=== PATIENT | female | born 1945 | race Caucasian/White ===

== ENCOUNTER 2024-01-01 08:19 | Outpatient (CLI) | payer MEDICARE, BC, SELFPAY | END 2024-01-01 08:20 | disposition home or self-care (01) | LOC: AMB 01-04 14:16 | PROVIDERS: Visit Provider Family Medicine | DX: R06.09 Other forms of dyspnea (principal) | CPT/HCPCS: A0425; A0427 ==

== ENCOUNTER 2024-01-01 09:01 | Inpatient (IN) | payer MEDICARE, BC, SELFPAY ==
[2024-01-01] VITALS (17 sets, daily range): BP systolic 128–156; BP diastolic 65–98; PULSE 53–85; RESP 18–22; TEMP 36.3–36.8; O2SAT 90–95; BMI 27.5; BMI 25.6
--- NOTE | 2024-01-01 09:34 | ED_ITS ---
HPI - SOB/Dyspnea General Time Seen by Provider: 09:34 Date Seen: 01/01/24 Chief Complaint: Shortness of Breath/Dyspnea Stated Complaint: shortness of breath Time Seen by Provider: 01/01/24 09:33 Source: patient, EMS and RN notes reviewed Mode of arrival: EMS Limitations: no limitations History of Present Illness HPI Narrative: This 78-year-old female is brought in from home by ambulance for shortness of breath. She called the ambulance because she was feeling short of breath. She is a long-term smoker, has not seen a doctor for over 10 years. She is having no chest pain. Has had a productive cough that is getting increasingly worse. No fevers or chills. She states her legs of always been thick when questioned about edema. She states her appetite is okay, has been eating and drinking fine. She is not taking any medicines. No chest pain. MD elicited complaint: shortness of breath and cough Related Data Home oxygen amount: none Home Medications Medication Instructions Recorded Confirmed doxylamine succinate 25 mg tablet 25 mg PO QHS 01/01/24 01/01/24 (Unisom (doxylamine)) naproxen sodium 220 mg capsule 220 mg PO HS 01/01/24 01/01/24 (Aleve) Allergies Allergy/AdvReac Type Severity Reaction Status Date / Time No Known Drug Allergies Allergy Verified 01/01/24 11:50 Review of Systems Status of ROS: Reports: 6 or more systems reviewed and unremarkable except as noted in History and below [facility] Medical History (Updated 01/01/24 @ 15:09 by Bubba Ernst MD) Peripheral vascular disease ?I73.9 - Peripheral vascular disease, unspecified (ICD-10) Elbow fracture, left ?S42.402A - Unspecified fracture of lower end of left humerus, initial encounter for closed fracture (ICD-10) Fracture of left tibia and fibula ?S82.202A - Unspecified fracture of shaft of left tibia, initial encounter for closed fracture (ICD-10) ?S82.402A - Unspecified fracture of shaft of left fibula, initial encounter for closed fracture (ICD-10) Left wrist fracture ?S62.102A - Fracture of unspecified carpal bone, left wrist, initial encounter for closed fracture (ICD-10) Coronary artery disease ?I25.10 - Atherosclerotic heart disease of [place] coronary artery without angina pectoris (ICD-10) Iron deficiency anemia ?D50.9 - Iron deficiency anemia, unspecified (ICD-10) Tobacco abuse disorder ?Z72.0 - Tobacco use (ICD-10) Chronic toe ulcer ?L97.509 - Non-pressure chronic ulcer of other part of unspecified foot with unspecified severity (ICD-10) Afib ?I48.91 - Unspecified atrial fibrillation (ICD-10) CHF (congestive heart failure) ?I50.9 - Heart failure, unspecified (ICD-10) COPD (chronic obstructive pulmonary disease) ?J44.9 - Chronic obstructive pulmonary disease, unspecified (ICD-10) Family History (Updated 01/01/24 @ 14:55 by Bubba Ernst MD) Mother Leukemia Sister Alzheimers disease Social History (Updated 01/01/24 @ 14:57 by Bubba Ernst MD) Narrative: 78-year-old female living independently in [facility]. No current primary care provider. Present in the hospital today with her daughter Muriel who lives in [place]. Also has a son Dakota who lives in [place]. Smoked for many years, quit 10 years ago and started smoking again 3 months ago. He drinks 2 beers per day. Reports no withdrawal symptoms if she does not drink for a day. Daughter and son are healthcare power of district attorney. Code status is DNR DNI What is your current living situation?: I presently have a place to live Problems where you live: no known problems Problems where you live details: N/A In the past 12 months, utilities in danger of being shut off: no In past 12 months, lack of transportation kept you from medical appts, meetings, work, or getting things needed for daily living: no In the past 12 mos, have been you worried that your food would run out before you had money to buy more?: never true In the past 12 mos, the food you bought just didn't last and you didn't have money to buy more?: never true Highest level of school completed/degree received: some college, no degree Smoking Status: Current every day smoker What tobacco products do you use: cigarettes How often do you have a drink containing alcohol: 4 or more times a week Alcohol type: beer How many standard drinks containing alcohol do you have on a typical day: 1 or 2 How often do you have six or more drinks on one occasion: Weekly AUDIT-C Alcohol total score: 7 Non-prescribed substance use: denies use Caffeine: Yes How often does anyone, including family, friends and others, physically hurt you : never How often does anyone, including family, friends and others, insult or talk down to you: never How often does anyone, including family, friends and others, threaten you with harm: never How often does anyone, including family, friends and others, scream or curse at you: never service: No Exam Const: Vital Signs, click to edit/add: Vital Signs - 24 hr 01/01/24 09:15 01/01/24 09:45 01/01/24 12:25 Temperature 97.4 F L Pulse Rate 53 L Pulse Rate [Right Pulse Oximeter] 85 Respiratory Rate 20 Blood Pressure Blood Pressure [Le ft Arm] Blood Pressure [Ri ght Upper Arm] 148/65 H Pulse Oximetry 94 94 95 Oxygen Delivery Me thod Room Air 01/01/24 12:30 01/01/24 12:31 01/01/24 13:22 Temperature 98 F Pulse Rate 61 68 Pulse Rate [Right Pulse Oximeter] 76 Respiratory Rate 22 Blood Pressure 135/68 Blood Pressure [Le ft Arm] 156/65 H Blood Pressure [Ri ght Upper Arm] Pulse Oximetry 93 92 90 Oxygen Delivery Me thod Room Air 01/01/24 13:31 Temperature Pulse Rate Pulse Rate [Right Pulse Oximeter] Respiratory Rate 22 Blood Pressure Blood Pressure [Le ft Arm] Blood Pressure [Ri ght Upper Arm] Pulse Oximetry 90 Oxygen Delivery Me thod Room Air This 78-year-old female is alert, interactive, no apparent distress. Doing some pursed lip breathing but she has no blueness or discoloration of the lips. Pupils are equal round, conjugate gaze sclera clear. Symmetrical facial function. Able to speak in complete sentences. Her pulse oximetry is not picking up a good waveform, fingers are a bit cool but not cyanotic. She has diminished breath sounds more so on the right base, maybe a few crackles there. Otherwise more just distant breath sounds elsewhere, no wheezing noted. CV is irregular, do not hear any significant murmur, normal S1-S2. Abdomen is soft, no rebound or guarding, no organomegaly. Her lower extremities have thickening of the skin, some bronzing color and pitting edema. She no pain in her lower extremities. She is moving all of her extremities equally. She has no focal neurologic change on gross examination. Note no tremor. While I was in with the patient she did go down into the 40s on the case monitor with atrial fibrillation. Shortly after I was in with the patient nursing staff noted that she had a drop into the 30s and 40s after being in the 80s on arrival. There is no change in her status clinically however. Documenting provider has reviewed patient's vital signs: yes Course Course ED Course: Have reviewed with this patient and on 2 female relatives with her that she has atrial fibrillation. We did review the significance of this as being a stroke issue long-term. We need to do more workup on this patient. We need to consider emphysema or COPD given her long-term smoking history, possible infectious or even underlying cancerous process in this right lung. Will start with a portable chest x-ray. Will get triple swab. She will be on cardiac monitoring and pulse oximetry. Will get a full complement of labs including cardiac as well as thyroid given that this patient has had no evaluation for over 10 years per Reevaluation(s) Time of Reevaluation #1: 11:11 Reevaluation #1: Reviewed my preliminary findings on her portable chest x-ray, do see a pleural effusion on the right, the could be a possible infiltrate at the base. With her coughing, respiratory symptoms as well as an elevated D-dimer which we did review, will proceed with chest CT PE protocol. Her heart rate is currently in the 60s, she is coughing some but not hypoxic. Will continue in our workup. Time of Reevaluation #2: 12:28 Consultations Consultation #1: Reviewed with hospitalist Brynn Keller, she accepts patient, will be giving 40mg IV Lasix. Time: 12:25 Vital Signs Vital signs: Initial Vital Signs Temperature 97.4 F L 01/01/24 09:15 Temperature Source Temporal Artery Scan 01/01/24 09:15 Pulse Rate 85 01/01/24 09:15 Respiratory Rate 20 01/01/24 09:15 Blood Pressure 148/65 H 01/01/24 09:15 Blood Pressure Mean 92 01/01/24 09:15 Blood Pressure Position Sitting 01/01/24 09:15 Pulse Oximetry 94 01/01/24 09:15 Oxygen Delivery Method Room Air 01/01/24 09:15 Vital Signs Temperature 97.4 F L 01/01/24 09:15 Pulse Rate 85 01/01/24 09:15 Respiratory Rate 20 01/01/24 09:15 Blood Pressure 148/65 H 01/01/24 09:15 Pulse Oximetry 94 01/01/24 09:15 Oxygen Delivery Method Room Air 01/01/24 09:15 Temperature 98 F 01/01/24 14:39 Pulse Rate 70 01/01/24 16:07 Respiratory Rate 22 01/01/24 15:00 Blood Pressure 156/65 H 01/01/24 14:39 Pulse Oximetry 91 01/01/24 15:00 Oxygen Delivery Method Room Air 01/01/24 15:00 Medications Administered Medications: Generic Name Dose Route Start Last Admin Trade Name Freq PRN Reason Stop Dose Admin Albuterol/Ipratropium 1 neb 01/01/24 17:00 01/01/24 16:36 Iprat-Albut 0.5-2.5 Mg/3 Ml Neb IH 1 neb QID CHARITO Administration Discontinued Medications Generic Name Dose Route Start Last Admin Trade Name Freq PRN Reason Stop Dose Admin Furosemide 40 mg 01/01/24 12:28 01/01/24 12:55 Furosemide 10 Mg/Ml Inj IVP 01/01/24 12:29 40 mg ONCE ONE Administration Potassium Bicarbonate 50 meq 01/01/24 14:34 01/01/24 15:19 Potassium Bicarb 25 Meq Effervescent Tab PO 01/01/24 14:35 50 meq ONCE ONE Administration MDM - SOB/Dyspnea Lab Data Attestation: I reviewed the patient's lab results. Labs: Lab Results 01/01/24 01/01/24 01/01/24 Range/Units 09:55 09:55 09:55 WBC 10.71 (4.50-11.00) K/uL RBC 4.01 (4.00-5.20) m/uL Hgb 10.8 L (12.0-16.0) gm/dL Hct 33.6 (33.0-51.0) % MCV 84 (80-100) fL MCH 27 (26-34) pg MCHC 32 (32-36) gm/dL RDW Coeff of Jaimie 14.9 (11.5-15.5) % Plt Count 293 (140-440) K/uL Neut % (Auto) 54.0 (42.0-72.0) % Lymph % (Auto) 13.9 L (20-44) % [facility] % (Auto) 27.5 H (0.0-11.0) % Eos % (Auto) 0.0 (0.0-7.0) % Baso % (Auto) 0.6 (0.0-3.0) % Neut # (Auto) 5.78 (1.7-7.0) K/uL Lymph # (Auto) 1.50 (0.90-2.90) K/uL [facility] # (Auto) 2.90 H (0.00-0.90) K/UL Eos # (Auto) 0.00 (0.00-0.50) K/uL Baso # (Auto) 0.06 (0.00-0.30) K/uL Abs Immat Gran (auto) 0.43 H (0.00-0.30) K/uL Imm/Tot Granulo (auto) 4.0 % Diff Slide Review Acceptable Review (Acceptable) Absolute Retic 0.08 (0.03-0.08) # Percent Retic 2.0 (0.5-2.0) % Immature Retic Fraction 13.3 (3.0-15.9) % Retic Hgb Equivalent 21.2 L (29.0-35.0) pg INR 1.17 H (0.91-1.10) APTT 37 H Cancelled (23-33) Seconds D-Dimer Quant (PE/DVT) 1.53 H (0.00-0.50) ug/ml VBG pH 7.387 (7.32-7.43) VBG pCO2 41 (40-50) mmHG VBG pO2 < 30.1 (25-47) mmHG VBG HCO3 25 (21-28) mmol/L Sodium 139 (135-149) mmol/L Potassium 4.0 (3.6-5.1) mmol/L Chloride 113 (96-114) mmol/L Carbon Dioxide 22 (20-32) mmol/L Anion Gap 4 L (7-15) mEq/L BUN 11 (7-30) mg/dL Creatinine 0.8 (0.5-1.5) mg/dL Estimated Creat Clear 38.35 Estimated GFR 75 ml/min Glucose 91 (60-115) mg/dL Lactate 1.3 (0.5-1.9) mmol/L Calcium 8.3 L (8.4-10.6) mg/dL Magnesium 1.9 (1.5-2.6) mg/dL Iron Cancelled TIBC Cancelled % Saturation Cancelled Ferritin Cancelled Total Bilirubin 0.7 (0.1-1.5) mg/dL AST 17 (12-35) U/L ALT 19 (4-35) U/L Alkaline Phosphatase 85 (40-150) U/L Troponin I < 0.01 L Cancelled (0.01-0.04) ng/mL C-Reactive Protein 2.8 H (0.5-1.0) mg/dL NT-Pro-B Natriuret Pep 5860 pg/mL Total Protein 6.9 (6.0-8.3) g/dL Albumin 3.1 L (3.3-5.0) g/dL Procalcitonin 0.09 (<0.50) ng/mL TSH 4.600 H (0.270-4.200) uIU/mL Free T4 1.34 (0.70-1.85) ng/dL SARS-CoV-2 (PCR) Negative SARS-CoV-2 (Negative) Influenza Type A (PCR) Negative PCR FLU A (Negative) Influenza Type B (PCR) Negative PCR FLU B (Negative) RSV (PCR) Negative PCR RSV (Negative) Lab Acknowledgement 01/01/24 01/01/24 Range/Units 11:15 12:51 WBC (4.50-11.00) K/uL RBC (4.00-5.20) m/uL Hgb (12.0-16.0) gm/dL Hct (33.0-51.0) % MCV (80-100) fL MCH (26-34) pg MCHC (32-36) gm/dL RDW Coeff of Jaimie (11.5-15.5) % Plt Count (140-440) K/uL Neut % (Auto) (42.0-72.0) % Lymph % (Auto) (20-44) % [facility] % (Auto) (0.0-11.0) % Eos % (Auto) (0.0-7.0) % Baso % (Auto) (0.0-3.0) % Neut # (Auto) (1.7-7.0) K/uL Lymph # (Auto) (0.90-2.90) K/uL [facility] # (Auto) (0.00-0.90) K/UL Eos # (Auto) (0.00-0.50) K/uL Baso # (Auto) (0.00-0.30) K/uL Abs Immat Gran (auto) (0.00-0.30) K/uL Imm/Tot Granulo (auto) % Diff Slide Review (Acceptable) Absolute Retic (0.03-0.08) # Percent Retic (0.5-2.0) % Immature Retic Fraction (3.0-15.9) % Retic Hgb Equivalent (29.0-35.0) pg INR (0.91-1.10) APTT (23-33) Seconds D-Dimer Quant (PE/DVT) (0.00-0.50) ug/ml VBG pH (7.32-7.43) VBG pCO2 (40-50) mmHG VBG pO2 (25-47) mmHG VBG HCO3 (21-28) mmol/L Sodium (135-149) mmol/L Potassium (3.6-5.1) mmol/L Chloride (96-114) mmol/L Carbon Dioxide (20-32) mmol/L Anion Gap (7-15) mEq/L BUN (7-30) mg/dL Creatinine (0.5-1.5) mg/dL Estimated Creat Clear Estimated GFR ml/min Glucose (60-115) mg/dL Lactate (0.5-1.9) mmol/L Calcium (8.4-10.6) mg/dL Magnesium (1.5-2.6) mg/dL Iron 35 L TIBC 387 % Saturation 9 L Ferritin 21.5 Total Bilirubin (0.1-1.5) mg/dL AST (12-35) U/L ALT (4-35) U/L Alkaline Phosphatase (40-150) U/L Troponin I (0.01-0.04) ng/mL C-Reactive Protein (0.5-1.0) mg/dL NT-Pro-B Natriuret Pep pg/mL Total Protein (6.0-8.3) g/dL Albumin (3.3-5.0) g/dL Procalcitonin (<0.50) ng/mL TSH (0.270-4.200) uIU/mL Free T4 (0.70-1.85) ng/dL SARS-CoV-2 (PCR) (Negative) Influenza Type A (PCR) (Negative) Influenza Type B (PCR) (Negative) RSV (PCR) (Negative) Lab Acknowledgement Test Added Imaging Data Chest x-ray: Attestation: I have reviewed the pertinent imaging results. My impression: Certainly see pleural effusion on right side. Await Radiology over-read peer Radiologist's impression: Patient: PEG LOVING Facility:?[facility] Patient ID:?[id number] Site Patient ID:?[id number]. Site :?1945 Study:?XRay Chest PCXR-01/01/2024 11:07:19 AM Ordering Physician:THERESA Final Report: Indication: Cough and shortness of breath Comparison: None available. Technique: Single AP view chest Findings: There is hyperinflation and chronic interstitial change. Bjbfr-pxgtzxo-touw-left basilar pleural effusions with adjacent compressive atelectasis versus infiltrates. There is no pneumothorax. The cardiac silhouette is enlarged. The bony thorax is grossly intact. Impression: Umhhy-cfomnql-fppv-left basilar pleural effusions with adjacent compressive atelectasis versus infiltrates. Mildly increased interstitial markings likely representing minimal pulmonary edema. Dictated by Wyatt Rocha MD @ 01/01/2024 11:32:35 AM (Electronic Signature) CT scan - chest: Attestation: I have reviewed the pertinent imaging results. My impression: Did visualize her chest CT, do see bilateral pleural effusions, right greater than left. Await Radiology over-read for full formal report. Radiologist's impression: Patient: PEG RAMON Facility:?[facility] Patient ID:?[id number] Site Patient ID:?[id number]. Site :?1945 Study:?CT Chest PE 95CC ISOVUE 370-01/01/2024 11:50:34 AM Ordering Physician:?DR. YOO Final Report: INDICATION: Cough, smoker, elevated D-dimer. TECHNIQUE: CT chest PE was acquired with 95 cc Isovue 370 IV contrast. COMPARISON: Chest x-ray, January 01, 2024. FINDINGS: Heart and vasculature: Contrast opacification of the pulmonary arterial tree is adequate. No sign of pulmonary embolism. Cardiomegaly with coronary artery calcifications. Thoracic aorta and pulmonary artery are normal in caliber. Lungs and pleura: Pulmonary emphysema. Pulmonary edema. Small to moderate bilateral pleural effusions greater on the right side with compressive atelectasis. No pneumothorax. Lymph nodes/mediastinum: No mediastinal, hilar, or axillary adenopathy. Chest wall: No masses. Upper abdomen: No acute or significant findings. Bones: Age indeterminate mild T6 superior endplate compression deformity. Recommend correlation with point tenderness. IMPRESSION: No pulmonary embolism Sequela of CHF, including mild pulmonary edema and small to moderate bilateral pleural effusions. Pulmonary emphysema. Cardiomegaly with coronary artery calcifications. Please note that all CT scans at this facility use dose modulation, iterative reconstruction, and/or weight-based dosing when appropriate to reduce radiation dose to as low as reasonably achievable. Dictated by Robin Joiner MD @ 01/01/2024 12:17:17 PM (Electronic Signature) ECG Data Attestation: I personally reviewed and interpreted this ECG as follows: ( atrial fibrillation, inferolateral as well as possible anterior flipped T-waves without definite ST segment changes. QT corrected 548 milliseconds.) ECG interpretation date: 01/01/24 ECG interpretation time: 09:52 Prior ECG tracings: not available for review Discharge Plan Discharge Patient Disposition: Admitted As Observation
--- NOTE | 2024-01-01 09:45 | XR_ITS ---
Patient: PEG RAMON Facility:?[facility] Patient ID:?[id number] Site Patient ID:?[id number]. Site :?1945 Study:?XRay-Chest PCXR-01/01/2024 11:07:19 AM Ordering Physician:THERESA Final Report: Indication: Cough and shortness of breath Comparison: None available. Technique: Single AP view chest Findings: There is hyperinflation and chronic interstitial change. Iytto-uojbrle-ejut-left basilar pleural effusions with adjacent compressive atelectasis versus infiltrates. There is no pneumothorax. The cardiac silhouette is enlarged. The bony thorax is grossly intact. Impression: Pzfvz-hrujejo-gwcq-left basilar pleural effusions with adjacent compressive atelectasis versus infiltrates. Mildly increased interstitial markings likely representing minimal pulmonary edema. Dictated by Wyatt Rocha MD @ 01/01/2024 11:32:35 AM Signed by:?Wyatt Rocha MD @01/01/2024 11:32:35 AM (Electronic Signature)
[2024-01-01 10:08] LABS: HCO3 VBG 25 mmol/L (21-28); PCO2 VBG 41 mmHG (40-50); PO2 VBG < 30.1 mmHG (25-47); pH VBG 7.387 (7.32-7.43)
[2024-01-01 10:10] LABS: Lactate* 1.3 mmol/L (0.5-1.9)
[2024-01-01 10:13] LABS: Basophils Absolute Auto 0.06 K/uL (0.00-0.30); Basophils Percent Auto 0.6 % (0.0-3.0); Hematocrit 33.6 % (33.0-51.0); Hemoglobin* 10.8 gm/dL (12.0-16.0); Immature Granulocytes Abs Auto 0.43 K/uL (0.00-0.30); Lymphocytes Percent Auto 13.9 % (20-44); Mean Corpuscular HGB Conc 32 gm/dL (32-36); Mean Corpuscular Hemoglobin 27 pg (26-34); Mean Corpuscular Volume 84 fL (80-100); Monocytes Percent Auto 27.5 % (0.0-11.0); Neutrophils Absolute Auto 5.78 K/uL (1.7-7.0); Platelet Count* 293 K/uL (140-440); RDW Coefficient of Variation % 14.9 % (11.5-15.5); Red Blood Count 4.01 m/uL (4.00-5.20); White Blood Count* 10.71 K/uL (4.50-11.00)
[2024-01-01 10:28] LABS: Slide Review Reflex Yes
[2024-01-01 10:29] LABS: Albumin* 3.1 g/dL (3.3-5.0); Chloride* 113 mmol/L (96-114); Sodium* 139 mmol/L (135-149)
[2024-01-01 10:31] LABS: Creatinine* 0.8 mg/dL (0.5-1.5); Est. Creatinine Clearance* 38.35; Estimated Glomerular Filt Rate 75 ml/min
[2024-01-01 10:32] LABS: Alanine Aminotransferase* 19 U/L (4-35); Alkaline Phosphatase* 85 U/L (40-150); Anion Gap 4 mEq/L (7-15); Aspartate Amino Transferase* 17 U/L (12-35); Bilirubin Total* 0.7 mg/dL (0.1-1.5); Blood Urea Nitrogen* 11 mg/dL (7-30); Carbon Dioxide* 22 mmol/L (20-32); Glucose* 91 mg/dL (60-115); Total Protein* 6.9 g/dL (6.0-8.3)
[2024-01-01 10:33] LABS: Calcium* 8.3 mg/dL (8.4-10.6); INR 1.17 (0.91-1.10); Magnesium* 1.9 mg/dL (1.5-2.6); Partial Thromboplastin Time* 37 Seconds (23-33); Prothrombin Time 15.7 Seconds
[2024-01-01 10:35] LABS: C Reactive Protein* 2.8 mg/dL (0.5-1.0)
[2024-01-01 10:36] LABS: D Dimer Quantitative* 1.53 ug/ml (0.00-0.50)
[2024-01-01 10:45] LABS: NT Pro B Type NatriureticPept* 5860 pg/mL
[2024-01-01 10:47] LABS: PCR FLU A Negative PCR FLU A (Negative); PCR FLU B Negative PCR FLU B (Negative); PCR RSV Negative PCR RSV (Negative); SARS PCR* Negative SARS-CoV-2 (Negative); Troponin I* < 0.01 ng/mL (0.01-0.04)
[2024-01-01 10:49] LABS: Procalcitonin* 0.09 ng/mL (<0.50)
--- NOTE | 2024-01-01 11:12 | CT_ITS ---
Patient: PEG RAMON Facility:?[facility] Patient ID:?[id number] Site Patient ID:?[id number]. Site :?1945 Study:?CT-Chest PE 95CC ISOVUE 370-01/01/2024 11:50:34 AM Ordering Physician:?DR. YOO Final Report: INDICATION: Cough, smoker, elevated D-dimer. TECHNIQUE: CT chest PE was acquired with 95 cc Isovue 370 IV contrast. COMPARISON: Chest x-ray, January 01, 2024. FINDINGS: Heart and vasculature: Contrast opacification of the pulmonary arterial tree is adequate. No sign of pulmonary embolism. Cardiomegaly with coronary artery calcifications. Thoracic aorta and pulmonary artery are normal in caliber. Lungs and pleura: Pulmonary emphysema. Pulmonary edema. Small to moderate bilateral pleural effusions greater on the right side with compressive atelectasis. No pneumothorax. Lymph nodes/mediastinum: No mediastinal, hilar, or axillary adenopathy. Chest wall: No masses. Upper abdomen: No acute or significant findings. Bones: Age indeterminate mild T6 superior endplate compression deformity. Recommend correlation with point tenderness. IMPRESSION: No pulmonary embolism Sequela of CHF, including mild pulmonary edema and small to moderate bilateral pleural effusions. Pulmonary emphysema. Cardiomegaly with coronary artery calcifications. Please note that all CT scans at this facility use dose modulation, iterative reconstruction, and/or weight-based dosing when appropriate to reduce radiation dose to as low as reasonably achievable. Dictated by Robin Joiner MD @ 01/01/2024 12:17:17 PM Signed by:?Robin Joiner MD @01/01/2024 12:17:17 PM (Electronic Signature)
[2024-01-01 11:28] LABS: Immature Reticulocyte Fraction 13.3 % (3.0-15.9); Reticulocyte Hemoglobin Equivi 21.2 pg (29.0-35.0); Reticulocytes Absolute 0.08 # (0.03-0.08)
[2024-01-01 11:42] LABS: Free T4 Free Thyroxine* 1.34 ng/dL (0.70-1.85)
[2024-01-01] MEDS: FUROSEMIDE 10 MG/ML inj 40 MG IVP (12:55)
[2024-01-01 13:30] LABS: Iron* 35 ug/dL (37-170)
[2024-01-01 13:39] LABS: Percent Iron Saturation 9 % (20-50); Total Iron Binding Capacity 387 ug/dL (265-497)
[2024-01-01 14:07] LABS: Ferritin* 21.5 ng/mL (11.1-264.0)
--- NOTE | 2024-01-01 14:23 | XR_ITS ---
Patient: PEG RAMON Facility:?[facility] Patient ID:?[id number] Site Patient ID:?[id number]. Site :?1945 Study:?XRay-Extremity Left GREAT TOE 3 VIEWS-01/01/2024 3:54:23 PM Ordering Physician:JOHN Final Report: Indication: Ulceration Comparison: None available. Technique: AP, lateral, and oblique views left 1st digit were obtained. Findings: There is demonstration of osteolysis of the distal 1st digit commensurate with developing osteomyelitis changes. There is an age-indeterminate fracture of the distal 5th metatarsal. Hammertoe changes of the 4th and 5th digits are appreciated. Marked soft tissue swelling and subcutaneous emphysema of the distal 1st digit. Impression: Soft tissue swelling and subcutaneous emphysema of the distal 1st digit with osteolysis of the distal 1st digit consistent with osteomyelitis changes. Age-indeterminate fracture of the distal 5th metatarsal. Dictated by Wyatt Rocha MD @ 01/01/2024 4:13:45 PM Signed by:?Wyatt Rocha MD @01/01/2024 4:13:45 PM (Electronic Signature)
[2024-01-01 14:31] LABS: Slide Review Acceptable Review (Acceptable)
--- NOTE | 2024-01-01 14:43 | P.IMHP_ITS ---
Hospitalist- H&P: HPI History of Present Illness Date Seen: 01/01/24 Chief complaint: Possible heart attack Narrative: Yazmin Ramon is a 78 year old female with limited past medical history presents emergency room with weeks to months of progressive dyspnea. Patient reports starting few months ago she began to note dyspnea with exertion. It has got gradually worse. Along with this he has developed a cough that is getting worse as well. She has not had a fever. She does not have chest pain. She denies orthopnea or nocturnal dyspnea. She reports that she walks up a flight of stairs and she has to stop once or twice to catch her breath. She has not had any other respiratory illness symptoms. She reports no past history of heart or lung disease. She acknowledges smoking cigarettes. She has a long-term smoker who was able to abstain from cigarettes for about 10 years until the beginning of this year when she started smoking again, about 3 months ago. She is noted to be in atrial fibrillation. She is aware of palpitations with exertion but no tachy palpitations otherwise. No syncope. She does have chronic lower extremity edema. She is unsure if that has changed recently. She has an ulcer on her left great toe that had been present for about a year. She dropped something on her toe about a year ago. It turned black and blue in the nail fell off but the toe never healed. There has been a open ulcer there sense. She was found to have iron deficiency anemia with a hemoglobin of 10.8. No history of bleeding. No melena or hematochezia. No history of anemia. Review of Systems Narrative: Patient does not have routine medical care. Her last visit to a healthcare provider was 09/13/2011 when she had a preop evaluation for ORIF of a left elbow fracture. [facility] Medical History (Updated 01/01/24 @ 15:09 by Bubba Ernst MD) Peripheral vascular disease ?I73.9 - Peripheral vascular disease, unspecified (ICD-10) Elbow fracture, left ?S42.402A - Unspecified fracture of lower end of left humerus, initial encounter for closed fracture (ICD-10) Fracture of left tibia and fibula ?S82.202A - Unspecified fracture of shaft of left tibia, initial encounter for closed fracture (ICD-10) ?S82.402A - Unspecified fracture of shaft of left fibula, initial encounter for closed fracture (ICD-10) Left wrist fracture ?S62.102A - Fracture of unspecified carpal bone, left wrist, initial encounter for closed fracture (ICD-10) Coronary artery disease ?I25.10 - Atherosclerotic heart disease of [place] coronary artery without angina pectoris (ICD-10) Iron deficiency anemia ?D50.9 - Iron deficiency anemia, unspecified (ICD-10) Tobacco abuse disorder ?Z72.0 - Tobacco use (ICD-10) Chronic toe ulcer ?L97.509 - Non-pressure chronic ulcer of other part of unspecified foot with unspecified severity (ICD-10) Afib ?I48.91 - Unspecified atrial fibrillation (ICD-10) CHF (congestive heart failure) ?I50.9 - Heart failure, unspecified (ICD-10) COPD (chronic obstructive pulmonary disease) ?J44.9 - Chronic obstructive pulmonary disease, unspecified (ICD-10) Family History (Updated 01/01/24 @ 14:55 by Bubba Ernst MD) Mother Leukemia Sister Alzheimers disease Social History (Updated 01/01/24 @ 14:57 by Bubba Ernst MD) Narrative: 78-year-old female living independently in [facility]. No current primary care provider. Present in the hospital today with her daughter Muriel who lives in [place]. Also has a son Dakota who lives in [place]. Smoked for many years, quit 10 years ago and started smoking again 3 months ago. He drinks 2 beers per day. Reports no withdrawal symptoms if she does not drink for a day. Daughter and son are healthcare power of consumer attorney. Code status is DNR DNI What is your current living situation?: I presently have a place to live Problems where you live: no known problems Problems where you live details: N/A In the past 12 months, utilities in danger of being shut off: no In past 12 months, lack of transportation kept you from medical appts, meetings, work, or getting things needed for daily living: no In the past 12 mos, have been you worried that your food would run out before you had money to buy more?: never true In the past 12 mos, the food you bought just didn't last and you didn't have money to buy more?: never true Highest level of school completed/degree received: some college, no degree Smoking Status: Current every day smoker What tobacco products do you use: cigarettes How often do you have a drink containing alcohol: 4 or more times a week Alcohol type: beer How many standard drinks containing alcohol do you have on a typical day: 1 or 2 How often do you have six or more drinks on one occasion: Weekly AUDIT-C Alcohol total score: 7 Non-prescribed substance use: denies use Caffeine: Yes How often does anyone, including family, friends and others, physically hurt you : never How often does anyone, including family, friends and others, insult or talk down to you: never How often does anyone, including family, friends and others, threaten you with harm: never How often does anyone, including family, friends and others, scream or curse at you: never service: No Meds Home Medications and Allergies Home Medications Medication Instructions Recorded Confirmed Type doxylamine succinate 25 mg tablet 25 mg PO QHS 01/01/24 01/01/24 History (Unisom (doxylamine)) naproxen sodium 220 mg capsule 220 mg PO HS 01/01/24 01/01/24 History (Aleve) Allergies Allergy/AdvReac Type Severity Reaction Status Date / Time No Known Drug Allergies Allergy Verified 01/01/24 11:50 Exam Narrative: Exam Narrative: She is alert and gives her own history. She appears mildly dyspneic at rest with tachypnea. Eyes are normal. Sclerae nonicteric. Extraocular movements are full. Visual kemp are intact. Pupils are equal round reactive to light. There is no facial asymmetry. Oropharynx with midline tongue. Dental restorations noted. No mucosal abnormalities. Neck is supple without mass or adenopathy or tenderness. Respirations with diminished breath sounds throughout all lung kemp. She has mildly prolonged expiratory phase. Decreased breath sounds at the bases right greater than left. Few crackles at the bases right greater than left. Cardiovascular: S1, S2, irregularly irregular. Distant heart sounds. Abdomen: Bowel sounds active. Abdomen is soft without tenderness or mass. Extremities with 2+ edema in the right leg and 1+ edema in the left leg. Marked diminished pulses in both feet. Feet are mildly cool to touch with sluggish capillary refill bilaterally. Toenails in need of trimming. Left great toe with absent toenail and large ulcer over the dorsum of the distal phalanx which is foul smelling. Mild surrounding erythema. She has intact opumzy-lshk-yxagla and heel-quick testing bilaterally. Strength testing in upper and lower extremities is 5/5 in shoulder flexion and extension, elbow flexion and extension, wrist flexion extension and finger extension bilaterally. Strength testing in the lower extremity shows hip flexion is mildly weak bilaterally at 5- over 5. Knee flexion and extension and ankle dorsiflexion and plantar flexion is 5/5 bilaterally. Const: Vital Signs, click to edit/add: Vital Signs - 24 hr 01/01/24 09:15 01/01/24 09:45 01/01/24 12:25 Temperature 97.4 F L Pulse Rate 53 L Pulse Rate [Right Pulse Oximeter] 85 Respiratory Rate 20 Blood Pressure Blood Pressure [Le ft Arm] Blood Pressure [Ri ght Upper Arm] 148/65 H Pulse Oximetry 94 94 95 Oxygen Delivery Me thod Room Air 01/01/24 12:30 01/01/24 12:31 01/01/24 13:22 Temperature 98 F Pulse Rate 61 68 Pulse Rate [Right Pulse Oximeter] 76 Respiratory Rate 22 Blood Pressure 135/68 Blood Pressure [Le ft Arm] 156/65 H Blood Pressure [Ri ght Upper Arm] Pulse Oximetry 93 92 90 Oxygen Delivery Me thod Room Air 01/01/24 13:31 01/01/24 14:39 Temperature 98 F Pulse Rate Pulse Rate [Right Pulse Oximeter] 76 Respiratory Rate 22 22 Blood Pressure Blood Pressure [Le ft Arm] 156/65 H Blood Pressure [Ri ght Upper Arm] Pulse Oximetry 90 90 Oxygen Delivery Me thod Room Air Room Air Documenting provider has reviewed patient's vital signs: yes Hospitalist - H&P: Result Labs Labs: Short CBC 01/01/24 Range/Units 09:55 WBC 10.71 (4.50-11.00) K/uL Hgb 10.8 L (12.0-16.0) gm/dL Hct 33.6 (33.0-51.0) % Plt Count 293 (140-440) K/uL BMP 01/01/24 09:55 Sodium 139 Potassium 4.0 Chloride 113 Carbon Dioxide 22 BUN 11 Creatinine 0.8 Glucose 91 Calcium 8.3 L Cardiac Enzymes 01/01/24 01/01/24 Range/Units 09:55 09:55 Troponin I < 0.01 L Cancelled (0.01-0.04) ng/mL Liver Function 01/01/24 Range/Units 09:55 Total Bilirubin 0.7 (0.1-1.5) mg/dL AST 17 (12-35) U/L ALT 19 (4-35) U/L Alkaline Phosphatase 85 (40-150) U/L Albumin 3.1 L (3.3-5.0) g/dL ECG Attestation: I personally reviewed and interpreted this ECG as follows: (Atrial fibrillation with a rate of 73. She has marked ST inversions in 1 to aVL AVF and V2 to V6. QTc is 548 milliseconds) [address] scan - chest: Radiologist's impression: Patient: YAZMIN RAMON Facility:?[facility] Patient ID:?[id number] Site Patient ID:?[id number]. Site :?[id number] Study:?CT-Chest PE 95CC ISOVUE 370-01/01/2024 11:50:34 AM Ordering Physician:?DR. YOO Final Report: INDICATION: Cough, smoker, elevated D-dimer. TECHNIQUE: CT chest PE was acquired with 95 cc Isovue 370 IV contrast. COMPARISON: Chest x-ray, January 01, 2024. FINDINGS: Heart and vasculature: Contrast opacification of the pulmonary arterial tree is adequate. No sign of pulmonary embolism. Cardiomegaly with coronary artery calcifications. Thoracic aorta and pulmonary artery are normal in caliber. Lungs and pleura: Pulmonary emphysema. Pulmonary edema. Small to moderate bilateral pleural effusions greater on the right side with compressive atelectasis. No pneumothorax. Lymph nodes/mediastinum: No mediastinal, hilar, or axillary adenopathy. Chest wall: No masses. Upper abdomen: No acute or significant findings. Bones: Age indeterminate mild T6 superior endplate compression deformity. Recommend correlation with point tenderness. IMPRESSION: No pulmonary embolism Sequela of CHF, including mild pulmonary edema and small to moderate bilateral pleural effusions. Pulmonary emphysema. Cardiomegaly with coronary artery calcifications. Assessment and Plan Assessment and plan (1) CHF (congestive heart failure): Problem comment: Primary cause of hypoxic respiratory failure. Diurese, obtain echo, guideline directed therapy. Status: Acute (2) Afib: Problem comment: Rate controlled. Continue to monitor. Anticoagulate cautiously - with iron deficiency anemia monitor for GI bleeding. Status: Acute (3) COPD (chronic obstructive pulmonary disease): Problem comment: Likely contributing to hypoxia and dyspnea as well. Initiate nebulizers. Will hold on systemic steroids for now. Guideline directed therapy on discharge Status: Acute (4) Chronic toe ulcer: Problem comment: Obtain x-ray and wound consult. Status: Acute (5) Iron deficiency anemia: Problem comment: Obtain peripheral smear. Check stool for blood. Outpatient endoscopy to further evaluate if stable Status: Acute (6) Hypoxic respiratory failure: Problem comment: Treat CHF and COPD and monitor Status: Acute (7) Coronary artery disease: Problem comment: Statin, monitor, Status: Acute (8) Peripheral vascular disease: Problem comment: Diminished pedal pulses bilaterally. May impact wound healing of the left great toe Status: Acute (9) Tobacco abuse disorder: Problem comment: Recommend cessation Status: Acute Plan Patient is admitted to the hospital for evaluation treatment of hypoxic respiratory failure due to heart failure. Evaluate and treat heart failure, COPD, toe ulcer, iron deficiency anemia. Anticipate minimum 2 nights in the hospital for evaluation treatment. Total Time Spent Total Time Spent: Total time spent is 80 minutes, 50 minutes in coordination care discussing with patient and daughter and other providers ongoing evaluation management of heart failure and COPD toe ulcer and anemia
[2024-01-01] MEDS: POTASSIUM BICARB 25 MEQ EFFERVESCENT TAB 50 MEQ PO (15:19)
--- NOTE | 2024-01-01 16:24 | RESP.RT ---
Pt seen. Sitting up in Bed, on RA, SPO2 89% BBS decreased in all areas. She is comfortable, speaking in full sentences, RR 16. Pt has never had any work up for COPD, or using any meds. PT with harsh congested cough. Started on aerobika, she works really well with it. Done for 5 minutes. VBG is satisfactory. Would not give pt greater than 2L oxygen if needed without checking another VBG. Would start on duonebs Q4 and see how she does, if there is any improvement in Lung aeration. She will not strong follow up with education, smoking cessation, and PFTs.
[2024-01-01] MEDS: IPRAT-ALBUT 0.5-2.5 MG/3 ML NEB 1 NEB IH ×2 (16:36→20:11)
--- NOTE | 2024-01-01 17:26 | PC.NURSE ---
Addendum entered by Patricia Marquez RN 01/01/24 18:35: Patient removed urine hat from toilet, given education on importance of measuring urine while on lasix, hat replated. Original Note: End of Shift: Patient pleasant and cooperative, A&O. VSS, SpO2 maintained above 90% on RA, shes has SOB, recovers quickly after ambulation. Tele shows A-fib, rate controlled. +2 pidding edema, damaso socks applied. During assessment, ulcer on left great toe noted, MD notified, X-ray ordered, patient denies pain. Tolerates regular diet, denies nausea. Ambulates independently. Recieved lasix in the ED, has been voiding large amounts.
[2024-01-01] MEDS: ACETAMINOPHEN 325 MG TABLET 650 MG PO (20:12)
[2024-01-01] MEDS: MELATONIN 3 MG TABLET PO (20:13)
[2024-01-01] MEDS: SENNOSIDES 1 TAB TABLET PO (20:14)
[2024-01-01] MEDS: SODIUM CHLORIDE 0.9 % (FLUSH) 10 ML SYRINGE 5 ML IVF (20:14)
[2024-01-01] MEDS: APIXABAN 5 MG TABLET PO (20:14)
[2024-01-02] VITALS (15 sets, daily range): BP systolic 102–160; BP diastolic 61–98; PULSE 43–85; RESP 18–20; TEMP 36.4–36.9; O2SAT 90–94
--- NOTE | 2024-01-02 01:24 | PC.NURSE ---
@ 0100 pt Sats dipped to mid 80s, 2L NC was placed and Pt recovered to lower 90s quickly.
[2024-01-02 01:38] LABS: Fecal Occult Blood* Positive (Negative)
--- NOTE | 2024-01-02 04:53 | PC.NURSE ---
Pt up IND in room. Becomes SOB with ambulating. Had to be placed on 2L NC overnight. Pt states she feels much better with O2 on. Pt states zero pain. Afebrile. Tele showing Afib.
[2024-01-02 06:25] LABS: HCO3 VBG 26 mmol/L (21-28); PCO2 VBG 45 mmHG (40-50); PO2 VBG < 30.1 mmHG (25-47); pH VBG 7.367 (7.32-7.43)
[2024-01-02 06:37] LABS: Basophils Percent Auto 0.3 % (0.0-3.0); Hematocrit 33.2 % (33.0-51.0); Hemoglobin* 10.6 gm/dL (12.0-16.0); Immature Granulocytes Pct Auto 2.1 %; Lymphocytes Percent Auto 14.3 % (20-44); Mean Corpuscular HGB Conc 32 gm/dL (32-36); Mean Corpuscular Hemoglobin 27 pg (26-34); Mean Corpuscular Volume 84 fL (80-100); Monocytes Percent Auto 21.3 % (0.0-11.0); Platelet Count* 307 K/uL (140-440); RDW Coefficient of Variation % 15.4 % (11.5-15.5); Red Blood Count 3.95 m/uL (4.00-5.20); White Blood Count* 14.99 K/uL (4.50-11.00)
[2024-01-02 06:46] LABS: Chloride* 112 mmol/L (96-114)
[2024-01-02 06:47] LABS: Potassium* 4.7 mmol/L (3.6-5.1); Sodium* 139 mmol/L (135-149)
[2024-01-02 06:49] LABS: Estimated Glomerular Filt Rate 58 ml/min
[2024-01-02 06:50] LABS: Anion Gap 1 mEq/L (7-15); Blood Urea Nitrogen* 14 mg/dL (7-30); Calcium* 8.4 mg/dL (8.4-10.6); Carbon Dioxide* 26 mmol/L (20-32); Glucose* 115 mg/dL (60-115)
[2024-01-02 06:53] LABS: C Reactive Protein* 2.8 mg/dL (0.5-1.0)
--- NOTE | 2024-01-02 06:54 | P.PODCN_ITS ---
[facility] - Podiatry Data of Consult Time Seen by Provider: 06:35 Date Seen: 01/02/24 Patient: Other Consult date: 01/02/24 Requesting physician: Bubba Ernst MD Primary care provider: Not a Local Provider Consult Narrative Reason for consult: Nonhealing wound left great toe with underlying osteomyelitis Narrative: Yazmin Gutierrez is a 78 year old female seen bedside this a.m. for left great toe wound with underlying osteomyelitis. She states she dropped something on the toe and that she pulled the nail off herself. She relates to me that this was 3-4 months ago. She states it does not drain. She denies any significant pain. She has not been using any sort of dressing on the toe. From H&P: This 78-year-old female is brought in from home by ambulance for shortness of breath. She called the ambulance because she was feeling short of breath. She is a long-term smoker, has not seen a doctor for over 10 years. She is having no chest pain. Has had a productive cough that is getting increasingly worse. No fevers or chills. She states her legs of always been thick when questioned about edema. She states her appetite is okay, has been eating and drinking fine. She is not taking any medicines. No chest pain. MD elicited complaint: shortness of breath and cough. cc:: CC: Bubba Ernst MD Review of Systems Status of ROS: Reports: 10 or more systems reviewed and unremarkable except as noted in History and below [facility] Medical History (Updated 01/01/24 @ 15:09 by Bubba Ernst MD) Peripheral vascular disease ?I73.9 - Peripheral vascular disease, unspecified (ICD-10) Elbow fracture, left ?S42.402A - Unspecified fracture of lower end of left humerus, initial encounter for closed fracture (ICD-10) Fracture of left tibia and fibula ?S82.202A - Unspecified fracture of shaft of left tibia, initial encounter for closed fracture (ICD-10) ?S82.402A - Unspecified fracture of shaft of left fibula, initial encounter for closed fracture (ICD-10) Left wrist fracture ?S62.102A - Fracture of unspecified carpal bone, left wrist, initial encounter for closed fracture (ICD-10) Coronary artery disease ?I25.10 - Atherosclerotic heart disease of [place] coronary artery without angina pectoris (ICD-10) Iron deficiency anemia ?D50.9 - Iron deficiency anemia, unspecified (ICD-10) Tobacco abuse disorder ?Z72.0 - Tobacco use (ICD-10) Chronic toe ulcer ?L97.509 - Non-pressure chronic ulcer of other part of unspecified foot with unspecified severity (ICD-10) Afib ?I48.91 - Unspecified atrial fibrillation (ICD-10) CHF (congestive heart failure) ?I50.9 - Heart failure, unspecified (ICD-10) COPD (chronic obstructive pulmonary disease) ?J44.9 - Chronic obstructive pulmonary disease, unspecified (ICD-10) Family History (Updated 01/01/24 @ 14:55 by Bubba Ernst MD) Mother Leukemia Sister Alzheimers disease Social History (Updated 01/01/24 @ 14:57 by Bubba Ernst MD) Narrative: 78-year-old female living independently in [facility]. No current primary care provider. Present in the hospital today with her daughter Muriel who lives in [place]. Also has a son Dakota who lives in [place]. Smoked for many years, quit 10 years ago and started smoking again 3 months ago. He drinks 2 beers per day. Reports no withdrawal symptoms if she does not drink for a day. Daughter and son are healthcare power of air brush artist. Code status is DNR DNI What is your current living situation?: I presently have a place to live Problems where you live: no known problems Problems where you live details: N/A In the past 12 months, utilities in danger of being shut off: no In past 12 months, lack of transportation kept you from medical appts, meetings, work, or getting things needed for daily living: no In the past 12 mos, have been you worried that your food would run out before you had money to buy more?: never true In the past 12 mos, the food you bought just didn't last and you didn't have money to buy more?: never true Highest level of school completed/degree received: some college, no degree Smoking Status: Current every day smoker What tobacco products do you use: cigarettes How often do you have a drink containing alcohol: 4 or more times a week Alcohol type: beer How many standard drinks containing alcohol do you have on a typical day: 1 or 2 How often do you have six or more drinks on one occasion: Weekly AUDIT-C Alcohol total score: 7 Non-prescribed substance use: denies use Caffeine: Yes How often does anyone, including family, friends and others, physically hurt you : never How often does anyone, including family, friends and others, insult or talk down to you: never How often does anyone, including family, friends and others, threaten you with harm: never How often does anyone, including family, friends and others, scream or curse at you: never service: No Exam Narrative: Exam Narrative: General: No distress. Has cough but able to speak with me easily. Vascular: Nonpalpable pedal pulses. Capillary fill time 4 seconds all digits. Neuro: Diminished but present sensation to light touch. Musculoskeletal: No gross deformities. Muscle strength 5/5 all quadrants. Derm: No erythema or edema. There is a nonhealing open wound of the nail bed. There is dried necrotic tissue overlying the nail bed. Dorsal plantar pressure causes some slight ooze of drainage. X-ray: Apparent erosion of the distal phalanx consistent with osteomyelitis left great toe. Labs: WBC 10.7, CRP pending Assessment: Nonhealing wound left great toe with underlying osteomyelitis, peripheral vascular disease Plan: I discussed with Alice that there is infection within the bone which in most cases necessitates surgical intervention. I discussed the probable need for amputation of the distal phalanx. She has healthy-appearing plantar skin which is encouraging for healing. However she needs a vascular workup prior to surgical intervention to make sure she has appropriate vascularization for healing. She ideally have arterial ultrasound with SHANNAN/segmental pressures that included toe pressure and/or CT angiogram to determine appropriate flow into the toe. She may need revascularization prior to any surgical intervention. I would suppress the underlying infection with oral antibiotics until surgery can be performed. The other option is she may be a candidate for hyperbaric oxygen treatment with the wound care center to treat the underlying osteomyelitis. Const: Vital Signs, click to edit/add: Vital Signs - 24 hr 01/01/24 09:15 01/01/24 09:45 01/01/24 12:25 Temperature 97.4 F L Pulse Rate 53 L Pulse Rate [Right Pulse Oximeter] 85 Respiratory Rate 20 Blood Pressure Blood Pressure [Le ft Arm] Blood Pressure [Ri ght Upper Arm] 148/65 H Pulse Oximetry 94 94 95 Oxygen Delivery Me thod Room Air Oxygen Flow Rate 01/01/24 12:30 01/01/24 12:31 01/01/24 13:22 Temperature 98 F Pulse Rate 61 68 Pulse Rate [Right Pulse Oximeter] 76 Respiratory Rate 22 Blood Pressure 135/68 Blood Pressure [Le ft Arm] 156/65 H Blood Pressure [Ri ght Upper Arm] Pulse Oximetry 93 92 90 Oxygen Delivery Me thod Room Air Oxygen Flow Rate 01/01/24 13:31 01/01/24 14:39 01/01/24 15:00 Temperature 98 F Pulse Rate Pulse Rate [Right Pulse Oximeter] 76 Respiratory Rate 22 22 22 Blood Pressure Blood Pressure [Le ft Arm] 156/65 H Blood Pressure [Ri ght Upper Arm] Pulse Oximetry 90 90 Oxygen Delivery Me thod Room Air Room Air Oxygen Flow Rate 01/01/24 15:00 01/01/24 16:07 01/01/24 19:32 Temperature 98.2 F Pulse Rate 70 Pulse Rate [Right Pulse Oximeter] 79 Respiratory Rate 22 18 Blood Pressure Blood Pressure [Le ft Arm] 128/68 Blood Pressure [Ri ght Upper Arm] Pulse Oximetry 91 90 Oxygen Delivery Me thod Room Air Room Air Oxygen Flow Rate 01/01/24 19:49 01/01/24 19:54 01/01/24 20:12 Temperature 98.2 F 98.2 F Pulse Rate 75 Pulse Rate [Right Pulse Oximeter] 79 Respiratory Rate 18 Blood Pressure Blood Pressure [Le ft Arm] 128/68 Blood Pressure [Ri ght Upper Arm] Pulse Oximetry 90 Oxygen Delivery Me thod Room Air Oxygen Flow Rate 01/01/24 22:10 01/01/24 22:52 01/01/24 22:54 Temperature 98.2 F Pulse Rate Pulse Rate [Right Pulse Oximeter] 77 77 Respiratory Rate 18 18 18 Blood Pressure Blood Pressure [Le ft Arm] 128/98 H Blood Pressure [Ri ght Upper Arm] Pulse Oximetry 91 91 Oxygen Delivery Me thod Room Air Room Air Oxygen Flow Rate 01/02/24 00:01 01/02/24 02:28 01/02/24 03:00 Temperature 98.2 F 98.4 F 98.4 F Pulse Rate Pulse Rate [Right Pulse Oximeter] 77 66 66 Respiratory Rate 18 18 18 Blood Pressure Blood Pressure [Le ft Arm] 128/98 H 102/61 102/61 Blood Pressure [Ri ght Upper Arm] Pulse Oximetry 91 92 92 Oxygen Delivery Me thod Room Air Nasal Cannula Nasal Cannula Oxygen Flow Rate 2 2 Nail Debridement Qualifies If: Qualifiers If:: A patient qualifies for nail debridement if they have: 1 class A finding (Q7) 2 class B findings (Q8) OR 1 class B & 2 class C findings in addition to a primary condition (Q9)
[2024-01-02 07:03] LABS: Slide Review Reflex No
[2024-01-02 07:15] LABS: Troponin I* 0.09 ng/mL (0.01-0.04)
[2024-01-02 07:25] LABS: Cholesterol* 117 mg/dL (90-199); HDL Cholesterol* 27 mg/dL (>=50); LDL Cholesterol Calculated 71 mg/dL (<100); Triglycerides* 95 mg/dL (40-149)
[2024-01-02] MEDS: CEFAZOLIN 2 GM INJ IVP (07:54)
[2024-01-02] MEDS: APIXABAN 5 MG TABLET PO ×2 (08:30→20:59)
[2024-01-02] MEDS: IPRAT-ALBUT 0.5-2.5 MG/3 ML NEB 1 NEB IH ×4 (08:30→20:59)
[2024-01-02] MEDS: MULTIVITAMIN/MINERALS 1 TABLET 1 TAB PO (08:30)
[2024-01-02] MEDS: THIAMINE 100 MG TABLET PO (08:30)
[2024-01-02] MEDS: ROSUVASTATIN CALCIUM 10 MG TABLET PO (08:30)
[2024-01-02] MEDS: FERROUS SULFATE 325 MG TABLET PO (08:30)
[2024-01-02] MEDS: FOLIC ACID 1 MG TABLET PO (08:30)
[2024-01-02] MEDS: SODIUM CHLORIDE 0.9 % (FLUSH) 10 ML SYRINGE 5 ML IVF ×3 (09:00→23:23)
[2024-01-02 09:58] LABS: Troponin I* 0.08 ng/mL (0.01-0.04)
--- NOTE | 2024-01-02 12:55 | PM.IMPN1 ---
Progress Note: A&P Assessment and plan (1) CHF (congestive heart failure): Problem details: Primary cause of hypoxic respiratory failure BNP 5860, CT shows sequela of CHF, including mild pulmonary edema and small to moderate bilateral pleural effusions Continue diuresis with IV lasix 40mg bid, stricts I&Os, daily weights Oxygen supplementation to maintain saturations 88-92%, weaning as able, currently 1L ECHO ordered Status: Acute (2) COPD (chronic obstructive pulmonary disease): Problem details: Likely contributing to hypoxia and dyspnea as well. Active smoker CT shows pulmonary emphysema Start oral prednisone, continue nebs RT for pulmonary support Status: Acute (3) Hypoxic respiratory failure: Problem details: Treat CHF and COPD as above and monitor Status: Acute (4) Afib: Problem details: Rate controlled, even episodically bradycardic. Continue to monitor, telemetry Restart anticoagulation with Apixiban. Anticoagulate cautiously - with iron deficiency anemia monitor for GI bleeding. Reports h/o bleed several years ago after taking incorrect dose Warfarin Status: Acute (5) Chronic toe ulcer: Problem details: Xray shows soft tissue swelling and subcutaneous emphysema of the distal 1st digit with osteolysis of the distal 1st digit consistent with osteomyelitis change Consulted Dr. Farooq. Discussed. Recommends arterial US with toe pressures (<0.4 would need angio) or CTA given concern for poor vascularization. As these studies are unavailable at this facility, Dr. Farooq recommends to continue antibiotic (IV while in hospital, transitioning to oral on d/c) and wound cares with iodine and keeping it dry, with outpatient follow up in his clinic for imaging and plan for amputation (patient tells me she is not interested despite risks) Wound culture pending Arrange for outpatient follow up Status: Acute (6) Iron deficiency anemia: Problem details: Stool occult +. Fe 35, TIBC 387, % sat 9, ferritin 21.5 Continue iron supplement Outpatient endoscopy to further evaluate Status: Acute (7) Coronary artery disease: Problem details: Statin, monitor Status: Acute (8) Peripheral vascular disease: Problem details: Diminished pedal pulses bilaterally. May impact wound healing of the left great toe Will need outpatient studies with podiatry prior to amputation Status: Acute (9) Tobacco abuse disorder: Problem details: Recommend cessation Status: Acute (10) Elevated troponin: Problem details: 0.09-0.08, unchanged. EKG with ischemic changes. Asymptomatic Status: Acute Time Spent With Patient Total time spent: Total time spent caring for the patient today was 60 minutes. This includes time spent for the visit reviewing the chart, time spent during the visit, time spent after the visit and documentation and planning in coordination of care. Subjective Date Seen: 01/02/24 Interval history: Patients reports feeling better this morning. She does make it known that she is not interested in all the extra fuss. Declines therapies consults. Is not interested in a toe amputation as recommended by Dr. Farooq. She otherwise is breathing better. Oxygenation improving. Has remained afebrile. Denies headache. Has occasional dizziness. Denies chest pain or tightness. Tolerating orals without nausea or vomiting. Exam Narrative: Exam Narrative: PHYSICAL EXAM General: Pleasant, conversant, NAD HEENT: Normocephalic, atraumatic, sclera white, EOMI Cardiovascular: RRR, S1S2. +1 pitting edema Pulmonary: Diminished breath sounds with few expiratory wheezes. No dyspnea on 1L Abdominal: Soft, nondistended, NTTP Neurological: Alert, answering questions appropriately, cranial nerves intact, no focal findings Extremities: Left 1st toe necrotic nailbed. All nails overgrown, thickened. Skin: Warm, dry. Const: Vital Signs, click to edit/add: Vital Signs - 24 hr 01/01/24 13:22 01/01/24 13:31 01/01/24 14:39 Temperature 98 F 98 F Pulse Rate Pulse Rate [Right Pulse Oximeter] 76 76 Respiratory Rate 22 22 22 Blood Pressure [Le ft Arm] 156/65 H 156/65 H Pulse Oximetry 90 90 90 Oxygen Delivery Me thod Room Air Room Air Room Air Oxygen Flow Rate 01/01/24 15:00 01/01/24 15:00 01/01/24 16:07 Temperature Pulse Rate 70 Pulse Rate [Right Pulse Oximeter] Respiratory Rate 22 22 Blood Pressure [Le ft Arm] Pulse Oximetry 91 Oxygen Delivery Me thod Room Air Oxygen Flow Rate 01/01/24 19:32 01/01/24 19:49 01/01/24 19:54 Temperature 98.2 F 98.2 F Pulse Rate 75 Pulse Rate [Right Pulse Oximeter] 79 79 Respiratory Rate 18 18 Blood Pressure [Le ft Arm] 128/68 128/68 Pulse Oximetry 90 90 Oxygen Delivery Me thod Room Air Room Air Oxygen Flow Rate 01/01/24 20:12 01/01/24 22:10 01/01/24 22:52 Temperature 98.2 F 98.2 F Pulse Rate Pulse Rate [Right Pulse Oximeter] 77 77 Respiratory Rate 18 18 Blood Pressure [Le ft Arm] 128/98 H Pulse Oximetry 91 Oxygen Delivery Me thod Room Air Oxygen Flow Rate 01/01/24 22:54 01/02/24 00:01 01/02/24 02:28 Temperature 98.2 F 98.4 F Pulse Rate Pulse Rate [Right Pulse Oximeter] 77 66 Respiratory Rate 18 18 18 Blood Pressure [Le ft Arm] 128/98 H 102/61 Pulse Oximetry 91 91 92 Oxygen Delivery Me thod Room Air Room Air Nasal Cannula Oxygen Flow Rate 2 01/02/24 03:00 01/02/24 08:04 01/02/24 08:05 Temperature 98.4 F Pulse Rate 43 L Pulse Rate [Right Pulse Oximeter] 66 Respiratory Rate 18 18 Blood Pressure [Le ft Arm] 102/61 Pulse Oximetry 92 94 Oxygen Delivery Me thod Nasal Cannula Nasal Cannula Oxygen Flow Rate 2 1 01/02/24 08:05 Temperature 97.5 F L Pulse Rate Pulse Rate [Right Pulse Oximeter] 46 L Respiratory Rate 18 Blood Pressure [Le ft Arm] 129/70 Pulse Oximetry 94 Oxygen Delivery Me thod Nasal Cannula Oxygen Flow Rate 1 Labs Labs: Laboratory Results - last 24 hr 01/01/24 01/01/24 01/02/24 09:55 12:51 01:12 WBC RBC Hgb Hct MCV MCH MCHC RDW Coeff of Jaimie Plt Count Neut % (Auto) Lymph % (Auto) [place] % (Auto) Eos % (Auto) Baso % (Auto) Neut # (Auto) Lymph # (Auto) [place] # (Auto) Eos # (Auto) Baso # (Auto) Abs Immat Gran (auto) Imm/Tot Granulo (auto) Diff Slide Review Acceptable Review VBG pH VBG pCO2 VBG pO2 VBG HCO3 Sodium Potassium Chloride Carbon Dioxide Anion Gap BUN Creatinine Estimated Creat Clear Estimated GFR Glucose Calcium Iron 35 L TIBC 387 % Saturation 9 L Ferritin 21.5 Troponin I C-Reactive Protein Triglycerides Cholesterol LDL Cholesterol, Calc HDL Cholesterol Stool Occult Blood Positive A 01/02/24 01/02/24 05:47 09:15 WBC 14.99 H RBC 3.95 L Hgb 10.6 L Hct 33.2 MCV 84 MCH 27 MCHC 32 RDW Coeff of Jaimie 15.4 Plt Count 307 Neut % (Auto) 62.0 Lymph % (Auto) 14.3 L [place] % (Auto) 21.3 H Eos % (Auto) 0.0 Baso % (Auto) 0.3 Neut # (Auto) 9.30 H Lymph # (Auto) 2.10 [place] # (Auto) 3.20 H Eos # (Auto) 0.00 Baso # (Auto) 0.00 Abs Immat Gran (auto) 0.30 Imm/Tot Granulo (auto) 2.1 Diff Slide Review VBG pH 7.367 VBG pCO2 45 VBG pO2 < 30.1 VBG HCO3 26 Sodium 139 Potassium 4.7 Chloride 112 Carbon Dioxide 26 Anion Gap 1 L BUN 14 Creatinine 1.0 Estimated Creat Clear 43.40 Estimated GFR 58 Glucose 115 Calcium 8.4 Iron TIBC % Saturation Ferritin Troponin I 0.09 H* 0.08 H* C-Reactive Protein 2.8 H Triglycerides 95 Cholesterol 117 LDL Cholesterol, Calc 71 HDL Cholesterol 27 L Stool Occult Blood
[2024-01-02] MEDS: FUROSEMIDE 10 MG/ML inj 40 MG IVP ×2 (13:48→20:59)
[2024-01-02] MEDS: predniSONE 20 MG TABLET 40 MG PO (13:49)
[2024-01-02] MEDS: CEFAZOLIN 2 GM in 0.9 % SODIUM CHLORIDE Mini-bag 100 ML IVPB ×2 (16:27→23:23)
--- NOTE | 2024-01-02 20:06 | PC.NURSE ---
End of shift [id number] - Pt alert, oriented, cooperative. Pt denies pain, observed to experience SOB with exertion. Continent of bowel and bladder. Tolerating oxygen via nasal cannula at 1L, regular diet, fluids. Independent in room. Wound on great L toe open to air. Pt uses Aerobika independently and appears to be resting comfortably at end of shift.
[2024-01-03] VITALS (11 sets, daily range): BP systolic 138–159; BP diastolic 73–138; PULSE 55–110; RESP 18–20; TEMP 36.4–36.6; O2SAT 85–95
[2024-01-03 06:32] LABS: Basophils Absolute Auto 0.05 K/uL (0.00-0.30); Basophils Percent Auto 0.5 % (0.0-3.0); Hematocrit 32.7 % (33.0-51.0); Hemoglobin* 10.7 gm/dL (12.0-16.0); Immature Granulocytes Abs Auto 0.52 K/uL (0.00-0.30); Immature Granulocytes Pct Auto 5.3 %; Lymphocytes Percent Auto 15.3 % (20-44); Mean Corpuscular HGB Conc 33 gm/dL (32-36); Mean Corpuscular Hemoglobin 27 pg (26-34); Mean Corpuscular Volume 82 fL (80-100); Monocytes Percent Auto 16.9 % (0.0-11.0); Neutrophils Absolute Auto 6.03 K/uL (1.7-7.0); Platelet Count* 312 K/uL (140-440); RDW Coefficient of Variation % 14.9 % (11.5-15.5); White Blood Count* 9.73 K/uL (4.50-11.00)
[2024-01-03 06:35] LABS: Slide Review Reflex No
[2024-01-03 06:45] LABS: Chloride* 110 mmol/L (96-114); Sodium* 139 mmol/L (135-149)
[2024-01-03 06:46] LABS: Potassium* 4.4 mmol/L (3.6-5.1)
[2024-01-03 06:48] LABS: Creatinine* 1.1 mg/dL (0.5-1.5); Est. Creatinine Clearance* 39.46; Estimated Glomerular Filt Rate 51 ml/min
--- NOTE | 2024-01-03 06:48 | PC.NURSE ---
End of shift note [id number]: Pt transfers/ambulates independently in room. Pt remains on telemetry with A fib with NVR noted. Pt continent of bladder. Oxygen worn at 1 LPM with O2 sat of 92% noted. VSS. IV to L AC patent and SL after receiving scheduled IV antibiotic. Pt refused CINTIA stockings despite education provided. CIWA score of 0. Small amount of dried blood noted to gown. Pt stated this was from IV previously bleeding and refused to have gown changed when addressed. ?
[2024-01-03 06:49] LABS: Anion Gap 4 mEq/L (7-15); Blood Urea Nitrogen* 16 mg/dL (7-30); Calcium* 8.8 mg/dL (8.4-10.6); Carbon Dioxide* 25 mmol/L (20-32); Glucose* 121 mg/dL (60-115)
[2024-01-03 06:52] LABS: C Reactive Protein* 1.9 mg/dL (0.5-1.0)
[2024-01-03] MEDS: predniSONE 20 MG TABLET 40 MG PO (08:03)
[2024-01-03] MEDS: MULTIVITAMIN/MINERALS 1 TABLET 1 TAB PO (08:03)
[2024-01-03] MEDS: THIAMINE 100 MG TABLET PO (08:03)
[2024-01-03] MEDS: FERROUS SULFATE 325 MG TABLET PO (08:03)
[2024-01-03] MEDS: CEFAZOLIN 2 GM in 0.9 % SODIUM CHLORIDE Mini-bag 100 ML IVPB ×3 (08:04→23:17)
[2024-01-03] MEDS: FOLIC ACID 1 MG TABLET PO (08:04)
[2024-01-03] MEDS: APIXABAN 5 MG TABLET PO (08:04)
[2024-01-03] MEDS: SODIUM CHLORIDE 0.9 % (FLUSH) 10 ML SYRINGE 5 ML IVF ×3 (08:08→23:23)
[2024-01-03 10:06] LABS: Fecal Occult Blood* Positive (Negative)
[2024-01-03] MEDS: FUROSEMIDE 10 MG/ML inj 40 MG IVP ×2 (10:25→20:49)
[2024-01-03] MEDS: IPRAT-ALBUT 0.5-2.5 MG/3 ML NEB 1 NEB IH ×3 (10:25→20:49)
--- NOTE | 2024-01-03 10:32 | NUTR.NU ---
RDN with nutrition education related to congestive heart failure (CHF). Patient admitted for CHF, COPD, and respiratory failure. Current diet 2 gm sodium. Meal intakes have been variable. Current height 5ft 6in; weight 156 lb 8oz. BMI 25.3 kg/m2 Weights have been stable recently per weight history. RDN visited with patient and daughter. RDN offered Heart Healthy diet education to patient related to CHF, however patient declined. Daughter asked for educational materials to review at home. RDN provided these. RDN's contact information was provided and patient was encouraged to call with questions. Will continue to monitor and follow-up prn.
--- NOTE | 2024-01-03 15:42 | P.IMPN_ITS ---
Progress Note: A&P Assessment and plan (1) CHF (congestive heart failure): Problem details: Primary cause of hypoxic respiratory failure BNP 5860, CT shows sequela of CHF, including mild pulmonary edema and small to moderate bilateral pleural effusions Continue diuresis with IV lasix 40mg bid, stricts I&Os, daily weights Oxygen supplementation to maintain saturations 88-92%, weaning as able, currently 1L ECHO shows normal LV size, EF 55-60%, normal global systolic RV function, inferior wall and posterior wall are abnormal, moderately enlarged left atrium, mitral valve is sclerotic, moderate to severe mitral regurgitation, mechanism appears tethering of the posterior leaflet from the inferolateral WM a. Moderately increased estimated pulmonary pressure 39 mm Hg. Inferior vena cava is consistent with elevated right arterial pressure Recommend outpatient Cardiology follow up but patient tells me she likely won't follow through Status: Acute (2) COPD (chronic obstructive pulmonary disease): Problem details: Likely contributing to hypoxia and dyspnea as well. Active smoker, at least 1PPD per daughter CT shows pulmonary emphysema Start oral prednisone, continue nebs (patient refusing per nursing) RT for pulmonary support Status: Acute (3) Hypoxic respiratory failure: Problem details: Treat CHF and COPD as above and monitor Status: Acute (4) Afib: Problem details: Rate controlled, even episodically bradycardic. Continue to monitor, telemetry Restart anticoagulation with Apixiban. Anticoagulate cautiously - with iron deficiency anemia monitor for GI bleeding. Reports h/o bleed several years ago after taking incorrect dose Warfarin 01/02: Dark stool, positive occult blood, hemoglobin stable. Discussed with Dr. [place]. Will hold apixaban, monitor hemoglobin, consider scope if necessary. VTE PPX: SCDs (per nursing, patient refusing) patient aware of risks. Status: Acute (5) Chronic toe ulcer: Problem details: Xray shows soft tissue swelling and subcutaneous emphysema of the distal 1st digit with osteolysis of the distal 1st digit consistent with osteomyelitis change Consulted Dr. Farooq. Discussed. Recommends arterial US with toe pressures (<0.4 would need angio) or CTA given concern for poor vascularization. As these studies are unavailable at this facility, Dr. Farooq recommends to continue antibiotic (IV while in hospital, transitioning to oral on d/c) and wound cares with iodine and keeping it dry, with outpatient follow up in his clinic for imaging and plan for amputation (patient tells me she is not interested despite risks) Wound culture pending Arrange for outpatient follow up 01/02: Dr. Farooq met with patient again today, reports she has no interest in surgical intervention despite potential risks Status: Acute (6) Iron deficiency anemia: Problem details: Stool occult +. Fe 35, TIBC 387, % sat 9, ferritin 21.5 Continue iron supplement Outpatient endoscopy to further evaluate - as above, consider inpatient scope if hemoglobin continues to drop or become symptomatic Status: Acute (7) Coronary artery disease: Problem details: Statin, monitor Status: Acute (8) Peripheral vascular disease: Problem details: Diminished pedal pulses bilaterally. May impact wound healing of the left great toe Will need outpatient studies with podiatry prior to amputation Status: Acute (9) Tobacco abuse disorder: Problem details: Recommend cessation Status: Acute (10) Elevated troponin: Problem details: 0.09-0.08, unchanged. EKG with ischemic changes. Asymptomatic Status: Acute Plan VTE prophylaxis: Hold apixaban. SCDs (nursing staff reports she is refusing these). Aware of risks Subjective Date Seen: 01/03/24 Interval history: Patient is sitting up on edge of bed this morning. Admits feeling better. Denies headache. Mild occasional dizziness remains. Feels quite weak and tired yet. Denies chest pain or shortness of breath. Tolerating orals without nausea vomiting. Admits appetite is improving. Had a dark stool this morning which tested positive occult test. Exam Narrative: Exam Narrative: PHYSICAL EXAM General: Pleasant, conversant, NAD HEENT: Normocephalic, atraumatic, sclera white, EOMI Cardiovascular: RRR, S1S2. +1 pitting edema Pulmonary: Diminished breath sounds with few expiratory wheezes. No dyspnea on 1L Abdominal: Soft, nondistended, NTTP Neurological: Alert, answering questions appropriately, cranial nerves intact, no focal findings Extremities: Left 1st toe necrotic nailbed. No surrounding erythema. All nails overgrown, thickened. Skin: Warm, dry. Const: Vital Signs, click to edit/add: Vital Signs - 24 hr 01/02/24 16:46 01/02/24 16:47 01/02/24 16:56 Temperature Pulse Rate 62 Pulse Rate [Right Pulse Oximeter] 78 Respiratory Rate 20 20 Blood Pressure [Le ft Arm] 160/75 H Blood Pressure [Ri ght Arm] Pulse Oximetry 94 94 Oxygen Delivery Me thod Nasal Cannula Nasal Cannula Oxygen Flow Rate 1 1 01/02/24 19:00 01/02/24 23:00 01/02/24 23:04 Temperature 97.6 F Pulse Rate 72 Pulse Rate [Right Pulse Oximeter] 85 78 Respiratory Rate 20 18 Blood Pressure [Le ft Arm] 159/82 H Blood Pressure [Ri ght Arm] Pulse Oximetry 91 Oxygen Delivery Me thod Nasal Cannula Oxygen Flow Rate 1 01/02/24 23:27 01/02/24 23:28 01/03/24 03:12 Temperature 97.8 F 97.5 F L Pulse Rate Pulse Rate [Right Pulse Oximeter] 78 60 Respiratory Rate 18 18 18 Blood Pressure [Le ft Arm] 142/73 H Blood Pressure [Ri ght Arm] 136/70 Pulse Oximetry 92 92 94 Oxygen Delivery Me thod Nasal Cannula Nasal Cannula Nasal Cannula Oxygen Flow Rate 1 1 1 01/03/24 03:13 01/03/24 07:00 01/03/24 07:00 Temperature 97.5 F L 97.7 F Pulse Rate Pulse Rate [Right Pulse Oximeter] 60 100 Respiratory Rate 18 18 18 Blood Pressure [Le ft Arm] 142/73 H Blood Pressure [Ri ght Arm] 138/82 Pulse Oximetry 94 95 95 Oxygen Delivery Me thod Nasal Cannula Room Air Room Air Oxygen Flow Rate 1 01/03/24 11:00 01/03/24 12:14 01/03/24 13:33 Temperature 97.6 F Pulse Rate Pulse Rate [Right Pulse Oximeter] 110 H 55 L Respiratory Rate 20 20 Blood Pressure [Le ft Arm] Blood Pressure [Ri ght Arm] 159/77 H Pulse Oximetry 85 L 90 Oxygen Delivery Me thod Room Air Nasal Cannula Oxygen Flow Rate 1 Labs Labs: Laboratory Results - last 24 hr 01/03/24 01/03/24 06:13 09:40 WBC 9.73 RBC 4.00 Hgb 10.7 L Hct 32.7 L MCV 82 MCH 27 MCHC 33 RDW Coeff of Jaimie 14.9 Plt Count 312 Neut % (Auto) 62.0 Lymph % (Auto) 15.3 L [place] % (Auto) 16.9 H Eos % (Auto) 0.0 Baso % (Auto) 0.5 Neut # (Auto) 6.03 Lymph # (Auto) 1.50 [place] # (Auto) 1.60 H Eos # (Auto) 0.00 Baso # (Auto) 0.05 Abs Immat Gran (auto) 0.52 H Imm/Tot Granulo (auto) 5.3 Sodium 139 Potassium 4.4 Chloride 110 Carbon Dioxide 25 Anion Gap 4 L BUN 16 Creatinine 1.1 Estimated Creat Clear 39.46 Estimated GFR 51 Glucose 121 H Calcium 8.8 C-Reactive Protein 1.9 H Stool Occult Blood Positive A
--- NOTE | 2024-01-03 19:32 | PC.NURSE ---
End of Shift: Alert and orientated... HTN this afternoon. No reports of pain. L toe is open to air. Reports a better appetite today. NC @ 1L to keep greater than >88%. Call light within reach, up ad yamile as tolerated with O2 on. The patient is using the Aerobika independently. Educated the patient on IV abx and nebulizer use. SCDs on, but the patient is still refusing CINTIA stocking placement. The patient's daughter was given an update this afternoon. Bilateral ankle 2+ edema noted. Refuses to wear yellow stockings as well. LIZZETTE SANCHEZ BSN
[2024-01-03] MEDS: MELATONIN 3 MG TABLET PO (20:48)
[2024-01-03] MEDS: ROSUVASTATIN CALCIUM 10 MG TABLET PO (20:49)
[2024-01-03] MEDS: guaiFENesin 100 MG/ML CUP PO (23:16)
[2024-01-04] VITALS (7 sets, daily range): BP systolic 116–174; BP diastolic 61–96; PULSE 53–90; RESP 18–20; TEMP 36.2–36.6; O2SAT 88–93
[2024-01-04] MEDS: guaiFENesin 100 MG/ML CUP PO (03:15)
[2024-01-04 06:17] LABS: Basophils Percent Auto 0.2 % (0.0-3.0); Eosinophils Percent Auto 0.1 % (0.0-7.0); Hematocrit 32.9 % (33.0-51.0); Hemoglobin* 10.8 gm/dL (12.0-16.0); Immature Granulocytes Pct Auto 3.8 %; Mean Corpuscular HGB Conc 33 gm/dL (32-36); Mean Corpuscular Hemoglobin 27 pg (26-34); Mean Corpuscular Volume 83 fL (80-100); Monocytes Percent Auto 20.5 % (0.0-11.0); Neutrophils Percent Auto 61.4 % (42.0-72.0); Platelet Count* 316 K/uL (140-440); RDW Coefficient of Variation % 14.7 % (11.5-15.5); Red Blood Count 3.99 m/uL (4.00-5.20); White Blood Count* 16.51 K/uL (4.50-11.00)
--- NOTE | 2024-01-04 06:40 | PC.NURSE ---
Pt alert and oriented x3. Afebrile. Pt continues to have a moist intermittent cough, prn guaifenesin given with some relief. Pt on 1 L O2 to maintain stats of 90%. Pt denies pain, chest pain, and N/V. Pt is up ad yamile in room. SOB is noted with exertion. Pt slept intermittently throughout night, PRN melatonin given with little relief. ?
[2024-01-04 06:42] LABS: Chloride* 107 mmol/L (96-114); Potassium* 3.9 mmol/L (3.6-5.1); Slide Review Reflex Yes; Sodium* 136 mmol/L (135-149)
[2024-01-04 06:45] LABS: Creatinine* 1.1 mg/dL (0.5-1.5); Est. Creatinine Clearance* 39.46; Estimated Glomerular Filt Rate 51 ml/min
[2024-01-04 06:46] LABS: Anion Gap 6 mEq/L (7-15); Blood Urea Nitrogen* 26 mg/dL (7-30); Calcium* 8.7 mg/dL (8.4-10.6); Carbon Dioxide* 23 mmol/L (20-32); Glucose* 100 mg/dL (60-115)
[2024-01-04 06:49] LABS: C Reactive Protein* 1.3 mg/dL (0.5-1.0)
[2024-01-04 07:16] LABS: Slide Review Acceptable Review (Acceptable)
[2024-01-04] MEDS: CEFAZOLIN 2 GM in 0.9 % SODIUM CHLORIDE Mini-bag 100 ML IVPB ×3 (07:21→23:16)
[2024-01-04] MEDS: BENZONATATE 100 MG CAPSULE PO (08:11)
[2024-01-04] MEDS: guaiFENesin 600 MG TAB.ER.12H PO ×2 (08:11→20:45)
[2024-01-04] MEDS: IPRAT-ALBUT 0.5-2.5 MG/3 ML NEB 1 NEB IH ×4 (08:11→20:45)
[2024-01-04] MEDS: FUROSEMIDE 10 MG/ML inj 40 MG IVP ×2 (09:14→16:57)
[2024-01-04] MEDS: FOLIC ACID 1 MG TABLET PO (09:14)
[2024-01-04] MEDS: MULTIVITAMIN/MINERALS 1 TABLET 1 TAB PO (09:14)
[2024-01-04] MEDS: predniSONE 20 MG TABLET 40 MG PO (09:14)
[2024-01-04] MEDS: FERROUS SULFATE 325 MG TABLET PO (09:14)
[2024-01-04] MEDS: THIAMINE 100 MG TABLET PO (09:15)
--- NOTE | 2024-01-04 11:01 | P.IMPN_ITS ---
Progress Note: A&P Assessment and plan (1) CHF (congestive heart failure): Problem details: Primary cause of hypoxic respiratory failure BNP 5860, CT shows sequela of CHF, including mild pulmonary edema and small to moderate bilateral pleural effusions Continue diuresis with IV lasix 40mg bid, stricts I&Os, daily weights without significant change Oxygen supplementation to maintain saturations 88-92%, weaning as able, currently 1L (tolerating room air at rest) ECHO shows normal LV size, EF 55-60%, normal global systolic RV function, inferior wall and posterior wall are abnormal, moderately enlarged left atrium, mitral valve is sclerotic, moderate to severe mitral regurgitation, mechanism appears tethering of the posterior leaflet from the inferolateral WMA. Moderately increased estimated pulmonary pressure 39 mm Hg. Inferior vena cava is consistent with elevated right arterial pressure Recommend outpatient Cardiology follow up but patient tells me she likely won't follow through Status: Acute (2) COPD (chronic obstructive pulmonary disease): Problem details: Likely contributing to hypoxia and dyspnea as well. Active smoker, at least 1PPD per daughter CT shows pulmonary emphysema Oral prednisone x 5 days, continue nebs (patient refusing per nursing) RT for pulmonary support Will assess for home oxygen needs prior to discharge 01/03: Leukocytosis, likely steroid related, but will continue to monitor Status: Acute (3) Hypoxic respiratory failure: Problem details: Treat CHF and COPD as above and monitor Status: Acute (4) Afib: Problem details: Rate controlled, even episodically bradycardic. Continue to monitor, telemetry Restart anticoagulation with Apixiban. Anticoagulate cautiously - with iron deficiency anemia monitor for GI bleeding. Reports h/o bleed several years ago after taking incorrect dose Warfarin 01/02: Dark stool, positive occult blood, hemoglobin stable. Discussed with Dr. Boston. Will hold apixaban, monitor hemoglobin, consider scope if necessary. VTE PPX: SCDs (per nursing, patient refusing) patient aware of risks. Status: Acute (5) Chronic toe ulcer: Problem details: Xray shows soft tissue swelling and subcutaneous emphysema of the distal 1st digit with osteolysis of the distal 1st digit consistent with osteomyelitis change Consulted Dr. Farooq. Discussed. Recommends arterial US with toe pressures (<0.4 would need angio) or CTA given concern for poor vascularization. As these studies are unavailable at this facility, Dr. Farooq recommends to continue antibiotic (IV while in hospital, transitioning to oral on d/c) and wound cares with iodine and keeping it dry, with outpatient follow up in his clinic for imaging and plan for amputation (patient tells me she is not interested despite risks) Wound culture - remains pending 01/03 Arrange for outpatient follow up 01/02: Dr. Farooq met with patient again today, reports she has no interest in surgical intervention despite potential risks Status: Acute (6) Iron deficiency anemia: Problem details: Stool occult +. Fe 35, TIBC 387, % sat 9, ferritin 21.5 Continue iron supplement Outpatient endoscopy to further evaluate - as above, consider inpatient scope if hemoglobin continues to drop or become symptomatic Monitoring hgb - remains stable Status: Acute (7) Coronary artery disease: Problem details: Statin, monitor Status: Acute (8) Peripheral vascular disease: Problem details: Diminished pedal pulses bilaterally. May impact wound healing of the left great toe Will need outpatient studies with podiatry prior to amputation Status: Acute (9) Tobacco abuse disorder: Problem details: Recommend cessation Status: Acute (10) Elevated troponin: Problem details: 0.09-0.08, unchanged. EKG with ischemic changes. Asymptomatic Status: Acute Plan VTE prophylaxis: Hold apixaban. SCDs (nursing staff reports she is refusing these). Aware of risks Time Spent With Patient Total time spent: Total time spent caring for the patient today was 45 minutes. This includes time spent for the visit reviewing the chart, time spent during the visit, time spent after the visit and documentation and planning in coordination of care. Subjective Date Seen: 01/04/24 Interval history: Patient reports not sleeping well last night however otherwise feeling the same. Tired this morning. Has remained afebrile. Dark stool this morning. No new concerns or complaints. Met with Dr. Farooq again yesterday and is not interested in an amputation. Has not been overly motivated to work on strengthening. Understand she will need to be able to move about independently and complete ADLs in order to return home which is motivating for her. Exam Narrative: Exam Narrative: PHYSICAL EXAM General: Pleasant, conversant, NAD HEENT: Normocephalic, atraumatic, sclera white, EOMI Cardiovascular: RRR, S1S2. +1 pitting edema without significant change Pulmonary: Diminished breath sounds with few expiratory wheezes. No dyspnea on 1L Abdominal: Soft, nondistended, NTTP Neurological: Alert, answering questions appropriately, cranial nerves intact, no focal findings Extremities: Left 1st toe necrotic nailbed. No surrounding erythema. All nails overgrown, thickened. Skin: Warm, dry. Const: Vital Signs, click to edit/add: Vital Signs - 24 hr 01/03/24 12:14 01/03/24 13:33 01/03/24 15:00 Temperature Pulse Rate 67 Pulse Rate [Right Pulse Oximeter] 55 L Respiratory Rate 20 Blood Pressure [Le ft Arm] Blood Pressure [Ri ght Arm] Pulse Oximetry 90 Oxygen Delivery Me thod Nasal Cannula Oxygen Flow Rate 1 01/03/24 15:00 01/03/24 15:00 01/03/24 19:46 Temperature 97.9 F 97.6 F Pulse Rate Pulse Rate [Right Pulse Oximeter] 80 73 Respiratory Rate 20 20 18 Blood Pressure [Le ft Arm] 151/80 H Blood Pressure [Ri ght Arm] 152/138 H Pulse Oximetry 90 90 93 Oxygen Delivery Me thod Nasal Cannula Nasal Cannula Nasal Cannula Oxygen Flow Rate 1 1 1 01/03/24 20:03 01/03/24 22:39 01/03/24 23:14 Temperature 97.7 F Pulse Rate 62 Pulse Rate [Right Pulse Oximeter] 73 93 Respiratory Rate 18 20 Blood Pressure [Le ft Arm] Blood Pressure [Ri ght Arm] 158/80 H Pulse Oximetry 91 Oxygen Delivery Me thod Nasal Cannula Oxygen Flow Rate 1 01/03/24 23:14 01/04/24 03:08 01/04/24 07:33 Temperature 97.8 F Pulse Rate 53 L Pulse Rate [Right Pulse Oximeter] 73 Respiratory Rate 20 18 Blood Pressure [Le ft Arm] 133/65 Blood Pressure [Ri ght Arm] Pulse Oximetry 91 91 Oxygen Delivery Me thod Nasal Cannula Nasal Cannula Oxygen Flow Rate 1 1 01/04/24 07:45 01/04/24 07:45 01/04/24 07:45 Temperature 97.4 F L Pulse Rate Pulse Rate [Right Pulse Oximeter] 53 L 63 Respiratory Rate 18 18 18 Blood Pressure [Le ft Arm] 151/96 H Blood Pressure [Ri ght Arm] Pulse Oximetry 93 93 Oxygen Delivery Me thod Nasal Cannula Nasal Cannula Oxygen Flow Rate 0.5 0.5 Labs Labs: Laboratory Results - last 24 hr 01/02/24 01/04/24 04:00 05:47 WBC 16.51 H RBC 3.99 L Hgb 10.8 L Hct 32.9 L MCV 83 MCH 27 MCHC 33 RDW Coeff of Jaimie 14.7 Plt Count 316 Neut % (Auto) 61.4 Lymph % (Auto) 14.0 L [place] % (Auto) 20.5 H Eos % (Auto) 0.1 Baso % (Auto) 0.2 Neut # (Auto) 10.10 H Lymph # (Auto) 2.30 [place] # (Auto) 3.40 H Eos # (Auto) 0.00 Baso # (Auto) 0.00 Abs Immat Gran (auto) 0.60 H Imm/Tot Granulo (auto) 3.8 Diff Slide Review Acceptable Review Peripher Smr Path Cons See Scanned Report Sodium 136 Potassium 3.9 Chloride 107 Carbon Dioxide 23 Anion Gap 6 L BUN 26 Creatinine 1.1 Estimated Creat Clear 39.46 Estimated GFR 51 Glucose 100 Calcium 8.7 C-Reactive Protein 1.3 H
--- NOTE | 2024-01-04 11:10 | PM.IMPN1 ---
Progress Note: A&P Assessment and plan (1) CHF (congestive heart failure): Problem details: Primary cause of hypoxic respiratory failure BNP 5860, CT shows sequela of CHF, including mild pulmonary edema and small to moderate bilateral pleural effusions Continue diuresis with IV lasix 40mg bid, stricts I&Os, daily weights without significant change Oxygen supplementation to maintain saturations 88-92%, weaning as able, currently 1L (tolerating room air at rest) ECHO shows normal LV size, EF 55-60%, normal global systolic RV function, inferior wall and posterior wall are abnormal, moderately enlarged left atrium, mitral valve is sclerotic, moderate to severe mitral regurgitation, mechanism appears tethering of the posterior leaflet from the inferolateral WMA. Moderately increased estimated pulmonary pressure 39 mm Hg. Inferior vena cava is consistent with elevated right arterial pressure Recommend outpatient Cardiology follow up but patient tells me she likely won't follow through Status: Acute (2) COPD (chronic obstructive pulmonary disease): Problem details: Likely contributing to hypoxia and dyspnea as well. Active smoker, at least 1PPD per daughter CT shows pulmonary emphysema Oral prednisone x 5 days, continue nebs (patient refusing per nursing) RT for pulmonary support Will assess for home oxygen needs prior to discharge 01/03: Leukocytosis, likely steroid related, but will continue to monitor Status: Acute (3) Hypoxic respiratory failure: Problem details: Treat CHF and COPD as above and monitor Status: Acute (4) Afib: Problem details: Rate controlled, even episodically bradycardic. Continue to monitor, telemetry Restart anticoagulation with Apixiban. Anticoagulate cautiously - with iron deficiency anemia monitor for GI bleeding. Reports h/o bleed several years ago after taking incorrect dose Warfarin 01/02: Dark stool, positive occult blood, hemoglobin stable. Discussed with Dr. Boston. Will hold apixaban, monitor hemoglobin, consider scope if necessary. VTE PPX: SCDs (per nursing, patient refusing) patient aware of risks. Status: Acute (5) Chronic toe ulcer: Problem details: Xray shows soft tissue swelling and subcutaneous emphysema of the distal 1st digit with osteolysis of the distal 1st digit consistent with osteomyelitis change Consulted Dr. Farooq. Discussed. Recommends arterial US with toe pressures (<0.4 would need angio) or CTA given concern for poor vascularization. As these studies are unavailable at this facility, Dr. Farooq recommends to continue antibiotic (IV while in hospital, transitioning to oral on d/c) and wound cares with iodine and keeping it dry, with outpatient follow up in his clinic for imaging and plan for amputation (patient tells me she is not interested despite risks) Wound culture - remains pending 01/03 Arrange for outpatient follow up 01/02: Dr. Farooq met with patient again today, reports she has no interest in surgical intervention despite potential risks Status: Acute (6) Iron deficiency anemia: Problem details: Stool occult +. Fe 35, TIBC 387, % sat 9, ferritin 21.5 Continue iron supplement Outpatient endoscopy to further evaluate - as above, consider inpatient scope if hemoglobin continues to drop or become symptomatic Monitoring hgb - remains stable Status: Acute (7) Coronary artery disease: Problem details: Statin, monitor Status: Acute (8) Peripheral vascular disease: Problem details: Diminished pedal pulses bilaterally. May impact wound healing of the left great toe Will need outpatient studies with podiatry prior to amputation Status: Acute (9) Tobacco abuse disorder: Problem details: Recommend cessation Status: Acute (10) Elevated troponin: Problem details: 0.09-0.08, unchanged. EKG with ischemic changes. Asymptomatic Status: Acute Plan VTE prophylaxis: Hold apixaban. SCDs (nursing staff reports she is refusing these). Aware of risks Patient would like to discharge back to home, independently, aware she needs to work on strength and mobility in order to do this and not go to a SNF Time Spent With Patient Total time spent: Total time spent caring for the patient today was 45 minutes. This includes time spent for the visit reviewing the chart, time spent during the visit, time spent after the visit and documentation and planning in coordination of care. Subjective Date Seen: 01/05/24 Exam Narrative: Exam Narrative: PHYSICAL EXAM General: Pleasant, conversant, NAD HEENT: Normocephalic, atraumatic, sclera white, EOMI Cardiovascular: RRR, S1S2. +1 pitting edema without significant change Pulmonary: Diminished breath sounds with few expiratory wheezes. No dyspnea on 1L Abdominal: Soft, nondistended, NTTP Neurological: Alert, answering questions appropriately, cranial nerves intact, no focal findings Extremities: Left 1st toe necrotic nailbed. No surrounding erythema. All nails overgrown, thickened. Skin: Warm, dry. Const: Vital Signs, click to edit/add: Vital Signs - 24 hr 01/03/24 12:14 01/03/24 13:33 01/03/24 15:00 Temperature Pulse Rate 67 Pulse Rate [Right Pulse Oximeter] 55 L Respiratory Rate 20 Blood Pressure [Le ft Arm] Blood Pressure [Ri ght Arm] Pulse Oximetry 90 Oxygen Delivery Me thod Nasal Cannula Oxygen Flow Rate 1 01/03/24 15:00 01/03/24 15:00 01/03/24 19:46 Temperature 97.9 F 97.6 F Pulse Rate Pulse Rate [Right Pulse Oximeter] 80 73 Respiratory Rate 20 20 18 Blood Pressure [Le ft Arm] 151/80 H Blood Pressure [Ri ght Arm] 152/138 H Pulse Oximetry 90 90 93 Oxygen Delivery Me thod Nasal Cannula Nasal Cannula Nasal Cannula Oxygen Flow Rate 1 1 1 01/03/24 20:03 01/03/24 22:39 01/03/24 23:14 Temperature 97.7 F Pulse Rate 62 Pulse Rate [Right Pulse Oximeter] 73 93 Respiratory Rate 18 20 Blood Pressure [Le ft Arm] Blood Pressure [Ri ght Arm] 158/80 H Pulse Oximetry 91 Oxygen Delivery Me thod Nasal Cannula Oxygen Flow Rate 1 01/03/24 23:14 01/04/24 03:08 01/04/24 07:33 Temperature 97.8 F Pulse Rate 53 L Pulse Rate [Right Pulse Oximeter] 73 Respiratory Rate 20 18 Blood Pressure [Le ft Arm] 133/65 Blood Pressure [Ri ght Arm] Pulse Oximetry 91 91 Oxygen Delivery Me thod Nasal Cannula Nasal Cannula Oxygen Flow Rate 1 1 01/04/24 07:45 01/04/24 07:45 01/04/24 07:45 Temperature 97.4 F L Pulse Rate Pulse Rate [Right Pulse Oximeter] 53 L 63 Respiratory Rate 18 18 18 Blood Pressure [Le ft Arm] 151/96 H Blood Pressure [Ri ght Arm] Pulse Oximetry 93 93 Oxygen Delivery Me thod Nasal Cannula Nasal Cannula Oxygen Flow Rate 0.5 0.5 Labs Labs: Laboratory Results - last 24 hr 01/02/24 01/04/24 04:00 05:47 WBC 16.51 H RBC 3.99 L Hgb 10.8 L Hct 32.9 L MCV 83 MCH 27 MCHC 33 RDW Coeff of Jaimie 14.7 Plt Count 316 Neut % (Auto) 61.4 Lymph % (Auto) 14.0 L [place] % (Auto) 20.5 H Eos % (Auto) 0.1 Baso % (Auto) 0.2 Neut # (Auto) 10.10 H Lymph # (Auto) 2.30 [place] # (Auto) 3.40 H Eos # (Auto) 0.00 Baso # (Auto) 0.00 Abs Immat Gran (auto) 0.60 H Imm/Tot Granulo (auto) 3.8 Diff Slide Review Acceptable Review Peripher Smr Path Cons See Scanned Report Sodium 136 Potassium 3.9 Chloride 107 Carbon Dioxide 23 Anion Gap 6 L BUN 26 Creatinine 1.1 Estimated Creat Clear 39.46 Estimated GFR 51 Glucose 100 Calcium 8.7 C-Reactive Protein 1.3 H
--- NOTE | 2024-01-04 14:30 | PC.NURSE ---
Nursing Care Hours: [id number] Pt this shift alert and oriented, calm and cooperative. VSS. Titrate supplemental O2 from 1L to RA, sats remain above 90%. No labored breathing. Adventitious lung sounds throughout. Pt received scheduled duonebs and guaifenesin and PRN Tessalon pearls. Pt states cough productive with clear thick mucus. Ambulating independently in room. Voiding frequently with Lasix therapy. Tolerating diet. Tele showed Sinus Michael with inverted t waves and prolong QTc, hospitalist made aware and MAR reviewed by pharmacist for any drugs that can contribute to long QT. IV saline locked and patent with some manipulation, asymptomatic. Boarder of wound bed on toe light red, center dark and crusted. Washed with Vashe and iodine applied per order, left open to air. Intermittent use of SCD.
--- NOTE | 2024-01-04 18:17 | PC.NURSE ---
[id number]: The patient is pleasant and cooperative throughout the shift. Reports no pain. Still quite SOB on exertion and is noted to become tachycardic with any activity. Although her lung sounds sound less congested today. Productive intermittent cough remains. Up ad yamile as tolerated. Tolerating RA >88%. PRN O2 if needed. Call light within reach. Laverne SANCHEZ BSN
[2024-01-04] MEDS: ACETAMINOPHEN 325 MG TABLET 650 MG PO (20:44)
[2024-01-04] MEDS: ROSUVASTATIN CALCIUM 10 MG TABLET PO (20:45)
[2024-01-04] MEDS: MELATONIN 3 MG TABLET PO (20:45)
[2024-01-04] MEDS: SODIUM CHLORIDE 0.9 % (FLUSH) 10 ML SYRINGE 5 ML IVF (20:45)
--- NOTE | 2024-01-04 23:07 | PC.NURSE ---
Shift note: Pt has been in bed through the shift. Alert and oriented. Pt is independent in room. Tele is A.fib. No SOB and chest pain recorded.
[2024-01-04] MEDS: MELATONIN 3 MG TABLET 6 MG PO (23:15)
[2024-01-05 04:23] VITALS: BP 166/89; PULSE 67; RESP 18; TEMP 36.4; O2SAT 91
--- NOTE | 2024-01-05 06:32 | PC.NURSE ---
Pt alert and oriented x3. Afebrile. On room air.?Pt continues to have intermittent cough. Pt denies pain, chest pain, and N/V. Pt on tele, showing a-fib with normal ventricular rate with inverted t waves, Abisai aware.?Pt is up ad yamile in room. Pt slept intermittently throughout night, PRN melatonin at HS with by previous RN, with little relief. updated, orders given 6 mg of melatonin with little relief.
[2024-01-05 06:41] LABS: Basophils Percent Auto 0.4 % (0.0-3.0); Eosinophils Percent Auto 0.1 % (0.0-7.0); Hematocrit 35.1 % (33.0-51.0); Hemoglobin* 11.5 gm/dL (12.0-16.0); Immature Granulocytes Pct Auto 5.4 %; Lymphocytes Percent Auto 14.6 % (20-44); Mean Corpuscular HGB Conc 33 gm/dL (32-36); Mean Corpuscular Hemoglobin 27 pg (26-34); Mean Corpuscular Volume 81 fL (80-100); Monocytes Percent Auto 20.8 % (0.0-11.0); Neutrophils Percent Auto 58.7 % (42.0-72.0); Platelet Count* 281 K/uL (140-440); RDW Coefficient of Variation % 14.8 % (11.5-15.5); Red Blood Count 4.34 m/uL (4.00-5.20)
[2024-01-05 06:51] LABS: Chloride* 107 mmol/L (96-114); Potassium* 3.9 mmol/L (3.6-5.1); Sodium* 137 mmol/L (135-149)
[2024-01-05 06:54] LABS: Anion Gap 6 mEq/L (7-15); Blood Urea Nitrogen* 28 mg/dL (7-30); Carbon Dioxide* 24 mmol/L (20-32); Creatinine* 1.1 mg/dL (0.5-1.5); Est. Creatinine Clearance* 39.46; Estimated Glomerular Filt Rate 51 ml/min; Glucose* 92 mg/dL (60-115)
[2024-01-05 06:55] LABS: Calcium* 9.2 mg/dL (8.4-10.6)
[2024-01-05 06:58] LABS: Slide Review Reflex Yes
[2024-01-05 07:00] VITALS: BP 146/76; PULSE 65; RESP 18; TEMP 36.6; O2SAT 93
[2024-01-05 07:12] LABS: Slide Review Acceptable Review (Acceptable)
[2024-01-05] MEDS: CEFAZOLIN 2 GM in 0.9 % SODIUM CHLORIDE Mini-bag 100 ML IVPB (07:31)
[2024-01-05] MEDS: SODIUM CHLORIDE 0.9 % (FLUSH) 10 ML SYRINGE 5 ML IVF (07:32)
[2024-01-05 08:00] VITALS: RESP 18; O2SAT 93
[2024-01-05] MEDS: FOLIC ACID 1 MG TABLET PO (08:38)
[2024-01-05] MEDS: guaiFENesin 600 MG TAB.ER.12H PO (08:38)
[2024-01-05] MEDS: DOXYCYCLINE HYCLATE 100 MG PO (08:38)
[2024-01-05] MEDS: FUROSEMIDE 40 MG TABLET PO (08:38)
[2024-01-05] MEDS: predniSONE 20 MG TABLET 40 MG PO (08:38)
[2024-01-05] MEDS: IPRAT-ALBUT 0.5-2.5 MG/3 ML NEB 1 NEB IH (08:39)
[2024-01-05 09:26] VITALS: O2SAT 85; O2SAT 90; O2SAT 92
--- NOTE | 2024-01-05 10:42 | P.PODPN_ITS ---
Podiatry-PN: Subj Subjective Time Seen by Provider: 11:30 Date Seen: 01/03/24 Interval history: Patient seen bedside today. she has no complaints. Agrees to let me evaluate the toe again. Exam Narrative: Exam Narrative: General: No distress. Has cough but able to speak with me easily. Vascular: Nonpalpable pedal pulses. Capillary fill time 4 seconds all digits. Neuro: Diminished but present sensation to light touch. Musculoskeletal: No gross deformities. Muscle strength 5/5 all quadrants. Derm: No erythema or edema. There is a nonhealing open wound of the nail bed. There is dried necrotic tissue overlying the nail bed. Dorsal plantar pressure again causes some slight ooze of drainage. very minimal. X-ray: Apparent erosion of the distal phalanx consistent with osteomyelitis left great toe. Assessment: Nonhealing wound left great toe with underlying osteomyelitis, peripheral vascular disease Plan: I again discussed with Alice that there is infection within the bone which in most cases necessitates surgical intervention. I discussed the probable need for amputation of the distal phalanx. She has healthy-appearing plantar skin which is encouraging for healing. However she needs a vascular workup prior to surgical intervention to make sure she has appropriate vascularization for healing. We discussed that I don't want to make the situation worse if blood supply into the to is not sufficient to heal. She is agreeable to doing an immediate amputation and getting it over with but not to the vascular testing. Currently I am not willing to take that risk. If the infection became worse we would be forced to do surgery. She wishes to leave the toe as is and feels it is stable and therefore does not need any further care. We are unable to do any meaningful vascular testing here and this needs to be done outpatient. The other option is she may be a candidate for hyperbaric oxygen treatment with the wound care center to treat the underlying osteomyelitis and the nonhealing wound. I would paint the wound with betadine daily. Prolonged oral antibiotics at discharge may be beneficial. She can follow up with me or the wound care center upon discharge. Const: Vital Signs, click to edit/add: Vital Signs - 24 hr 01/04/24 11:00 01/04/24 15:00 01/04/24 15:00 Temperature 97.4 F L 97.7 F Pulse Rate [Right Pulse Oximeter] 57 L 90 Respiratory Rate 18 20 20 Blood Pressure [Le ft Arm] 116/61 Blood Pressure [Ri ght Arm] 174/90 H Pulse Oximetry 92 88 88 Oxygen Delivery Me thod Room Air Room Air Room Air Oxygen Flow Rate 01/04/24 19:00 01/04/24 23:22 01/04/24 23:22 Temperature 97.2 F L 97.8 F Pulse Rate [Right Pulse Oximeter] 60 60 Respiratory Rate 20 18 18 Blood Pressure [Le ft Arm] 145/74 H 131/65 Blood Pressure [Ri ght Arm] Pulse Oximetry 90 89 Oxygen Delivery Me thod Room Air Room Air Oxygen Flow Rate 01/04/24 23:22 01/05/24 04:23 01/05/24 07:00 Temperature 97.6 F 97.9 F Pulse Rate [Right Pulse Oximeter] 67 65 Respiratory Rate 18 18 18 Blood Pressure [Le ft Arm] 166/89 H 146/76 H Blood Pressure [Ri ght Arm] Pulse Oximetry 89 91 93 Oxygen Delivery Me thod Room Air Room Air Room Air Oxygen Flow Rate 0.5 01/05/24 08:00 Temperature Pulse Rate [Right Pulse Oximeter] Respiratory Rate 18 Blood Pressure [Le ft Arm] Blood Pressure [Ri ght Arm] Pulse Oximetry 93 Oxygen Delivery Me thod Room Air Oxygen Flow Rate Podiatry-PN: Obj Labs Labs: Laboratory Results - last 24 hr 01/05/24 05:45 WBC 15.40 H RBC 4.34 Hgb 11.5 L Hct 35.1 MCV 81 MCH 27 MCHC 33 RDW Coeff of Jaimie 14.8 Plt Count 281 Neut % (Auto) 58.7 Lymph % (Auto) 14.6 L [place] % (Auto) 20.8 H Eos % (Auto) 0.1 Baso % (Auto) 0.4 Neut # (Auto) 9.00 H Lymph # (Auto) 2.20 [place] # (Auto) 3.20 H Eos # (Auto) 0.00 Baso # (Auto) 0.10 Abs Immat Gran (auto) 0.80 H Imm/Tot Granulo (auto) 5.4 Diff Slide Review Acceptable Review Sodium 137 Potassium 3.9 Chloride 107 Carbon Dioxide 24 Anion Gap 6 L BUN 28 Creatinine 1.1 Estimated Creat Clear 39.46 Estimated GFR 51 Glucose 92 Calcium 9.2
--- NOTE | 2024-01-05 11:19 | PM.DS1 ---
DS: Providers Provider Date Seen: 01/05/24 Date of admission: 01/01/24 14:24 Primary care physician: Not a Local Provider Admitting Clinician: Bubba Ernst MD Consults: 01/01/24 14:27 Consult to Respiratory Therapy [CONS] Routine Comment: Reason(s) for RT Consult:: Consult 01/01/24 17:45 Consult to Physician [CONS] Routine Comment: Consulting Provider: Francois Farooq Has provider been notified: Yes 01/03/24 10:18 Consult to Physical Therapy [CONS] Routine Comment: Reason(s) for PT Consult:: Evaluate and Treat Any Restrictions?:: No Restrictions Attending Physician on discharge: PARUL Burgos, [facility] Date of Discharge: 01/05/24 DS: Diagnosis Discharge Diagnosis (1) CHF (congestive heart failure): Status: Acute Problem details: Primary cause of hypoxic respiratory failure On admission, BNP 5860, CT shows sequela of CHF, including mild pulmonary edema and small to moderate bilateral pleural effusions Patient was initiated on diuresis with IV Lasix, transitioned to oral Lasix upon discharge. ECHO shows normal LV size, EF 55-60%, normal global systolic RV function, inferior wall and posterior wall are abnormal, moderately enlarged left atrium, mitral valve is sclerotic, moderate to severe mitral regurgitation, mechanism appears tethering of the posterior leaflet from the inferolateral WMA. Moderately increased estimated pulmonary pressure 39 mm Hg. Inferior vena cava is consistent with elevated right arterial pressure Discharged with b.i.d. dosing Lasix, close outpatient follow-up with PCP, lab monitoring. Recommend outpatient Cardiology follow up but patient tells me she likely won't follow through. (2) COPD (chronic obstructive pulmonary disease): Status: Acute Problem details: Likely contributing to hypoxia and dyspnea as well. Active smoker, at least 1PPD per daughter CT shows pulmonary emphysema Patient initiated on oral prednisone to complete 5 day course on discharge. Utilized DuoNebs and albuterol nebs during hospitalization. Was not interested in continuing nebulizers at time of discharge. RT followed for pulmonary support during hospital course. Home oxygen assessment completed, requiring supplemental oxygen on discharge, to be followed by PCP. Patient is discharged with Breo Ellipta and an albuterol inhaler with a spacer. Outpatient follow-up with PCP for further COPD evaluation and medication management options. Would benefit from a nebulizer but was not interested at time of discharge. (3) Hypoxic respiratory failure: Status: Acute Problem details: Treated for CHF and COPD. Home oxygen assessment completed prior to discharge, O2 saturations 85% with activity, 92% with rest. Discharged with home oxygen. Further management with PCP. (4) Afib: Status: Acute Problem details: Rate controlled, even episodically bradycardic. Continue to monitor, telemetry. Prolonged QTC noted. Initiated on anticoagulation with Apixiban. Monitored closely given history of iron deficiency anemia and h/o bleed several years ago after taking incorrect dose Warfarin. During hospital course, dark stools were noted, positive occult blood, mild decrease in hemoglobin. Discussed with Dr. Boston, general surgery. Held apixaban, monitored hemoglobin, considering scope if necessary (hemoglobin stabilized, rebounded). SCDs were recommended for VTE PPX however the patient declined understanding risks. Upon discharge, Apixaban has been held. Discussed risks and benefits of anticoagulation in setting of atrial fibrillation with history of GI bleed, dark stools and decreasing hemoglobin while in the hospital. Outpatient follow-up with PCP for further options. May need outpatient scope. (5) Chronic toe ulcer: Status: Acute Problem details: Xray shows soft tissue swelling and subcutaneous emphysema of the distal 1st digit with osteolysis of the distal 1st digit consistent with osteomyelitis change Consulted Dr. Farooq. Discussed. Recommends arterial US with toe pressures (<0.4 would need angio) or CTA given concern for poor vascularization. As these studies are unavailable at this facility, Dr. Farooq recommends to continue antibiotic (IV while in hospital, transitioning to oral on d/c) and wound cares with iodine and keeping it dry, with outpatient follow up in his clinic for imaging and plan for amputation (patient tells me she is not interested despite risks) Prior to discharge, Wound culture grew out staph pseudintermedius, lundberg sensitivities reviewed. Discharged with oral doxycycline x 10 day course. She will need outpatient SHANNAN US with toe pressures and follow-up in the podiatry clinic. (6) Iron deficiency anemia: Status: Acute Problem details: Stool occult +. Fe 35, TIBC 387, % sat 9, ferritin 21.5 Continued on iron supplement Consider outpatient endoscopy to further evaluate Apixaban has been held. Patient has been advised to stop taking naproxen or other NSAIDs until re-evaluated by PCP. Discharged with oral iron supplement. (7) Coronary artery disease: Status: Acute Problem details: Started on statin. Outpatient Cardiology follow-up. (8) Peripheral vascular disease: Status: Acute Problem details: Diminished pedal pulses bilaterally. May impact wound healing of the left great toe Will need outpatient studies with podiatry prior to amputation as detailed above. (9) Tobacco abuse disorder: Status: Acute Problem details: Recommend cessation (10) Elevated troponin: Status: Acute Problem details: 0.09-0.08, unchanged. EKG with ischemic changes. Asymptomatic DS: Summary Hospital Course Hospital Course: [age] year old female past medical history significant for several chronic medical issues which have been unattended for the past 10 years including atrial fibrillation previously on anticoagulation a with history of GI bleed, COPD, tobacco dependence, suspected heart failure, anemia, chronic toe wound not previously evaluated was admitted to the medical floor for further management acute hypoxic respiratory failure in setting of poorly managed CHF and COPD. Course of care and details as noted above. Specific details as noted above. Will need outpatient follow-up, establishing care with PCP for ongoing chronic medical and medication management, cardiology consult, Podiatry. Remainder of chronic medical comorbidities were monitored and managed with home medications. Status at Discharge Overall status at discharge: patient is progressing back to baseline Time Spent with Patient Time attestation: Total time spent providing and/or coordinating discharge services: Time spent: Greater than 30 minutes Exam Narrative: Exam Narrative: PHYSICAL EXAM General: Pleasant, conversant, NAD Cardiovascular: RRR Pulmonary: Mild dyspnea on room air, conversing Neurological: Alert, answering questions appropriately Skin: Warm, dry. Const: Vital Signs, click to edit/add: Vital Signs - 24 hr 01/04/24 15:00 01/04/24 15:00 01/04/24 19:00 Temperature 97.7 F 97.2 F L Pulse Rate [Right Pulse Oximeter] 90 60 Respiratory Rate 20 20 20 Blood Pressure [Le ft Arm] 145/74 H Blood Pressure [Ri ght Arm] 174/90 H Pulse Oximetry 88 88 90 Oxygen Delivery Me thod Room Air Room Air Room Air Oxygen Flow Rate 01/04/24 23:22 01/04/24 23:22 01/04/24 23:22 Temperature 97.8 F Pulse Rate [Right Pulse Oximeter] 60 Respiratory Rate 18 18 18 Blood Pressure [Le ft Arm] 131/65 Blood Pressure [Ri ght Arm] Pulse Oximetry 89 89 Oxygen Delivery Me thod Room Air Room Air Oxygen Flow Rate 0.5 01/05/24 04:23 01/05/24 07:00 01/05/24 08:00 Temperature 97.6 F 97.9 F Pulse Rate [Right Pulse Oximeter] 67 65 Respiratory Rate 18 18 18 Blood Pressure [Le ft Arm] 166/89 H 146/76 H Blood Pressure [Ri ght Arm] Pulse Oximetry 91 93 93 Oxygen Delivery Me thod Room Air Room Air Room Air Oxygen Flow Rate DS: Data Data Completed and Pending Labs on day of discharge: Labs from last 24 hours 01/05/24 05:45 WBC 15.40 H RBC 4.34 Hgb 11.5 L Hct 35.1 MCV 81 MCH 27 MCHC 33 RDW Coeff of Jaimie 14.8 Plt Count 281 Neut % (Auto) 58.7 Lymph % (Auto) 14.6 L [place] % (Auto) 20.8 H Eos % (Auto) 0.1 Baso % (Auto) 0.4 Neut # (Auto) 9.00 H Lymph # (Auto) 2.20 [place] # (Auto) 3.20 H Eos # (Auto) 0.00 Baso # (Auto) 0.10 Abs Immat Gran (auto) 0.80 H Imm/Tot Granulo (auto) 5.4 Diff Slide Review Acceptable Review Sodium 137 Potassium 3.9 Chloride 107 Carbon Dioxide 24 Anion Gap 6 L BUN 28 Creatinine 1.1 Estimated Creat Clear 39.46 Estimated GFR 51 Glucose [address] scan - chest: Attestation: I have reviewed the pertinent imaging results. Radiologist's impression: CT chest PE was acquired with 95 cc Isovue 370 IV contrast. COMPARISON: Chest x-ray, January 01, 2024. FINDINGS: Heart and vasculature: Contrast opacification of the pulmonary arterial tree is adequate. No sign of pulmonary embolism. Cardiomegaly with coronary artery calcifications. Thoracic aorta and pulmonary artery are normal in caliber. Lungs and pleura: Pulmonary emphysema. Pulmonary edema. Small to moderate bilateral pleural effusions greater on the right side with compressive atelectasis. No pneumothorax. Lymph nodes/mediastinum: No mediastinal, hilar, or axillary adenopathy. Chest wall: No masses. Upper abdomen: No acute or significant findings. Bones: Age indeterminate mild T6 superior endplate compression deformity. Recommend correlation with point tenderness. IMPRESSION: No pulmonary embolism Sequela of CHF, including mild pulmonary edema and small to moderate bilateral pleural effusions. Pulmonary emphysema. Cardiomegaly with coronary artery calcifications. Toe plain film: Attestation: I have reviewed the pertinent imaging results. Radiologist's impression: AP, lateral, and oblique views left 1st digit were obtained. Findings: There is demonstration of osteolysis of the distal 1st digit commensurate with developing osteomyelitis changes. There is an age-indeterminate fracture of the distal 5th metatarsal. Hammertoe changes of the 4th and 5th digits are appreciated. Marked soft tissue swelling and subcutaneous emphysema of the distal 1st digit. Impression: Soft tissue swelling and subcutaneous emphysema of the distal 1st digit with osteolysis of the distal 1st digit consistent with osteomyelitis changes. Chest x-ray: Attestation: I have reviewed the pertinent imaging results. Radiologist's impression: Single AP view chest Findings: There is hyperinflation and chronic interstitial change. Ogsgs-cvyhane-idtz-left basilar pleural effusions with adjacent compressive atelectasis versus infiltrates. There is no pneumothorax. The cardiac silhouette is enlarged. The bony thorax is grossly intact. Impression: Dhnmo-xeksyrx-djgp-left basilar pleural effusions with adjacent compressive atelectasis versus infiltrates. Mildly increased interstitial markings likely representing minimal pulmonary edema. Discharge Plan Discharge Disposition: Home, Self-Care Date of Admission: 01/01/24 14:24 Attending Provider on Discharge: Brynn Currie Consulting Providers: Francois Farooq Primary Care Provider: Provider,Not a Local Condition: Improved Anticipated Discharge Date/Time: 01/05/24 10:56 Discharge Medications: New ferrous sulfate 325 mg (65 mg iron) Tablet 325 mg PO DAILY@1200 Qty: 30 0RF doxycycline hyclate 100 mg Tablet 100 mg PO BID Qty: 20 0RF furosemide 20 mg tablet 20 mg PO BID@0800,1400 Qty: 60 0RF prednisone 20 mg Tablet 40 mg PO DAILYWM Qty: 2 0RF rosuvastatin 10 mg Tablet 10 mg PO HS Qty: 30 0RF albuterol sulfate [Proventil HFA] 90 mcg/actuation HFA aerosol inhaler 2 puff inhalation Q6H PRN (Reason: shortness of breath or wheezing) Qty: 8.5 0RF Breo Ellipta 50-25 mcg/dose blister with device 1 inh inhalation DAILY Qty: 60 0RF Continued Unisom (doxylamine) 25 mg tablet 25 mg PO QHS Discontinued naproxen sodium [Aleve] 220 mg capsule 220 mg PO HS Discharge Orders: Discharge Order (Routine); Ordered 01/05/24 Ordered By: Brynn Currie Patient Education: Heart Failure (GEN), COPD (Chronic Obstructive Pulmonary Disease) (GEN), Coronary Artery Disease in Women (GEN), Chronic Wounds (GEN) Additional Instructions: Continue to take the antibiotic for your toe ulcer. Follow-up with Podiatry, Dr. Farooq, for re-evaluation and pre-surgical planning. You will need SHANNAN Ultrasound with toe pressures. Recommend outpatient Cardiology consult Follow-up in the [facility] clinic to establish care and for ongoing medication management. You are going home with oxygen. You will need outpatient follow-up for further COPD evaluation and medication management. Your anticoagulant has been held. You will need to discuss reinitiation with risks and benefits with your PCP. Activity Level: No Restrictions Discharge Diet: Heart Healthy (2 gm sodium, low fat) Follow Up Appointments: Provider,Not a Local [Primary Care Provider] - None () Nancy Rainey MD [Staff Physician] - 01/08/24 10:40 am (Please bring insurance card to follow up appointment) Francois Farooq DPM [Staff Physician] - 01/10/24 (Outpatient follow-up toe ulcer, pre-surgical evaluation. Patient will have to call and get the next available appointment.) Forms: [employer] Info Instructions
--- NOTE | 2024-01-05 14:49 | PC.NURSE ---
Discharge: The patient discharged home with her daughter this afternoon. Education was provided regarding CHF diagnosis, DASH diet, weighing herself daily. I also educated her on the use of a spacer for her inhaler, and short vs long acting inhaler use. We also discussed her plan to follow up with podiatry regarding her L foot greater toe.. was cleaned prior to discharge... serous puss was noted. The patient has a follow up scheduled with primary care for next week as well. All discharge paper work and education regarding her new diagnosis's were sent home with the patient. Laverne SANCHEZ BSN
== END 2024-01-05 12:47 | disposition home or self-care (01) | DRG 291 ==
LOC: ED 13:04 → MEDSURG 13:11
PROVIDERS: Physician Assistant; Admitting Provider Family Medicine; Emergency Provider Family Medicine; Visit Provider Family Medicine
DX: I50.33 Acute on chronic diastolic (congestive) heart failure (principal); J96.01 Acute respiratory failure with hypoxia; M86.672 Other chronic osteomyelitis, left ankle and foot; K92.2 Gastrointestinal hemorrhage, unspecified; L97.524 Non-pressure chronic ulcer of other part of left foot with necrosis of bone; I73.9 Peripheral vascular disease, unspecified; I48.91 Unspecified atrial fibrillation; J43.9 Emphysema, unspecified; J44.9 Chronic obstructive pulmonary disease, unspecified; R79.89 Other specified abnormal findings of blood chemistry; D50.0 Iron deficiency anemia secondary to blood loss (chronic); F17.210 Nicotine dependence, cigarettes, uncomplicated; I25.10 Atherosclerotic heart disease of native coronary artery without angina pectoris
CPT/HCPCS: 36415; 71045; 71275; 73660; 80048; 80053; 80061; 82270; 82728; 82803; 83540; 83550; 83605; 83735; 83880; 84145; 84439; 84443; 84484; 85025; 85045; 85379; 85610; 85730; 86140; 87070; 87186; 87205; 87631; 93005; 93306; 94640; 94664; 94761; 97116; 97161; 99284; 99285; A9153; A9270; J0690; J1940; J7512; Q9967

== ENCOUNTER 2024-04-01 11:52 | Outpatient (CLI) | payer MEDICARE, BC, SELFPAY | END 2024-04-01 11:53 | disposition home or self-care (01) | LOC: AMB 04-04 02:46 | PROVIDERS: Visit Provider Family Medicine | DX: R55 Syncope and collapse (principal); R11.10 Vomiting, unspecified | CPT/HCPCS: A0425; A0427 ==

== ENCOUNTER 2025-03-03 09:17 | Observation (INO) | payer MEDICARE, BC, SELFPAY ==
[2025-03-03] VITALS (14 sets, daily range): BP systolic 121–192; BP diastolic 57–84; PULSE 61–107; RESP 16–22; TEMP 36.1–36.7; O2SAT 85–97; BMI 21.3
--- OUTSIDE RECORDS SUMMARY | 2025-03-03 09:19 | XMS_ITS | Clinical Summary ---
Author Organization [facility] Address [address] [place] [id number] Care Team Providers Care Machinery Repair Maintenance Supervisor Name Role Phone Abigail Rivero MD Unavailable [phone] Jake Ornelas MD Unavailable [phone] Nancy Rainey MD Primary Care Prov ider Allergies No known active allergies Medications FeroSuL 325 mg (65 mg iron) tablet Take 325 mg by mouth once daily with a meal. 01/05/20 24 Active doxylamine (Unisom, doxylamine,) 25 mg tablet Take 25 mg by mouth at bedtime if needed for Sleep. Active acetaminophen (TYLENOL) 325 mg tabletIndication s:Pseudoaneurysm following procedure Take 2 Tablets (650 mg) by mouth every 4 hours if needed for Pain (For mild pain.). Max acetaminophen dose: 4000mg in 24 hrs. 30 Tablet 04/11/2024 12:35 PM CDT 04/11/20 24 Active polyethylene glycoL (MIRALAX) 17 gram/scoop powder Mix 1 scoop (17 g) in liquid then take by mouth. 04/13/20 24 Active geriatric multivitamin-iro n-minerals (GERITOL; CENTRUM SILVER) tablet Take 1 Tablet by mouth once daily. 04/13/20 24 Active levalbuterol (XOPENEX HFA) 45 mcg/actuation inhalerIndicatio ns:Chronic obstructive pulmonary disease, unspecified COPD type (HC) INHALE 1 TO 2 PUFFS BY MOUTH EVERY 4 HOURS NEEDED FOR SHORTNESS OF BREATH OR WHEEZING 15 g 05/01/20 24 Active spironolactone (ALDACTONE) 25 mg tabletIndication s:Chronic heart failure with preserved ejection fraction (HC) Take 1 Tablet (25 mg) by mouth once daily in the morning. 90 Tablet 3 09/25/19 25 Active rivaroxaban (Xarelto) 20 mg tabletIndication s:Atrial fibrillation, unspecified type (HC) Take 1 Tablet (20 mg) by mouth once daily with evening meal. 90 Tablet 3 09/25/19 25 Active furosemide (LASIX) 20 mg tabletIndication s:Chronic heart failure with preserved ejection fraction (HC) Take 1 Tablet (20 mg) by mouth once daily. 90 Tablet 3 09/25/19 25 Active amLODIPine (NORVASC) 5 mg tabletIndication s:HTN (hypertension) Take 1 Tablet (5 mg) by mouth once daily. 90 Tablet 3 09/25/19 25 Active rosuvastatin (CRESTOR) 20 mg tabletIndication s:Coronary artery disease, unspecified vessel or lesion type, unspecified whether angina present, unspecified whether [place] or transplanted heart Take 1 Tablet (20 mg) by mouth at bedtime. 90 Tablet 3 09/25/19 25 Active Breo Ellipta 50-25 mcg/dose inhalation powderIndication s:Pulmonary emphysema, unspecified emphysema type (HC) Inhale 1 Puff by mouth once daily. 60 Each 11 09/25/19 25 Active Active Problems Problem Noted Date Diagnosed Date Symptomatic bradycardia s/p pacemaker 09/25/2024 Atherosclerosis of [place] ar teries of extremities with rest pain, left leg 09/25/2024 Pacemaker 04/16/2024 Overview (04/16/2024): -- For symptomatic bradycardia 03/2024 -- S/P permanent pacemaker A lead(RA septum), V Lead(Left Bundle) 03/21/2024 Chronic heart failure with preserved ejection fr action 04/16/2024 PAF (paroxysmal atrial fibrillation) 04/16/2024 Overview (04/16/2024): -- Tachy-mercedes led to pacer 03/2024 -- No AAD's. Asymptomatic. Rate control. PVD (peripheral vascular disease) 04/16/2024 Overview (04/21/2024): - Percutaneous revasc of L leg 03/2024, complicated by pseudoaneurysm, large hematoma, severe blood loss anemia Pseudoaneurysm of right femoral artery Pseudoaneurysm of superifica l femoral artery with associated extravasation and hematoma. 04/01/2024 Afib 01/08/2024 Overview (01/08/2024): Rate controlled, even episodically bradycardic. Prolonged QTC noted. Initiated on anticoagulation with Apixiban. Monitored closely given history of iron deficiency anemia and h/o bleed several years ago after taking incorrect dose Warfarin. During hospital course, dark stools were noted, positive occult blood, mild decrease in hemoglobin. Discussed with Dr. Boston, general surgery. Held apixaban, monitored hemoglobin, considering scope if necessary (hemoglobin stabilized, rebounded). SCDs were recommended for VTE PPX however the patient declined understanding risks. CHF (congestive heart failure) 01/08/2024 COPD (chronic obstructive pulmonary disease) Coronary artery disease 01/08/2024 Iron deficiency anemia 01/08/2024 Peripheral vascular disease 01/08/2024 Tobacco abuse disorder 01/08/2024 Fecal occult blood test positive 01/08/2024 Resolved Problems Problem Noted Date Diagnosed Date Resolved Date Small bowel obstruction 04/05/202404/16 Acute kidney injury 04/01/2024 05/01/20 Acute blood loss anemia 04/01/2024 0802/2024 Septic shock 04/01/2024 05/01/2024 Hemorrhagic shock 04/01/2024 05/01/2024 Gangrene of foot 03/25/2024 05/01/2024 Symptomatic bradycardia 03/20/2024 08/09/2023 DNR (do not resuscitate) 03/20/2024 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 01/08/2024 09/25/2024 Hypoxic respiratory failure 01/08/2024 05/01/2024 Encounters Date Type Department Care Team Description 01/04/2025 Telephone [facility] [address] [place] [address] Nancy Rainey MD [facility] 12/04/2024 2:45 PM CDT Office Visit [facility] [address] [place] [phone] Michelle Breen MBBS Follow Up (Peripheral vascular disease) 12/04/2024 12:19 PM CDT - 12/04/2024 11:59 PM CDT Hospital Encounter [facility] [address] [place] [address] Michelle Breen MBBS Peripheral vascular disease 12/04/2024 Travel from Last 3 Months Family History Medical History Relation Name Comments Cancer Mother leukemia Relation Name Status Comments Mother Social History Tobacco Use Types Packs/Day Years Used Date Smoking Tobacco: Every Day Cigarettes Tobacco Cessation:Ready to Q uit: Not Asked; Counseling Given: Not Answered Comments:Quit 4 years ago Alcohol Use Standard Drinks/Week Comments Yes 0 (1 standard drink = 0.6 oz pur e alcohol) rarely PHQ-2 Answer Date Recorded PHQ-2 TOTAL SCORE 2 09/25/2024 Social Connections Answer Date Recorded Do you often feel lonely or isolated from those around you? 4 04/01/2024 Financial Resource Strain Answer Date R ecorded Difficulty of Paying Living Expenses 3 01/08/2024 Difficulty of Paying Living Expenses Not on file 01/08/2024 Food Insecurity Answer Date Recorded Do you worry your food will run out before you are able to buy more? 1 04/01/2024 Transportation Needs Answer Date Record ed Does lack of transportation keep you from medica l appointments? 1 04/01/2024 Does lack of transportation keep you from work, meetings or getting things that you need? 1 04/01/2024 Housing Stability Answer Date Recorded What is your housing situation today? 1 04/01/2024 Interpersonal Safety Answer Date Record ed Are you being hit, kicked, p ushed or yelled at (see row info)? Unable to assess, family/SO in room. 05/02/2024 Interpersonal Safety Abuse 12 - 18 Not on file 05/02/2024 Interpersonal Safety Ambulat ory Vulnerability Not on file 05/02/2024 Utilities Answer Date Recorded Do you have trouble paying f or utilities (for example, heat, electricity, water, phone)? 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 Gender Identity Not on file Sexual Orientation Not on file Obstetrics History Last Filed Vital Signs Vital Sign Reading Time Taken Comments Blood Pressure 148/66 12/04/2024 1:38 PM CDT Pulse 86 12/04/2024 1:38 PM CDT Temperature 36 C (96.8 F) 05/02/2024 5:47 PM CDT Respiratory Rate 16 05/02/2024 5:47 PM CDT Oxygen Saturation 95% 12/04/2024 1:38 PM CDT Inhaled Oxygen Concentration - - Weight 58.6 kg (129 lb 3 oz) 12/04/2024 1:38 PM CDT Height 164 cm (5' 4.57) 12/04/2024 1:38 PM CDT Body Mass Index 21.79 12/04/2024 1:38 PM CDT Plan of Treatment Upcoming Encounters Date Type Department Care Team (Late st Contact Info) Description 03/11/2025 Procedure Only [facility] [address] [phone] Health Maintenance Due Date Last Done Comments Tdap 1956 Hepatitis C screening for ag e 18-79 1963 Pneumococcal series for age 50+ (1 of 2 - PCV) 1964 Tetanus booster 1965 Zoster (shingles) series for age 50+ (1 of 2) 1995 DEXA/DXA scan for age 65+ 2010 RSV vaccine for adults or (1 - 1-dose 75+ series) 2020 COVID-19 vaccine series ( - season) 2024 10/26/2021, 12/06/2020, 11/15/2020 Influenza Vaccine (Season Ended) 2025 Depression screening for age 12+ 09/25/2025 09/25/2024 Medicare Wellness for age 65+ 09/26/2025 09/25/2024 BMI (ht and wt on same day) for age 18+ 12/04/2025 12/04/2024, 09/25/2024, 04/21/2024 Hepatitis B series for 19+ Aged Out N o longer eligible based on patient's age to complete this topic Medical Devices Implanted Type Area Stitcher Feeder Device Identifier Shelf Expiration Date Model / Serial / Lot Plate Distal Lt Volar Short - [id number] Implanted:Qty: 1 on 03/12/2007 at [facility] Right: Wrist [employer] [id number]# / / Peg 2.0mm Smooth [id number] - [id number] Implanted:Qty: 2 on 03/12/2007 at [facility] Right: Wrist [employer] [id number]# / / Peg 2.0mm Smooth [id number] - [id number] Implanted:Qty: 1 on 03/12/2007 at [facility] Right: Wrist [employer] [id number]# / / Peg 2.0mm Smooth [id number] - [id number] Implanted:Qty: 2 on 03/12/2007 at [facility] Right: Wrist [employer] [id number]# / / Implant On The Fly - [id number] Implanted:Qty: 2 on 03/12/2007 at [facility] Right: Wrist [id number] / / Description:cortical screws hand innov system [id number] 3.5x14mm x2 Implant On [employer] Fly - [id number] Implanted:Qty: 1 on 03/12/2007 at [facility] Right: Wrist [id number] / / Description:cortical screws [id number] 3.5x16mm [id number] - [id number] Implanted:Qty: 2 on 09/14/2011 at [facility] Left: Elbow [id number] / / Description:70.0mm Tension B and Pin / [employer] Procedures Procedure Name Priority Date/Time Associated Diagnosis Comments US ANKLE BRACHIAL INDEX BILATERAL Routine 12/04/2024 1:53 PM CDT Peripheral vascular disease US ARTERIAL LOWER EXTREMITY BILATERAL Routine 12/04/2024 1:53 PM CDT Peripheral vascular disease from Last 3 Months Results * US ANKLE BRACHIAL INDEX BILATERAL (12/04/2024 1:53 PM CDT) Anatomical Region Laterality Modality ANKLES, ANKLE L, ANKLE R Ultraso und 12/04/2024 12:1 3 PM CDT Narrative 12/04/2024 3:22 PM CDT VASCULAR ULTRASOUND REPORT BERTHA RAMON : 1945 Study Date: 12/04/2024 12:13:00 PM Age: 79 years Tech: AMS Gender: F Referring MD: MICHELLE BREEN Site: [facility] Study performed: Lower extremity resting SHANNAN, TBI, (bilateral). Indication for study: PVD Study Quality: Good TECHNIQUE: Lower/upper extremity arteries were examined per exam protocol by duplex ultrasound, color-flow and spectral Doppler. Peak systolic velocities (PSV), Doppler waveform quality, velocity ratios and vessel size in cm, were documented at protocol specific sites. Physiologic data including segmental pressures, ankle/brachial index (SHANNAN), digit PPG recordings, laser Doppler flowmetry, transcutaneous oximetry, and digit temperatures were documented at sites per exam protocol and test requirements. IMPRESSION: 1. Resting ankle-brachial index is moderately reduced on the right at 0.69 and is moderately reduced on the left at 0.57. 2. Toe-brachial index is abnormal on the left at 0.22. 3. Toe pressures were not able to be obtained at the right first digit. 4. Left first digit toe pressures are above healing threshold. 5. Significantly/severely dampened right transmetatarsal pulse volume recording. Moderately dampened left transmetatarsal pulse volume recording. COMPARISON: Compared to prior study 05/20/2024, Decreased ABIs. FINDINGS: Unable to obtain RT TBI due to dampened waveform. LT TBI obtained at second digit due to history of great toe amputation. Abnormal toe brachial index on the left. Pressures +-----+ +--------+ +-----+ RIGHT (mmHg) LEFT (mmHg) +-----+ +--------+ +-----+ Index 194 Brachial 180 Index +-----+ +--------+ +-----+ 0.69 133 DIRECTOR 111 0.57 +-----+ +--------+ +-----+ 0.59 114 DPA 80 0.41 +-----+ +--------+ +-----+ Digit 1 43 0.22 +-----+ +--------+ +-----+ Franklin Calixto MD. Electronically signed on 12/04/2024 3:22:16 PM This study was performed and interpreted by a service accredited by the Intersocietal Accreditation Commission (IAC/Vascular), [email or web address] Report generated by [employer]. Final Procedure Note Franklin Calixto MD - 12/04/2024 VASCULAR ULTRASOUND REPORT BERTHA RAMON : 1945 Study Date: 12/04/2024 12:13:00 PM Age: 79 years Tech: AMS Gender: F Referring MD: MICHELLE BREEN Site: [facility] Study performed: Lower extremity resting SHANNAN, TBI, (bilateral). Indication for study: PVD Study Quality: Good TECHNIQUE: Lower/upper extremity arteries were examined per exam protocol by duplexultrasound, color-flow and spectral Doppler. Peak systolic velocities(PSV), Doppler waveform quality, velocity ratios and vessel size in cm,were documented at protocol specific sites. Physiologic data includingsegmental pressures, ankle/brachial index (SHANNAN), digit PPG recordings,laser Doppler flowmetry, transcutaneous oximetry, and digit temperatureswere documented at sites per exam protocol and test requirements. IMPRESSION: 1. Resting ankle-brachial index is moderately reduced on the right at0.69 and is moderately reduced on the left at 0.57. 2. Toe-brachial index is abnormal on the left at 0.22. 3. Toe pressures were not able to be obtained at the right first digit. 4. Left first digit toe pressures are above healing threshold. 5. Significantly/severely dampened right transmetatarsal pulse volumerecording. Moderately dampened left transmetatarsal pulse volumerecording. COMPARISON: Compared to prior study 05/20/2024, Decreased ABIs. FINDINGS: Unable to obtain RT TBI due to dampened waveform. LT TBI obtained at second digit due to history of great toe amputation. Abnormal toe brachial index on the left. Pressures +-----+ +--------+ +-----+ RIGHT (mmHg) LEFT (mmHg) +-----+ +--------+ +-----+ Index 194 Brachial 180 Index +-----+ +--------+ +-----+ 0.69 133 DIRECTOR 111 0.57 +-----+ +--------+ +-----+ 0.59 114 DPA 80 0.41 +-----+ +--------+ +-----+ Digit 1 43 0.22 +-----+ +--------+ +-----+ Franklin Calixto MD. Electronically signed on 12/04/2024 3:22:16 PM This study was performed and interpreted by a service accredited by theIntersocietal Accreditation Commission (IAC/Vascular),[email or web address] Report generated by [employer]. Final us Michelle CENTENO US Fi nal Result * US ARTERIAL LOWER EXTREMITY BILATERAL (12/04/2024 1:53 PM CDT) Anatomical Region Laterality Modality LEGS, LEG L, LEG R Ultrasound 12/04/2024 12:2 2 PM CDT Narrative 12/07/2024 8:20 PM CDT VASCULAR ULTRASOUND REPORT BERTHA RAMON : 1945 Study Date: 12/04/2024 12:22:22 PM Age: 79 years Tech: AMS Gender: F Referring MD: MICHELLE BREEN Site: [facility] Study performed: Lower extremity duplex US, (bilateral). Indication for study: PVD Study Quality: Good TECHNIQUE: Lower/upper extremity arteries were examined per exam protocol by duplex ultrasound, color-flow and spectral Doppler. Peak systolic velocities (PSV), Doppler waveform quality, velocity ratios and vessel size in cm, were documented at protocol specific sites. Physiologic data including segmental pressures, ankle/brachial index (SHANNAN), digit PPG recordings, laser Doppler flowmetry, transcutaneous oximetry, and digit temperatures were documented at sites per exam protocol and test requirements. IMPRESSION: 1. Evaluation of the lower left extremity shows 50-74% stenosis in the mid superficial femoral artery. 2. No evidence of arterial inflow disease right lower extremity. 3. Left superficial femoral artery is occluded proximally with reconstitution in the proximal to mid segment. Waveforms distal to this occlusion are monophasic. There is a elevated velocity in the distal superficial femoral artery relative to the mid SFA with a ratio greater than 4.0. The popliteal tibioperoneal trunk posterior tibial, peroneal, anterior tibial, and dorsalis pedis arteries are patent with monophasic waveforms. 4. The left external iliac artery is patent with probable moderate stenosis with an elevated velocity in broadened waveform. The left common femoral artery waveform is also broadening consistent with mild to moderate inflow disease. 5. There is a 50 to 74% stenosis in the left mid superficial femoral artery. The popliteal, tibial peroneal trunk peroneal anterior tibial and dorsalis pedis arteries are patent. The posterior tibial artery on the left as a dampened monophasic waveform. The waveforms from the popliteal artery through the dorsalis pedis posterior tibial artery are dampened throughout. 6. Known hematoma at the RT groin measures 2.4 x 1.7 cm. COMPARISON: Compared to prior study ., disease progression of RLE (01/27/2024);no significant change of LLE (05/20/2024). FINDINGS: Known hematoma at the RT groin measures 2.4 x 1.7 cm. The RT SFA is occluded at the proximal level and reconstitutes at the prox/mid level. Significantly dampened waveforms noted at the LT proximal popliteal artery. There is 50-74% stenosis in the left mid superficial femoral artery. + + + RIGHT Velocity cm/s + + + EIA DST 111 + + + SOILED LINEN DISTRIBUTOR DST 147 + + + PFA 150 + + + SFA PRX 0 + + + SFA PRX MID 18 + + + SFA MID 21 + + + SFA DST 116 + + + MANAN PRX 34 + + + MANAN DST 56 + + + TPT 79 + + + DIRECTOR DST 27 + + + SHASHANK DST 28 + + + JAVED PRX 33 + + + JAVED DST 21 + + + DPA 21 + + + +--------+ + + +--------+ LEFT Velocity cm/s PRE POST Stenosis Velocity cm/s Velocity cm/s Phasicity Phasicity +--------+ + + +--------+ EIA DST 212 +--------+ + + +--------+ SOILED LINEN DISTRIBUTOR DST 285 +--------+ + + +--------+ PFA 107 +--------+ + + +--------+ SFA PRX 276 +--------+ + + +--------+ SFA MID 170 83 75 50-74% +--------+ + + +--------+ SFA DST 83 +--------+ + + +--------+ MANAN PRX 78 +--------+ + + +--------+ MANAN DST 79 +--------+ + + +--------+ TPT 70 +--------+ + + +--------+ DIRECTOR DST 7 +--------+ + + +--------+ SHASHANK DST 43 +--------+ + + +--------+ JAVED PRX 42 +--------+ + + +--------+ JAVED DST 44 +--------+ + + +--------+ DPA 34 +--------+ + + +--------+ Criteria: Stenosis V. Ratio Mild <50% <2.0 Moderate 50-74% > or = 2.0 Severe 75-99% > or = 4.0 Occluded 100% no detectable flow Franklin Calixto MD. Electronically signed on 12/07/2024 8:20:35 PM This study was performed and interpreted by a service accredited by the Intersocietal Accreditation Commission (IAC/Vascular), [email or web address] Report generated by [employer]. Final Procedure Note Franklin Calixto MD - 12/07/2024 VASCULAR ULTRASOUND REPORT BERTHA RAMON : 1945 Study Date: 12/04/2024 12:22:22 PM Age: 79 years Tech: GILBERTO Gender: F Referring MD: MICHELLE BREEN Site: [facility] Study performed: Lower extremity duplex US, (bilateral). Indication for study: PVD Study Quality: Good TECHNIQUE: Lower/upper extremity arteries were examined per exam protocol by duplexultrasound, color-flow and spectral Doppler. Peak systolic velocities(PSV), Doppler waveform quality, velocity ratios and vessel size in cm,were documented at protocol specific sites. Physiologic data includingsegmental pressures, ankle/brachial index (SHANNAN), digit PPG recordings,laser Doppler flowmetry, transcutaneous oximetry, and digit temperatureswere documented at sites per exam protocol and test requirements. IMPRESSION: 1. Evaluation of the lower left extremity shows 50-74% stenosis in themid superficial femoral artery. 2. No evidence of arterial inflow disease right lower extremity. 3. Left superficial femoral artery is occluded proximally withreconstitution in the proximal to mid segment. Waveforms distal to thisocclusion are monophasic. There is a elevated velocity in the distalsuperficial femoral artery relative to the mid SFA with a ratio greaterthan 4.0. The popliteal tibioperoneal trunk posterior tibial, peroneal, anteriortibial, and dorsalis pedis arteries are patent with monophasicwaveforms. 4. The left external iliac artery is patent with probable moderatestenosis with an elevated velocity in broadened waveform. The left commonfemoral artery waveform is also broadening consistent with mild tomoderate inflow disease. 5. There is a 50 to 74% stenosis in the left mid superficial femoralartery. The popliteal, tibial peroneal trunk peroneal anterior tibial anddorsalis pedis arteries are patent. The posterior tibial artery on theleft as a dampened monophasic waveform. The waveforms from the poplitealartery through the dorsalis pedis posterior tibial artery are dampenedthroughout. 6. Known hematoma at the RT groin measures 2.4 x 1.7 cm. COMPARISON: Compared to prior study ., disease progression of RLE (01/27/2024);nosignificant change of LLE (05/20/2024). FINDINGS: Known hematoma at the RT groin measures 2.4 x 1.7 cm. The RT SFA is occluded at the proximal level and reconstitutes at theprox/mid level. Significantly dampened waveforms noted at the LT proximal poplitealartery. There is 50-74% stenosis in the left mid superficial femoral artery. + + + RIGHT Velocity cm/s + + + EIA DST 111 + + + SOILED LINEN DISTRIBUTOR DST 147 + + + PFA 150 + + + SFA PRX 0 + + + SFA PRX MID 18 + + + SFA MID 21 + + + SFA DST 116 + + + MANAN PRX 34 + + + MANAN DST 56 + + + TPT 79 + + + DIRECTOR DST 27 + + + SHASHANK DST 28 + + + JAVED PRX 33 + + + JAVED DST 21 + + + DPA 21 + + + +--------+ + + +--------+ LEFT Velocity cm/s PRE POST Stenosis Velocity cm/s Velocity cm/s Phasicity Phasicity +--------+ + + +--------+ EIA DST 212 +--------+ + + +--------+ SOILED LINEN DISTRIBUTOR DST 285 +--------+ + + +--------+ PFA 107 +--------+ + + +--------+ SFA PRX 276 +--------+ + + +--------+ SFA MID 170 83 75 50-74% +--------+ + + +--------+ SFA DST 83 +--------+ + + +--------+ MANAN PRX 78 +--------+ + + +--------+ MANAN DST 79 +--------+ + + +--------+ TPT 70 +--------+ + + +--------+ DIRECTOR DST 7 +--------+ + + +--------+ SHASHANK DST 43 +--------+ + + +--------+ JAVED PRX 42 +--------+ + + +--------+ JAVED DST 44 +--------+ + + +--------+ DPA 34 +--------+ + + +--------+ Criteria: Stenosis V. Ratio Mild <50% <2.0 Moderate 50-74% > or = 2.0 Severe 75-99% > or = 4.0 Occluded 100% no detectable flow Franklin Calixto MD. Electronically signed on 12/07/2024 8:20:35 PM This study was performed and interpreted by a service accredited by theIntersocietal Accreditation Commission (IAC/Vascular),[email or web address]/vascular Report generated by [employer]. Final [facility] Fi nal Result from Last 3 Months Insurance [place] BL[place] PB ONLY [place] BL[place] HB ONLY MEDICARE PART B HB ONLY MEDICARE PART A HB ONLY [place] BL[place] HB ONLY MEDICARE PPS WORKERS COMP ACCIDENT FUND Advance Directives Documents on File Type Date Recorded Patient Customer Support Specialist Expl anation Healthcare Directive 01/04/2025 2:31 PM 20 25 Healthcare Directive 01/06/2024 024 * Full Code (Latest Code Status on File) Date Activated Date Inactivated Comments 04/01/2024 5:52 PM 04/11/2024 5:40 PM Question Answer Comments Code Status Discussion: Reviewed Preferences * Full Code Date Activated Date Inactivated Comments 03/23/2024 4:33 PM 03/27/2024 4:56 PM Question Answer Comments Code Status Discussion: Reviewed Preferences * Full Code Date Activated Date Inactivated Comments 03/20/2024 5:03 PM 03/23/2024 4:33 PM Question Answer Comments Code Status Discussion: Unable to Assess Preferences, Provider to review later * Full Code Date Activated Date Inactivated Comments 03/20/2024 5:03 PM 03/20/2024 5:03 PM Question Answer Comments Code Status Discussion: Reviewed Preferences * Full Code Date Activated Date Inactivated Comments 09/14/2011 10:01 AM 09/14/2011 5:15 PM Care Teams Machinery Repair Maintenance Supervisor Relationship Specialty Start Date End Date Nancy Rainey MD [address] [place] [address] PCP - General Family Practice 04/13/24 Abigail Rivero MD [address] [place] [address] Consulting Physician Surgery - Vascular 03/22/24 Jake Ornelas MD [address] [place] [address] Cardiovascular Disease 04/06/24
--- NOTE | 2025-03-03 09:53 | CRLHL7_ITS ---
For Patients: As a result of the Century Cures Act, medical imaging exams and procedure reports are released immediately into your electronic medical record. You may view this report before your referring provider. If you have questions, please contact your health care provider. INDICATION: 79-year-old female with fall 2 days ago. Persistent left posterior rib pain. Shortness of breath. TECHNIQUE: CT chest was acquired without contrast. COMPARISON: None available. FINDINGS: Lungs: [id number] bilateral emphysematous changes. 7 millimeter calcified granuloma left base with mild adjacent linear stranding. No suspicious nodules, infiltrates or mass lesions. Pleura: No effusions or pneumothorax. Heart: Heart size is normal. No pericardial effusion. Dual lead left precordial pacemaker with leads in good position. Aorta and Pulmonary Arteries: Dilation. Candi and Mediastinum : Left hilar calcified granulomas. No lymphadenopathy or mass lesions. Chest wall: No masses. Bones: Compression fractures T6, T11 and T12 of indeterminate age. Resultant moderate central stenosis T12. No discrete fracture lines soft tissue swelling to suggest these are acute. No rib fractures or deformities. Upper abdomen: Small dependent gallstones. No biliary dilation. 2 centimeter right renal cyst. IMPRESSION: 1. No rib fractures or acute intrathoracic abnormalities. 2. Compression vertebral body fractures T6, T11 and T12 of indeterminate age. Resultant moderate central stenosis T12. No discrete fracture lines or soft tissue swelling to indicate these are acute. Clinical correlation is necessary. MRI may be helpful to assess acuity, if clinically indicated. Please note that all CT scans at this facility use dose modulation, iterative reconstruction, and/or weight-based dosing when appropriate to reduce radiation dose to as low as reasonably achievable. Dictated by Domingo Fernandez MD @ 03/03/2025 11:02:25 AM (Electronically Signed)
[2025-03-03] MEDS: fentaNYL 100 MCG/2 ML inj 25 MCG IM (10:08)
--- NOTE | 2025-03-03 10:14 | ED_ITS ---
HPI - General Adult General Chief complaint: Fall/Minor Trauma Stated complaint: fall and has pain on left side rib cage Time Seen by Provider: 03/03/25 09:49 Source: patient Mode of arrival: ambulatory Limitations: no limitations History of Present Illness HPI narrative: 79-year-old female coming in today complaining of left-sided back pain. Patient states that 2 days ago she after she tripped over her cat. She states that since then she has had worsening left-sided mid back pain, increasing shortness of breath. She denies fevers or chills. She denies new cough or changes in her chronic cough. Patient is a tobacco user. She denies hitting her head or losing consciousness. She denies neck pain. She denies abdominal pain, no difficulty walking. Denies being on a blood thinner. However looked at her med list and it does look like she is on Xarelto. When asked again she states that she is indeed on a blood thinner. Related Data Home Medications ?Medication ?Instructions ?Recorded ?Confirmed amlodipine 5 mg tablet 5 mg PO DAILY 03/03/2503/03 rivaroxaban 20 mg tablet (Xarelto) 20 mg PO DAILY 02/1403/03/25 spironolactone 25 mg tablet 25 mg PO DAILY 03/03/25 Previous Rx's ?Medication ?Instructions ?Recorded albuterol sulfate 90 mcg/actuation 2 puff inhalation Q 6H PRN 01/05/24 aerosol inhaler (Proventil HFA) shortness of breath or wheezing #8.5 grams fluticasone furoate 50 1 inh inhalation DAILY #60 e a 01/05/24 mcg-vilanterol 25 mcg/dose inhalation powder (Breo Ellipta) furosemide 20 mg tablet 20 mg PO BID@0800,1400 #60 t abs 01/05/24 rosuvastatin 10 mg tablet 10 mg PO HS #30 tabs 4 Allergies Allergy/AdvReac Type Severity Reaction Status Date / Time No Known Drug Allergies Allergy Verified 01/01/24 11:50 Review of Systems Status of ROS: Reports: 6 or more systems reviewed and unremarkable except as noted in History and below [facility] Medical History Elevated troponin ?R79.89 - Other specified abnormal findings of blood chemistry (ICD-10) Peripheral vascular disease ?I73.9 - Peripheral vascular disease, unspecified (ICD-10) Elbow fracture, left ?S42.402A - Unspecified fracture of lower end of left humerus, initial encounter for closed fracture (ICD-10) Fracture of left tibia and fibula ?S82.202A - Unspecified fracture of shaft of left tibia, initial encounter for closed fracture (ICD-10) ?S82.402A - Unspecified fracture of shaft of left fibula, initial encounter for closed fracture (ICD-10) Left wrist fracture ?S62.102A - Fracture of unspecified carpal bone, left wrist, initial encounter for closed fracture (ICD-10) Coronary artery disease ?I25.10 - Atherosclerotic heart disease of [place] coronary artery without angina pectoris (ICD-10) Iron deficiency anemia ?D50.9 - Iron deficiency anemia, unspecified (ICD-10) Tobacco abuse disorder ?Z72.0 - Tobacco use (ICD-10) Chronic toe ulcer ?L97.509 - Non-pressure chronic ulcer of other part of unspecified foot with unspecified severity (ICD-10) Afib ?I48.91 - Unspecified atrial fibrillation (ICD-10) CHF (congestive heart failure) ?I50.9 - Heart failure, unspecified (ICD-10) COPD (chronic obstructive pulmonary disease) ?J44.9 - Chronic obstructive pulmonary disease, unspecified (ICD-10) Family History Mother Leukemia Sister Alzheimers disease Social History Narrative: 78-year-old female living independently in [facility]. No current primary care provider. Present in the hospital today with her daughter Muriel who lives in [place]. Also has a son Dakota who lives in [place]. Smoked for many years, quit 10 years ago and started smoking again 3 months ago. He drinks 2 beers per day. Reports no withdrawal symptoms if she does not drink for a day. Daughter and son are healthcare power of civil litigation attorney. Code status is DNR DNI What is your current living situation?: I presently have a place to live Problems where you live: no known problems Problems where you live details: N/A In the past 12 months, utilities in danger of being shut off: no In past 12 months, lack of transportation kept you from medical appts, meetings, work, or getting things needed for daily living: no In the past 12 mos, have been you worried that your food would run out before you had money to buy more?: never true In the past 12 mos, the food you bought just didn't last and you didn't have money to buy more?: never true Highest level of school completed/degree received: some college, no degree Smoking Status: Current every day smoker What tobacco products do you use: cigarettes How often do you have a drink containing alcohol: 4 or more times a week Alcohol type: beer How many standard drinks containing alcohol do you have on a typical day: 1 or 2 How often do you have six or more drinks on one occasion: Weekly AUDIT-C Alcohol total score: 7 Non-prescribed substance use: denies use Caffeine: Yes How often does anyone, including family, friends and others, physically hurt you : never How often does anyone, including family, friends and others, insult or talk down to you: never How often does anyone, including family, friends and others, threaten you with harm: never How often does anyone, including family, friends and others, scream or curse at you: never service: No Exam Narrative: Exam Narrative: Well-nourished well-developed patient, clearly in pain. Alert and oriented x3. Answers questions appropriately. Mood and affect are appropriate. Thoughts are goal oriented and rational. No tangential or magical thinking noted. GCS is 15. Patient is speaking and breathing without difficulty. There is no bleeding noted. HEENT: Normocephalic atraumatic. Pupils are constricted. Extraocular muscles are intact. Conjunctivae are moist without any icterus noted. Moist mucous me mbranes. Posterior pharynx is normal. No trauma noted to the inside of the mouth. Neck is soft without tenderness. Cardiovascular: Heart is regular rate and rhythm S1 and S2 are present without any murmurs. Lungs: Clear to auscultation bilaterally no wheezes rhonchi or rales are appreciated. Deep breathing causes a lot of discomfort. Abdomen: Soft and nontender nondistended with normal bowel sounds. Extremities: Bilateral lower extremities are without edema. Skin: Well perfused . Back: Patient has obvious and significant swelling of the posterior left mid back that extends into the left flank. The entire area is exquisitely tender, no bruising noted. No broken skin. Patient has no tenderness to palpation at the cervical, thoracic or lumbar spine. Patient has full range of motion at the neck with flexion, extension, side way bending and rotation without pain. Const: Vital Signs, click to edit/add: Vital Signs - 24 hr 03/03/25 09:33 03/03/25 10:22 03/03/25 10:51 Temperature 97.4 F L Pulse Rate [Pulse Oximeter] 80 Respiratory Rate 22 18 20 Blood Pressure [Ri t Upper Arm] 144/59 H Pulse Oximetry 90 94 92 Oxygen Delivery Me thod Room Air Nasal Cannula Room Air Oxygen Flow Rate 2 Course Course ED Course: Given the amount of swelling present, concern for hematoma exists, difficult to assess for shortness of breath as patient is a heavy tobacco user with a history of COPD so we did go ahead and proceed with a CT scan of the chest and ribs. 25 mcg fentanyl IM provided. Initial read of the CT scan stated that it was normal. I did call the radiologist back as I did see at least 2 rib fractures and hematoma. CT scan was re-read showing 3 rib fractures. Discussed with Dr. Boston and with Brynn Keller - patient be admitted for observation at this time given the amount of pain that she is in. When labs back at this time her chemistries which are unremarkable. Vital Signs Vital signs: Initial Vital Signs Temperature 97.4 F L 03/03/25 09:33 Temperature Source Temporal Artery Scan 03/03/25 09:33 Pulse Rate 80 03/03/25 09:33 Respiratory Rate 22 03/03/25 09:33 Blood Pressure 144/59 H 03/03/25 09:33 Blood Pressure Mean 87 03/03/25 09:33 Blood Pressure Position Sitting 03/03/25 09:33 Pulse Oximetry 90 03/03/25 09:33 Oxygen Delivery Method Room Air 03/03/25 09:33 Vital Signs Temperature 97.4 F L 03/03/25 09:33 Pulse Rate 80 03/03/25 09:33 Respiratory Rate 22 03/03/25 09:33 Blood Pressure 144/59 H 03/03/25 09:33 Pulse Oximetry 90 03/03/25 09:33 Oxygen Delivery Method Room Air 03/03/25 09:33 Temperature 97.4 F L 03/03/25 09:33 Pulse Rate 80 03/03/25 09:33 Respiratory Rate 20 03/03/25 10:51 Blood Pressure 144/59 H 03/03/25 09:33 Pulse Oximetry 92 03/03/25 10:51 Oxygen Delivery Method Room Air 03/03/25 10:51 Oxygen Flow Rate 2 03/03/25 10:22 Medications Administered Medications: Discontinued Medications Generic Name Dose Route Start Last Admin Trade Name Ike PRN Reason Stop Dose Admin Fentanyl 25 mcg 03/03/25 09:55 03/03/25 10:08 Fentanyl 100 Mcg/2 Ml Inj IM 03/03/25 09:56 25 mcg ONCE ONE Administration Medical Decision Making MDM Narrative Medical decision making narrative: 79-year-old female status post fall. Patient states that she did not hit her head or lose consciousness. She is on a blood thinner. Presenting with 3 rib fractures and a posterior chest wall hematoma, significant pain. Patient will be admitted for observation. Lab Data Lab results reviewed: Yes I reviewed the patient's lab results Labs: Lab Results 03/03/25 Range/Units 10:51 Sodium 137 (135-149) mmol/L Potassium 4.7 (3.6-5.1) mmol/L Chloride 104 (96-114) mmol/L Carbon Dioxide 23 (20-32) mmol/L Anion Gap 10 (7-15) mEq/L BUN 13 (7-30) mg/dL Creatinine 1.0 (0.5-1.5) mg/dL Estimated Creat Clear 45.73 Estimated GFR 57 ml/min Glucose 127 H (60-115) mg/dL Calcium 9.7 (8.4-10.6) mg/dL Imaging Data CT scan - chest: Attestation: I have reviewed the pertinent imaging results. Radiologist's impression: TECHNIQUE: CT chest was acquired without contrast. COMPARISON: None available. FINDINGS: Lungs: [id number] bilateral emphysematous changes. 7 millimeter calcified granuloma left base with mild adjacent linear stranding. No suspicious nodules, infiltrates or mass lesions. Pleura: No effusions or pneumothorax. Heart: Heart size is normal. No pericardial effusion. Dual lead left precordial pacemaker with leads in good position. Aorta and Pulmonary Arteries: Dilation. Candi and Mediastinum : Left hilar calcified granulomas. No lymphadenopathy or mass lesions. Chest wall: No masses. Bones: Compression fractures T6, T11 and T12 of indeterminate age. Resultant moderate central stenosis T12. No discrete fracture lines soft tissue swelling to suggest these are acute. No rib fractures or deformities. Upper abdomen: Small dependent gallstones. No biliary dilation. 2 centimeter right renal cyst. IMPRESSION: 1. No rib fractures or acute intrathoracic abnormalities. 2. Compression vertebral body fractures T6, T11 and T12 of indeterminate age. Resultant moderate central stenosis T12. No discrete fracture lines or soft tissue swelling to indicate these are acute. Clinical correlation is necessary. MRI may be helpful to assess acuity, if clinically indicated. Please note that all CT scans at this facility use dose modulation, iterative reconstruction, and/or weight-based dosing when appropriate to reduce radiation dose to as low as reasonably achievable. Dictated by Domingo Fernandez MD @ 03/03/2025 11:02:25 AM ----- ADDENDUM ----- Additional acute mildly displaced left posterior 9th 10th and 11th rib fractures with overlying 2.7 cm hematoma in the paraspinal musculature. No overlying pleural effusion or pneumothorax. Discharge Plan Discharge Clinical Impression: Multiple fractures of ribs, Chest wall hematoma Patient Disposition: Admitted As Observation Condition: Stable
[2025-03-03 10:57] LABS: Basophils Percent Auto 0.7 % (0.0-3.0); Eosinophils Percent Auto 0.3 % (0.0-7.0); Hematocrit 40.7 % (33.0-51.0); Hemoglobin* 12.8 gm/dL (12.0-16.0); Lymphocytes Percent Auto 3.1 % (20-44); Mean Corpuscular HGB Conc 31 gm/dL (32-36); Mean Corpuscular Hemoglobin 23 pg (26-34); Mean Corpuscular Volume 73 fL (80-100); Monocytes Percent Auto 21.5 % (0.0-11.0); Neutrophils Percent Auto 71.4 % (42.0-72.0); Platelet Count* 371 K/uL (140-440); RDW Coefficient of Variation % 20.5 % (11.5-15.5); Red Blood Count 5.57 m/uL (4.00-5.20); White Blood Count* 22.09 K/uL (4.50-11.00)
[2025-03-03 11:09] LABS: Chloride* 104 mmol/L (96-114)
[2025-03-03 11:10] LABS: Potassium* 4.7 mmol/L (3.6-5.1); Sodium* 137 mmol/L (135-149)
[2025-03-03 11:13] LABS: Anion Gap 10 mEq/L (7-15); Blood Urea Nitrogen* 13 mg/dL (7-30); Calcium* 9.7 mg/dL (8.4-10.6); Carbon Dioxide* 23 mmol/L (20-32); Est. Creatinine Clearance* 45.73; Estimated Glomerular Filt Rate 57 ml/min; Glucose* 127 mg/dL (60-115)
[2025-03-03 12:00] LABS: Slide Review Reflex Yes
[2025-03-03 12:56] LABS: Slide Review Acceptable Review (Acceptable)
[2025-03-03] MEDS: MORPHINE 2 MG/ML inj IVP (13:51)
[2025-03-03] MEDS: LIDOCAINE 5% PATCH 1 PATCH TRANSDERMA (14:03)
[2025-03-03] MEDS: ACETAMINOPHEN 325 MG TABLET 1000 MG PO ×2 (14:04→20:26)
[2025-03-03] MEDS: IPRAT-ALBUT 0.5-2.5 MG/3 ML NEB 1 NEB IH ×2 (14:04→20:26)
--- NOTE | 2025-03-03 14:08 | PM.IMHP1 ---
Assessment and Plan Assessment and plan (1) Chest wall hematoma: Problem comment: S/p fall on 03/01/25, tripped over her cat CT shows 2.7 cm hematoma in the paraspinal musculature (left posterior chest wall) Pain management Status: Acute (2) Multiple fractures of ribs: Problem comment: CT chest shows acute mildly displaced left posterior 9th 10th and 11th rib fractures (see addendum report) Pain management to include lidocaine patch, scheduled Tylenol, p.r.n. Oxycodone and morphine, ice/heat PT consult Status: Acute (3) COPD (chronic obstructive pulmonary disease): Problem comment: Without acute exacerbation, no hypoxia Continues to smoke 1 ppd Schedule DuoNebs, albuterol nebs p.r.n., continue home inhalers, incentive spirometry in setting of acute rib fractures/chest wall hematoma Status: Acute (4) Tobacco abuse disorder: Problem comment: Recommend cessation Status: Acute (5) Afib: Problem comment: Pacemaker for tachybradycardia syndrome implanted in March 2024 Has declined Watchman Continue rivaroxaban Monitor hemoglobin Status: Acute (6) CHF (congestive heart failure): Problem comment: Diastolic congestive heart failure Continue Lasix and spironolactone Status: Acute (7) Alcohol use disorder: Problem comment: Two whiskey drinks daily. Denies history of withdrawals or seizures Monitor Status: Acute (8) Leukocytosis: Problem comment: WBC 22.09, no left shift. History of same in past Procalcitonin and CRP ordered Status: Acute (9) Advance healthcare directive requested: Problem comment: Patient's friend will reach out to daughter to provide copy Status: Acute Plan Possible discharge to home tomorrow with pain management plan Total Time Spent Total Time Spent: Today I spent 75 minutes seeing the patient, reviewing Expanse and EPIC notes/diagnostics, discussing the care plan with our care time that includes social work, PT/OT, pharmacy, RT, [facility] and documenting my impressions and plan in the medical record. Hospitalist- H&P: HPI History of Present Illness Date Seen: 03/03/25 Chief complaint: fall and has pain on left side rib cage Narrative: Yazmin Gutierrez is a 79 year old female past medical history significant for atrial fibrillation on chronic anticoagulation, status post pacemaker 2023, CAD, iron deficiency anemia, COPD, diastolic congestive heart failure, chronic toe ulcer, tobacco abuse disorder, alcohol use disorder, PVD admitted to the medical floor from the ED for pain management 3 left rib fractures following a fall. Patient is seen with her friend and neighbor at bedside. Reports being over her cat in the dark Saturday night, 03/01/2025. Falling onto her left side. Denies hitting her head or loss of consciousness. Was able to crawl to a chair to get herself up. Pain has persisted. Shortness of breath is chronic. Has not been hypoxic. Denies headache or dizziness. Denies neck pain. Denies spinal pain. Does have a history of previous compression fractures. In general chest wall is painful, worse on the left side. Worse with deep breathing or coughing. No recent fevers. Did vomit after taking an oxycodone on an empty stomach today. No change in her bowels. No change in urination. Denies any other pain or injuries related to fall on Saturday. Lives alone. Smokes 1 ppd. drinks 2 whiskey drinks daily. Denies history of withdrawals or seizures. PCP is Dr. Rainey. Wishes to be DNR DNI. Review of Systems Narrative: REVIEW OF SYSTEMS: Complete review of systems performed and negative unless otherwise stated in HPI or below. Medical Decision Making Medical Decision Making Code Status: DNR/DNI Has patient completed a Health Care Directive: Yes During This Stay, Who Would You Like To Make Decisions For You In The Event You Are Unable To Make Them For Yourself?: daughter (mariam), Son (adrian), neighbor Pedro Ball (karthikeyan MCLEAN). [facility] Medical History Compression fracture Alcohol use disorder ?F10.90 - Alcohol use, unspecified, uncomplicated (ICD-10) Elevated troponin ?R79.89 - Other specified abnormal findings of blood chemistry (ICD-10) Peripheral vascular disease ?I73.9 - Peripheral vascular disease, unspecified (ICD-10) Elbow fracture, left ?S42.402A - Unspecified fracture of lower end of left humerus, initial encounter for closed fracture (ICD-10) Fracture of left tibia and fibula ?S82.202A - Unspecified fracture of shaft of left tibia, initial encounter for closed fracture (ICD-10) ?S82.402A - Unspecified fracture of shaft of left fibula, initial encounter for closed fracture (ICD-10) Left wrist fracture ?S62.102A - Fracture of unspecified carpal bone, left wrist, initial encounter for closed fracture (ICD-10) Coronary artery disease ?I25.10 - Atherosclerotic heart disease of [place] coronary artery without angina pectoris (ICD-10) Iron deficiency anemia ?D50.9 - Iron deficiency anemia, unspecified (ICD-10) Tobacco abuse disorder ?Z72.0 - Tobacco use (ICD-10) Chronic toe ulcer ?L97.509 - Non-pressure chronic ulcer of other part of unspecified foot with unspecified severity (ICD-10) Afib ?I48.91 - Unspecified atrial fibrillation (ICD-10) CHF (congestive heart failure) ?I50.9 - Heart failure, unspecified (ICD-10) COPD (chronic obstructive pulmonary disease) ?J44.9 - Chronic obstructive pulmonary disease, unspecified (ICD-10) Family History Mother Leukemia Sister Alzheimers disease Social History Narrative: 78-year-old female living independently in [facility]. No current primary care provider. Present in the hospital today with her daughter Muriel who lives in [place]. Also has a son Adrian who lives in [place]. Smoked for many years, quit 10 years ago and started smoking again 3 months ago. He drinks 2 beers per day. Reports no withdrawal symptoms if she does not drink for a day. Daughter and son are healthcare power of defense attorney. Code status is DNR DNI What is your current living situation?: I presently have a place to live Problems where you live: no known problems Problems where you live details: none In the past 12 months, utilities in danger of being shut off: no In past 12 months, lack of transportation kept you from medical appts, meetings, work, or getting things needed for daily living: no In the past 12 mos, have been you worried that your food would run out before you had money to buy more?: never true In the past 12 mos, the food you bought just didn't last and you didn't have money to buy more?: never true Highest level of school completed/degree received: some college, no degree Smoking Status: Current every day smoker What tobacco products do you use: cigarettes Smoking packs per day: 1 Smoking cigarettes per day: 20.0 Years smoked: 35 Smoking pack-years: 35.00 Do you use any of these nicotine containing products: None How often do you have a drink containing alcohol: 2-4 times a month Alcohol type: beer How many standard drinks containing alcohol do you have on a typical day: 3 or 4 How often do you have six or more drinks on one occasion: Never AUDIT-C Alcohol total score: 3 Non-prescribed substance use: denies use Caffeine: Yes How often does anyone, including family, friends and others, physically hurt you: never How often does anyone, including family, friends and others, insult or talk down to you: never How often does anyone, including family, friends and others, threaten you with harm: never How often does anyone, including family, friends and others, scream or curse at you: never service: No Meds Home Medications and Allergies Home Medications ?Medication ?Instructions ?Recorded ?Confirmed ?Type fluticasone furoate 50 1 inh inhalation DAILY #60 ea 01/05/24 03/03/25 Rx mcg-vilanterol 25 mcg/dose inhalation powder (Breo Ellipta) acetaminophen 325 mg tablet 650 mg PO Q4H PRN 03/03/25 03/03/25 History amlodipine 5 mg tablet 5 mg PO DAILY 03/03/25 03/03/25 History doxylamine succinate 25 mg tablet 25 mg PO HS PRN 03/03/25 03/03/25 History (Nighttime Sleep-Aid (doxylamine)) ferrous sulfate 325 mg (65 mg 325 mg PO DAILY 03/03/25 03/03/25 History iron) tablet (FeroSul) furosemide 20 mg tablet 20 mg PO DAILY 03/03/25 03/03/25 History levalbuterol tartrate 45 1 - 2 inh inhalation Q4H PRN 03/03/25 03/03/25 History mcg/actuation aerosol inhaler (Xopenex HFA) bovnnvqa-bos-zrbka acid 0.4 1 tab PO DAILY 03/03/25 03/03/25 History mg-lycopene 300 mcg-lutein 250 mcg tablet (Centrum Silver) polyethylene glycol 3350 17 17 g PO DAILY 03/03/25 03/03/25 History gram/dose oral powder (ClearLax) rivaroxaban 20 mg tablet (Xarelto) 20 mg PO QPM 03/03/25 03/03/25 History rosuvastatin 20 mg tablet 20 mg PO HS 03/03/25 03/03/25 History spironolactone 25 mg tablet 25 mg PO DAILY 03/03/25 03/03/25 History Allergies Allergy/AdvReac Type Severity Reaction Status Date / Time No Known Drug Allergies Allergy Verified 01/01/24 11:50 Exam Narrative: Exam Narrative: PHYSICAL EXAM General: Pleasant, conversant, in good humor, NAD HEENT: Normocephalic, atraumatic, sclera white, EOMI, oral mucosa moist. No cervical or spinal tenderness/step-off Cardiovascular: RRR, S1S2. No pitting edema Pulmonary: CTA with mild coarse breath sounds, no expiratory wheezes. No dyspnea on room air Chest wall: Hematoma without ecchymosis noted over left posterior chest wall, very tender on palpation Neurological: Alert, answering questions appropriately, cranial nerves intact, no focal findings Extremities: No gross joint deformity or swelling. AROMI. Neurovascularly intact Skin: Warm, dry. Const: Vital Signs, click to edit/add: Vital Signs - 24 hr 03/03/25 09:33 03/03/25 10:22 03/03/25 10:51 Temperature 97.4 F L Pulse Rate [Pulse Oximeter] 80 Respiratory Rate 22 18 20 Blood Pressure [Ri ght Arm] Blood Pressure [Ri ght Upper Arm] 144/59 H Pulse Oximetry 90 94 92 Oxygen Delivery Me thod Room Air Nasal Cannula Room Air Oxygen Flow Rate 2 03/03/25 13:05 03/03/25 13:39 Temperature 97.1 F L Pulse Rate [Pulse Oximeter] 73 Respiratory Rate 20 18 Blood Pressure [Ri ght Arm] 192/84 H Blood Pressure [Ri ght Upper Arm] Pulse Oximetry 92 91 Oxygen Delivery Me thod Room Air Room Air Oxygen Flow Rate Hospitalist - H&P: Result Labs Labs: Short CBC 03/03/25 Range/Units 10:51 WBC 22.09 H (4.50-11.00) K/uL Hgb 12.8 (12.0-16.0) gm/dL Hct 40.7 (33.0-51.0) % Plt Count 371 (140-440) K/uL [facility] 03/03/25 10:51 Sodium 137 Potassium 4.7 Chloride 104 Carbon Dioxide 23 BUN 13 Creatinine 1.0 Glucose 127 H Calcium 9.[address] chest: Attestation: I have reviewed the pertinent imaging results. Radiologist's impression: ADDENDUMINDICATION: 79-year-old female with fall 2 days ago. Persistent left posterior rib pain. Shortness of breath. TECHNIQUE: CT chest was acquired without contrast. COMPARISON: None available. FINDINGS: Lungs: Lkgl-[id number]-lgczmuga bilateral emphysematous changes. 7 millimeter calcified granuloma left base with mild adjacent linear stranding. No suspicious nodules, infiltrates or mass lesions. Pleura: No effusions or pneumothorax. Heart: Heart size is normal. No pericardial effusion. Dual lead left precordial pacemaker with leads in good position. Aorta and Pulmonary Arteries: Dilation. Candi and Mediastinum : Left hilar calcified granulomas. No lymphadenopathy or mass lesions. Chest wall: No masses. Bones: Compression fractures T6, T11 and T12 of indeterminate age. Resultant moderate central stenosis T12. No discrete fracture lines soft tissue swelling to suggest these are acute. No rib fractures or deformities. Upper abdomen: Small dependent gallstones. No biliary dilation. 2 centimeter right renal cyst. IMPRESSION: 1. No rib fractures or acute intrathoracic abnormalities. 2. Compression vertebral body fractures T6, T11 and T12 of indeterminate age. Resultant moderate central stenosis T12. No discrete fracture lines or soft tissue swelling to indicate these are acute. Clinical correlation is necessary. MRI may be helpful to assess acuity, if clinically indicated.
[2025-03-03] MEDS: SENNOSIDES/DOCUSATE TABLET 1 TAB PO ×2 (14:11)
--- NOTE | 2025-03-03 14:24 | PC.NURSE ---
BP continues to be high after pain medications administered. Notified hospitalist. Wants her daily BP meds given now as patient did not take them this morning.
[2025-03-03] MEDS: AMLODIPINE 5 MG TABLET PO (14:29)
[2025-03-03] MEDS: SPIRONOLACTONE 25 MG TABLET PO (14:29)
[2025-03-03] MEDS: FUROSEMIDE 20 MG TABLET PO (14:29)
[2025-03-03 14:40] LABS: C Reactive Protein* 3.4 mg/dL (0.5-1.0)
[2025-03-03 14:53] LABS: Procalcitonin* 0.11 ng/mL (<0.50)
--- NOTE | 2025-03-03 16:41 | PM.GSCN ---
History of Present Illness Consult details Date Seen: 03/03/25 Consult date: 03/03/25 Narrative: The patient is a 79-year-old female with past medical history significant for atrial fibrillation on anticoagulation and pacemaker, coronary artery disease, iron deficiency anemia, COPD and diastolic congestive heart failure, tobacco abuse and alcohol use who presented to the emergency department after tripping on her CT 2 days ago and sustaining rib fractures. She states that Saturday evening she tripped over her cat in the dark and fell on her left side. Denies loss of consciousness. Because of persistent pain she presented to the emergency department. She has chronic shortness of breath and states that she is at her baseline. Denies any headache, dizziness or neurologic symptoms. No spine or back pain. Her pain is primarily on her left chest wall and is worse with deep breathing. She tried taking oxycodone for the pain and developed nausea and did vomit. She does drink alcohol daily. Denies withdrawal. She smokes 1 pack of cigarettes per day. She states that she was told she has spine fractures but this is news to her. She denies any other falls in the past year. [facility] Medical History Compression fracture Alcohol use disorder ?F10.90 - Alcohol use, unspecified, uncomplicated (ICD-10) Elevated troponin ?R79.89 - Other specified abnormal findings of blood chemistry (ICD-10) Peripheral vascular disease ?I73.9 - Peripheral vascular disease, unspecified (ICD-10) Elbow fracture, left ?S42.402A - Unspecified fracture of lower end of left humerus, initial encounter for closed fracture (ICD-10) Fracture of left tibia and fibula ?S82.202A - Unspecified fracture of shaft of left tibia, initial encounter for closed fracture (ICD-10) ?S82.402A - Unspecified fracture of shaft of left fibula, initial encounter for closed fracture (ICD-10) Left wrist fracture ?S62.102A - Fracture of unspecified carpal bone, left wrist, initial encounter for closed fracture (ICD-10) Coronary artery disease ?I25.10 - Atherosclerotic heart disease of [place] coronary artery without angina pectoris (ICD-10) Iron deficiency anemia ?D50.9 - Iron deficiency anemia, unspecified (ICD-10) Tobacco abuse disorder ?Z72.0 - Tobacco use (ICD-10) Chronic toe ulcer ?L97.509 - Non-pressure chronic ulcer of other part of unspecified foot with unspecified severity (ICD-10) Afib ?I48.91 - Unspecified atrial fibrillation (ICD-10) CHF (congestive heart failure) ?I50.9 - Heart failure, unspecified (ICD-10) COPD (chronic obstructive pulmonary disease) ?J44.9 - Chronic obstructive pulmonary disease, unspecified (ICD-10) Family History Mother Leukemia Sister Alzheimers disease Social History Narrative: 78-year-old female living independently in [facility]. No current primary care provider. Present in the hospital today with her daughter Muriel who lives in [place]. Also has a son Dakota who lives in [place]. Smoked for many years, quit 10 years ago and started smoking again 3 months ago. He drinks 2 beers per day. Reports no withdrawal symptoms if she does not drink for a day. Daughter and son are healthcare power of divorce attorney. Code status is DNR DNI What is your current living situation?: I presently have a place to live Problems where you live: no known problems Problems where you live details: none In the past 12 months, utilities in danger of being shut off: no In past 12 months, lack of transportation kept you from medical appts, meetings, work, or getting things needed for daily living: no In the past 12 mos, have been you worried that your food would run out before you had money to buy more?: never true In the past 12 mos, the food you bought just didn't last and you didn't have money to buy more?: never true Highest level of school completed/degree received: some college, no degree Smoking Status: Current every day smoker What tobacco products do you use: cigarettes Smoking packs per day: 1 Smoking cigarettes per day: 20.0 Years smoked: 35 Smoking pack-years: 35.00 Do you use any of these nicotine containing products: None How often do you have a drink containing alcohol: 2-4 times a month Alcohol type: beer How many standard drinks containing alcohol do you have on a typical day: 3 or 4 How often do you have six or more drinks on one occasion: Never AUDIT-C Alcohol total score: 3 Non-prescribed substance use: denies use Caffeine: Yes How often does anyone, including family, friends and others, physically hurt you: never How often does anyone, including family, friends and others, insult or talk down to you: never How often does anyone, including family, friends and others, threaten you with harm: never How often does anyone, including family, friends and others, scream or curse at you: never service: No Meds Home Medications and Allergies Home Medications ?Medication ?Instructions ?Recorded ?Confirmed ?Type fluticasone furoate 50 1 inh inhalation DAILY #60 ea 01/05/24 03/03/25 Rx mcg-vilanterol 25 mcg/dose inhalation powder (Breo Ellipta) acetaminophen 325 mg tablet 650 mg PO Q4H PRN 03/03/25 03/03/25 History amlodipine 5 mg tablet 5 mg PO DAILY 03/03/25 03/03/25 History doxylamine succinate 25 mg tablet 25 mg PO HS PRN 03/03/25 03/03/25 History (Nighttime Sleep-Aid (doxylamine)) ferrous sulfate 325 mg (65 mg 325 mg PO DAILY 03/03/25 03/03/25 History iron) tablet (FeroSul) furosemide 20 mg tablet 20 mg PO DAILY 03/03/25 03/03/25 History levalbuterol tartrate 45 1 - 2 inh inhalation Q4H PRN 03/03/25 03/03/25 History mcg/actuation aerosol inhaler (Xopenex HFA) gfzdpxvn-urh-vtovi acid 0.4 1 tab PO DAILY 03/03/25 03/03/25 History mg-lycopene 300 mcg-lutein 250 mcg tablet (Centrum Silver) polyethylene glycol 3350 17 17 g PO DAILY 03/03/25 03/03/25 History gram/dose oral powder (ClearLax) rivaroxaban 20 mg tablet (Xarelto) 20 mg PO QPM 03/03/25 03/03/25 History rosuvastatin 20 mg tablet 20 mg PO HS 03/03/25 03/03/25 History spironolactone 25 mg tablet 25 mg PO DAILY 03/03/25 03/03/25 History Allergies Allergy/AdvReac Type Severity Reaction Status Date / Time No Known Drug Allergies Allergy Verified 01/01/24 11:50 Exam Narrative: Exam Narrative: General appearance: Alert, cooperative, and in no distress Eyes: PERRLA, eye lids clear, and sclera white C-spine: Normal range of motion. No midline cervical spine tenderness. HENT Head: Normocephalic Ears: External ears normal Pulmonary: Breathing is nonlabored. She is on nasal cannula. T and L Spine: No midline thoracic or lumbar spine tenderness. Chest wall: Patient has a hematoma on her left inferolateral chest wall. Ecchymosis not visible as this is under a lidocaine patch. Cardiovascular Heart: Regular, mild tachycardia. Gastrointestinal Abdominal: Soft, nontender, nondistended Musculoskeletal: Extremities: Upper: Both upper extremities have normal joint range of motion and intact strength. Lower: Both lower extremities have normal joint range of motion and intact strength. No ecchymosis noted on her joints. Skin: Normal skin color, texture, and turgor. Neurologic: No focal deficits Psychiatric: Alert, oriented, cooperative, normal affect. Const: Vital Signs, click to edit/add: Vital Signs - 24 hr 03/03/25 09:33 03/03/25 10:22 03/03/25 10:51 Temperature 97.4 F L Pulse Rate Pulse Rate [Pulse Oximeter] 80 Respiratory Rate 22 18 20 Blood Pressure [Ri ght Arm] Blood Pressure [Ri ght Upper Arm] 144/59 H Pulse Oximetry 90 94 92 Oxygen Delivery Me thod Room Air Nasal Cannula Room Air Oxygen Flow Rate 2 03/03/25 13:05 03/03/25 13:39 03/03/25 14:24 Temperature 97.1 F L Pulse Rate Pulse Rate [Pulse Oximeter] 73 Respiratory Rate 20 18 Blood Pressure [Ri ght Arm] 192/84 H 174/61 H Blood Pressure [Ri ght Upper Arm] Pulse Oximetry 92 91 Oxygen Delivery Me thod Room Air Room Air Oxygen Flow Rate 03/03/25 14:30 03/03/25 14:43 03/03/25 14:46 Temperature Pulse Rate 61 Pulse Rate [Pulse Oximeter] Respiratory Rate 18 16 Blood Pressure [Ri ght Arm] Blood Pressure [Ri ght Upper Arm] Pulse Oximetry 85 L 93 Oxygen Delivery Me thod Room Air Nasal Cannula Oxygen Flow Rate 2 Results Labs Labs: White blood cell count today is markedly elevated at 22. Hemoglobin is 12.8. In the past, her baseline has been closer to 11. CRP is elevated at 3.4. Electrolytes are within normal limits Imaging CT scan - chest: report reviewed and image reviewed Additional studies: CT scan of the chest: ----- ADDENDUM ----- Additional acute mildly displaced left posterior 9th 10th and 11th rib fractures with overlying 2.7 cm hematoma in the paraspinal musculature. No overlying pleural effusion or pneumothorax. Dictated by Domingo Fernandez MD @ Mar 03 2025 11:15AM (Electronically Signed) For Patients: As a result of the Cures Act, medical imaging exams and procedure reports are released immediately into your electronic medical record. You may view this report before your referring provider. If you have questions, please contact your health care provider. INDICATION: 79-year-old female with fall 2 days ago. Persistent left posterior rib pain. Shortness of breath. TECHNIQUE: CT chest was acquired without contrast. COMPARISON: None available. FINDINGS: Lungs: Jeth-rl-hltnlgkq bilateral emphysematous changes. 7 millimeter calcified granuloma left base with mild adjacent linear stranding. No suspicious nodules, infiltrates or mass lesions. Pleura: No effusions or pneumothorax. Heart: Heart size is normal. No pericardial effusion. Dual lead left precordial pacemaker with leads in good position. Aorta and Pulmonary Arteries: Dilation. Candi and Mediastinum : Left hilar calcified granulomas. No lymphadenopathy or mass lesions. Chest wall: No masses. Bones: Compression fractures T6, T11 and T12 of indeterminate age. Resultant moderate central stenosis T12. No discrete fracture lines soft tissue swelling to suggest these are acute. No rib fractures or deformities. Upper abdomen: Small dependent gallstones. No biliary dilation. 2 centimeter right renal cyst. IMPRESSION: 1. No rib fractures or acute intrathoracic abnormalities. 2. Compression vertebral body fractures T6, T11 and T12 of indeterminate age. Resultant moderate central stenosis T12. No discrete fracture lines or soft tissue swelling to indicate these are acute. Clinical correlation is necessary. MRI may be helpful to assess acuity, if clinically indicated. Dictated by Domingo Fernandez MD @ 03/03/2025 11:02:25 AM (Electronically Signed) Chest CTA 01/01/2024: TECHNIQUE: CT chest PE was acquired with 95 cc Isovue 370 IV contrast. COMPARISON: Chest x-ray, January 01, 2024. FINDINGS: Heart and vasculature: Contrast opacification of the pulmonary arterial tree is adequate. No sign of pulmonary embolism. Cardiomegaly with coronary artery calcifications. Thoracic aorta and pulmonary artery are normal in caliber. Lungs and pleura: Pulmonary emphysema. Pulmonary edema. Small to moderate bilateral pleural effusions greater on the right side with compressive atelectasis. No pneumothorax. Lymph nodes/mediastinum: No mediastinal, hilar, or axillary adenopathy. Chest wall: No masses. Upper abdomen: No acute or significant findings. Bones: Age indeterminate mild T6 superior endplate compression deformity. Recommend correlation with point tenderness. IMPRESSION: No pulmonary embolism Sequela of CHF, including mild pulmonary edema and small to moderate bilateral pleural effusions. Pulmonary emphysema. Cardiomegaly with coronary artery calcifications. Please note that all CT scans at this facility use dose modulation, iterative reconstruction, and/or weight-based dosing when appropriate to reduce radiation dose to as low as reasonably achievable. Progress Note:A&P Assessment and plan (1) Leukocytosis: Status: Acute (2) Compression fracture: Status: Chronic (3) Alcohol use disorder: Status: Acute (4) Chest wall hematoma: Status: Acute (5) Multiple fractures of ribs: Status: Acute (6) Peripheral vascular disease: Status: Acute (7) Coronary artery disease: Status: Acute (8) Tobacco abuse disorder: Status: Acute (9) Afib: Status: Acute (10) CHF (congestive heart failure): Status: Acute (11) COPD (chronic obstructive pulmonary disease): Status: Acute (12) Fall: Status: Acute Plan The patient is a 79-year-old female with multiple medical comorbidities who fell 2 days ago sustaining rib fractures any chest wall hematoma. She also has multiple thoracic spine fractures, acuity indeterminate, however 1 year ago she did have a T6 fracture. The T11 and 12 fractures however are new at least from last year. No midline spine tenderness so likely subacute. If she were to develop tenderness, consider MRI per radiology recommendations. -pulmonary toilet, pain control and incentive spirometry for rib fractures -I explained to the patient that there is no procedure to do for the chest wall hematoma as this should resolve over time. A seroma could develop which may need drainage in the future, however for now, recommend heating pad or ice, whichever feels most comfortable. Likely she is not continuing to bleed since the hematoma is now 2-day-old, however CT scan was done without contrast so active bleeding unable to be assessed. -I placed hold parameters on her Xarelto - recheck hemoglobin tomorrow. -PT/OT evaluation prior to d/c -monitor for signs of alcohol withdrawal.
[2025-03-03] MEDS: RIVAROXABAN 10 MG TABLET 20 MG PO (17:59)
[2025-03-03] MEDS: ROSUVASTATIN CALCIUM 10 MG TABLET 20 MG PO (20:26)
[2025-03-03] MEDS: SODIUM CHLORIDE 0.9 % (FLUSH) 10 ML SYRINGE 5 ML IVF (20:27)
--- NOTE | 2025-03-03 22:51 | PC.NURSE ---
Shift note: The pt has been alert and oriented x4; denied chest pain. The pt has been on 2L of oxygen via NC with Spo2 in the low 90s. The pt denied left ribs pain at rest- c/o mild to moderated pain with activity ; refused pain medication this shift stating i'm fine if i don't move The pt has been resting without any acute distress.
[2025-03-04 00:10] VITALS: PULSE 60
[2025-03-04] MEDS: ACETAMINOPHEN 500 MG TABLET 1000 MG PO ×3 (02:45→14:24)
[2025-03-04] MEDS: IPRAT-ALBUT 0.5-2.5 MG/3 ML NEB 1 NEB IH ×2 (02:46→08:53)
[2025-03-04 03:15] LABS: Appearance Urine Cloudy (Clear); Bilirubin Urine 1+ (Negative); Blood Urine Trace-lysed (Negative); Color Urine Yellow (Yellow); Glucose Urine Negative (Negative); Ketones Urine Negative (Negative); Leukocyte Esterase Urine Trace (Negative); Nitrite Urine Negative (Negative); Protein Urine 2+ (Negative); Specific Gravity Urine 1.025 (1.000-1.030); Urobilinogen Urine 0.2 (0.2-1.0); pH Urine 5.5 (5.0-8.5)
[2025-03-04 03:21] LABS: Bacteria Urine Moderate; Mucus Urine Moderate; RBC Urine 0-2 (0-2); Squamous Epithelial Cell Urine Moderate (None-Few)
[2025-03-04 06:40] LABS: Hematocrit 33.2 % (33.0-51.0); Hemoglobin* 10.5 gm/dL (12.0-16.0); Mean Corpuscular HGB Conc 32 gm/dL (32-36); Mean Corpuscular Hemoglobin 23 pg (26-34); Mean Corpuscular Volume 73 fL (80-100); Platelet Count* 294 K/uL (140-440); Red Blood Count 4.58 m/uL (4.00-5.20); White Blood Count* 17.64 K/uL (4.50-11.00)
[2025-03-04 06:41] LABS: Slide Review Reflex No
[2025-03-04 06:54] LABS: Chloride* 103 mmol/L (96-114); Sodium* 133 mmol/L (135-149)
[2025-03-04 06:55] LABS: Potassium* 3.7 mmol/L (3.6-5.1)
[2025-03-04 06:57] LABS: Anion Gap 6 mEq/L (7-15); Blood Urea Nitrogen* 14 mg/dL (7-30); Carbon Dioxide* 24 mmol/L (20-32); Est. Creatinine Clearance* 41.39; Estimated Glomerular Filt Rate 57 ml/min
[2025-03-04 06:58] LABS: Calcium* 9.1 mg/dL (8.4-10.6); Glucose* 94 mg/dL (60-115)
[2025-03-04 07:01] LABS: C Reactive Protein* 7.8 mg/dL (0.5-1.0)
[2025-03-04 08:30] VITALS: RESP 18
[2025-03-04 08:48] VITALS: BP 162/50; PULSE 81; RESP 18; TEMP 36.4; O2SAT 89
[2025-03-04] MEDS: SPIRONOLACTONE 25 MG TABLET PO (08:52)
[2025-03-04] MEDS: AMLODIPINE 5 MG TABLET PO (08:52)
[2025-03-04] MEDS: FUROSEMIDE 20 MG TABLET PO (08:52)
[2025-03-04] MEDS: OXYCODONE 5 MG TABLET 2.5 MG PO ×2 (08:52→14:24)
[2025-03-04] MEDS: SODIUM CHLORIDE 0.9 % (FLUSH) 10 ML SYRINGE 5 ML IVF (08:53)
[2025-03-04] MEDS: polyethylene glycoL 3350 17 GM PACK PO (08:53)
[2025-03-04] MEDS: BUDESONIDE 0.5 MG/2ML NEB NEB (08:53)
[2025-03-04 09:28] VITALS: PULSE 60
--- NOTE | 2025-03-04 11:49 | RESP.RT ---
Pt seen BBS with scattered Rhonchi, however good aeration. PT is able to IS to 2.0 L which is fantastic. Reinforced need to move, cough and take pain meds if she needs them. She did cough on command with splinting, and it was a good strong [employer] cough. Weaned oxygen on RA at this time, SPO2 88-90%
--- NOTE | 2025-03-04 12:09 | PC.SOCIAL ---
Discharge planning: parks worker met with the pt today in her room and she reported that she had a good session today with PT. Pt states that she feels good about returning home and that she has good support from her neighbors and her daughter is also very supportive and only lives [place] away. Social work to follow-up as needed.
[2025-03-04 13:06] VITALS: BMI 19.4
--- NOTE | 2025-03-04 13:51 | PM.DS1 ---
DS: Providers Provider Date Seen: 03/04/25 Date of admission: 03/03/25 12:40 Primary care physician: Nancy Rainey MD Admitting Clinician: Mabel Singleton MD Consults: 03/03/25 13:48 Consult to Physical Therapy [CONS] Routine Comment: Reason(s) for PT Consult:: Evaluate and Treat Any Restrictions?:: No Restrictions 03/03/25 14:38 Consult to Physician [CONS] Routine Comment: Consulting Provider: Amparo [place] Has provider been notified: Yes 03/03/25 14:50 Consult to Respiratory Therapy [CONS] Routine Comment: Reason(s) for RT Consult:: Consult Attending Physician on discharge: PARUL Burgos, MARIANAC [place] [facility] Date of Discharge: 03/04/25 DS: Diagnosis Discharge Diagnosis (1) Chest wall hematoma: Status: Acute Problem details: S/p fall on 03/01/25, tripped over her cat CT shows 2.7 cm hematoma in the paraspinal musculature (left posterior chest wall) Pain management Remains stable, hemoglobin 10.5 (baseline 10.6-12.8). Held 1 dose of rivaroxaban, should resume on discharge with repeat hemoglobin with PCP next week. (2) Multiple fractures of ribs: Status: Acute Problem details: CT chest shows acute mildly displaced left posterior 9th 10th and 11th rib fractures (see addendum report) Pain management to include lidocaine patch, scheduled Tylenol, p.r.n. Oxycodone and morphine, ice/heat PT consult Continue with pain management, scheduled Tylenol, lidocaine patch, oxycodone as needed. Advised not to combine narcotics and alcohol. Therapy consulted, will continue with therapy's recommendations at home. Encouraged to continue incentive spirometry, ambulation, use of home inhalers. Outpatient follow-up with PCP next week. (3) COPD (chronic obstructive pulmonary disease): Status: Acute Problem details: Without acute exacerbation, no hypoxia Continues to smoke 1 ppd Schedule DuoNebs, albuterol nebs p.r.n., continue home inhalers, incentive spirometry in setting of acute rib fractures/chest wall hematoma Smoking cessation encouraged. Continue home inhalers, incentive spirometry. 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 Held 1 dose of rivaroxaban, resume on discharge. Repeat hemoglobin with PCP next week. (6) CHF (congestive heart failure): Status: Acute Problem details: Diastolic congestive heart failure Continue Lasix and spironolactone (7) Alcohol use disorder: Status: Acute Problem details: Two whiskey drinks daily. Denies history of withdrawals or seizures Monitor Advised to avoid alcohol while on narcotics. (8) Leukocytosis: Status: Acute Problem details: WBC 22.09, no left shift. History of same in past Procalcitonin and CRP ordered Trending down prior to discharge. Procalcitonin negative. CRP mildly elevated. No evidence of infectious process. Likely reactionary. (9) Advance healthcare directive requested: Status: Acute Problem details: Patient's friend will reach out to daughter to provide copy DS: Summary Hospital Course Hospital Course: Course of care and details as noted above. Fall, tripping over cat, in setting of chronic alcohol use, resulting in 3 rib fractures left side. Initiated pain management, physical therapy consulted. Will continue with these at home. Close follow-up with PCP next week including recheck hemoglobin. Remainder of chronic medical comorbidities were monitored and managed with home medications. Status at Discharge Functional status at discharge: independent ambulation Overall status at discharge: patient is progressing back to baseline Time Spent with Patient Time attestation: Total time spent providing and/or coordinating discharge services: Time spent: Greater than 30 minutes Exam Narrative: Exam Narrative: PHYSICAL EXAM General: Pleasant, conversant, NAD Cardiovascular: RRR Pulmonary: No dyspnea Neurological: Alert, answering questions appropriately Skin: Warm, dry. Const: Vital Signs, click to edit/add: Vital Signs - 24 hr 03/03/25 14:24 03/03/25 14:30 03/03/25 14:43 Temperature Pulse Rate 61 Pulse Rate [Pulse Oximeter] Respiratory Rate 18 Blood Pressure [Ri ght Arm] 174/61 H Pulse Oximetry 85 L Oxygen Delivery Me thod Room Air Oxygen Flow Rate 03/03/25 14:46 03/03/25 16:00 03/03/25 16:20 Temperature 98.1 F Pulse Rate Pulse Rate [Pulse Oximeter] 73 107 H Respiratory Rate 16 16 16 Blood Pressure [Ri ght Arm] 121/78 Pulse Oximetry 93 96 Oxygen Delivery Me thod Nasal Cannula Nasal Cannula Oxygen Flow Rate 2 2 03/03/25 20:33 03/03/25 22:55 03/03/25 23:30 Temperature 97 F L Pulse Rate 81 Pulse Rate [Pulse Oximeter] 74 61 Respiratory Rate 16 Blood Pressure [Ri ght Arm] 160/57 H Pulse Oximetry 97 Oxygen Delivery Me thod Nasal Cannula Oxygen Flow Rate 2 03/04/25 00:10 03/04/25 08:30 03/04/25 08:48 Temperature 97.5 F L Pulse Rate 60 Pulse Rate [Pulse Oximeter] 81 Respiratory Rate 18 18 Blood Pressure [Ri ght Arm] 162/50 H Pulse Oximetry 89 Oxygen Delivery Me thod Nasal Cannula Oxygen Flow Rate 2.5 03/04/25 09:28 Temperature Pulse Rate 60 Pulse Rate [Pulse Oximeter] Respiratory Rate Blood Pressure [Ri ght Arm] Pulse Oximetry Oxygen Delivery Me thod Oxygen Flow Rate DS: Data Data Completed and Pending Completed studies during hospitalization: Procedures Introduction of Other Gas into Respiratory Tract, Via Natural or Artificial Opening (01/01/24) Labs on day of discharge: Labs from last 24 hours 03/04/25 03/04/25 03/03/25 06:19 03:00 13:48 WBC 17.64 H RBC 4.58 Hgb 10.5 L Hct 33.2 MCV 73 L MCH 23 L MCHC 32 Plt Count 294 Sodium 133 L Potassium 3.7 Chloride 103 Carbon Dioxide 24 Anion Gap 6 L BUN 14 Creatinine 1.0 Estimated Creat Clear 41.39 Estimated GFR 57 Glucose 94 Calcium 9.1 C-Reactive Protein 7.8 H Procalcitonin Urine Color Yellow Urine Appearance Cloudy A Urine pH 5.5 Ur Specific [place] 1.025 Urine Protein 2+ A Urine Glucose (UA) Negative Urine Ketones Negative Urine Blood Trace-lysed A Urine Nitrite Negative Urine Bilirubin 1+ A Urine Urobilinogen 0.2 Ur Leukocyte Esterase Trace A Urine RBC 0-2 Urine WBC 2-5 Ur Squamous Epith Cells Moderate A Urine Bacteria Moderate A Urine Mucus Moderate A Lab Acknowledgement Test Added 03/03/25 10:51 WBC RBC Hgb Hct MCV MCH MCHC Plt Count Sodium Potassium Chloride Carbon Dioxide Anion Gap BUN Creatinine Estimated Creat Clear Estimated GFR Glucose Calcium C-Reactive Protein 3.4 H Procalcitonin 0.11 Urine Color Urine Appearance Urine pH Ur Specific [place] Urine Protein Urine Glucose (UA) Urine Ketones Urine Blood Urine Nitrite Urine Bilirubin Urine Urobilinogen Ur Leukocyte Esterase Urine RBC Urine WBC Ur Squamous Epith Cells Urine Bacteria Urine Mucus Lab Acknowledgement Preliminary micro results at discharge 03/04/25 03:00 Urine Culture - Preliminary Urine,Clean Catch Culture in Progress Imaging CT chest: Attestation: I have reviewed the pertinent imaging results. Radiologist's impression: 79-year-old female with fall 2 days ago. Persistent left posterior rib pain. Shortness of breath. TECHNIQUE: CT chest was acquired without contrast. COMPARISON: None available. FINDINGS: Lungs: [id number] bilateral emphysematous changes. 7 millimeter calcified granuloma left base with mild adjacent linear stranding. No suspicious nodules, infiltrates or mass lesions. Pleura: No effusions or pneumothorax. Heart: Heart size is normal. No pericardial effusion. Dual lead left precordial pacemaker with leads in good position. Aorta and Pulmonary Arteries: Dilation. Candi and Mediastinum : Left hilar calcified granulomas. No lymphadenopathy or mass lesions. Chest wall: No masses. Bones: Compression fractures T6, T11 and T12 of indeterminate age. Resultant moderate central stenosis T12. No discrete fracture lines soft tissue swelling to suggest these are acute. No rib fractures or deformities. Upper abdomen: Small dependent gallstones. No biliary dilation. 2 centimeter right renal cyst. IMPRESSION: 1. No rib fractures or acute intrathoracic abnormalities. 2. Compression vertebral body fractures T6, T11 and T12 of indeterminate age. Resultant moderate central stenosis T12. No discrete fracture lines or soft tissue swelling to indicate these are acute. Clinical correlation is necessary. MRI may be helpful to assess acuity, if clinically indicated. Please note that all CT scans at this facility use dose modulation, iterative reconstruction, and/or weight-based dosing when appropriate to reduce radiation dose to as low as reasonably achievable. Dictated by Domingo Fernandez MD @ 03/03/2025 11:02:25 AM ----- ADDENDUM ----- Additional acute mildly displaced left posterior 9th 10th and 11th rib fractures with overlying 2.7 cm hematoma in the paraspinal musculature. No overlying pleural effusion or pneumothorax. Dictated by Domingo Fernandez MD @ Mar 03 2025 11:15AM Discharge Plan Discharge Disposition: Home, Self-Care Date of Admission: 03/03/25 12:40 Attending Provider on Discharge: Brynn Currie Consulting Providers: Amparo [place] Primary Care Provider: Nancy Rainey Condition: Stable Anticipated Discharge Date/Time: 03/04/25 13:44 Discharge Medications: New lidocaine 5 % Adhesive Patch,Medicated 1 patch transdermal Q24H Qty: 15 0RF oxycodone 5 mg Tablet 2.5 mg PO Q4H PRN (Reason: Pain) Qty: 15 0RF Continued Breo Ellipta 50-25 mcg/dose blister with device 1 inh inhalation DAILY Qty: 60 0RF amlodipine 5 mg tablet 5 mg PO DAILY spironolactone 25 mg tablet 25 mg PO DAILY Xarelto 20 mg tablet 20 mg PO QPM acetaminophen 325 mg tablet 650 mg PO Q4H PRN Nighttime Sleep-Aid (doxylamn) 25 mg tablet 25 mg PO HS PRN ferrous sulfate [FeroSul] 325 mg (65 mg iron) tablet 325 mg PO DAILY Centrum Silver 0.4 mg-300 mcg- 250 mcg tablet 1 tab PO DAILY levalbuterol tartrate [Xopenex HFA] 45 mcg/actuation HFA aerosol inhaler 1 - 2 inh inhalation Q4H PRN polyethylene glycol 3350 [ClearLax] 17 gram/dose powder 17 g PO DAILY rosuvastatin 20 mg tablet 20 mg PO HS furosemide 20 mg tablet 20 mg PO DAILY Discharge Orders: Discharge Order (Routine); Ordered 03/04/25 Ordered By: Brynn Currie Additional Instructions: Schedule your tylenol for 4 times daily. Use the lidocaine patch daily. Ice/cool compress to area frequently. Oxycodone as needed. Do not drink alcohol while taking narcotics. Use the incentive spirometer every hour. Use your inhalers as prescribed. Activity Level: Activity as Tolerated Discharge Diet: Regular Follow Up Appointments: Nancy Rainey MD [Primary Care Provider, Family Practice] Referral Note: FOLLOW UP NEXT WEEK WITH REPEAT HGB Forms: [facility] [place] Info Instructions
== END 2025-03-04 15:15 | disposition home or self-care (01) ==
LOC: ED 11:36 → MEDSURG 12:52
PROVIDERS: Physician Assistant; Admitting Provider Family Medicine; Emergency Provider Family Medicine; PCP Student in an Organized Health Care Education/Training Program; Visit Provider Family Medicine
DX: S22.42XA Multiple fractures of ribs, left side, initial encounter for closed fracture (principal); S20.212A Contusion of left front wall of thorax, initial encounter; W01.0XXA Fall on same level from slipping, tripping and stumbling without subsequent striking against object, initial encounter; Y92.009 Unspecified place in unspecified non-institutional (private) residence as the place of occurrence of the external cause; J44.9 Chronic obstructive pulmonary disease, unspecified; I48.91 Unspecified atrial fibrillation; S22.080D Wedge compression fracture of T11-T12 vertebra, subsequent encounter for fracture with routine healing; S22.050D Wedge compression fracture of T5-T6 vertebra, subsequent encounter for fracture with routine healing; D72.829 Elevated white blood cell count, unspecified; R82.90 Unspecified abnormal findings in urine; M54.89 Other dorsalgia; F10.90 Alcohol use, unspecified, uncomplicated; F17.210 Nicotine dependence, cigarettes, uncomplicated; I25.10 Atherosclerotic heart disease of native coronary artery without angina pectoris; I11.0 Hypertensive heart disease with heart failure; I50.32 Chronic diastolic (congestive) heart failure; Z95.0 Presence of cardiac pacemaker; I73.9 Peripheral vascular disease, unspecified
CPT/HCPCS: 36415; 71250; 80048; 81001; 84145; 85025; 85027; 86140; 87086; 94761; 96372; 96374; 97116; 97162; 97530; 99285; A9270; G0378; J2270; J3010; J7626

== ENCOUNTER 2025-04-18 19:06 | Outpatient (CLI) | payer MEDICARE, BC, SELFPAY | END 2025-04-18 19:07 | disposition home or self-care (01) | LOC: AMB 05-04 12:58 | PROVIDERS: PCP Student in an Organized Health Care Education/Training Program; Visit Provider Emergency Medicine | DX: S69.91XA Unspecified injury of right wrist, hand and finger(s), initial encounter (principal); R53.1 Weakness; W07.XXXA Fall from chair, initial encounter; Y92.008 Other place in unspecified non-institutional (private) residence as the place of occurrence of the external cause | CPT/HCPCS: A0425; A0429 ==

== ENCOUNTER 2025-04-18 19:52 | Emergency (ER) | payer MEDICARE, BC, SELFPAY ==
[2025-04-18 19:53] VITALS: BP 130/83; PULSE 65; RESP 18; TEMP 36.8; O2SAT 99; BMI 19.7
--- OUTSIDE RECORDS SUMMARY | 2025-04-18 19:54 | XMS_ITS | Clinical Summary ---
Author Organization [facility] Address [address] [place] [address] Care Team Providers Care Project Control Officer Name Role Phone Abigail Rivero MD Unavailable [phone] Jake Ornelas MD Unavailable [phone] Nancy Rainey MD Primary Care Prov [...] dose: 4000mg in 24 hrs. 30 Tablet 4 12:35 PM CDT 04/11/20 24 Active polyethylene [...] mg) by mouth once daily. 90 Tablet 09/25/19 25 Active amLODIPine (NORVASC) 5 mg tabletIndication s:HTN (hypertension) Take 1 Tablet (5 mg) by mouth once daily. 90 Tablet 3 09/25/19 25 Active rosuvastatin (CRESTOR) 20 mg tabletIndication s:Coronary artery disease, unspecified vessel or lesion type, unspecified whether angina present, unspecified whether [place] or transplanted heart Take 1 Tablet (20 mg) by mouth at bedtime. 90 Tablet 3 09/25/19 25 Active Breo Ellipta 50-25 mcg/dose inhalation powderIndication s:Pulmonary emphysema, unspecified emphysema type (HC) Inhale 1 Puff by mouth once daily. 60 Each 11 09/25/19 25 Active cefadroxil (DURICEF) 500 mg capsuleIndicatio ns:Cellulitis of left toe Take 1 Capsule (500 mg) by mouth two times daily for 5 days. 10 Capsule 03/29/20 25 025 Active Problems Problem Noted Date Diagnosed Date Alcohol use disorder 03/12/2025 Overview (03/12/2025): Two whiskey drinks daily. Denies history of withdrawals or seizures Monitor Advised to avoid alcohol while on narcotics. Chest wall hematoma 03/12/2025 Overview (03/12/2025): S/p fall on 03/01/25, tripped over her cat CT shows 2.7 cm hematoma in the paraspinal musculature (left posterior chest wall) Pain management Remains stable, hemoglobin 10.5 (baseline 10.6-12.8). Held 1 dose of rivaroxaban, should resume on discharge with repeat hemoglobin with PCP next week. 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 Discussed with Dr. Bosotn, general surgery. 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 01/08/2024 09/25/2024 Hypoxic respiratory failure 01/08/2024 05/01/2024 Encounters Date Type Department Care Team Description 04/15/2025 12:45 PM CDT Orders Only [place] [address] [place] [address] Lab, [place] Lab 04/15/2025 Travel 03/29/2025 1:30 PM CDT Ancillary Procedure [facility] [address] [place] [address] 03/29/2025 1:00 PM CDT Office Visit [facility] [address] [facility] [place] [address] Nancy Rainey MD Foot Problem (Left foot - 2nd and 3rd toe redness) 03/29/2025 Travel 03/24/2025 Telephone [facility] [address] [place] [address] Nancy Rainey MD Lab 03/22/2025 9:50 AM CDT [address] [address] Nancy Rainey MD Follow Up (Lab follow up ) 03/22/2025 Travel 03/15/2025 1:45 PM CDT Orders Only [facility] [address] [place] [address] Lab, [place] [facility] 03/15/2025 Travel 03/12/2025 10:40 AM CDT Office Visit [facility] [address] [place] [address] Nancy Rainey MD Hospital F/U (pain is improving ) 03/12/2025 Travel 03/11/2025 Procedure Only [facility] [address] [place] [address] Device Check (Remote Medtronic Pacemaker e... 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 Gender Identity Not on file Sexual Orientation Not on file Obstetrics History Last Filed Vital Signs Vital Sign Reading Time Taken Comments Blood Pressure 136/72 03/29/2025 1:26 PM CDT Pulse 94 03/29/2025 1:09 PM CDT Temperature 36 C (96.8 F) 05/02/2024 5:47 PM CDT Respiratory Rate 16 05/02/2024 5:47 PM CDT Oxygen Saturation 96% 03/29/2025 1:09 PM CDT Inhaled Oxygen Concentration - - Weight 56.4 kg (124 lb 6.4 oz) 03/29/2025 1:09 P M CDT Height 164 cm (5' 4.57) 12/04/2024 1:38 PM CDT Body Mass Index 20.98 12/04/2024 1:38 PM CDT Plan of Treatment Upcoming Encounters Date Type Department Care Team (Late st Contact Info) Description 06/23/2025 Procedure Only [facility] [address] [facility] [address] [place] [address] Health Maintenance Due Date Last Done Comments Tetanus booster 1956 Hepatitis C screening for ag e 18-79 1963 Pneumococcal series for age 50+ (1 of 2 - PCV) 1964 Zoster (shingles) series for age 50+ (1 of 2) 1964 DEXA/DXA scan for age 65+ 2010 RSV vaccine for adults or (1 - 1-dose 75+ series) 2020 COVID-19 vaccine series ( season) 2024 10/26/2021, 12/06/2020, 11/15/2020 Influenza Vaccine (#1) 2025 Depression screening for age 12+ 09/25/2025 09/25/2024 Medicare Wellness for age 65+ 09/26/2025 09/25/2024 BMI (ht and wt on same day) for age 18+ 12/04/2025 12/04/2024, 09/25/2024, 04/21/2024 Hepatitis B series for 19+ Aged Out N o longer eligible based on patient's age to complete this topic Medical Devices Implanted Type Area Food Service Attendant Device Identifier Shelf Expiration Date Model / Serial / Lot Plate Distal Lt Volar Short - [id number] Implanted:Qty: 1 on 03/12/[address] [facility] Right: Wrist [employer] [id number]# / / Peg 2.0mm Smooth [id number] - [id number] Implanted:Qty: 2 on 03/12/[address] [facility] Right: Wrist [employer] [id number]# / / Peg 2.0mm Smooth [id number] - [id number] Implanted:Qty: 1 on 03/12/[address] [facility] Right: Wrist [employer] [id number]# / / Peg 2.0mm Smooth [id number] - [id number] Implanted:Qty: 2 on 03/12/[address] [facility] Right: Wrist [employer] [id number]# / / Implant On The Fly - [id number] Implanted:Qty: 2 on 03/12/[address] [facility] Right: Wrist [id number] / / Description:cortical screws hand innov system [id number] 3.5x14mm x2 Implant On [employer] Fly - [id number] Implanted:Qty: 1 on 03/12/[address] [facility] Right: Wrist [id number] / / Description:cortical screws [id number] 3.5x16mm [id number] - [id number] Implanted:Qty: 2 on 09/14/[address] [facility] Left: Elbow / / Description:70.0mm Tension B and Pin / [employer] Procedures Procedure Name Priority Date/Time Associated Diagnosis Comments C-REACTIVE PROTEIN Routine 04/15/2025 12 :26 PM CDT Neutrophilia Monocytosis SEDIMENTATION RATE Routine 04/15/2025 12 :26 PM CDT Neutrophilia Monocytosis PERIPHERAL BLD MORPHOLOGY Routine 04/15/2025 12:25 PM CDT Neutrophilia Monocytosis CBC WITH AUTO DIFFERENTIAL STAT 04/15/2025 12:25 PM CDT Neutrophilia Monocytosis RETICULOCYTES STAT 04/15/2025 12:25 PM CDT Neutrophilia Monocytosis CBC WITH AUTO DIFFERENTIAL STAT 04/15/2025 12:25 PM CDT Neutrophilia Monocytosis XR FOOT 3 VIEWS LEFT Routine 03/29/2025 12:58 PM CDT Foot infection BASIC METABOLIC PANEL Routine 03/15/2025 1:43 PM CDT Closed fracture of multiple ribs of left side with routine healing, subsequent encounter Acute on chronic diastolic congestive heart failure (HC) Neutrophilia Monocytosis HEPATIC FUNCTION PANEL Routine 1:43 PM CDT Closed fracture of multiple ribs of left side with routine healing, subsequent encounter Acute on chronic diastolic congestive heart failure (HC) Neutrophilia Monocytosis SEDIMENTATION RATE Routine 03/15/2025 1: 43 PM CDT Closed fracture of multiple ribs of left side with routine healing, subsequent encounter Acute on chronic diastolic congestive heart failure (HC) Neutrophilia Monocytosis C-REACTIVE PROTEIN Routine 03/15/2025 1: 43 PM CDT Closed fracture of multiple ribs of left side with routine healing, subsequent encounter Acute on chronic diastolic congestive heart failure (HC) Neutrophilia Monocytosis D-DIMER,QUANTITATIVE Routine 03/15/2025 1:43 PM CDT Closed fracture of multiple ribs of left side with routine healing, subsequent encounter Acute on chronic diastolic congestive heart failure (HC) Neutrophilia Monocytosis PERIPHERAL BLD MORPHOLOGY Routine 03/15/2025 1:42 PM CDT Closed fracture of multiple ribs of left side with routine healing, subsequent encounter Acute on chronic diastolic congestive heart failure (HC) Neutrophilia Monocytosis RED CELL MORPHOLOGY STAT 03/15/2025 1 :42 PM CDT Closed fracture of multiple ribs of left side with routine healing, subsequent encounter Acute on chronic diastolic congestive heart failure (HC) Neutrophilia Monocytosis PLATELET ESTIMATE STAT 03/15/2025 1:4 2 PM CDT Closed fracture of multiple ribs of left side with routine healing, subsequent encounter Acute on chronic diastolic congestive heart failure (HC) Neutrophilia Monocytosis MANUAL DIFFERENTIAL STAT 03/15/2025 1 :42 PM CDT Closed fracture of multiple ribs of left side with routine healing, subsequent encounter Acute on chronic diastolic congestive heart failure (HC) Neutrophilia Monocytosis CBC WITH AUTO DIFFERENTIAL STAT 03/15/2025 1:42 PM CDT Closed fracture of multiple ribs of left side with routine healing, subsequent encounter Acute on chronic diastolic congestive heart failure (HC) Neutrophilia Monocytosis PROCALCITONIN STAT 03/15/2025 1:42 PM CDT Closed fracture of multiple ribs of left side with routine healing, subsequent encounter Acute on chronic diastolic congestive heart failure (HC) Neutrophilia Monocytosis RETICULOCYTES STAT 03/15/2025 1:42 PM CDT Closed fracture of multiple ribs of left side with routine healing, subsequent encounter Acute on chronic diastolic congestive heart failure (HC) Neutrophilia Monocytosis CBC WITH AUTO DIFFERENTIAL STAT 03/15/2025 1:42 PM CDT Closed fracture of multiple ribs of left side with routine healing, subsequent encounter Acute on chronic diastolic congestive heart failure (HC) Neutrophilia Monocytosis DIFFERENTIAL MANUAL ([facility] REFLEX ONLY) Routine 03/12/2025 11:19 AM CDT CBC WITH AUTO DIFFERENTIAL Routine 03/12/2025 11:19 AM CDT Iron deficiency anemia due to chronic blood loss SCAN-CT INTERPRETATION 12:00 AM CDT from Last 3 Months Results * SEDIMENTATION RATE (04/15/2025 12:26 PM CDT) Only the most recent of2 resultswithin the time period is included. SED RATE BY MODIFIED GRAYSONERGREN 29 < OR = 30 mm/h [facility] Blood BLOOD SPECIMEN / Unknown 04/15/2025 12:26 PM CDT 04/15/2025 12:27 PM CDT Nanyc Rainey MD HEMATOLOGY Fi nal Result Performing Organization Address City/[facility]/ZIP Co de Phone Number [employer] [address] [address], [place] [phone] [facility] [address] [place] [address] * (ABNORMAL) C-REACTIVE PROTEIN (04/15/2025 12:26 PM CDT) Only the most recent of2 resultswithin the time period is included. C-REACTIVE PROTEIN 18.3(H) <8.0 mg/L [facility] Blood BLOOD SPECIMEN / Unknown 04/15/2025 12:26 PM CDT 04/15/2025 12:27 PM CDT Nancy Rainey MD CHEMISTRY Fi nal Result [employer] [facility] [address] [place] [address], [place] [phone] [facility] [address] [place] [address] * (ABNORMAL) CBC WITH AUTO DIFFERENTIAL (04/15/2025 12:25 PM CDT) Only the most recent of2 resultswithin the time period is included. [facility] WHITE BLOOD COUNT 8.6 4.5 - 11.0 thou/cu mm 04/15/2025 11:06 PM [facility] RED BLOOD COUNT 6.11(H) 4.00 - 5.20 mil/cu mm 04/15/2025 11:06 PM [facility] HEMOGLOBIN 14.2 12.0 - 16.0 g/dL 04/15/2025 11:06 PM [facility] HEMATOCRIT 45.4 33.0 - 51.0 % 04/15/2025 11:06 PM [facility] MCV 74(L) 80 - 100 fL 04/15/2025 11:06 PM [facility] MCH 23.2(L) 26.0 - 34.0 pg 04/15/2025 11:06 PM [facility] MCHC 31.3(L) 32.0 - 36.0 g/dL 04/15/2025 11:06 PM [facility] RDW 21.4(H) 11.5 - 15.5 % 04/15/2025 11:06 PM [facility] PLATELET COUNT 325 140 - 440 thou/cu mm 04/15/2025 11:06 PM [facility] MPV 10.9 6.5 - 11.0 fL 04/15/2025 11:06 PM [facility] NRBC 0.0 % 04/15/2025 11:06 PM [facility] ABS NRBC 0.0 thou /cu mm 04/15/2025 11:06 PM [facility] % NEUT 57.1 % 04/15/2025 11:06 PM [facility] % LYMPH 12.6 % 04/15/2025 11:06 PM [facility] % MONO 26.8 % 04/15/2025 11:06 PM [facility] % EOS 0.8 % 04/15/2025 11:06 PM CDT [facility] % BASO 1.2 % 04/15/2025 11:06 PM CDT [facility] % IMMATURE GRAN (METAS,MYELOS,VT OS) 1.5 % 04/15/2025 11:06 PM CDT [facility] ABSOLUTE NEUTROPHILS 4.9 1.7 - 7.0 thou/cu mm 04/15/2025 11:06 PM CDT [facility] ABSOLUTE LYMPHOCYTES 1.1 0.9 - 2.9 thou/cu mm 04/15/2025 11:06 PM CDT [facility] ABSOLUTE MONOCYTES 2.3(H) <0.9 thou/cu mm 04/15/2025 11:06 PM CDT [facility] ABSOLUTE EOSINOPHILS 0.1 <0.5 thou/cu mm 04/15/2025 11:06 PM CDT [facility] ABSOLUTE BASOPHILS 0.1 <0.3 thou/cu mm 04/15/2025 11:06 PM CDT [facility] ABSOLUTE IMMATURE GRANULOCYTES(MET ,MYELOS,PROS) 0.1 <0.3 thou/cu mm 04/15/2025 11:06 PM CDT [facility] Blood BLOOD SPECIMEN / Unknown [facility] / Unknown 04/15/2025 12:25 PM CDT 04/15/2025 12:26 PM CDT us Nancy Rainey MD HEMATOLOGY Fi nal Result [facility] [address] [place] [address], * PERIPHERAL BLD MORPHOLOGY [97809.2] (04/15/2025 12:25 PM CDT) Only the most recent of2 resultswithin the time period is included. Case Report Special Hematology Report Case: [id number] Authorizing Provider: Nancy Rainey Collected: 04/15/2025 1225 MD Teresa Ordering Location: [facility] Received: 04/15/2025 1226 Clinic Pathologist: Servando Salinas MD Specimen: Blood 04/18/2025 1:16 PM CDT [facility] LAB[facility]AT[facility]-C ENTRAL LABORATORY Final Diagnosis PERIPHERAL BLOOD: Findings concerning for a possible myeloid neoplasm: 1. Normal hemoglobin with microcytic features 2. Monocytosis, persistent 3. Occasional large/giant platelets present 4. See comment 04/18/2025 1:16 PM CDT [facility]TRAL LABORATORY at 1316 CDT Comment The current peripheral blood demonstrates continued monocytosis with continued occasional large/giant platelets present. Given the persistence of these findings (also seen on prior peripheral blood morphology ([id number], 03/15/2025)), along with the history of monocytosis that appears to date back to 2023, the findings raise concern for a possible myeloid neoplasm such as chronic myelomonocytic leukemia (CMML), among other possibilities. Correlation with a bone marrow biopsy should be considered for further evaluation, as clinically indicated. 04/18/2025 1:16 PM CDT [facility] Clinical Information The patient is a 79-year-old female. Per EPIC: Additional history includes A-fib, CHF, CAD, PVD, chronic HFpEF, ABEBA, tobacco and alcohol abuse, and COPD. Her most recent peripheral blood morphology 03/15/2025 ([id number]) showed a microcytic, hypochromic anemia with target cells, leukocytosis secondary to left shifted neutrophilia and monocytosis, atypical large/giant platelets, and no evidence of circulating blasts. She has had a persistent monocytosis since April 2024. 04/18/2025 1:16 PM CDT [facility] LAB[facility] CBC and Differential HEMATOLOGY PARAMETERS [facility]ed at[facility] RESULTS EXPECTED VALUES WBC: 8.6 4.5-06u6100/cumm RBC: 6.11 4.00-5.20 mil/cumm ELEVATED HGB: 14.2 12-16 gm/dl HCT: 45.4 33-51% MCV: 74.0 80-100 fl MICROCYTIC MCH: 23.2 26-34 pg DECREASED MCHC: 31.3 32-36 gm/dl HYPOCHROMIC RDW: 21.4 11.5-15.5% ELEVATED PLT: 325 [id number]/uL MPV: 10.9 6.5-11 fl Retic: 1.2 0.5-1.5% Differential Absolute (%) Expected (%) (x10*9/L) (x10*9/L) Neutrophils: 4.9 (57) 1.7-7.0 (42-72%) Lymphocytes: 1.1 (12.8) 0.9-2.9 (20-44%) Monocytes: 2.3 (26.7) <0.9 (0-11%) ELEVATED Eosinophils: 0.1 (1.2) <0.5 (0-2%) Basophils: 0.1 (1.2) <0.3 (<3.0%) Imm Grans: 0.1 (1.2) <0.3 (0-3%) (Metas, Myelos,Pros) 04/18/2025 1:16 PM CDT [facility] Microscopic Description The final diagnosis is based on microscopic examination of an appropriately stained blood smear. 04/18/2025 1:16 PM CDT [facility] Additional Information Interpreted at [facility], Central Laboratory - [address] [place] [address] 04/18/2025 1:16 PM T [facility] Blood BLOOD SPECIMEN / Unknown [facility] / Unknown 04/15/2025 12:25 PM CDT 04/15/2025 12:26 PM CDT Comment:CURRENT MEDICATIONSC urrent Outpatient Medications: acetaminophen (TYLENOL) 325 mg tablet, Take 2 Tablets (650 mg) by mouth every 4 hours if needed for Pain (For mild pain.). Max acetaminophen dose: 4000mg in 24 hrs., Disp: 30 Tablet, Rfl: 0 amLODIPine (NORVASC) 5 mg tablet, Take 1 Tablet (5 mg) by mouth once daily., Disp: 90 Tablet, Rfl: 3 Breo Ellipta 50-25 mcg/dose inhalation powder, Inhale 1 Puff by mouth once daily., Disp: 60 Each, Rfl: 11 doxylamine (Unisom, doxylamine,) 25 mg tablet, Take 25 mg by mouth at bedtime if needed for Sleep., Disp: , Rfl: FeroSuL 325 mg (65 mg iron) tablet, Take 325 mg by mouth once daily with a meal., Disp: , Rfl: furosemide (LASIX) 20 mg tablet, Take 1 Tablet (20 mg) by mouth once daily., Disp: 90 Tablet, Rfl: 3 geriatric gismzqgetbpv-kdhp-deugzwks (GERITOL; CENTRUM SILVER) tablet, Take 1 Tablet by mouth once daily., Disp: , Rfl: levalbuterol (XOPENEX HFA) 45 mcg/actuation inhaler, INHALE 1 TO 2 PUFFS BY MOUTH EVERY 4 HOURS NEEDED FOR SHORTNESS OF BREATH OR WHEEZING, Disp: 15 g, Rfl: 0 polyethylene glycoL (MIRALAX) 17 gram/scoop powder, Mix 1 scoop (17 g) in liquid then take by mouth., Disp: , Rfl: rivaroxaban (Xarelto) 20 mg tablet, Take 1 Tablet (20 mg) by mouth once daily with evening meal., Disp: 90 Tablet, Rfl: 3 rosuvastatin (CRESTOR) 20 mg tablet, Take 1 Tablet (20 mg) by mouth at bedtime., Disp: 90 Tablet, Rfl: 3 spironolactone (ALDACTONE) 25 mg tablet, Take 1 Tablet (25 mg) by mouth once daily in the morning., Disp: 90 Tablet, Rfl: 3 Nancy Rainey MD HEMATOLOGY Fi nal Result [facility] [address] [place] [address], [place] * RETICULOCYTES [90081.0] (04/15/2025 12:25 PM CDT) Only the most recent of2 resultswithin the time period is included. RETIC% 1.2 0.5 - 1.5 % 04/15/2025 11:06 PM CDT [facility] RETIC (ABSOLUTE) 0.07 0.03 - 0.08 mil/cu mm 04/15/2025 11:06 PM CDT [facility] Blood BLOOD SPECIMEN / Unknown [facility] / Unknown 04/15/2025 12:25 PM CDT 04/15/2025 12:26 PM CDT us Nancy Rainey MD HEMATOLOGY Fi nal Result [facility] [address] [place] [address], [place] * XR FOOT 3 VIEWS LEFT (03/29/2025 12:58 PM CDT) Anatomical Region Laterality Modality FEET, FOOT L Computed Radiogr aphy 03/29/2025 2:42 PM CDT Narrative 03/29/2025 2:42 PM CDT For Patients: As a result of the Cures Act, medical imaging exams and procedure reports are released immediately into your electronic medical record. You may view this report before your referring provider. If you have questions, please contact your health care provider. Indication: Foot infection Technique: Left foot 3 views Comparison: 03/26/2024 Findings: Postop changes of great toe distal phalangeal resection. 2nd and 3rd toes intact without cortical destruction or periostitis. No fracture. No soft tissue gas. Impression: No evidence of osteomyelitis involving the 2nd and 3rd toes. Dictated by Ector Frankel MD @ 03/29/2025 2:42:07 PM (Electronically Signed) Procedure Note Ector Frankel MD - 03/29/2025 For Patients: As a result of the Cures Act, medical imagingexams and procedure reports are released immediately into your electronicmedical record. You may view this report before your referring provider.If you have questions, please contact your health care provider. Indication: Foot infection Technique: Left foot 3 views Comparison: 03/26/2024 Findings: Postop changes of great toe distal phalangeal resection. 2nd and 3rd toesintact without cortical destruction or periostitis. No fracture. No softtissue gas. Impression: No evidence of osteomyelitis involving the 2nd and 3rd toes. Dictated by Ector Frankel MD @ 03/29/2025 2:42:07 PM (Electronically Signed) Nancy Rainey MD GENERAL IMAGING nal Result * (ABNORMAL) D-DIMER,QUANTITATIVE (03/15/2025 1:43 PM CDT) D-DIMER, QUANTITATIVE 1.33(H) <0.50 mcg/mL FEU [facility] graciela Banks Comment: Elevated D-dimer levels are associated with DIC, malignancies, inflammation, sepsis, surgery, trauma, and . A D-dimer result less than 0.5 mcg/mL FEU, in conjunction with a non-high clinical pre-test probability assessment model, excludes deep vein thrombosis and pulmonary embolism. However, since D-dimer values increase with age, the [employer] recommends an age-adjusted cut-off value in patients older than 50. The calculation for an age adjusted cut-off value is age (years) x 0.01 mcg/mL FEU. For example, the cut-off for a 70-year-old patient would be 70 x 0.01 mcg/mL FEU. For additional information, please refer to http://education.[employer]/faq/HKT407 (This link is being provided for informational/educational purposes only.) Blood BLOOD SPECIMEN / Unknown 03/15/2025 1:43 PM CDT 03/15/2025 1:44 PM CDT Nancy Rainey MD HEMATOLOGY nal Result [employer] [facility] [address] [place] [address], [facility] [address] [place] [address] * (ABNORMAL) LIVER PANEL (HEPATIC FUNCTION PANEL) (03/15/2025 1:43 PM CDT) Pathologist [facility] PROTEIN, TOTAL 6.8 6.1 - 8.1 g/dL [facility] ALBUMIN 3.1(L) 3.6 - 5.1 g/dL [facility] GLOBULIN 3.7 1.9 - 3.7 g/dL (calc) [facility] ALBUMIN/GLOBULIN RATIO 0.8(L) 1.0 - 2.5 (calc) [facility] BILIRUBIN, TOTAL 0.5 0.2 - 1.2 mg/dL [facility] BILIRUBIN, DIRECT 0.2 < OR = 0.2 mg/dL [facility] BILIRUBIN, INDIRECT 0.3 0.2 - 1.2 mg/dL (calc) [facility] ALKALINE PHOSPHATASE 54 37 - 153 U/L [facility] AST 15 10 - 35 U/L [facility] ALT 9 6 - 29 U/L [facility] Blood BLOOD SPECIMEN / Unknown 03/15/2025 1:43 PM CDT 03/15/2025 1:44 PM CDT us Nancy Rainey MD CHEMISTRY Fi nal Result [employer] [facility] [address] [place] [address], [facility] [address] * (ABNORMAL) BASIC METABOLIC PANEL (03/15/2025 1:43 PM CDT) [facility] GLUCOSE 62(L) 65 - 99 mg/dL [facility] Comment: Fasting reference interval UREA NITROGEN (BUN) 10 7 - 25 mg/dL [facility] [facility] CREATININE 0.79 0.60 - 1.00 mg/dL [facility] EGFR 76 > OR = 60 mL/min/1. 73m2 [facility] BUN/CREATININE RATIO SEE NOTE: 6 - 22 (calc) [facility] Comment: Not Reported: BUN and Creatinine are within reference range. SODIUM 138 135 - 146 mmol/L [facility] POTASSIUM 4.1 3.5 - 5.3 mmol/L [facility] CHLORIDE 103 98 - 110 mmol/L [facility] CARBON DIOXIDE 27 20 - 32 mmol/L [facility] ELECTROLYTE BALANCE 8 7 - 17 mmol/L (calc) [facility] CALCIUM 8.3(L) 8.6 - 10.4 mg/dL [facility] Blood BLOOD SPECIMEN / Unknown 03/15/2025 1:43 PM CDT 03/15/2025 1:44 PM CDT us Nancy Rainey MD CHEMISTRY Fi nal Result Performing Organization Address City/[facility]/ZIP Co de Phone Number [employer] [facility] [address] [place] [address], [facility] [address] [place] [address] * (ABNORMAL) RED CELL MORPHOLOGY (03/15/2025 1:42 PM CDT) ELLIPTOCYTES Few 03/15/2025 11:59 PM CDT [facility] POLYCHROMASIA Slight 03/15/2025 11:59 PM CDT [facility] TARGET CELLS Few 03/15/2025 11:59 PM CDT [facility] RBC COMMENT Present(A) RBC morphology appears normal, RBC morphology within normal limits for newborns. 03/15/2025 11:59 PM CDT [facility] Blood BLOOD SPECIMEN / Unknown [facility] / Unknown 03/15/2025 1:42 PM CDT 03/15/2025 1:43 PM CDT us Nancy Rainey MD HEMATOLOGY Fi nal Result [facility] [address] [place] [address], [place] * PLATELET ESTIMATE (03/15/2025 1:42 PM CDT) PLATELET ESTIMATE Adequate Adequate, No estimate 03/15/2025 11:59 PM CDT [facility] Blood BLOOD SPECIMEN / Unknown [facility] / Unknown 03/15/2025 1:42 PM CDT 03/15/2025 1:43 PM CDT us Nancy Rainey MD HEMATOLOGY Fi nal Result [facility] [address] [place] [address], [place] * STAT Procalcitonin (03/15/2025 1:42 PM CDT) Pathologist [facility] PROCALCITONIN 0.10 ng/ml 03/15/2025 5:34 PM CDT [facility] Blood BLOOD SPECIMEN / Unknown [facility] / Unknown 03/15/2025 1:42 PM CDT 03/15/2025 1:43 PM CDT Narrative [facility] - 03/15/2025 5:34 PM CDT Procalcitonin for initial assessment of Lower Respiratory Tract Infection: Results Interpretation <0.10 ng/mL Antibiotic therapy strongly discoraged. Indicates absent of bacterial infection. * 0.10 - 0.25 ng/mL Antibiotic therapy discouraged. Bacterial infection unlikely. * 0.26 - 0.50 ng/mL Antibiotic therapy encouraged. Bacterial infection possible. >0.50 ng/mL Antibiotic therapy strongly encouraged. Suggestive of presence of bacterial infection. *Antibiotic therapy should be considered regardless of PCT result if the patient is clinically unstable, is at high risk for adverse outcome, has strong evidence of bacterial pathogen, or the clinical context indicates antibiotic therapy is warranted. If antibiotics are withheld, reassess if symptoms persist/worsen and/or repeat PCT measurement within 6-24 hours. In order to assess treatment success and to support a decision to discontinue antibiotic therapy, follow up samples should be tested once every 1-2 days, based upon physician discretion taking into account patient's evolution and progress. Procalcitonin for initial assessment of severe sepsis risk: Results Interpretation <0.5 ng/ml A PCT level below 0.5 ng/ml on the first day of ICU admission is associated with a low risk for progression to severe sepsis and/or septic shock. > 2.0 ng/mL A PCT level above 2.0 ng/mL on the first day of ICU admission is associated with a high risk for progression to severe sepsis and/or septic shock. Note: Concentrations < 0.5 ng/mL do not exclude an infection, on account of localized infections (without systemic signs) which can be associated with such low concentrations, or a systemic infection in its initial stages(< 6 hours). Furthermore, increased procalcitonin can occur without infection. PCT concentrations between 0.5 and 2.0 ng/mL should be interpreted taking into account the patient's history. It is recommended to retest PCT within 6-24 hours if any concentrations < 2 ng/mL are obtained. Nancy Rainey MD SEND OUTS Fi nal Result [facility] [address] [place] [address] * (ABNORMAL) MANUAL DIFFERENTIAL (03/15/2025 1:42 PM CDT) % NEUTROPHILS 67.2 % 03/15/2025 11:59 PM CDT [facility] % LYMPHOCYTES 13.5 % 03/15/2025 11:59 PM CDT [facility] % MONOCYTES 18.5 % 03/15/2025 11:59 PM CDT [facility] % EOSINOPHILS 0.0 % 03/15/2025 11:59 PM CDT [facility] % BASOPHILS 0.8 % 03/15/2025 11:59 PM CDT [facility] NEUTROPHILS ABSOLUTE 10.5(H) 1.7 - 7.0 thou/cu mm 03/15/2025 11:59 PM CDT [facility] LYMPHOCYTES ABSOLUTE 2.1 0.9 - 2.9 thou/cu mm 03/15/2025 11:59 PM CDT [facility] MONOCYTES ABSOLUTE 2.9(H) <0.9 thou/cu mm 03/15/2025 11:59 PM CDT [facility] EOSINOPHILS ABSOLUTE 0.0 <0.5 thou/cu mm 03/15/2025 11:59 PM CDT [facility] BASOPHILS ABSOLUTE 0.1 <0.3 thou/cu mm 03/15/2025 11:59 PM CDT [facility] Blood BLOOD SPECIMEN / Unknown [facility] / Unknown 03/15/2025 1:42 PM CDT 03/15/2025 1:43 PM CDT us Nancy Rainey MD HEMATOLOGY Fi nal Result [facility] [address] [place] [address], [place] * (ABNORMAL) DIFFERENTIAL MANUAL ([facility] REFLEX ONLY) (03/12/2025 11:19 AM CDT) ABSOLUTE NEUTROPHILS 7,838(H) 1,500 - 7,800 cells/uL [facility] ABSOLUTE METAMYELOCYTES 165(H) 0 cells/uL [facility] ABSOLUTE MYELOCYTES 495(H) 0 cells/uL [facility] ABSOLUTE LYMPHOCYTES MANUAL 2,508 850 - 3,900 cells/uL [facility] ABSOLUTE MONOCYTES 5,330(H) 200 - 950 cells/uL [facility] ABSOLUTE EOSINOPHILS 0(L) 15 - 500 cells/uL [facility] ABSOLUTE BASOPHILS 165 0 - 200 cells/uL [facility] NEUTROPHILS 47.5 % [facility] METAMYELOCYTES 1.0(H) % [facility] MYELOCYTES 3.0(H) % [facility] LYMPHOCYTES 15.2 % [facility] MONOCYTES 32.3 % [facility] EOSINOPHILS 0 % [facility] BASOPHILS 1.0 % [facility] DIFFERENTIAL, MANUAL NOTE [facility] Comment: Although an automated CBC was ordered, our instrumentation detected an abnormality on your patient's specimen requiring us to perform a manual review. 03/12/2025 11:1 9 AM CDT 03/12/2025 11:19 AM CDT Nancy Rainey MD LABORATORY Fi nal Result [facility] [address] [place] [address], [facility] [address] [place] [address] * (ABNORMAL) CBC AND DIFFERENTIAL (03/12/2025 11:19 AM CDT) WHITE BLOOD CELL COUNT 16.5(H) 3.8 - 10.8 Thousand/u L [facility] RED BLOOD CELL COUNT 5.38(H) 3.80 - 5.10 Million/uL [facility] HEMOGLOBIN 12.4 11.7 - 15.5 g/dL [facility] HEMATOCRIT 41.8 35.0 - 45.0 % [facility] MCV 77.7(L) 80.0 - 100.0 fL [facility] MCH 23.0(L) 27.0 - 33.0 pg [facility] MCHC 29.7(L) 32.0 - 36.0 g/dL [facility] Comment: For adults, a slight decrease in the calculated MCHC value (in the range of 30 to 32 g/dL) is most likely not clinically significant; however, it should be interpreted with caution in correlation with other red cell parameters and the patient's clinical condition. RDW 19.6(H) 11.0 - 15.0 % [facility] PLATELET COUNT 450(H) 140 - 400 Thousand/u L [facility] MPV 11.9 7.5 - 12.5 fL [facility] Blood BLOOD SPECIMEN / Unknown 03/12/2025 11:19 AM CDT 03/12/2025 11:19 AM CDT Nancy Rainey MD HEMATOLOGY Fi nal Result [employer] [facility] [address] [place] [address], [facility] [address] [place] [address] * SCAN-CT INTERPRETATION (03/03/2025 12:00 AM CDT) Anatomical Region Laterality Modality Other Scanner OTHER Final Result from Last 3 Months Insurance [employer] [place] [place] PB ONLY [place] [place] [place] ONLY MEDICARE PART B HB ONLY MEDICARE PART A HB ONLY [place] [place] HB ONLY MEDICARE PPS WORKERS COMP ACCIDENT FUND Advance Directives Documents on File Type Date Recorded 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
--- NOTE | 2025-04-18 20:00 | ED_ITS ---
HPI - Extremity Injury (Upper) General Time Seen by Provider: 20:00 Date Seen: 04/18/25 Chief Complaint: Extremity Pain/Injury, Upper Stated Complaint: fall Time Seen by Provider: 04/18/25 19:55 Source: patient, EMS and RN notes reviewed Mode of arrival: EMS Limitations: no limitations History of Present Illness HPI narrative: This 79-year-old female was brought in by EMS after a fall at home. She admits to drinking tonight, her chart does list alcohol use disorder. She states that she simply tripped and fell. She was complaining of right wrist pain, did have a skin tear to her right forearm without active bleeding per EMS. They did place a splint on her arm. She denies hitting her head, no loss of consciousness, no headache, no visual changes, no neck or back pain. She states she has no chest pain, no difficulty breathing, no chest wall pain. Outside of her wrist her other extremities do not hurt. No hip or pelvic pain. She is chronically anticoagulated for Xarelto with history of atrial fibrillation. Related Data Home Medications ?Medication ?Instructions ?Recorded ?Confirmed acetaminophen 325 mg tablet 650 mg PO Q4H PRN 03/03/25 04/18/25 amlodipine 5 mg tablet 5 mg PO DAILY 03/03/2504/18 doxylamine succinate 25 mg tablet 25 mg PO HS PRN 02/1404/18/25 (Nighttime Sleep-Aid (doxylamine)) ferrous sulfate 325 mg (65 mg 325 mg PO DAILY 03/03/25 04/18/25 iron) tablet (FeroSul) furosemide 20 mg tablet 20 mg PO DAILY 03/03/25 0812/08 levalbuterol tartrate 45 1 - 2 inh inhalation Q4H PRN 03/03/25 04/18/25 mcg/actuation aerosol inhaler (Xopenex HFA) vdwxjszr-nfs-zbuee acid 0.4 1 tab PO DAILY 03/03/25 mg-lycopene 300 mcg-lutein 250 mcg tablet (Centrum Silver) polyethylene glycol 3350 17 17 g PO DAILY 03/03/2512/08 gram/dose oral powder (ClearLax) rivaroxaban 20 mg tablet (Xarelto) 20 mg PO QPM 06/18/ 25 08/03/25 rosuvastatin 20 mg tablet 20 mg PO HS 03/03/25 5 spironolactone 25 mg tablet 25 mg PO DAILY 03/03/25 Previous Rx's ?Medication ?Instructions ?Recorded fluticasone furoate 50 1 inh inhalation DAILY #60 e a 01/05/24 mcg-vilanterol 25 mcg/dose inhalation powder (Breo Ellipta) Allergies Allergy/AdvReac Type Severity Reaction Status Date / Time No Known Drug Allergies Allergy Verified 04/18/25 19:56 Review of Systems Status of ROS: Reports: 6 or more systems reviewed and unremarkable except as noted in History and below [facility] Medical History Compression fracture Alcohol use disorder ?F10.90 - Alcohol use, unspecified, uncomplicated (ICD-10) Elevated troponin ?R79.89 - Other specified abnormal findings of blood chemistry (ICD-10) Peripheral vascular disease ?I73.9 - Peripheral vascular disease, unspecified (ICD-10) Elbow fracture, left ?S42.402A - Unspecified fracture of lower end of left humerus, initial encounter for closed fracture (ICD-10) Fracture of left tibia and fibula ?S82.202A - Unspecified fracture of shaft of left tibia, initial encounter for closed fracture (ICD-10) ?S82.402A - Unspecified fracture of shaft of left fibula, initial encounter for closed fracture (ICD-10) Left wrist fracture ?S62.102A - Fracture of unspecified carpal bone, left wrist, initial encounter for closed fracture (ICD-10) Coronary artery disease ?I25.10 - Atherosclerotic heart disease of [place] coronary artery without angina pectoris (ICD-10) Iron deficiency anemia ?D50.9 - Iron deficiency anemia, unspecified (ICD-10) Tobacco abuse disorder ?Z72.0 - Tobacco use (ICD-10) Chronic toe ulcer ?L97.509 - Non-pressure chronic ulcer of other part of unspecified foot with unspecified severity (ICD-10) Afib ?I48.91 - Unspecified atrial fibrillation (ICD-10) CHF (congestive heart failure) ?I50.9 - Heart failure, unspecified (ICD-10) COPD (chronic obstructive pulmonary disease) ?J44.9 - Chronic obstructive pulmonary disease, unspecified (ICD-10) Family History Mother Leukemia Sister Alzheimers disease Social History Narrative: 78-year-old female living independently in [facility]. No current primary care provider. Present in the hospital today with her daughter Muriel who lives in [place]. Also has a son Dakota who lives in [place]. Smoked for many years, quit 10 years ago and started smoking again 3 months ago. He drinks 2 beers per day. Reports no withdrawal symptoms if she does not drink for a day. Daughter and son are healthcare power of bankruptcy attorney. Code status is DNR DNI What is your current living situation?: I presently have a place to live Problems where you live: no known problems Problems where you live details: none In the past 12 months, utilities in danger of being shut off: no In past 12 months, lack of transportation kept you from medical appts, meetings, work, or getting things needed for daily living: no In the past 12 mos, have been you worried that your food would run out before you had money to buy more?: never true In the past 12 mos, the food you bought just didn't last and you didn't have money to buy more?: never true Highest level of school completed/degree received: some college, no degree Smoking Status: Current every day smoker What tobacco products do you use: cigarettes Smoking packs per day: 1 Smoking cigarettes per day: 20.0 Years smoked: 35 Smoking pack-years: 35.00 Do you use any of these nicotine containing products: None How often do you have a drink containing alcohol: 4 or more times a week Alcohol type: beer How many standard drinks containing alcohol do you have on a typical day: 1 or 2 How often do you have six or more drinks on one occasion: Never AUDIT-C Alcohol total score: 4 Non-prescribed substance use: denies use Caffeine: Yes How often does anyone, including family, friends and others, physically hurt you : never How often does anyone, including family, friends and others, insult or talk down to you: never How often does anyone, including family, friends and others, threaten you with harm: never How often does anyone, including family, friends and others, scream or curse at you: never service: No Exam Const: Vital Signs, click to edit/add: Vital Signs - 24 hr 04/18/25 19:53 Temperature 98.2 F Pulse Rate [Right Pulse Oximeter] 65 Respiratory Rate 18 Blood Pressure [Le ft Upper Arm] 130/83 Pulse Oximetry 99 Oxygen Delivery Me thod Room Air This 79-year-old female is alert, interactive, no apparent distress. She has a EMS applied splint on her arm, this was taken down, the bandaging around the proximal forearm was removed. She has about a 2 cm linear skin tear on the proximal dorsal forearm, no active bleeding. She has lots of bruising over her hands and forearms. She complains of pain along the lateral wrist but note no swelling. Do see her flex and extend move the wrist about. Distal neurovascular is intact in this hand. She has no pain in the elbow, no pain her shoulder, she has no pain throughout her left extremity, hips or pelvis or legs. Lungs are clear, good air entry, no wheezing crackles, tachypnea accessory muscle use. No midline tenderness of her neck or back, has good range of motion of her neck without pain. CV sounds regular, no murmur, normal S1-S2. Abdomen is soft, nontender, nondistended, no organomegaly. Documenting provider has reviewed patient's vital signs: yes Course Course ED Course: Patient will have her skin tear cleaned and bandaged. Did discuss with her being on anticoagulation and given age, would recommend head CT imaging. She does agree to do this. For her wrist she certainly needs imaging with x-rays to rule out fracture, she does agree with this as well. He does not seem to have any other injuries, nothing prodromal causing her fall maybe except some alcohol use. She does not seem to be concerning the intoxicated at this time. Do not feel that any labs are indicated or any further imaging. She will let us know if anything else is bothering her. We will monitor and guide therapy accordingly otherwise. Reevaluation(s) Time of Reevaluation #1: 21:19 Reevaluation #1: Reviewed normal head CT and negative x-ray of wrist for fracture. Her skin tear has been bandage. She has no other concerns. Her daughter is here now. She wants to go home. Daughter feels comfortable with this plan. Vital Signs Vital signs: Initial Vital Signs Temperature 98.2 F 04/18/25 19:53 Temperature Source Temporal Artery Scan 04/18/25 19:53 Pulse Rate 65 04/18/25 19:53 Respiratory Rate 18 04/18/25 19:53 Blood Pressure 130/83 04/18/25 19:53 Blood Pressure Mean 98 04/18/25 19:53 Blood Pressure Position Supine 04/18/25 19:53 Pulse Oximetry 99 04/18/25 19:53 Oxygen Delivery Method Room Air 04/18/25 19:53 Vital Signs Temperature 98.2 F 04/18/25 19:53 Pulse Rate 65 04/18/25 19:53 Respiratory Rate 18 04/18/25 19:53 Blood Pressure 130/83 04/18/25 19:53 Pulse Oximetry 99 04/18/25 19:53 Oxygen Delivery Method Room Air 04/18/25 19:53 Temperature 98.2 F 04/18/25 19:53 Pulse Rate 65 04/18/25 19:53 Respiratory Rate 18 04/18/25 19:53 Blood Pressure 130/83 04/18/25 19:53 Pulse Oximetry 99 04/18/25 19:53 Oxygen Delivery Method Room Air 04/18/25 19:53 MDM - Extremity Injury (Upper) Imaging Data CT scan - head: Attestation: I have reviewed the pertinent imaging results. Radiologist's impression: Patient: JANAY RAMON Facility:?[facility] Patient ID:?[id number] Site Patient ID:?[id number]. Site :?[id number] Study:?CT-Head W/O-04/18/2025 8:41:30 PM Ordering Physician:?Catrina Sanders Final Report: INDICATION: Fall. Trauma. TECHNIQUE: CT of the head without contrast. Coronal and sagittal reformats are included. COMPARISON: None. FINDINGS: No acute intracranial hemorrhage. No mass effect or midline shift. No hydrocephalus or extra-axial collections. White matter is within normal limits for age. No acute osseous abnormalities. Mastoid air cells and paranasal sinuses are clear. Normal soft tissues. IMPRESSION: IMPRESSION: 1. No acute intracranial abnormalities. Please note that all CT scans at this facility use dose modulation, iterative reconstruction, and/or weight-based dosing when appropriate to reduce radiation dose to as low as reasonably achievable. Dictated by Larry Mcfadden MD @ 04/18/2025 9:03:15 PM (Electronic Signature) XR right wrist: Attestation: I have reviewed the pertinent imaging results. My impression: I do not appreciate any acute fracture on my preliminary review, wait radiology over read. Radiologist's impression: Patient: JANAY RAMON Facility:?[facility] Patient ID:?[id number] Site Patient ID:?[id number]. Site :?[id number] Study:?XRay-Extremity Right WRIST 3 VIEWS-04/18/2025 8:48:23 PM Ordering Physician:Mihaela Sanders Final Report: Indication: Fall Technique: Three views of the right wrist Comparison: None Findings/Impression: No acute radiographic abnormality appreciated. Dictated by Chaz Wilkinson MD @ 04/18/2025 9:05:39 PM (Electronic Signature) Discharge Plan Discharge Clinical Impression: Acute pain of right wrist Fall Qualifiers: Encounter type: initial encounter Qualified Code(s): W19.XXXA - Unspecified fa ll, initial encounter Skin tear of right forearm without complication Qualifiers: Encounter type: initial encounter Qualified Code(s): S51.811A - Laceration without foreign body of right forearm, initial encounter Patient Disposition: Home, Self-Care Condition: Stable Instructions: Wrist Injury (ED), Fall Prevention for Older Adults (ED), Skin Tear (ED) Additional Instructions: Your x-ray of her wrist is showing no fracture. Can try ice and Tylenol per bottle directions. If the wrist does continue to bother you, consider re-x-ray in 5-7 days in clinic. Use bandages to keep the skin tear clean and dry. If you have further concerns, please seek re-evaluation. Recommend minimizing alcohol to help prevent falls. Activity Level: No Restrictions and Activity as Tolerated Prescriptions: No Action Breo Ellipta 50-25 mcg/dose blister with device 1 inh inhalation DAILY Qty: 60 0RF amlodipine 5 mg tablet 5 mg PO DAILY spironolactone 25 mg tablet 25 mg PO DAILY Xarelto 20 mg tablet 20 mg PO QPM acetaminophen 325 mg tablet 650 mg PO Q4H PRN Nighttime Sleep-Aid (doxylamn) 25 mg tablet 25 mg PO HS PRN ferrous sulfate [FeroSul] 325 mg (65 mg iron) tablet 325 mg PO DAILY Centrum Silver 0.4 mg-300 mcg- 250 mcg tablet 1 tab PO DAILY levalbuterol tartrate [Xopenex HFA] 45 mcg/actuation HFA aerosol inhaler 1 - 2 inh inhalation Q4H PRN polyethylene glycol 3350 [ClearLax] 17 gram/dose powder 17 g PO DAILY rosuvastatin 20 mg tablet 20 mg PO HS furosemide 20 mg tablet 20 mg PO DAILY Follow Up/Referrals: Nancy Rainey MD [Primary Care Provider, Family Practice] Stand Alone Forms: Shake Info Instructions
--- NOTE | 2025-04-18 20:06 | CRLHL7_ITS ---
For Patients: As a result of the Century Cures Act, medical imaging exams and procedure reports are released immediately into your electronic medical record. You may view this report before your referring provider. If you have questions, please contact your health care provider. INDICATION: Fall. Trauma. TECHNIQUE: CT of the head without contrast. Coronal and sagittal reformats are included. COMPARISON: None. FINDINGS: No acute intracranial hemorrhage. No mass effect or midline shift. No hydrocephalus or extra-axial collections. White matter is within normal limits for age. No acute osseous abnormalities. Mastoid air cells and paranasal sinuses are clear. Normal soft tissues. IMPRESSION: IMPRESSION: 1. No acute intracranial abnormalities. Please note that all CT scans at this facility use dose modulation, iterative reconstruction, and/or weight-based dosing when appropriate to reduce radiation dose to as low as reasonably achievable. Dictated by Larry Mcfadden MD @ 04/18/2025 9:03:15 PM (Electronically Signed)
--- NOTE | 2025-04-18 20:06 | CRLHL7_ITS ---
For Patients: As a result of the Cures Act, medical imaging exams and procedure reports are released immediately into your electronic medical record. You may view this report before your referring provider. If you have questions, please contact your health care provider. Indication: Fall Technique: Three views of the right wrist Comparison: None Findings/Impression: No acute radiographic abnormality appreciated. Dictated by Chaz Wilkinson MD @ 04/18/2025 9:05:39 PM (Electronically Signed)
== END 2025-04-18 21:30 | disposition home or self-care (01) ==
PROVIDERS: Emergency Provider Family Medicine; PCP Student in an Organized Health Care Education/Training Program
DX: M25.531 Pain in right wrist (principal); S51.811A Laceration without foreign body of right forearm, initial encounter; W01.0XXA Fall on same level from slipping, tripping and stumbling without subsequent striking against object, initial encounter
CPT/HCPCS: 70450; 73110; 99284

== ENCOUNTER 2025-09-12 12:01 | Outpatient (CLI) | payer MEDICARE, BC, SELFPAY | END 2025-09-12 12:02 | disposition home or self-care (01) | LOC: AMB 09-13 03:55 | PROVIDERS: PCP Student in an Organized Health Care Education/Training Program; Visit Provider Family Medicine | DX: R41.82 Altered mental status, unspecified (principal) | CPT/HCPCS: A0425; A0427 ==

== ENCOUNTER 2025-09-12 12:49 | Inpatient (IN) | payer MEDICARE, BC, SELFPAY ==
[2025-09-12] VITALS (26 sets, daily range): BP systolic 137–186; BP diastolic 72–141; PULSE 63–91; RESP 12–35; TEMP 36.1–36.7; O2SAT 88–99; BMI 17.5
--- OUTSIDE RECORDS SUMMARY | 2025-09-12 12:51 | XMS_ITS | Clinical Summary ---
Author Organization [facility] Address [address] [place] [id number] Care Team Providers Care Personal Care Home Administrator Name Role Phone Abigail Rivero MD Unavailable [phone] Jake Ornelas MD Unavailable [phone] Nancy Rainey MD Primary Care Prov ider Allergies No known active allergies Medications MedicationSigDispense QuantityRefillsLast FilledStart DateEnd DateStatus FeroSuL 325 mg (65 mg iron) tablet Take 325 mg by mouth once daily with a meal.01/05/2024ctive doxylamine (Unisom, doxylamine,) 25 mg tablet Take 25 mg by mouth at bedtime if needed for Sleep.Active acetaminophen (TYLENOL) 325 mg tablet Indications:Pseudoaneurysm following procedureTake 2 Tablets (650 mg) by mouth every 4 hours if needed for Pain (For mild pain.). Max acetaminophen dose: 4000mg in 24 hrs. 30 Tablet 04/11/2024 12:35 PM CDT04/11/2024ctive polyethylene glycoL (MIRALAX) 17 gram/scoop powder Mix 1 scoop (17 g) in liquid then take by mouth.04/13/2024ctive geriatric hezbzytbfigt-imnl-hkiuhkbe (GERITOL; CENTRUM SILVER) tablet Take 1 Tablet by mouth once daily.04/13/2024ctive levalbuterol (XOPENEX HFA) 45 mcg/actuation inhaler Indications:Chronic obstructive pulmonary disease, unspecified COPD type (HC) INHALE 1 TO 2 PUFFS BY MOUTH EVERY 4 HOURS NEEDED FOR SHORTNESS OF BREATH OR WHEEZING 15 g 4Active spironolactone (ALDACTONE) 25 mg tablet Indications:Chronic heart failure with preserved ejection fraction (HC)Take 1 Tablet (25 mg) by mouth once daily in the morning. 90 Tablet 5Active furosemide (LASIX) 20 mg tablet Indications:Chronic heart failure with preserved ejection fraction (HC)Take 1 Tablet (20 mg) by mouth once daily. 90 Tablet 5Active amLODIPine (NORVASC) 5 mg tablet Indications:HTN (hypertension)Take 1 Tablet (5 mg) by mouth once daily. 90 Tablet 5Active rosuvastatin (CRESTOR) 20 mg tablet Indications:Coronary artery disease, unspecified vessel or lesion type, unspecified whether angina present, unspecified whether tribal or transplanted heartTake 1 Tablet (20 mg) by mouth at bedtime. 90 Tablet 5Active Breo Ellipta 50-25 mcg/dose inhalation powder Indications:Pulmonary emphysema, unspecified emphysema type (HC)Inhale 1 Puff by mouth once daily. 60 Each 1105Active rivaroxaban (Xarelto) 20 mg tablet Indications:Atrial fibrillation, unspecified type (HC)Take 1 Tablet (20 mg) by mouth once daily with evening meal. 90 Tablet 5Active Active Problems ProblemNoted DateDiagnosed DateAlcohol use skgemwqt60/27/2025 Overview (03/12/2025): Two whiskey drinks daily. Denies history of withdrawals or seizures Monitor Advised to avoid alcohol while on narcotics. Chest wall qeplbalb17/27/2025 Overview (03/12/2025): S/p fall on 03/01/25, tripped over her cat CT shows 2.7 cm hematoma in the paraspinal musculature (left posterior chest wall) Pain management Remains stable, hemoglobin 10.5 (baseline 10.6-12.8). Held 1 dose of rivaroxaban, should resume on discharge with repeat hemoglobin with PCP next week. Chronic ulcer of toe of left foot with necrosis of bone03/12/2025 Assessment & Plan (03/12/2025 12:31 PM CDT): Resolved Acute on chronic diastolic congestive heart gsemlib0603/12/2025Symptomatic bradycardia s/p llaelussw85/10/2025therosclerosis of tribal arteries of extremities with rest pain, left leg09/25/20246358Wxhfvtwiq38/01/2024 Overview (04/16/2024): -- For symptomatic bradycardia 03/2024 -- S/P permanent pacemaker A lead(RA septum), V Lead(Left Bundle) 03/21/2024 Chronic heart failure with preserved ejection eylayzcd24/01/2024AF (paroxysmal atrial fibrillation)04/16/2024 Overview (04/16/2024): -- Tachy-mercedes led to pacer 03/2024 -- No AAD's. Asymptomatic. Rate control. PVD (peripheral vascular disease)04/16/2024 Overview (04/21/2024): - Percutaneous revasc of L leg 03/2024, complicated by pseudoaneurysm, large hematoma, severe blood loss anemia Pseudoaneurysm of right femoral ysgjme4604/02/2024seudoaneurysm of superifical femoral artery with associated extravasation and hematoma.04/01/2024fib 01/08/2024 Overview (01/08/2024): Rate controlled, even episodically [...] patient declined understanding risks. CHF (congestive heart failure)01/08/2024OPD (chronic obstructive pulmonary disease)01/08/2024oronary artery xncnuqa6801/08/2024Iron deficiency anemia 01/08/2024eripheral vascular kjvkzji4701/08/2024Tobacco abuse sjyzbamp88/24/2024 Fecal occult blood test ixllutln06/24/2024 Resolved Problems ProblemNoted DateDiagnosed DateResolved DateSmall bowel uylrrfsmtgn39/21/2024 05/01/2024cute kidney xejkvf91cute blood loss anemia Septic shockHemorrhagic shock04/01/2024 05/01/2024Gangrene of footSymptomatic kpvkxuixvcu18/05/2024 04/16/2024NR (do not resuscitate)hronic left great toe ulcer s/p partial hallus odueijkylv59Hypoxic respiratory Encounters DateTypeDepartmentCare QzkyDpiwxeqjwfc96/28/2025Refill [facility] [address] [place] [phone] Jake Ornelas MD Refill Request (Xarelto)06/23/2025Procedure Only [facility] [address] [place] [phone] Device Check (REMOTE [employer] DUAL CHAMBE...from Last 3 Months Family History Medical HistoryRelationNameCommentsCancerMotherleukemiaRelationNameStatus CommentsMother Social History Tobacco UseTypesPacks/DayYears UsedDateSmoking Tobacco: Every DayCigarettes Tobacco Cessation:Ready to Q uit: Not Asked; Counseling Given: Not Answered Comments:Quit 4 years ago Alcohol UseStandard Drinks/WeekCommentsYes0 (1 standard drink = 0.6 oz pure alcohol)PHQ-2AnswerDate RecordedPHQ-2 TOTAL QEALJ684Social Connections AnswerDate RecordedDo you often feel lonely or isolated from those around you?4 04/01/2024Financial Resource StrainAnswerDate RecordedDifficulty of Paying Living Ydaklivh812/24/2024Difficulty of Paying Living ExpensesNot on file 01/08/2024Food InsecurityAnswerDate RecordedDo you worry your food will run out before you are able to buy more?Transportation NeedsAnswerDate RecordedDoes lack of transportation keep you from medical appointments?1 04/01/2024oes lack of transportation keep you from work, meetings or getting things that you need?Housing StabilityAnswerDate RecordedWhat is your housing situation today?Interpersonal SafetyAnswerDate RecordedAre you being hit, kicked, pushed or yelled at (see row info)?Unable to assess, family/SO in room.05/02/2024Interpersonal Safety Abuse 12 - 18Not on file 05/02/2024Interpersonal Safety Ambulatory VulnerabilityNot on file05/02/2024 UtilitiesAnswerDate RecordedDo you have trouble paying for utilities (for example, heat, electricity, water, phone)?regnantCommentsNoSex and Gender InformationValueDate RecordedSex Assigned at BirthNot on fileLegal Sex Fsmqxe1209/29/2012 6:51 AM CSTGender IdentityNot on fileSexual OrientationNot on file Last Filed Vital Signs Vital SignReadingTime TakenCommentsBlood Ocwnmjqz221/7207 1:26 PM CDT Dsapl075303/29/2025 1:09 PM ANZQjfsvimxwwy52 ??C (96.8 ??F)05/02/2024 5:47 PM CDT Respiratory Ymbl7675 5:47 PM CDTOxygen Remqqazmsj68%03/29/2025 1:09 PM CDTInhaled Oxygen Concentration--Ijyeqh12.4 kg (124 lb 6.4 oz)03/29/2025 1:09 PM UILMinerj406 cm (5' 4.57)12/04/2024 1:38 PM CDTBody Mass Index20.9803 1:38 PM CDT Plan of Treatment DateTypeDepartmentCare Team (Latest Contact Info)Uubgzbmskcf43/07/2026Procedure Only [facility] [address] [place] [phone] 09/27/2025 11:05 AM CSTOffice Visit [facility] [address] [place] [id number] Nancy Rainey MD [address] [place] [id number] Health MaintenanceDue DateLast DoneCommentsTetanus rnieguz9011/09/1956Hepatitis C screening for age 18-7911/09/1963Pneumococcal series for age 50+ (1 of 2 - PCV) 1964Zoster (shingles) series for age 50+ (1 of 2)1964DEXA/DXA scan for age 65+2010RSV vaccine for adults or (1 - 1-dose 75+ series) 2020OVID-19 vaccine series (2024- season)/06/2022, 12/06/2020, 11/15/2020Influenza Vaccine (#1)2025Depression screening for age 12+Medicare Wellness for age 65+[place] (ht and wt on same day) for age 18+, 09/25/2024, 04/21/2024 Hepatitis B series for 19+Aged OutNo longer eligible based on patient's age to complete this topic Medical Devices ImplantedTypeAreaManufacturerDevice IdentifierShelf Expiration DateModel / Serial / LotPlate Distal Lt Volar Short - [id number] [facility] Photodigm IncDVRAS-L# / / Peg 2.0mm Smooth [id number] - [id number] Implanted:Qty[facility] 2 [facility] [employer] [id number]# / / Peg 2.0mm Smooth [id number] - [id number] Implanted:Qty[facility] 1 [facility] [id number]# / / Peg 2.0mm Smooth [id number] - [id number] Implanted:Qty: 2 [facility]/2007 [facility] [id number]# / / Implant On The Fly - [id number] Implanted:Qty: 2 [facility]/2007 [facility] [id number] / / Description:cortical screws hand innov system [id number] 3.5x14mm k4Gmgenxg On The Fly - [id number] Implanted:Qty[facility] 1 [facility] [id number] / / Description:cortical screws [id number] [id number] - [id number] Implanted:Qty: 2 [facility]/2011 [facility] Elbow 30 / / Description:70.0mm Tension Band Pin / [employer] [place] [address] [place] [address] [id number] [place] [id number] Advance Directives TypeDate RecordedPatient RepresentativeExplanationHealthcare Directive01/04/2025 2:31 [id number] Directive/ * Full Code (Latest Code Status on File) Date ActivatedDate InactivatedComments04/01/2024 5:52 PM04/11/2024 5:40 PMQuestion AnswerCommentsCode Status Discussion:* Reviewed Preferences * Full Code Date ActivatedDate InactivatedComments03/23/2024 4:33 PM03/27/2024 4:56 PMQuestion AnswerCommentsCode Status Discussion:* Reviewed Preferences * Full Code Date ActivatedDate InactivatedComments03/20/2024 5:03 PM03/23/2024 4:33 PMQuestion AnswerCommentsCode Status Discussion:* Unable to Assess Preferences, Provider to review later * Full Code Date ActivatedDate InactivatedComments03/20/2024 5:03 PM03/20/2024 5:03 PMQuestion AnswerCommentsCode Status Discussion:* Reviewed Preferences * Full Code Date ActivatedDate QvzynjaehfhEhlvqqsv75/30/2011 10:01 AM09/14/2011 5:15 PM Care Teams Team MemberRelationshipSpecialtyStart DateEnd Date Nancy Rainey MD [address] [place] [address] PCP - GeneralFamily Nhwclhxg99/1/25 Abigail Rivero MD [address] [place] [address] Consulting PhysicianSurgery - Vascular03/22/24 Jake Ornelas MD [address] [place] [address] Cardiovascular Disease04/06/24
--- NOTE | 2025-09-12 13:03 | ED.FALL ---
HPI - Fall General Date Seen: 09/12/25 Chief Complaint: Fall/Minor Trauma Stated Complaint: fall Time Seen by Provider: 09/12/25 12:54 Source: patient, family, RN notes reviewed and old records reviewed Mode of arrival: EMS Limitations: no limitations History of Present Illness HPI Narrative: Bertha is a 79-year-old female with a history of alcohol use disorder, no known recent alcohol intake, tobacco use disorder with COPD and, continued smoking, history of atrial fibrillation on anticoagulation, history of CHF, who presents to the [facility] via EMS after a fall. Patient noted to have fallen yesterday. States that she does not know why she fell but she had been noticing some pain in her right hip recently. Thinks it may be from a fall in April. She does not know if she hit her head. Agrees that she has some neck pain. Denies numbness or tingling of the upper extremities. States that after she fell she was sitting in a chair but her hip hurts so she put herself on the floor again. Last known well was 1600 hours yesterday. Bertha denies recent cold-like symptoms or fever. She has a chronic cough and does unfortunately continue to smoke. She denies rib pain chest pain abdominal pain nausea or vomiting. Denies back pain at this time. Related Data Home Medications ?Medication ?Instructions ?Recorded ?Confirmed acetaminophen 325 mg tablet 650 mg PO Q4H PRN 03/03/25 04/28/25 amlodipine 5 mg tablet 5 mg PO DAILY 03/03/25 04/28/25 ferrous sulfate 325 mg (65 mg 325 mg PO DAILY 03/03/25 04/28/25 iron) tablet (FeroSul) furosemide 20 mg tablet 20 mg PO DAILY 03/03/25 04/28/25 vupcntmt-bkd-fmejv acid 0.4 1 tab PO DAILY 03/03/25 04/28/25 mg-lycopene 300 mcg-lutein 250 mcg tablet (Centrum Silver) polyethylene glycol 3350 17 17 g PO DAILY 03/03/25 04/28/25 gram/dose oral powder (ClearLax) rivaroxaban 20 mg tablet (Xarelto) 20 mg PO QPM 03/03/25 04/28/25 rosuvastatin 20 mg tablet 20 mg PO HS 03/03/25 04/28/25 spironolactone 25 mg tablet 25 mg PO DAILY 03/03/25 04/28/25 Previous Rx's ?Medication ?Instructions ?Recorded fluticasone furoate 50 1 inh inhalation DAILY #60 ea 01/05/24 mcg-vilanterol 25 mcg/dose inhalation powder (Breo Ellipta) Allergies Allergy/AdvReac Type Severity Reaction Status Date / Time No Known Drug Allergies Allergy Verified 04/28/25 13:09 Review of Systems Status of ROS: Reports: 10 or more systems reviewed and unremarkable except as noted in History and below Const: Reports: fatigue; Denies: fever or chills Eyes: Denies: change in vision ENMT: Reports: neck pain; Denies: throat pain, throat swelling, difficulty swallowing or nasal congestion Cardio: Reports: shortness of breath with exertion; Denies: chest pain, palpitations or swelling of feet/ankles Resp: Reports: shortness of breath and cough (Chronic) GI: Denies: abdominal pain, nausea, vomiting or difficulty swallowing : Denies: painful urination Musculo: Reports: neck pain, extremity pain and joint pain; Denies: back pain Neuro: Denies: headache Endo: Reports: fatigue Allergy/Immuno: Denies: throat swelling PFSH PFS Medical History Cognitive impairment ?R41.89 - Other symptoms and signs involving cognitive functions and awareness (ICD-10) Chronic 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 (ICD-10) Fracture of femoral neck, left, closed ?S72.002A - Fracture of unspecified part of neck of left femur, initial encounter for closed fracture (ICD-10) Intertrochanteric fracture of right hip ?S72.141A - Displaced intertrochanteric fracture of right femur, initial encounter for closed fracture (ICD-10) Compression fracture Alcohol use disorder ?F10.90 - Alcohol use, unspecified, uncomplicated (ICD-10) Elevated troponin ?R79.89 - Other specified abnormal findings of blood chemistry (ICD-10) Peripheral vascular disease ?I73.9 - Peripheral vascular disease, unspecified (ICD-10) Elbow fracture, left ?S42.402A - Unspecified fracture of lower end of left humerus, initial encounter for closed fracture (ICD-10) Fracture of left tibia and fibula ?S82.202A - Unspecified fracture of shaft of left tibia, initial encounter for closed fracture (ICD-10) ?S82.402A - Unspecified fracture of shaft of left fibula, initial encounter for closed fracture (ICD-10) Left wrist fracture ?S62.102A - Fracture of unspecified carpal bone, left wrist, initial encounter for closed fracture (ICD-10) Coronary artery disease ?I25.10 - Atherosclerotic heart disease of [place] coronary artery without angina pectoris (ICD-10) Iron deficiency anemia ?D50.9 - Iron deficiency anemia, unspecified (ICD-10) Tobacco abuse disorder ?Z72.0 - Tobacco use (ICD-10) Chronic toe ulcer ?L97.509 - Non-pressure chronic ulcer of other part of unspecified foot with unspecified severity (ICD-10) Afib ?I48.91 - Unspecified atrial fibrillation (ICD-10) CHF (congestive heart failure) ?I50.9 - Heart failure, unspecified (ICD-10) COPD (chronic obstructive pulmonary disease) ?J44.9 - Chronic obstructive pulmonary disease, unspecified (ICD-10) Surgical History (Updated 09/12/25 @ 18:24 by Bubba Ernst MD) History of amputation of left great toe ?Z89.412 - Acquired absence of left great toe (ICD-10) H/O mastectomy ?Z90.10 - Acquired absence of unspecified breast and nipple (ICD-10) Family History Mother Leukemia Sister Alzheimers disease Social History (Updated 09/12/25 @ 18:26 by Bubba Ernst MD) Narrative: 78-year-old female living independently in [facility]. No current primary care provider. Present in the hospital today with her daughter Muriel who lives in [place]. Also has a son Dakota who lives in [place]. Smoked for many years, quit 10 years ago and started smoking again. She drinks 2 alcoholic beverages per day. Reports no withdrawal symptoms if she does not drink for a day. Daughter and son are healthcare power of senior trial attorney. Code status is DNR DNI. She does drive a car. She has neighbors and friends who check on her every day. She walks with a 4 wheeled walker at home What is your current living situation?: I presently have a place to live Problems where you live: no known problems Problems where you live details: none In the past 12 months, utilities in danger of being shut off: no In past 12 months, lack of transportation kept you from medical appts, meetings, work, or getting things needed for daily living: no In the past 12 mos, have been you worried that your food would run out before you had money to buy more?: never true In the past 12 mos, the food you bought just didn't last and you didn't have money to buy more?: never true Highest level of school completed/degree received: some college, no degree Smoking Status: Current every day smoker What tobacco products do you use: cigarettes Smoking packs per day: 1 Smoking cigarettes per day: 20.0 Years smoked: 35 Smoking pack-years: 35.00 Do you use any of these nicotine containing products: None How often do you have a drink containing alcohol: 4 or more times a week Alcohol type: hard liquor How many standard drinks containing alcohol do you have on a typical day: 1 or 2 How often do you have six or more drinks on one occasion: Never AUDIT-C Alcohol total score: 4 Non-prescribed substance use: denies use Caffeine: No How often does anyone, including family, friends and others, physically hurt you: never How often does anyone, including family, friends and others, insult or talk down to you: never How often does anyone, including family, friends and others, threaten you with harm: never How often does anyone, including family, friends and others, scream or curse at you: never service: No Exam Narrative: Exam Narrative: Alert and oriented. Accompanied by her daughter who is very loving and supportive. External ears eyes nose clear. Neck is supple. Patient does not have not have any midline cervical tenderness but with movement agrees that it feels sore. Head is otherwise atraumatic. Face symmetrical. Dentition poor. Lips are dry. Heart with regular rate and rhythm and lungs are with bilateral decreased breath sounds with some inspiratory crackles. Do partially clear with deep inspiration. Abdomen soft nontender. Pelvis appears stable. Patient has tenderness with palpation over the right hip joint. Hip is externally rotated. Also over the distal femur. She is able to move her toes without difficulty. On the left she has pain in the left hip with internal external rotation but very mild. No pain with leg elevation or lateral movement. Absence of the distal left 1st toe. Const: Vital Signs, click to edit/add: Vital Signs - 24 hr 09/12/25 12:58 09/12/25 12:59 09/12/25 13:00 Temperature Pulse Rate 87 68 79 Pulse Rate [Pulse Oximeter] Respiratory Rate 18 Blood Pressure 161/95 H Blood Pressure [Le ft Upper Arm] Pulse Oximetry 90 90 90 Oxygen Delivery Me thod 09/12/25 13:02 09/12/25 14:17 09/12/25 14:22 Temperature 97.9 F Pulse Rate 91 82 Pulse Rate [Pulse Oximeter] 72 Respiratory Rate 20 20 Blood Pressure 149/76 H Blood Pressure [Le ft Upper Arm] 161/95 H Pulse Oximetry 90 98 99 Oxygen Delivery Me od Room Air 09/12/25 14:30 09/12/25 14:43 09/12/25 14:45 Temperature Pulse Rate 81 86 Pulse Rate [Pulse Oximeter] Respiratory Rate 21 13 23 Blood Pressure 167/78 H Blood Pressure [Le ft Upper Arm] Pulse Oximetry 95 99 99 Oxygen Delivery Me od 09/12/25 15:03 09/12/25 15:04 09/12/25 15:15 Temperature Pulse Rate Pulse Rate [Pulse Oximeter] Respiratory Rate 12 23 14 Blood Pressure 157/141 H Blood Pressure [Le ft Upper Arm] Pulse Oximetry Oxygen Delivery Me od 09/12/25 15:23 09/12/25 15:30 09/12/25 15:42 Temperature Pulse Rate Pulse Rate [Pulse Oximeter] Respiratory Rate 24 21 24 Blood Pressure 186/99 H 137/116 H Blood Pressure [Le ft Upper Arm] Pulse Oximetry Oxygen Delivery Me thod 09/12/25 15:45 09/12/25 16:00 09/12/25 16:03 Temperature Pulse Rate Pulse Rate [Pulse Oximeter] Respiratory Rate 25 H 23 22 Blood Pressure 161/77 H Blood Pressure [Le ft Upper Arm] Pulse Oximetry Oxygen Delivery Me od 09/12/25 16:44 09/12/25 16:45 09/12/25 17:00 Temperature Pulse Rate 77 73 Pulse Rate [Pulse Oximeter] Respiratory Rate 35 H 26 H 27 H Blood Pressure Blood Pressure [Le ft Upper Arm] Pulse Oximetry 97 96 Oxygen Delivery Nj thod 09/12/25 17:03 09/12/25 17:15 Temperature Pulse Rate 81 86 Pulse Rate [Pulse Oximeter] Respiratory Rate 25 H 28 H Blood Pressure 167/72 H Blood Pressure [Le ft Upper Arm] Pulse Oximetry 97 95 Oxygen Delivery Me thod Room Air Documenting provider has reviewed patient's vital signs: yes Course Course ED Course: Differential diagnosis includes but is not limited to hip fracture, pneumonia, UTI, acute coronary event, electrolyte imbalance. At this time patient does not appear to be using alcohol. Will check labs to include CBC, EtOH, comprehensive, CRP, urinalysis, troponin. Patient did receive pain medication from EMS. Has not needed to receive any further medication management. Reevaluation(s) Reevaluation #1: Initially given multiple comorbidities we considered transfer of this patient outside facility in the [facility] system. However, unable to transfer today. At this time having hospitalist's review patient chart. Have also spoken with Orthopedics about patient's bilateral hip fractures. At this time they do recommend CT of the left hip. Patient does not think she had any of her medications yesterday therefore last Eliquis would have been 09/10/2025. Reevaluation #2: Our hospitalist Dr. Ernst has determined the patient would be able to stay here at the [facility]. We do note that the fracture in the left hip is actually healing and not acute. Have checked with Orthopedics and they plan on doing a IM nail procedure tomorrow afternoon. Consultations Consultation #1: Orthopedic consultation with our PA. Vital Signs Vital signs: Initial Vital Signs Pulse Rate 87 09/12/25 12:58 Respiratory Rate 18 09/12/25 12:58 Blood Pressure 161/95 H 09/12/25 12:58 Blood Pressure Mean 117 H 09/12/25 12:58 Pulse Oximetry 90 09/12/25 12:58 Vital Signs Pulse Rate 87 09/12/25 12:58 Respiratory Rate 18 09/12/25 12:58 Blood Pressure 161/95 H 09/12/25 12:58 Pulse Oximetry 90 09/12/25 12:58 Temperature 97.0 F L 09/12/25 18:59 Pulse Rate 65 09/12/25 18:59 Respiratory Rate 20 09/12/25 18:59 Blood Pressure 167/72 H 09/12/25 17:03 Pulse Oximetry 91 09/12/25 18:59 Oxygen Delivery Method Room Air 09/12/25 18:59 Medications Administered Medications: Generic Name Dose Route Start Last Admin Trade Name Freq PRN Reason Stop Dose Admin Lactated Ringer's 1,000 mls @ 500 mls/hr 09/12/25 17:53 09/12/25 18:20 Lactated Ringers 1000 Ml IV 09/12/25 19:52 500 mls/hr .Q2H CHARITO Administration Morphine Sulfate 2 mg 09/12/25 17:53 09/12/25 18:20 Morphine 4 Mg/Ml Inj IVP 2 mg Q1H PRN Administration Pantoprazole Sodium 40 mg 09/12/25 18:00 09/12/25 18:20 Pantoprazole Sodium 40 Mg Inj IVP 40 mg Q24H CHARITO Administration Discontinued Medications Generic Name Dose Route Start Last Admin Trade Name Freq PRN Reason Stop Dose Admin Sodium Chloride 500 mls @ 500 mls/hr 09/12/25 16:33 09/12/25 17:42 0.9 % Sodium Chloride 500 Ml IV 09/12/25 17:32 Infused .Q1H CHARITO Infusion MDM - Fall MDM Narrative Medical decision making narrative: 1. Bilateral hip fracture-right hip is painful and was the focus of our exam. X-ray positive for intertrochanteric fracture on the right. The plan is to fix this fracture tomorrow afternoon in the OR. Fracture on the left appears to be subacute and healing. Exam is fairly benign with only slight discomfort with internal and external rotation of the hip on the left. Patient has not required any further pain medication while in the ER. 2. Leukocytosis -looking back at records white [place] was [address] in April but in February was at 22,000. At this time no evidence of fever, CK is elevated mildly at 136. Patient had seen hematology per daughter's report. Did not want to pursue this further. Daughter does state that whenever her mom gets injured the white count goes up and there could be an element of de margination with this. No evidence of pneumonia at this time. 3. Fall -unknown reason for fall. Patient notes that her hip was hurting prior to the fall. Troponin is negative. No evidence of electrolyte imbalance. 4. History of alcohol abuse -alcohol level is 0. Patient denies any history of withdrawal. 5. COPD with continued tobacco use currently on nasal cannula oxygen-patient had been prescribed home oxygen 1 year ago. However, she did not use it very much and thus no renewal was made. Daughter states O2 sats run between 88-94% at its best. 6. Disposition-after much discussion patient was able to be admitted to the [facility] under the care of Dr. Héctor Ernst. Inpatient admission. Medical Records Attestation: I reviewed the patient's medical records. Lab Data Attestation: I reviewed the patient's lab results. Labs: Lab Results 09/12/25 09/12/25 09/12/25 Range/Units 13:43 13:44 13:50 WBC 26.16 H* (4.50-11.00) K/uL RBC 5.68 H (4.00-5.20) m/uL Hgb 15.1 (12.0-16.0) gm/dL Hct 46.0 (33.0-51.0) % MCV 81 (80-100) fL MCH 27 (26-34) pg MCHC 33 (32-36) gm/dL RDW Coeff of Jaimie 19.7 H (11.5-15.5) % Plt Count 244 (140-440) K/uL Neut % (Auto) 68.6 (42.0-72.0) % Lymph % (Auto) 2.5 L (20-44) % Will % (Auto) 22.5 H (0.0-11.0) % Eos % (Auto) 0.0 (0.0-7.0) % Baso % (Auto) 0.7 (0.0-3.0) % Neut # (Auto) 17.90 H (1.7-7.0) K/uL Lymph # (Auto) 0.70 L (0.90-2.90) K/uL Will # (Auto) 5.90 H (0.00-0.90) K/UL Eos # (Auto) 0.00 (0.00-0.50) K/uL Baso # (Auto) 0.20 (0.00-0.30) K/uL Abs Immat Gran (auto) 1.50 H (0.00-0.30) K/uL Imm/Tot Granulo (auto) 5.7 % Diff Slide Review Acceptable Review (Acceptable) Sodium 135 (135-149) mmol/L Potassium 4.1 (3.6-5.1) mmol/L Chloride 102 (96-114) mmol/L Carbon Dioxide 22 (20-32) mmol/L Anion Gap 11 (7-15) mEq/L BUN 21 (7-30) mg/dL Creatinine 1.2 (0.5-1.5) mg/dL Estimated GFR 46 ml/min Glucose 144 H (60-115) mg/dL Calcium 9.3 (8.4-10.6) mg/dL Magnesium 1.6 (1.5-2.6) mg/dL Total Creatine Kinase 136 H (41-117) U/L Troponin I 0.01 (0.01-0.04) ng/mL Ethyl Alcohol < 0.01 (0.01-0.03) % Lab Acknowledgement Test Added Test Added 09/12/25 Range/Units 16:32 WBC (4.50-11.00) K/uL RBC (4.00-5.20) m/uL Hgb (12.0-16.0) gm/dL Hct (33.0-51.0) % MCV (80-100) fL MCH (26-34) pg MCHC (32-36) gm/dL RDW Coeff of Jaimie (11.5-15.5) % Plt Count (140-440) K/uL Neut % (Auto) (42.0-72.0) % Lymph % (Auto) (20-44) % Will % (Auto) (0.0-11.0) % Eos % (Auto) (0.0-7.0) % Baso % (Auto) (0.0-3.0) % Neut # (Auto) (1.7-7.0) K/uL Lymph # (Auto) (0.90-2.90) K/uL Will # (Auto) (0.00-0.90) K/UL Eos # (Auto) (0.00-0.50) K/uL Baso # (Auto) (0.00-0.30) K/uL Abs Immat Gran (auto) (0.00-0.30) K/uL Imm/Tot Granulo (auto) % Diff Slide Review (Acceptable) Sodium (135-149) mmol/L Potassium (3.6-5.1) mmol/L Chloride (96-114) mmol/L Carbon Dioxide (20-32) mmol/L Anion Gap (7-15) mEq/L BUN (7-30) mg/dL Creatinine (0.5-1.5) mg/dL Estimated GFR ml/min Glucose (60-115) mg/dL Calcium (8.4-10.6) mg/dL Magnesium (1.5-2.6) mg/dL Total Creatine Kinase (41-117) U/L Troponin I (0.01-0.04) ng/mL Ethyl Alcohol (0.01-0.03) % Lab Acknowledgement New Spec Needed A Imaging Data CT scan - head: Attestation: I have reviewed the pertinent imaging results. My impression: I do not note any acute fracture. Radiologist's impression: No acute intracranial hemorrhage. No mass effect or midline shift. No hydrocephalus or extra-axial collections. Scattered white matter hypoattenuation, typical for chronic microvascular ischemic change. Mild generalized parenchymal volume loss. Intracranial vascular calcifications. No acute osseous abnormalities. Mild mucosal thickening left maxillary sinus alveolar recess. Normal soft tissues. IMPRESSION: IMPRESSION: 1. No acute intracranial abnormalities. Cervical spine CT: Attestation: I have reviewed the pertinent imaging results. My impression: No acute fractures. Radiologist's impression: ractures and other acute findings: None. Hardware: None. Spinal alignment: Trace anterolisthesis at C3-4. Significant cervical spondylosis: Moderate disc degeneration C5-6. Multilevel uncovertebral and facet arthrosis with moderate neural foraminal stenosis C3-4 on the right, and low-grade elsewhere. Paraspinal soft tissues and imaged lungs: Thyroid gland atrophy. Mild emphysematous changes within the lung apices. IMPRESSION: 1. No acute fracture or traumatic malalignment of the cervical spine. Chest: Attestation: I have reviewed the pertinent imaging results. My impression: I do not note any evidence of pneumonia. Evidence of widened mediastinum. I do note pacer. Radiologist's impression: Lungs: Normal lung volume. No consolidation. The tracheobronchial tree and hilar structures are unremarkable. Multiple calcified granulomas. Pleura: No pleural effusion or pneumothorax. Vertical linear lucency overlying the right lateral lung zone should reflect a skin fold. Heart and Mediastinum: Normal heart size. Atherosclerotic aorta. ICD/pacer. Bones: No acute displaced osseous process. IMPRESSION: No consolidation. Right hip x-ray: Attestation: I have reviewed the pertinent imaging results. My impression: Right hip fracture without any pelvis fracture. Radiologist's impression: Femoral heads are well-seated in the acetabula. There is a comminuted intertrochanteric fracture of the right hip. There is an additional mildly impacted subcapital femoral neck fracture of the left hip. Degenerative changes of the bilateral hips are appreciated. The soft tissues are unremarkable. IMPRESSION: 1. Comminuted intertrochanteric fracture of the right hip. 2. Subtle impaction fracture of the subcapital femoral neck of the left hip. Femur x-ray: Attestation: I have reviewed the pertinent imaging results. My impression: No noted distal femur abnormality. Fortunately right hip fracture is noted. Radiologist's impression: Osseous structures: There is decreased bone mineralization. There is an acute, comminuted intertrochanteric fracture of the right femur. There is no dislocation. There is slight superior displacement of the distal fracture fragments. There is orthopedic hardware within the partially visualized right tibia. Soft tissues: There is soft tissue swelling overlying the right hip. Multiple surgical clips are present in the right femoral region. IMPRESSION: Acute, comminuted intertrochanteric fracture of the right femur. No dislocation. Slight superior displacement of the distal fracture fragments. Left hip CT: Attestation: I have reviewed the pertinent imaging results. Radiologist's impression: Diffuse osseous demineralization. Acute comminuted moderately displaced fracture of the right femur involving the greater tuberosity, lesser tuberosity, and intertrochanteric region. There is curvilinear sclerosis at the left femoral neck and slight cortical irregularity (7/22). There is gflz-wr-vjcqziao degenerative change of the left hip. There is mild degenerative change of the right hip. There is mild degenerative change of the pubic symphysis and sacroiliac joints. There is partially imaged degenerative change in the lumbosacral spine. Asymmetric enlargement of the right piriformis muscle and right anterior/adductor compartment of the thigh musculature most suggestive of underlying intramuscular hematomas (3/49). 2.8 centimeter fluid collection at the right inguinal region with adjacent surgical clips presumably representing either a seroma or lymphocele (3/77). There is severe atherosclerotic vascular calcifications. Multifibroid uterus. IMPRESSION: 1. Curvilinear sclerosis at the left femoral neck with slight cortical irregularity possibly representing a minimally displaced fracture and/or degenerative change. Recommend noncontrast MRI of the hip to further assess. 2. Acute comminuted moderately displaced fracture of the right femur involving the greater tuberosity, lesser tuberosity, and intertrochanteric region. 3. Asymmetric enlargement of the right piriformis muscle and right anterior/adductor compartment of the thigh musculature most suggestive of underlying intramuscular hematomas. 4. Gurb-rz-msfvpeux degenerative change of the left hip. Mild degenerative change of the right hip. 5. Right inguinal 2.8 centimeter fluid collection with adjacent surgical clips presumably representing either a seroma or lymphocele. Correlate with clinical history. ECG Data Attestation: I personally reviewed and interpreted this ECG as follows: ECG interpretation date: 09/12/25 Interpretation: CT by my read shows a demand paced rhythm. I do not note any acute ST or T-wave changes. Comparison with EKG from 2023 shows new pacer spikes. Discharge Plan Discharge Clinical Impression: COPD (chronic obstructive pulmonary disease), Alcohol use disorder, Leukocytosis, CHF (congestive heart failure), Fall, Bilateral hip fractures
--- NOTE | 2025-09-12 13:07 | CRLHL7_ITS ---
For Patients: As a result of the Cures Act, medical imaging exams and procedure reports are released immediately into your electronic medical record. You may view this report before your referring provider. If you have questions, please contact your health care provider. INDICATION: Fall. Trauma. TECHNIQUE: CT of the cervical spine without contrast. Coronal and sagittal reformats are included. COMPARISON: None. FINDINGS: Fractures and other acute findings: None. Hardware: None. Spinal alignment: Trace anterolisthesis at C3-4. Significant cervical spondylosis: Moderate disc degeneration C5-6. Multilevel uncovertebral and facet arthrosis with moderate neural foraminal stenosis C3-4 on the right, and low-grade elsewhere. Paraspinal soft tissues and imaged lungs: Thyroid gland atrophy. Mild emphysematous changes within the lung apices. IMPRESSION: 1. No acute fracture or traumatic malalignment of the cervical spine. Please note that all CT scans at this facility use dose modulation, iterative reconstruction, and/or weight-based dosing when appropriate to reduce radiation dose to as low as reasonably achievable. Dictated by Larry Mcfadden MD @ 09/12/2025 2:03:38 PM (Electronically Signed)
--- NOTE | 2025-09-12 13:07 | CRLHL7_ITS ---
For Patients: As a result of the Century Cures Act, medical imaging exams and procedure reports are released immediately into your electronic medical record. You may view this report before your referring provider. If you have questions, please contact your health care provider. INDICATION: Fall TECHNIQUE: X-ray right femur four views COMPARISON: None. FINDINGS: Osseous structures: There is decreased bone mineralization. There is an acute, comminuted intertrochanteric fracture of the right femur. There is no dislocation. There is slight superior displacement of the distal fracture fragments. There is orthopedic hardware within the partially visualized right tibia. Soft tissues: There is soft tissue swelling overlying the right hip. Multiple surgical clips are present in the right femoral region. IMPRESSION: Acute, comminuted intertrochanteric fracture of the right femur. No dislocation. Slight superior displacement of the distal fracture fragments. Dictated by Cyrus Roth MD @ 09/12/2025 2:03:13 PM (Electronically Signed)
--- NOTE | 2025-09-12 13:07 | CRLHL7_ITS ---
For Patients: As a result of the Century Cures Act, medical imaging exams and procedure reports are released immediately into your electronic medical record. You may view this report before your referring provider. If you have questions, please contact your health care provider. INDICATION: Fall. Blood thinners. TECHNIQUE: CT of the head without contrast. Coronal and sagittal reformats are included. COMPARISON: Head CT from 04/18/2025. FINDINGS: No acute intracranial hemorrhage. No mass effect or midline shift. No hydrocephalus or extra-axial collections. Scattered white matter hypoattenuation, typical for chronic microvascular ischemic change. Mild generalized parenchymal volume loss. Intracranial vascular calcifications. No acute osseous abnormalities. Mild mucosal thickening left maxillary sinus alveolar recess. Normal soft tissues. IMPRESSION: IMPRESSION: 1. No acute intracranial abnormalities. Please note that all CT scans at this facility use dose modulation, iterative reconstruction, and/or weight-based dosing when appropriate to reduce radiation dose to as low as reasonably achievable. Dictated by Larry Mcfadden MD @ 09/12/2025 2:06:19 PM (Electronically Signed)
--- NOTE | 2025-09-12 13:07 | CRLHL7_ITS ---
For Patients: As a result of the Century Cures Act, medical imaging exams and procedure reports are released immediately into your electronic medical record. You may view this report before your referring provider. If you have questions, please contact your health care provider. INDICATION: Fall TECHNIQUE: Single view pelvis with AP view right hip COMPARISONS: None available. FINDINGS: Femoral heads are well-seated in the acetabula. There is a comminuted intertrochanteric fracture of the right hip. There is an additional mildly impacted subcapital femoral neck fracture of the left hip. Degenerative changes of the bilateral hips are appreciated. The soft tissues are unremarkable. IMPRESSION: 1. Comminuted intertrochanteric fracture of the right hip. 2. Subtle impaction fracture of the subcapital femoral neck of the left hip. Dictated by Wyatt Rocha MD @ 09/12/2025 2:05:33 PM (Electronically Signed)
--- NOTE | 2025-09-12 13:43 | CRLHL7_ITS ---
For Patients: As a result of the Century Cures Act, medical imaging exams and procedure reports are released immediately into your electronic medical record. You may view this report before your referring provider. If you have questions, please contact your health care provider. INDICATION: Right hip fracture. OR TECHNIQUE: Chest 1 views. COMPARISON: None. FINDINGS: Lungs: Normal lung volume. No consolidation. The tracheobronchial tree and hilar structures are unremarkable. Multiple calcified granulomas. Pleura: No pleural effusion or pneumothorax. Vertical linear lucency overlying the right lateral lung zone should reflect a skin fold. Heart and Mediastinum: Normal heart size. Atherosclerotic aorta. ICD/pacer. Bones: No acute displaced osseous process. IMPRESSION: No consolidation. Dictated by Ector Gamble MD @ 09/12/2025 2:16:47 PM (Electronically Signed)
[2025-09-12 14:12] LABS: Hematocrit* 46.0 % (33.0-51.0); Hemoglobin* 15.1 gm/dL (12.0-16.0); Immature Granulocytes Pct Auto 5.7 %; Mean Corpuscular HGB Conc 33 gm/dL (32-36); Mean Corpuscular Hemoglobin 27 pg (26-34); Mean Corpuscular Volume 81 fL (80-100); RDW Coefficient of Variation % 19.7 % (11.5-15.5); Red Blood Count* 5.68 m/uL (4.00-5.20)
[2025-09-12 14:13] LABS: Chloride* 102 mmol/L (96-114); Immature Granulocytes Abs Auto 1.50 K/uL (0.00-0.30); Lymphocytes Absolute Auto 0.70 K/uL (0.90-2.90); Potassium* 4.1 mmol/L (3.6-5.1); Sodium* 135 mmol/L (135-149); White Blood Count* 26.16 K/uL (4.50-11.00)
[2025-09-12 14:14] LABS: Slide Review Reflex Yes
[2025-09-12 14:15] LABS: Blood Urea Nitrogen* 21 mg/dL (7-30); Creatinine* 1.2 mg/dL (0.5-1.5); Estimated Glomerular Filt Rate 46 ml/min
[2025-09-12 14:16] LABS: Anion Gap 11 mEq/L (7-15); Calcium* 9.3 mg/dL (8.4-10.6); Carbon Dioxide* 22 mmol/L (20-32); Creatine Kinase* 136 U/L (41-117); Glucose* 144 mg/dL (60-115)
[2025-09-12 14:23] LABS: Ethanol* < 0.01 % (0.01-0.03)
[2025-09-12 14:39] LABS: Slide Review Acceptable Review (Acceptable)
--- NOTE | 2025-09-12 15:56 | CRLHL7_ITS ---
For Patients: As a result of the Century Cures Act, medical imaging exams and procedure reports are released immediately into your electronic medical record. You may view this report before your referring provider. If you have questions, please contact your health care provider. INDICATION: Left hip fracture. COMPARISON: Same-day pelvic and right hip radiographs TECHNIQUE: CT of the left hip without intravenous contrast. FINDINGS: Diffuse osseous demineralization. Acute comminuted moderately displaced fracture of the right femur involving the greater tuberosity, lesser tuberosity, and intertrochanteric region. There is curvilinear sclerosis at the left femoral neck and slight cortical irregularity (/). There is [id number] degenerative change of the left hip. There is mild degenerative change of the right hip. There is mild degenerative change of the pubic symphysis and sacroiliac joints. There is partially imaged degenerative change in the lumbosacral spine. Asymmetric enlargement of the right piriformis muscle and right anterior/adductor compartment of the thigh musculature most suggestive of underlying intramuscular hematomas (349). 2.8 centimeter fluid collection at the right inguinal region with adjacent surgical clips presumably representing either a seroma or lymphocele (). There is severe atherosclerotic vascular calcifications. Multifibroid uterus. IMPRESSION: 1. Curvilinear sclerosis at the left femoral neck with slight cortical irregularity possibly representing a minimally displaced fracture and/or degenerative change. Recommend noncontrast MRI of the hip to further assess. 2. Acute comminuted moderately displaced fracture of the right femur involving the greater tuberosity, lesser tuberosity, and intertrochanteric region. 3. Asymmetric enlargement of the right piriformis muscle and right anterior/adductor compartment of the thigh musculature most suggestive of underlying intramuscular hematomas. 4. [id number] degenerative change of the left hip. Mild degenerative change of the right hip. 5. Right inguinal 2.8 centimeter fluid collection with adjacent surgical clips presumably representing either a seroma or lymphocele. Correlate with clinical history. Please note that all CT scans at this facility use dose modulation, iterative reconstruction, and/or weight-based dosing when appropriate to reduce radiation dose to as low as reasonably achievable. Dictated by John Hebert MD @ 09/12/2025 4:49:29 PM (Electronically Signed)
[2025-09-12] MEDS: 0.9 % SODIUM CHLORIDE 500 ML 500 ML IV (16:42)
[2025-09-12 16:55] LABS: Lab Add On Test New Spec Needed
--- NOTE | 2025-09-12 17:42 | PM.IMHP1 ---
Assessment and Plan Assessment and plan (1) Intertrochanteric fracture of right hip: Problem comment: Acute Status: Acute (2) Fracture of femoral neck, left, closed: Problem comment: Radiographically suspected. Clinically with no symptoms or known injury. Possibly old healing fracture. Status: Acute (3) Alcohol use disorder: Problem comment: Two whiskey drinks daily. Denies history of withdrawals or seizures Status: Acute (4) Peripheral vascular disease: Problem comment: Had angioplasty of left SFA and popliteal artery 03/25/2024 at [facility]. 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 She does not recall the circumstances leading up to her hip fracture. Has history of recurrent falls. Uses a 4 wheeled walker at home. Status: Acute (6) Leukocytosis: Problem comment: Chronically elevated white blood count. Seen by Dr. Saldana. Peripheral smear shows chronic monocytosis. Has JAK2 mutation. Has declined further evaluation or treatment. 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 Subsequently treated for iron deficiency anemia. Had further evaluation for leukocytosis with concern for possible myeloid neoplasm. Has JAK2 mutation and persistent monocytosis. Patient has declined further evaluation or treatment. Status: Acute (8) Iron deficiency anemia: Problem comment: Stool occult +. Fe 35, TIBC 387, % sat 9, ferritin 21.5 Continued on iron supplement Consider outpatient endoscopy to further evaluate Apixaban has been held. Patient has been advised to stop taking naproxen or other NSAIDs until re-evaluated by PCP. Discharged with oral iron supplement. Status: Acute (9) Afib: Problem comment: Pacemaker for tachybradycardia syndrome implanted in March 2024 Has declined Watchman Continue rivaroxaban Status: Acute (10) Chronic anticoagulation: Problem comment: On chronic Xarelto for AFib. Consider reducing Xarelto dose due to renal impairment. Status: Acute (11) COPD (chronic obstructive pulmonary disease): Problem comment: Chronic COPD. Not regularly using inhalers. Has chronic cough and chronic dyspnea. Still smoking Status: Acute (12) Tobacco abuse disorder: Problem comment: Recommend cessation Status: Acute (13) CHF (congestive heart failure): Problem comment: Echocardiogram from 03/23/2024 shows low-normal left ventricular systolic function with an ejection fraction of 52%. Normal right ventricle size and function, grade 2 left ventricular diastolic dysfunction, no significant valvular disease. Temporarily hold diuretics due to volume loss from hip fracture bleeding. Postoperatively resume as tolerated. Status: Acute (14) Cognitive impairment: Problem comment: Patient unable to answer questions about recent events or current medications. Continue to monitor and assess postoperatively. Status: Acute (15) Discharge planning issues: Problem comment: Patient will likely need [facility] facility for rehab postoperatively Status: Acute Plan 79-year-old female with multiple medical problems and comorbidities admitted to the hospital after apparent fall at home sustaining a right intertrochanteric hip fracture. Multiple concerns leading to this hospital stay including possibility of upper GI bleeding with report of black emesis yesterday, pre-existing frailty and falls, possible cognitive impairment at risk for delirium, chronic anticoagulation leading to high risk for blood-loss anemia from fracture, COPD putting her at risk for respiratory complications. She is admitted the hospital for management of these multiple concerns. Total Time Spent Total Time Spent: Total time spent today is 95 minutes in coordination of care, reviewing outside records, discussion with patient and daughter and other providers ongoing management of multiple above medical problems. Hospitalist- H&P: HPI History of Present Illness Date Seen: 09/12/25 Chief complaint: fall Narrative: Bertha Gutierrez is a 79 year old female with peripheral vascular disease, COPD, AFib on chronic anticoagulation admitted to the hospital after being found down at home, unable to get up due to right hip pain. She lives independently in her own home. She has neighbors and friends who check on her. She last was doing fine about 4:00 p.m. on September 11 afternoon when she talk to someone on the phone. She can give no account of the events following that. She does not know if she passed out or fell. She does know that she spent at least part of the night laying on the floor unable to get up. She probably did not take medication or eat last evening and has had nothing to eat or drink today. She does recall having emesis yesterday possibly 3 episodes of which she described as black emesis. She is not recall having abdominal pain. She has not had a bowel movement in the last day. She is on Xarelto for AFib. The last dose of Xarelto was possibly the 26th or possibly yesterday. She does not recall what medications she took yesterday at all. She reports no previous history of problems with anesthesia, bleeding or clotting. In reviewing her records I see that she did have bleeding of a right femoral says pseudo aneurysm which was surgically repaired. Review of Systems Narrative: Patient reports no concerns today other than her right hip pain right hip fracture. Unable to recall significant past medical history or any events of the last 1-2 days. Medical Decision Making Medical Decision Making Has patient completed a Health Care Directive: Yes [facility] Medical History Cognitive impairment ?R41.89 - Other symptoms and signs involving cognitive functions and awareness (ICD-10) Chronic anticoagulation ?Z79.01 - custodial (current) use of anticoagulants (ICD-10) Fracture of femoral neck, left, closed ?S72.002A - Fracture of unspecified part of neck of left femur, initial encounter for closed fracture (ICD-10) Intertrochanteric fracture of right hip ?S72.141A - Displaced intertrochanteric fracture of right femur, initial encounter for closed fracture (ICD-10) Compression fracture Alcohol use disorder ?F10.90 - Alcohol use, unspecified, uncomplicated (ICD-10) Elevated troponin ?R79.89 - Other specified abnormal findings of blood chemistry (ICD-10) Peripheral vascular disease ?I73.9 - Peripheral vascular disease, unspecified (ICD-10) Elbow fracture, left ?S42.402A - Unspecified fracture of lower end of left humerus, initial encounter for closed fracture (ICD-10) Fracture of left tibia and fibula ?S82.202A - Unspecified fracture of shaft of left tibia, initial encounter for closed fracture (ICD-10) ?S82.402A - Unspecified fracture of shaft of left fibula, initial encounter for closed fracture (ICD-10) Left wrist fracture ?S62.102A - Fracture of unspecified carpal bone, left wrist, initial encounter for closed fracture (ICD-10) Coronary artery disease ?I25.10 - Atherosclerotic heart disease of torres martinez coronary artery without angina pectoris (ICD-10) Iron deficiency anemia ?D50.9 - Iron deficiency anemia, unspecified (ICD-10) Tobacco abuse disorder ?Z72.0 - Tobacco use (ICD-10) Chronic toe ulcer ?L97.509 - Non-pressure chronic ulcer of other part of unspecified foot with unspecified severity (ICD-10) Afib ?I48.91 - Unspecified atrial fibrillation (ICD-10) CHF (congestive heart failure) ?I50.9 - Heart failure, unspecified (ICD-10) COPD (chronic obstructive pulmonary disease) ?J44.9 - Chronic obstructive pulmonary disease, unspecified (ICD-10) Surgical History (Updated 09/12/25 @ 18:24 by Bubba Ernst MD) History of amputation of left great toe ?Z89.412 - Acquired absence of left great toe (ICD-10) H/O mastectomy ?Z90.10 - Acquired absence of unspecified breast and nipple (ICD-10) Family History Mother Leukemia Sister Alzheimers disease Social History (Updated 09/12/25 @ 18:26 by Bubba Ernst MD) Narrative: 78-year-old female living independently in [facility]. No current primary care provider. Present in the hospital today with her daughter Muriel who lives in [place]. Also has a son Dakota who lives in [place]. Smoked for many years, quit 10 years ago and started smoking again. She drinks 2 alcoholic beverages per day. Reports no withdrawal symptoms if she does not drink for a day. Daughter and son are healthcare power of commonwealth attorney. Code status is DNR DNI. She does drive a car. She has neighbors and friends who check on her every day. She walks with a 4 wheeled walker at home What is your current living situation?: I presently have a place to live Problems where you live: no known problems Problems where you live details: none In the past 12 months, utilities in danger of being shut off: no In past 12 months, lack of transportation kept you from medical appts, meetings, work, or getting things needed for daily living: no In the past 12 mos, have been you worried that your food would run out before you had money to buy more?: never true In the past 12 mos, the food you bought just didn't last and you didn't have money to buy more?: never true Highest level of school completed/degree received: some college, no degree Smoking Status: Current every day smoker What tobacco products do you use: cigarettes Smoking packs per day: 1 Smoking cigarettes per day: 20.0 Years smoked: 35 Smoking pack-years: 35.00 Do you use any of these nicotine containing products: None How often do you have a drink containing alcohol: 4 or more times a week Alcohol type: beer How many standard drinks containing alcohol do you have on a typical day: 1 or 2 How often do you have six or more drinks on one occasion: Never AUDIT-C Alcohol total score: 4 Non-prescribed substance use: denies use Caffeine: Yes How often does anyone, including family, friends and others, physically hurt you: never How often does anyone, including family, friends and others, insult or talk down to you: never How often does anyone, including family, friends and others, threaten you with harm: never How often does anyone, including family, friends and others, scream or curse at you: never service: No Meds Home Medications and Allergies Home Medications ?Medication ?Instructions ?Recorded ?Confirmed ?Type fluticasone furoate 50 1 inh inhalation DAILY #60 ea 01/05/24 04/28/25 Rx mcg-vilanterol 25 mcg/dose inhalation powder (Breo Ellipta) acetaminophen 325 mg tablet 650 mg PO Q4H PRN 03/03/25 04/28/25 History amlodipine 5 mg tablet 5 mg PO DAILY 03/03/25 04/28/25 History ferrous sulfate 325 mg (65 mg 325 mg PO DAILY 03/03/25 04/28/25 History iron) tablet (FeroSul) furosemide 20 mg tablet 20 mg PO DAILY 03/03/25 04/28/25 History uzirjcyi-wbe-gxqaa acid 0.4 1 tab PO DAILY 03/03/25 04/28/25 History mg-lycopene 300 mcg-lutein 250 mcg tablet (Centrum Silver) polyethylene glycol 3350 17 17 g PO DAILY 03/03/25 04/28/25 History gram/dose oral powder (ClearLax) rivaroxaban 20 mg tablet (Xarelto) 20 mg PO QPM 03/03/25 04/28/25 History rosuvastatin 20 mg tablet 20 mg PO HS 03/03/25 04/28/25 History spironolactone 25 mg tablet 25 mg PO DAILY 03/03/25 04/28/25 History Home Medication Comments: Patient does not know the names of her medications, the doses or timing of medication or when she last took medication. She cannot even confirm a list of medications that I give from her doctor's office. Allergies Allergy/AdvReac Type Severity Reaction Status Date / Time No Known Drug Allergies Allergy Verified 04/28/25 13:09 Exam Narrative: Exam Narrative: She is alert and appears relatively comfortable lying in bed. Head is without apparent trauma. Eyes normal. Extraocular movements are full. No facial asymmetry. Oropharynx with dry mucous membranes. Neck is supple without mass or adenopathy. Respirations are relatively clear to auscultation with moderately decreased breath sounds and mildly prolonged expiratory phase. No wheezing. Cardiovascular: S1, S2, irregularly irregular rhythm. No murmur gallop or rub. Abdomen: Bowel sounds are active. Abdomen is soft without tenderness or mass. She has no edema. She moves both lower extremities, feet and ankles, fairly well. Diminished pulses in both feet without skin breakdown, rash or ulceration. Somewhat sluggish capillary refill. Const: Vital Signs, click to edit/add: Vital Signs - 24 hr 09/12/25 12:58 09/12/25 12:59 09/12/25 13:00 Temperature Pulse Rate 87 68 79 Pulse Rate [Pulse Oximeter] Respiratory Rate 18 Blood Pressure 161/95 H Blood Pressure [Le ft Upper Arm] Pulse Oximetry 90 90 90 Oxygen Delivery Me thod 09/12/25 13:02 09/12/25 14:17 09/12/25 14:22 Temperature 36.6 C Pulse Rate 91 82 Pulse Rate [Pulse Oximeter] 72 Respiratory Rate 20 20 Blood Pressure 149/76 H Blood Pressure [Le ft Upper Arm] 161/95 H Pulse Oximetry 90 98 99 Oxygen Delivery Me od Room Air 09/12/25 14:30 09/12/25 14:43 09/12/25 14:45 Temperature Pulse Rate 81 86 Pulse Rate [Pulse Oximeter] Respiratory Rate 21 13 23 Blood Pressure 167/78 H Blood Pressure [Le ft Upper Arm] Pulse Oximetry 95 99 99 Oxygen Delivery Me thod 09/12/25 15:03 09/12/25 15:04 09/12/25 15:15 Temperature Pulse Rate Pulse Rate [Pulse Oximeter] Respiratory Rate 12 23 14 Blood Pressure 157/141 H Blood Pressure [Le ft Upper Arm] Pulse Oximetry Oxygen Delivery Ut thod 09/12/25 15:23 09/12/25 15:30 09/12/25 15:42 Temperature Pulse Rate Pulse Rate [Pulse Oximeter] Respiratory Rate 24 21 24 Blood Pressure 186/99 H 137/116 H Blood Pressure [Le ft Upper Arm] Pulse Oximetry Oxygen Delivery Me thod 09/12/25 15:45 09/12/25 16:00 09/12/25 16:03 Temperature Pulse Rate Pulse Rate [Pulse Oximeter] Respiratory Rate 25 H 23 22 Blood Pressure 161/77 H Blood Pressure [Le ft Upper Arm] Pulse Oximetry Oxygen Delivery Me thod 09/12/25 16:44 09/12/25 16:45 09/12/25 17:00 Temperature Pulse Rate 77 73 Pulse Rate [Pulse Oximeter] Respiratory Rate 35 H 26 H 27 H Blood Pressure Blood Pressure [Le ft Upper Arm] Pulse Oximetry 97 96 Oxygen Delivery Me thod 09/12/25 17:03 09/12/25 17:15 Temperature Pulse Rate 81 86 Pulse Rate [Pulse Oximeter] Respiratory Rate 25 H 28 H Blood Pressure 167/72 H Blood Pressure [Le ft Upper Arm] Pulse Oximetry 97 95 Oxygen Delivery Me thod Room Air Documenting provider has reviewed patient's vital signs: yes Hospitalist - H&P: Result Labs Labs: Short CBC 09/12/25 Range/Units 13:50 WBC 26.16 H* (4.50-11.00) K/uL Hgb 15.1 (12.0-16.0) gm/dL Hct 46.0 (33.0-51.0) % Plt Count 244 (140-440) K/uL BMP 09/12/25 13:50 Sodium 135 Potassium 4.1 Chloride 102 Carbon Dioxide 22 BUN 21 Creatinine 1.2 Glucose 144 H Calcium 9.3 Cardiac Enzymes 09/12/25 Range/Units 13:50 Total Creatine Kinase 136 H (41-117) U/L Troponin I 0.01 (0.01-0.04) ng/mL Imaging Hip CT: Radiologist's impression: INDICATION: Left hip fracture. COMPARISON: Same-day pelvic and right hip radiographs TECHNIQUE: CT of the left hip without intravenous contrast. FINDINGS: Diffuse osseous demineralization. Acute comminuted moderately displaced fracture of the right femur involving the greater tuberosity, lesser tuberosity, and intertrochanteric region. There is curvilinear sclerosis at the left femoral neck and slight cortical irregularity (7/22). There is tenw-fx-sctuojmi degenerative change of the left hip. There is mild degenerative change of the right hip. There is mild degenerative change of the pubic symphysis and sacroiliac joints. There is partially imaged degenerative change in the lumbosacral spine. Asymmetric enlargement of the right piriformis muscle and right anterior/adductor compartment of the thigh musculature most suggestive of underlying intramuscular hematomas (3/49). 2.8 centimeter fluid collection at the right inguinal region with adjacent surgical clips presumably representing either a seroma or lymphocele (3/77). There is severe atherosclerotic vascular calcifications. Multifibroid uterus. IMPRESSION: 1. Curvilinear sclerosis at the left femoral neck with slight cortical irregularity possibly representing a minimally displaced fracture and/or degenerative change. Recommend noncontrast MRI of the hip to further assess. 2. Acute comminuted moderately displaced fracture of the right femur involving the greater tuberosity, lesser tuberosity, and intertrochanteric region. 3. Asymmetric enlargement of the right piriformis muscle and right anterior/adductor compartment of the thigh musculature most suggestive of underlying intramuscular hematomas. 4. Wkfd-fr-iptybkbb degenerative change of the left hip. Mild degenerative change of the right hip. 5. Right inguinal 2.8 centimeter fluid collection with adjacent surgical clips presumably representing either a seroma or lymphocele. Correlate with clinical history. Chest x-ray: Radiologist's impression: INDICATION: Right hip fracture. OR TECHNIQUE: Chest 1 views. COMPARISON: None. FINDINGS: Lungs: Normal lung volume. No consolidation. The tracheobronchial tree and hilar structures are unremarkable. Multiple calcified granulomas. Pleura: No pleural effusion or pneumothorax. Vertical linear lucency overlying the right lateral lung zone should reflect a skin fold. Heart and Mediastinum: Normal heart size. Atherosclerotic aorta. ICD/pacer. Bones: No acute displaced osseous process. IMPRESSION: No consolidation. Hip x-ray: Radiologist's impression: INDICATION: Fall TECHNIQUE: Single view pelvis with AP view right hip COMPARISONS: None available. FINDINGS: Femoral heads are well-seated in the acetabula. There is a comminuted intertrochanteric fracture of the right hip. There is an additional mildly impacted subcapital femoral neck fracture of the left hip. Degenerative changes of the bilateral hips are appreciated. The soft tissues are unremarkable. IMPRESSION: 1. Comminuted intertrochanteric fracture of the right hip. 2. Subtle impaction fracture of the subcapital femoral neck of the left hip. CT scan - head: Radiologist's impression: INDICATION: Fall. Blood thinners. TECHNIQUE: CT of the head without contrast. Coronal and sagittal reformats are included. COMPARISON: Head CT from 04/18/2025. FINDINGS: No acute intracranial hemorrhage. No mass effect or midline shift. No hydrocephalus or extra-axial collections. Scattered white matter hypoattenuation, typical for chronic microvascular ischemic change. Mild generalized parenchymal volume loss. Intracranial vascular calcifications. No acute osseous abnormalities. Mild mucosal thickening left maxillary sinus alveolar recess. Normal soft tissues. IMPRESSION: IMPRESSION: 1. No acute intracranial abnormalities. Femur x-ray: Radiologist's impression: INDICATION: Fall TECHNIQUE: X-ray right femur four views COMPARISON: None. FINDINGS: Osseous structures: There is decreased bone mineralization. There is an acute, comminuted intertrochanteric fracture of the right femur. There is no dislocation. There is slight superior displacement of the distal fracture fragments. There is orthopedic hardware within the partially visualized right tibia. Soft tissues: There is soft tissue swelling overlying the right hip. Multiple surgical clips are present in the right femoral region. IMPRESSION: Acute, comminuted intertrochanteric fracture of the right femur. No dislocation. Slight superior displacement of the distal fracture fragments. Cervical spine CT: Radiologist's impression: INDICATION: Fall. Trauma. TECHNIQUE: CT of the cervical spine without contrast. Coronal and sagittal reformats are included. COMPARISON: None. FINDINGS: Fractures and other acute findings: None. Hardware: None. Spinal alignment: Trace anterolisthesis at C3-4. Significant cervical spondylosis: Moderate disc degeneration C5-6. Multilevel uncovertebral and facet arthrosis with moderate neural foraminal stenosis C3-4 on the right, and low-grade elsewhere. Paraspinal soft tissues and imaged lungs: Thyroid gland atrophy. Mild emphysematous changes within the lung apices. IMPRESSION: 1. No acute fracture or traumatic malalignment of the cervical spine.
[2025-09-12] MEDS: LACTATED RINGERS 1000 ML 1,000 ML 500 ML IV (18:20)
[2025-09-12] MEDS: MORPHINE 4 MG/ML INJ 2 MG IVP ×2 (18:20→23:47)
[2025-09-12] MEDS: PANTOPRAZOLE SODIUM 40 MG INJ IVP (18:20)
[2025-09-12 19:46] LABS: Hemoglobin* 13.3 gm/dL (12.0-16.0)
[2025-09-12] MEDS: LACTATED RINGERS 1000 ML 1,000 ML 75 ML IV (20:33)
[2025-09-12] MEDS: ROSUVASTATIN CALCIUM 10 MG TABLET 20 MG PO (20:33)
[2025-09-13] VITALS (25 sets, daily range): BP systolic 113–183; BP diastolic 55–107; PULSE 60–92; RESP 14–20; TEMP 36.1–37.6; O2SAT 88–98; BMI 17.5
[2025-09-13] MEDS: MORPHINE 4 MG/ML INJ 2 MG IVP ×2 (02:26→10:02)
--- NOTE | 2025-09-13 06:38 | PC.NURSE ---
Shift Note: Pt rating pain 5/10 to right hip. Declines active ice. Morphine given PRN for pain. No bruising noted, pedal pulses palpable bilaterally. NPO at 0000. External catheter in place, pt has had no urine output. Maintenance fluids running. BP's hypertensive. SpO2 91% on RA. Desats to 86% post pain med administration and requires 1L/O2 via NC to maintain 89%.
[2025-09-13 06:53] LABS: Hematocrit* 37.0 % (33.0-51.0); Hemoglobin* 12.4 gm/dL (12.0-16.0); Immature Granulocytes Pct Auto 6.0 %; Mean Corpuscular HGB Conc 34 gm/dL (32-36); Mean Corpuscular Hemoglobin 27 pg (26-34); Mean Corpuscular Volume 79 fL (80-100); RDW Coefficient of Variation % 18.6 % (11.5-15.5); Red Blood Count* 4.68 m/uL (4.00-5.20); White Blood Count* 21.24 K/uL (4.50-11.00)
[2025-09-13 07:01] LABS: Immature Granulocytes Abs Auto 1.30 K/uL (0.00-0.30); Lymphocytes Absolute Auto 1.00 K/uL (0.90-2.90); Slide Review Reflex Yes
[2025-09-13 07:12] LABS: Chloride* 105 mmol/L (96-114); Potassium* 3.8 mmol/L (3.6-5.1); Sodium* 135 mmol/L (135-149)
[2025-09-13 07:15] LABS: Blood Urea Nitrogen* 20 mg/dL (7-30); Creatinine* 1.0 mg/dL (0.5-1.5); Est. Creatinine Clearance* 36.52; Estimated Glomerular Filt Rate 57 ml/min
[2025-09-13 07:16] LABS: Anion Gap 6 mEq/L (7-15); Calcium* 8.9 mg/dL (8.4-10.6); Carbon Dioxide* 24 mmol/L (20-32); Glucose* 95 mg/dL (60-115)
[2025-09-13 07:58] LABS: Slide Review Acceptable Review (Acceptable)
--- NOTE | 2025-09-13 09:43 | W.PC.NUTR.NO ---
Nutrition Progress Note Progress Note Progress Note: RDN with nutrition screen related to positive skin risk. Patient admitted for Intertrochanteric fracture of right hip, heading to OR today. History of alcohol use disorder, tobacco use disorder with COPD and continued smoking, history of atrial fibrillation on anticoagulation, and CHF. Current weight 50.712 kg; height 170.18 cm; BMI 17.5 kg/m2 (underweight).
[2025-09-13] MEDS: LACTATED RINGERS 1000 ML 1,000 ML 100 ML IV ×3 (09:45→16:30)
--- NOTE | 2025-09-13 09:46 | P.NUTASMT_ITS ---
Hospital Nutrition Assessment Patient Data Patient Gender: Female Patient Age: 79 Height: 170.18 cm (5ft 7in) Weight: 50.712 kg (111 lb 12.813 oz) Body Mass Index: 17.5 Weight Calculations [place] Body Weight (lbs): 135.00 [place] Body Weight (kg): 61.24 Percent of [place] Body Weight: 83 Adjusted Body Weight (lbs): 129.20 Adjusted Body Weight (kg): 58.60 Basal Energy Expenditure (BEE): 1085.49 Basal Energy Expenditure (BEE) Adjusted Weight: 1160.92 Activity/Stress Factors Injury Factor/Activity Factor Value: 1.2 Total Energy Requirements Kcal requirements (current wt): 1302.588 Kcal requirements (adj wt): 1393.104 Protein Need (current wt): 1.0 Total Protein (current wt): 50.712 Protein Need (adj wt): 1.0 Total Protein (adj wt): 58.600 Fluid Need (current wt): 30 Total Fluid (current wt): 1521.360 Fluid Need (adj wt): 30 Total Fluid (adj wt): 1758.00 Nutrition Assessment Diet Order: NPO Appetite and Intake: NPO currently Hx Appetite Changes: No Hx Weight Loss: Yes (Significant: -5kg in 4months(9%); -7kg in 6months(12.2%)) Hx Weight Gain: No Nausea: No Vomiting: No Diarrhea: No Hx Constipation: No Chewing Difficulty: No Swallowing Difficulty: No Diagnosis/Symptom or Procedure: Hip fracture s/p fall Clinical History: Active Problems Discharge planning issues (Acute) Z75.8 Cognitive impairment (Acute) R41.89 Chronic anticoagulation (Acute) Z79.01 Fracture of femoral neck, left, closed (Acute) S72.002A Intertrochanteric fracture of right hip (Acute) S72.141A Bilateral hip fractures (Acute) S72.001A, S72.002A Anemia (Acute) D64.9 Fall (Acute) W19.XXXA Advance healthcare directive requested (Acute) Leukocytosis (Acute) D72.829 Compression fracture (Chronic) Alcohol use disorder (Acute) F10.90 Chest wall hematoma (Acute) S20.219A Multiple fractures of ribs (Acute) S22.49XA Peripheral vascular disease (Acute) I73.9 Coronary artery disease (Acute) I25.10 Tobacco abuse disorder (Acute) Z72.0 Chronic toe ulcer (Acute) L97.509 Afib (Acute) I48.91 CHF (congestive heart failure) (Acute) I50.9 COPD (chronic obstructive pulmonary disease) (Acute) J44.9 Current Living Situation: Lives at home alone. Medications Medications: reviewed. Lab Results Lab Results: reviewed. Education Topic Comment: RDN with MD consult. Patient not appropriate to visit today due to NPO status and heading to OR. RDN will monitor and attempt to visit at later date when more appropriate. Assessment/Plan PES Statement: Significant weight loss related to poor oral intakes as evidenced by loss of 9% (-5kg) in 4months and 12.2% (-7kg) in 6months. Nutritional Assessment Summary: RDN with MD consult. Patient not appropriate to visit today due to NPO status and heading to OR. Not appropriate for nutrition interventions at this time. RDN will monitor and attempt to visit at later date when more appropriate. Discharge Plan-Living Situation: Possible placement needed (TCU) at discharge. Goals: Advanced diet to at least full liquids when appropriate per MD order. Plan/Recommendation: RDN will continue to monitor and follow-up once appropriate at later date. Malnutrition Assessment Current Energy Intake: Unable To Determine Weight Changes: >7.5% In 3 Months and >10% In 6 Months Recommended Malnutrition Diagnosis: Further Physical Evaluation Required By MD To Determine
[2025-09-13] MEDS: SODIUM CHLORIDE 0.9 % (FLUSH) 10 ML SYRINGE 5 ML IVF ×2 (09:47→20:34)
[2025-09-13] MEDS: AMLODIPINE 5 MG TABLET PO (10:02)
--- NOTE | 2025-09-13 11:34 | PM.ORCN ---
History of Present Illness HPI Date Seen: 09/13/25 Consult date: 09/12/25 Chief complaint: fall Narrative: Alice is a 79-year-old female. Multiple medical comorbidities. Sustained a fall from a standing height on 09/04/2025. This resulted in falling on her right side and a subsequent right hip fracture. She presented [facility]. X-rays were obtained revealed a right intertrochanteric comminuted femur fracture and a remote/chronic left femoral neck valgus impacted fracture. She was admitted to the hospitalist service. She does have regular alcohol consumption and tobacco use. Also COPD, CHF, AFib (currently on a blood thinner, Xarelto), chronic leukocytosis, and osteoporosis. 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) Fracture of femoral neck, left, closed ?S72.002A - Fracture of unspecified part of neck of left femur, initial encounter for closed fracture (ICD-10) Intertrochanteric fracture of right hip ?S72.141A - Displaced intertrochanteric fracture of right femur, initial encounter for closed fracture (ICD-10) Compression fracture Alcohol use disorder ?F10.90 - Alcohol use, unspecified, uncomplicated (ICD-10) Elevated troponin ?R79.89 - Other specified abnormal findings of blood chemistry (ICD-10) Peripheral vascular disease ?I73.9 - Peripheral vascular disease, unspecified (ICD-10) Elbow fracture, left ?S42.402A - Unspecified fracture of lower end of left humerus, initial encounter for closed fracture (ICD-10) Fracture of left tibia and fibula ?S82.202A - Unspecified fracture of shaft of left tibia, initial encounter for closed fracture (ICD-10) ?S82.402A - Unspecified fracture of shaft of left fibula, initial encounter for closed fracture (ICD-10) Left wrist fracture ?S62.102A - Fracture of unspecified carpal bone, left wrist, initial encounter for closed fracture (ICD-10) Coronary artery disease ?I25.10 - Atherosclerotic heart disease of jamul coronary artery without angina pectoris (ICD-10) Iron deficiency anemia ?D50.9 - Iron deficiency anemia, unspecified (ICD-10) Tobacco abuse disorder ?Z72.0 - Tobacco use (ICD-10) Chronic toe ulcer ?L97.509 - Non-pressure chronic ulcer of other part of unspecified foot with unspecified severity (ICD-10) Afib ?I48.91 - Unspecified atrial fibrillation (ICD-10) CHF (congestive heart failure) ?I50.9 - Heart failure, unspecified (ICD-10) COPD (chronic obstructive pulmonary disease) ?J44.9 - Chronic obstructive pulmonary disease, unspecified (ICD-10) Surgical History History of amputation of left great toe ?Z89.412 - Acquired absence of left great toe (ICD-10) H/O mastectomy ?Z90.10 - Acquired absence of unspecified breast and nipple (ICD-10) Family History Mother Leukemia Sister Alzheimers disease Social History Narrative: 78-year-old female living independently in [facility]. No current primary care provider. Present in the hospital today with her daughter Muriel who lives in [place]. Also has a son Dakota who lives in [place]. Smoked for many years, quit 10 years ago and started smoking again. She drinks 2 alcoholic beverages per day. Reports no withdrawal symptoms if she does not drink for a day. Daughter and son are healthcare power of bilingual operator. Code status is DNR DNI. She does drive a car. She has neighbors and friends who check on her every day. She walks with a 4 wheeled walker at home What is your current living situation?: I presently have a place to live Problems where you live: no known problems Problems where you live details: none In the past 12 months, utilities in danger of being shut off: no In past 12 months, lack of transportation kept you from medical appts, meetings, work, or getting things needed for daily living: no In the past 12 mos, have been you worried that your food would run out before you had money to buy more?: never true In the past 12 mos, the food you bought just didn't last and you didn't have money to buy more?: never true Highest level of school completed/degree received: some college, no degree Smoking Status: Current every day smoker What tobacco products do you use: cigarettes Smoking packs per day: 1 Smoking cigarettes per day: 20.0 Years smoked: 35 Smoking pack-years: 35.00 Do you use any of these nicotine containing products: None How often do you have a drink containing alcohol: 4 or more times a week Alcohol type: hard liquor How many standard drinks containing alcohol do you have on a typical day: 1 or 2 How often do you have six or more drinks on one occasion: Never AUDIT-C Alcohol total score: 4 Non-prescribed substance use: denies use Caffeine: No How often does anyone, including family, friends and others, physically hurt you: never How often does anyone, including family, friends and others, insult or talk down to you: never How often does anyone, including family, friends and others, threaten you with harm: never How often does anyone, including family, friends and others, scream or curse at you: never service: No Meds Home Medications and Allergies Home Medications ?Medication ?Instructions ?Recorded ?Confirmed ?Type fluticasone furoate 50 1 inh inhalation DAILY #60 ea 01/05/24 04/28/25 Rx mcg-vilanterol 25 mcg/dose inhalation powder (Breo Ellipta) acetaminophen 325 mg tablet 650 mg PO Q4H PRN 03/03/25 09/13/25 History amlodipine 5 mg tablet 5 mg PO DAILY 03/03/25 09/13/25 History ferrous sulfate 325 mg (65 mg 325 mg PO DAILY 03/03/25 04/28/25 History iron) tablet (FeroSul) furosemide 20 mg tablet 20 mg PO DAILY 03/03/25 04/28/25 History dlylcmhm-gji-kynvo acid 0.4 1 tab PO DAILY 03/03/25 04/28/25 History mg-lycopene 300 mcg-lutein 250 mcg tablet (Centrum Silver) polyethylene glycol 3350 17 17 g PO DAILY 03/03/25 04/28/25 History gram/dose oral powder (ClearLax) rivaroxaban 20 mg tablet (Xarelto) 20 mg PO QPM 03/03/25 09/13/25 History rosuvastatin 20 mg tablet 20 mg PO HS 03/03/25 09/13/25 History spironolactone 25 mg tablet 25 mg PO DAILY 03/03/25 09/13/25 History Allergies Allergy/AdvReac Type Severity Reaction Status Date / Time No Known Drug Allergies Allergy Verified 04/28/25 13:09 Ortho Exam Narrative Exam Narrative: Encounter in the hospital bed and then surge room. She is lying supine. She is resting. She is cooperative with the exam. Appears cognitively intact. Alert and oriented x3. Right hip exam shows no erythema, induration, or other cutaneous changes. No lacerations or ecchymosis. Pain about the right hip/groin with any hip or knee range of motion. Neurologic intact in the superficial and deep peroneal as well as plantar distribution to sensory light touch and motor function. 2+ DP and PT pulse. Strength and stability testing of the hip deferred. Left hip range of motion produces no significant groin pain today. Neurologic intact all 5 dermatomes/myotomes left lower extremity. Const Vital Signs, click to edit/add: Vital Signs - 24 hr 09/12/25 12:58 09/12/25 12:59 09/12/25 13:00 Temperature Pulse Rate 87 68 79 Pulse Rate [Pulse Oximeter] Pulse Rate [Right Pulse Oximeter] Respiratory Rate 18 Blood Pressure 161/95 H Blood Pressure [Left Upper Arm] Blood Pressure [Right Arm] Pulse Oximetry 90 90 90 Oxygen Delivery Method Oxygen Flow Rate 09/12/25 13:02 09/12/25 14:17 09/12/25 14:22 Temperature 97.9 F Pulse Rate 91 82 Pulse Rate [Pulse Oximeter] 72 Pulse Rate [Right Pulse Oximeter] Respiratory Rate 20 20 Blood Pressure 149/76 H Blood Pressure [Left Upper Arm] 161/95 H Blood Pressure [Right Arm] Pulse Oximetry 90 98 99 Oxygen Delivery Method Room Air Oxygen Flow Rate 09/12/25 14:30 09/12/25 14:43 09/12/25 14:45 Temperature Pulse Rate 81 86 Pulse Rate [Pulse Oximeter] Pulse Rate [Right Pulse Oximeter] Respiratory Rate 21 13 23 Blood Pressure 167/78 H Blood Pressure [Left Upper Arm] Blood Pressure [Right Arm] Pulse Oximetry 95 99 99 Oxygen Delivery Method Oxygen Flow Rate 09/12/25 15:03 09/12/25 15:04 09/12/25 15:15 Temperature Pulse Rate Pulse Rate [Pulse Oximeter] Pulse Rate [Right Pulse Oximeter] Respiratory Rate 12 23 14 Blood Pressure 157/141 H Blood Pressure [Left Upper Arm] Blood Pressure [Right Arm] Pulse Oximetry Oxygen Delivery Method Oxygen Flow Rate 09/12/25 15:23 09/12/25 15:30 09/12/25 15:42 Temperature Pulse Rate Pulse Rate [Pulse Oximeter] Pulse Rate [Right Pulse Oximeter] Respiratory Rate 24 21 24 Blood Pressure 186/99 H 137/116 H Blood Pressure [Left Upper Arm] Blood Pressure [Right Arm] Pulse Oximetry Oxygen Delivery Method Oxygen Flow Rate 09/12/25 15:45 09/12/25 16:00 09/12/25 16:03 Temperature Pulse Rate Pulse Rate [Pulse Oximeter] Pulse Rate [Right Pulse Oximeter] Respiratory Rate 25 H 23 22 Blood Pressure 161/77 H Blood Pressure [Left Upper Arm] Blood Pressure [Right Arm] Pulse Oximetry Oxygen Delivery Method Oxygen Flow Rate 09/12/25 16:44 09/12/25 16:45 09/12/25 17:00 Temperature Pulse Rate 77 73 Pulse Rate [Pulse Oximeter] Pulse Rate [Right Pulse Oximeter] Respiratory Rate 35 H 26 H 27 H Blood Pressure Blood Pressure [Left Upper Arm] Blood Pressure [Right Arm] Pulse Oximetry 97 96 Oxygen Delivery Method Oxygen Flow Rate 09/12/25 17:03 09/12/25 17:15 09/12/25 18:59 Temperature 97.0 F L Pulse Rate 81 86 Pulse Rate [Pulse Oximeter] Pulse Rate [Right Pulse Oximeter] 65 Respiratory Rate 25 H 28 H 20 Blood Pressure 167/72 H Blood Pressure [Left Upper Arm] Blood Pressure [Right Arm] Pulse Oximetry 97 95 91 Oxygen Delivery Method Room Air Room Air Oxygen Flow Rate 09/12/25 18:59 09/12/25 19:00 09/12/25 23:00 Temperature 97.4 F L Pulse Rate 71 Pulse Rate [Pulse Oximeter] Pulse Rate [Right Pulse Oximeter] 63 Respiratory Rate 20 20 Blood Pressure Blood Pressure [Left Upper Arm] Blood Pressure [Right Arm] 179/96 H Pulse Oximetry 91 91 Oxygen Delivery Method Room Air Room Air Oxygen Flow Rate 09/12/25 23:00 09/12/25 23:00 09/13/25 03:00 Temperature 98.1 F 98.4 F Pulse Rate Pulse Rate [Pulse Oximeter] Pulse Rate [Right Pulse Oximeter] 69 69 66 Respiratory Rate 20 20 20 Blood Pressure Blood Pressure [Left Upper Arm] Blood Pressure [Right Arm] 139/115 H 113/55 L Pulse Oximetry 88 88 Oxygen Delivery Method Room Air Room Air Oxygen Flow Rate 09/13/25 07:27 09/13/25 08:21 09/13/25 08:24 Temperature 98.3 F Pulse Rate 60 Pulse Rate [Pulse Oximeter] Pulse Rate [Right Pulse Oximeter] 67 Respiratory Rate 20 20 Blood Pressure Blood Pressure [Left Upper Arm] Blood Pressure [Right Arm] 166/65 H Pulse Oximetry 92 92 Oxygen Delivery Method Room Air Room Air Oxygen Flow Rate 09/13/25 11:00 Temperature 98.2 F Pulse Rate Pulse Rate [Pulse Oximeter] Pulse Rate [Right Pulse Oximeter] 66 Respiratory Rate 16 Blood Pressure Blood Pressure [Left Upper Arm] Blood Pressure [Right Arm] 166/59 H Pulse Oximetry 88 Oxygen Delivery Method Nasal Cannula Oxygen Flow Rate 1 Results Labs Labs: Laboratory Results - last 48 hr 09/12/25 09/12/25 09/12/25 13:43 13:44 13:50 WBC 26.16 H* RBC 5.68 H Hgb 15.1 Hct 46.0 MCV 81 MCH 27 MCHC 33 RDW Coeff of Jaimie 19.7 H Plt Count 244 Neut % (Auto) 68.6 Lymph % (Auto) 2.5 L Rains % (Auto) 22.5 H Eos % (Auto) 0.0 Baso % (Auto) 0.7 Neut # (Auto) 17.90 H Lymph # (Auto) 0.70 L Rains # (Auto) 5.90 H Eos # (Auto) 0.00 Baso # (Auto) 0.20 Abs Immat Gran (auto) 1.50 H Imm/Tot Granulo (auto) 5.7 Diff Slide Review Acceptable Review Sodium 135 Potassium 4.1 Chloride 102 Carbon Dioxide 22 Anion Gap 11 BUN 21 Creatinine 1.2 Estimated Creat Clear Estimated GFR 46 Glucose 144 H Calcium 9.3 Magnesium 1.6 Total Creatine Kinase 136 H Troponin I 0.01 Ethyl Alcohol < 0.01 Lab Acknowledgement Test Added Test Added Blood Type Antibody Screen 09/12/25 09/12/25 09/13/25 16:32 19:32 05:50 WBC 21.24 H RBC 4.68 Hgb 13.3 12.4 Hct 37.0 MCV 79 L MCH 27 MCHC 34 RDW Coeff of Jaimie 18.6 H Plt Count 227 Neut % (Auto) 57.5 Lymph % (Auto) 4.8 L Rains % (Auto) 31.1 H Eos % (Auto) 0.1 Baso % (Auto) 0.5 Neut # (Auto) 12.20 H Lymph # (Auto) 1.00 Rains # (Auto) 6.60 H Eos # (Auto) 0.00 Baso # (Auto) 0.10 Abs Immat Gran (auto) 1.30 H Imm/Tot Granulo (auto) 6.0 Diff Slide Review Acceptable Review Sodium 135 Potassium 3.8 Chloride 105 Carbon Dioxide 24 Anion Gap 6 L BUN 20 Creatinine 1.0 Estimated Creat Clear 36.52 Estimated GFR 57 Glucose 95 Calcium 8.9 Magnesium Total Creatine Kinase Troponin I Ethyl Alcohol Lab Acknowledgement New Spec Needed A Blood Type A Positive Antibody Screen NEGATIVE Diagnostic results Additional Comments: The following images were ordered by different providers from [facility] dated 09/12/2025. These were reviewed by me and corroborated with the radiology report: 1. AP and lateral right femur radiographs. This demonstrates a comminuted right intertrochanteric femur fracture with shortening, external rotation, and varus angulation. Incidentally, incompletely visualized hardware seen about the tibial plateau. 2. AP pelvis and AP right hip again show the comminuted right intertrochanteric femur fracture with numerous vascular clips in the anterior right proximal thigh/lower abdomen. The femur has fallen into varus, externally rotated, and shortened. The hip joint spaces otherwise decently preserved. 3. CT scan left hip reveals curvilinear sclerosis at the femoral neck with slight cortical irregularity that is likely representing a chronic valgus impacted femoral neck fracture. Acute appearing right femoral intertrochanteric fracture with comminution including the lesser trochanter, greater trochanter along with shortening and external rotation. Mild to moderate degenerative change of the left hip and mild degenerative change of the right hip. Multiple surgical clips seen in the right inguinal region. Assessment and Plan Assessment and plan (1) Intertrochanteric fracture of right hip: Problem comment: Acute Status: Acute Total time spent: Total time spent is greater than 50% in coordination of care (as documented) at patient's floor/unit and/or counseling patient: (2) Fracture of femoral neck, left, closed: Problem comment: Radiographically suspected. Clinically with no symptoms or known injury. Possibly old healing fracture. Status: Acute Total time spent: Total time spent is greater than 50% in coordination of care (as documented) at patient's floor/unit and/or counseling patient: (3) Alcohol use disorder: Problem comment: Two whiskey drinks daily. Denies history of withdrawals or seizures Status: Acute Total time spent: Total time spent is greater than 50% in coordination of care (as documented) at patient's floor/unit and/or counseling patient: (4) Peripheral vascular disease: Problem comment: Had angioplasty of left SFA and popliteal artery 03/25/2024 at [place]. Also had partial amputation of left great toe for osteomyelitis March 2024 Status: Acute Total time spent: Total time spent is greater than 50% in coordination of care (as documented) at patient's floor/unit and/or counseling patient: (5) Fall: Problem comment: Patient presents with right hip fracture. She does not recall the circumstances leading up to her hip fracture. Has history of recurrent falls. Uses a 4 wheeled walker at home. Status: Acute Total time spent: Total time spent is greater than 50% in coordination of care (as documented) at patient's floor/unit and/or counseling patient: (6) Leukocytosis: Problem comment: Chronically elevated white blood count. Seen by Dr. Saldana. Peripheral smear shows chronic monocytosis. Has JAK2 mutation. Has declined further evaluation or treatment. 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 Subsequently treated for iron deficiency anemia. Had further evaluation for leukocytosis with concern for possible myeloid neoplasm. Has JAK2 mutation and persistent monocytosis. Patient has declined further evaluation or treatment. Status: Acute Total time spent: Total time spent is greater than 50% in coordination of care (as documented) at patient's floor/unit and/or counseling patient: (8) Iron deficiency anemia: Problem comment: Stool occult +. Fe 35, TIBC 387, % sat 9, ferritin 21.5 Continued on iron supplement Consider outpatient endoscopy to further evaluate Apixaban has been held. Patient has been advised to stop taking naproxen or other NSAIDs until re-evaluated by PCP. Discharged with oral iron supplement. 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 Consider reducing Xarelto dose due to renal impairment. Status: Acute Total time spent: Total time spent is greater than 50% in coordination of care (as documented) at patient's floor/unit and/or counseling patient: (11) COPD (chronic obstructive pulmonary disease): Problem comment: Chronic COPD. Not regularly using inhalers. Has chronic cough and chronic dyspnea. Still smoking Status: Acute Total time spent: Total time spent is greater than 50% in coordination of care (as documented) at patient's floor/unit and/or counseling patient: (12) Tobacco abuse disorder: Problem comment: Recommend cessation Status: Acute Total time spent: Total time spent is greater than 50% in coordination of care (as documented) at patient's floor/unit and/or counseling patient: (13) CHF (congestive heart failure): Problem comment: Echocardiogram from 03/23/2024 shows low-normal left ventricular systolic function with an ejection fraction of 52%. Normal right ventricle size and function, grade 2 left ventricular diastolic dysfunction, no significant valvular disease. Temporarily hold diuretics due to volume loss from hip fracture bleeding. Postoperatively resume as tolerated. Status: Acute Total time spent: Total time spent is greater than 50% in coordination of care (as documented) at patient's floor/unit and/or counseling patient: (14) Cognitive impairment: Problem comment: Patient unable to answer questions about recent events or current medications. Continue to monitor and assess postoperatively. Status: Acute Total time spent: Total time spent is greater than 50% in coordination of care (as documented) at patient's floor/unit and/or counseling patient: (15) Discharge planning issues: Problem comment: Patient will likely need care home facility for rehab postoperatively Status: Acute Total time spent: Total time spent is greater than 50% in coordination of care (as documented) at patient's floor/unit and/or counseling patient: Plan I had a good discussion today with the patient. I communicated that as she previously was an ambulator given her current acute right femoral intertrochanteric fracture I do think surgery is indicated. Surgery be to place an intramedullary nail to stabilize the fracture. We discussed the risks, benefits, his. This includes local risks (e.g. Infection, wound healing issues, malunion, limb length inequality, ongoing pain) as well as systemic risks (e.g. VTE, MT, stroke). He states understanding. She does have numerous medical comorbidities. In communicate with the hospitalist team, it appears that despite her leukocytosis, alcohol and tobacco use, COPD, CHF, AFib with blood thinner, etc. that she is essentially at her baseline state. Therefore, it does seem appropriate to proceed with surgery today for this right femur fracture. Regarding the left femoral neck fracture, believe this is more chronic. It is currently in an appropriate, stable position and and should allow her to continue to be appropriately active. Again, if coordinate care with the hospitalist team as well as anesthesia team addressing this patient's musculoskeletal pathology.
--- NOTE | 2025-09-13 13:01 | CRLHL7_ITS ---
For Patients: As a result of the Cures Act, medical imaging exams and procedure reports are released immediately into your electronic medical record. You may view this report before your referring provider. If you have questions, please contact your health care provider. Indication: INTRA OP RODDING EXAM Technique: Four fluoroscopic images of the right hip. Fluoroscopic time 92.6 seconds. IMPRESSION: Fluoroscopic guidance for open reduction internal fixation of proximal right femoral fracture. Dictated by Ector Frankel MD @ 09/13/2025 3:33:44 PM (Electronically Signed)
--- NOTE | 2025-09-13 13:29 | P.IMPN_ITS ---
Assessment and Plan Assessment and plan (1) Intertrochanteric fracture of right hip: Problem comment: -Acute, s/p suspected ground level fall -to OR on 09/[address] Lebron for repair. Multiple medical comorbidities discussed with anesthesia and surgical teams -PT/OT postoperatively, social security assessor for discharge planning/likely placement needs Status: Acute (2) Fall: Problem comment: -Patient presents with right hip fracture. She does not recall the circumstances leading up to her hip fracture. Has history of recurrent falls. Uses a 4 wheeled walker at home -suspect chronic ETOH use and cognitive impairment (Mini-cog of 3) play significant role Status: Acute (3) Fracture of femoral neck, left, closed: Problem comment: -chronic, not acute -Radiographically suspected. Clinically with no symptoms or known injury. Possibly old healing fracture. Status: Acute (4) Alcohol use disorder: Problem comment: -Two whiskey drinks daily. Denies history of withdrawals or seizures Status: Acute (5) Leukocytosis: Problem comment: Chronically elevated white blood count. Seen by Dr. Saldana. Peripheral smear shows chronic monocytosis. 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 Has declined further evaluation or treatment. Status: Acute (6) Anemia: Problem comment: Chronic. 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 Subsequently treated for iron deficiency anemia. Had further evaluation for leukocytosis with concern for possible myeloid neoplasm. Has JAK2 mutation and persistent monocytosis. Patient has declined further evaluation or treatment. Status: Acute (7) Iron deficiency anemia: Problem comment: -Fe 35, TIBC 387, % sat 9, ferritin 21.5 (April 2025) -Continues on iron supplement -Consider outpatient endoscopy to further evaluate Status: Acute (8) Afib: Problem comment: -Pacemaker for tachybradycardia syndrome implanted in March 2024 - last interrogation 06/23/25 -Has declined Watchmann -On rivaroxaban - holding, last dose likely 09/10 Status: Acute (9) Chronic anticoagulation: Problem comment: -On chronic rivaroxaban for AFib - holding perioperatively, last dose likely 09/10 Status: Acute (10) COPD (chronic obstructive pulmonary disease): Problem comment: -Chronic COPD. Not regularly using inhalers. Has chronic cough and chronic dyspnea. Still smoking Status: Acute (11) Tobacco abuse disorder: Problem comment: -Recommend cessation Status: Acute (12) CHF (congestive heart failure): Problem comment: -Echocardiogram from 03/23/2024 shows low-normal left ventricular systolic function with an ejection fraction of 52%. Normal right ventricle size and function, grade 2 left ventricular diastolic dysfunction, no significant valvular disease. -Temporarily hold diuretics due to volume loss from hip fracture bleeding. Pos toperatively resume as tolerated. Status: Acute (13) Peripheral vascular disease: Problem comment: -Had angioplasty of left SFA and popliteal artery 03/25/2024 at [place]. Also had partial amputation of left great toe for osteomyelitis March 2024 Status: Acute (14) Cognitive impairment: Problem comment: -Patient unable to answer questions about recent events or current medications. Monitor for postoperative delirium -mini cog during Medicare annual wellness exam on 09/25/2024 was 3 Status: Acute (15) Hematemesis: Problem comment: -patient reported single episode of dark vomit prior to admission. No vomiting or stool since. +stool occult was actually 04/2024 (no recent tests that I see in EMR) -hgb 15 on admission, currently 12 iso hip fracture, fluid resuscitation. Discussed with Ortho Surg and Anesthesia -monitor Status: Acute (16) Discharge planning issues: Problem comment: -Patient will likely need senior living facility for rehab postoperatively Status: Acute Plan 79-year-old female with multiple medical problems and comorbidities admitted to the hospital after apparent fall at home sustaining a right intertrochanteric hip fracture. Multiple concerns leading to this hospital stay including possibility of upper GI bleeding with report of black emesis yesterday, pre- existing frailty and falls, possible cognitive impairment at risk for delirium, chronic anticoagulation leading to high risk for blood-loss anemia from fracture, COPD putting her at risk for respiratory complications. She is admitted the hospital for management of these multiple concerns. Discussed with daughter on phone today 09/13/25 Total Time Spent Total Time Spent: Total time spent today is 55 minutes in coordination of care, reviewing outside records, discussion with patient and daughter and other providers ongoing management of multiple above medical problems. Subjective Date Seen: 09/13/25 Interval history: Patient is seen lying in bed this morning. Reports pain is rather minimal currently at rest. Denies headache or dizziness. Denies chest pain or shortness of breath. Currently NPO, waiting surgical repair left hip. Does not recall how she fell. Exam Narrative: Exam Narrative: PHYSICAL EXAM General: Pleasant, conversant, NAD HEENT: Normocephalic, atraumatic, sclera white, EOMI, oral mucosa moist Cardiovascular: IRRR Pulmonary: CTA bilaterally without rhonchi, rales, expiratory wheezes. No dyspnea Abdominal: Soft, nondistended, NTTP Neurological: Alert, answering questions appropriately, cranial nerves intact, no focal findings Extremities: RLE shortened externally rotated. Neurovascularly intact Skin: Warm, dry. Const: Vital Signs, click to edit/add: Vital Signs - 24 hr 09/12/25 14:17 09/12/25 14:22 09/12/25 14:30 Temperature Pulse Rate 91 82 Pulse Rate [Right Pulse Oximeter] Respiratory Rate 20 21 Blood Pressure 149/76 H Blood Pressure [Ri ght Arm] Pulse Oximetry 98 99 95 Oxygen Delivery Me thod Oxygen Flow Rate 09/12/25 14:43 09/12/25 14:45 09/12/25 15:03 Temperature Pulse Rate 81 86 Pulse Rate [Right Pulse Oximeter] Respiratory Rate 13 23 12 Blood Pressure 167/78 H 157/141 H Blood Pressure [Ri ght Arm] Pulse Oximetry 99 99 Oxygen Delivery Me thod Oxygen Flow Rate 09/12/25 15:04 09/12/25 15:15 09/12/25 15:23 Temperature Pulse Rate Pulse Rate [Right Pulse Oximeter] Respiratory Rate 23 14 24 Blood Pressure 186/99 H Blood Pressure [Ri ght Arm] Pulse Oximetry Oxygen Delivery Me thod Oxygen Flow Rate 09/12/25 15:30 09/12/25 15:42 09/12/25 15:45 Temperature Pulse Rate Pulse Rate [Right Pulse Oximeter] Respiratory Rate 21 24 25 H Blood Pressure 137/116 H Blood Pressure [Ri ght Arm] Pulse Oximetry Oxygen Delivery Me thod Oxygen Flow Rate 09/12/25 16:00 09/12/25 16:03 09/12/25 16:44 Temperature Pulse Rate Pulse Rate [Right Pulse Oximeter] Respiratory Rate 23 22 35 H Blood Pressure 161/77 H Blood Pressure [Ri ght Arm] Pulse Oximetry Oxygen Delivery Me thod Oxygen Flow Rate 09/12/25 16:45 09/12/25 17:00 09/12/25 17:03 Temperature Pulse Rate 77 73 81 Pulse Rate [Right Pulse Oximeter] Respiratory Rate 26 H 27 H 25 H Blood Pressure 167/72 H Blood Pressure [Ri ght Arm] Pulse Oximetry 97 96 97 Oxygen Delivery Me thod Room Air Oxygen Flow Rate 09/12/25 17:15 09/12/25 18:59 09/12/25 18:59 Temperature 97.0 F L Pulse Rate 86 Pulse Rate [Right Pulse Oximeter] 65 Respiratory Rate 28 H 20 20 Blood Pressure Blood Pressure [Ri ght Arm] Pulse Oximetry 95 91 91 Oxygen Delivery Me thod Room Air Room Air Oxygen Flow Rate 09/12/25 19:00 09/12/25 23:00 09/12/25 23:00 Temperature 97.4 F L Pulse Rate 71 Pulse Rate [Right Pulse Oximeter] 63 69 Respiratory Rate 20 20 Blood Pressure Blood Pressure [Ri ght Arm] 179/96 H Pulse Oximetry 91 Oxygen Delivery Me thod Room Air Oxygen Flow Rate 09/12/25 23:00 09/13/25 03:00 09/13/25 07:27 Temperature 98.1 F 98.4 F Pulse Rate 60 Pulse Rate [Right Pulse Oximeter] 69 66 Respiratory Rate 20 20 Blood Pressure Blood Pressure [Ri ght Arm] 139/115 H 113/55 L Pulse Oximetry 88 88 Oxygen Delivery Me thod Room Air Room Air Oxygen Flow Rate 09/13/25 08:21 09/13/25 08:24 09/13/25 11:00 Temperature 98.3 F 98.2 F Pulse Rate Pulse Rate [Right Pulse Oximeter] 67 66 Respiratory Rate 20 20 16 Blood Pressure Blood Pressure [Ri ght Arm] 166/65 H 166/59 H Pulse Oximetry 92 92 88 Oxygen Delivery Me thod Room Air Room Air Nasal Cannula Oxygen Flow Rate 1 Labs Labs: Laboratory Results - last 24 hr 09/12/25 09/12/25 09/12/25 13:43 13:44 13:50 WBC 26.16 H* RBC 5.68 H Hgb 15.1 Hct 46.0 MCV 81 MCH 27 MCHC 33 RDW Coeff of Jaimie 19.7 H Plt Count 244 Neut % (Auto) 68.6 Lymph % (Auto) 2.5 L Larue % (Auto) 22.5 H Eos % (Auto) 0.0 Baso % (Auto) 0.7 Neut # (Auto) 17.90 H Lymph # (Auto) 0.70 L Larue # (Auto) 5.90 H Eos # (Auto) 0.00 Baso # (Auto) 0.20 Abs Immat Gran (auto) 1.50 H Imm/Tot Granulo (auto) 5.7 Diff Slide Review Acceptable Review Sodium 135 Potassium 4.1 Chloride 102 Carbon Dioxide 22 Anion Gap 11 BUN 21 Creatinine 1.2 Estimated Creat Clear Estimated GFR 46 Glucose 144 H Calcium 9.3 Magnesium 1.6 Total Creatine Kinase 136 H Troponin I 0.01 Ethyl Alcohol < 0.01 Lab Acknowledgement Test Added Test Added Blood Type Antibody Screen 09/12/25 09/12/25 09/13/25 16:32 19:32 05:50 WBC 21.24 H RBC 4.68 Hgb 13.3 12.4 Hct 37.0 MCV 79 L MCH 27 MCHC 34 RDW Coeff of Jaimie 18.6 H Plt Count 227 Neut % (Auto) 57.5 Lymph % (Auto) 4.8 L Larue % (Auto) 31.1 H Eos % (Auto) 0.1 Baso % (Auto) 0.5 Neut # (Auto) 12.20 H Lymph # (Auto) 1.00 Larue # (Auto) 6.60 H Eos # (Auto) 0.00 Baso # (Auto) 0.10 Abs Immat Gran (auto) 1.30 H Imm/Tot Granulo (auto) 6.0 Diff Slide Review Acceptable Review Sodium 135 Potassium 3.8 Chloride 105 Carbon Dioxide 24 Anion Gap 6 L BUN 20 Creatinine 1.0 Estimated Creat Clear 36.52 Estimated GFR 57 Glucose 95 Calcium 8.9 Magnesium Total Creatine Kinase Troponin I Ethyl Alcohol Lab Acknowledgement New Spec Needed A Blood Type A Positive Antibody Screen NEGATIVE
[2025-09-13] MEDS: TRANEXAMIC ACID 100 MG/ML INJ 1000 MG IV (13:53)
--- NOTE | 2025-09-13 14:10 | SUR.OPER ---
PATIENT QUESTIONS ANSWERED SATISFACTORILY PREOPERATIVELY. PATIENT BROUGHT TO OR #4 PER CART AFTER ADMINISTRATION OF A BLOCK. Patient positioned supine on OR #4 bed. The perioperative team supported arms bilaterally on arm boards. Final approval of positioning by surgeon.
--- NOTE | 2025-09-13 15:21 | P.ANES_ITS ---
Anesthesia Charges Start Date/Time Anesthesia Start Date: 09/13/25 Anesthesia Start Time: 13:37 Stop Date/Time Anesthesia Stop Date: 09/13/25 Anesthesia Stop Time: 15:21 Summary Emergency: DIRECTOR TEEN POST Extremes of Age - Over 70 or under 1: DIRECTOR TEEN POST Coding CPT Codes CPT Codes: ANESTH HIP JOINT SURGERY - 03694 ([id number]) P3 - PATIENT W/SEVERE SYS DISEASE, QZ - DIRECTOR TEEN POST SVC W/O STAVE HEWER BY Additional Codes: Summary - Extremes of Age - Over 70 or under 1: DIRECTOR TEEN POST ([id number]) Summary - Emergency: DIRECTOR TEEN POST ([id number])
--- NOTE | 2025-09-13 15:21 | W.ANESCHARGE ---
Anesthesia Charges Start Date/Time Anesthesia Start Date: 09/13/25 Anesthesia Start Time: 13:37 Stop Date/Time Anesthesia Stop Date: 09/13/25 Anesthesia Stop Time: 15:21 Summary Emergency: PHONE COUNSELOR Extremes of Age - Over 70 or under 1: PHONE COUNSELOR Coding CPT Codes CPT Codes: ANESTH HIP JOINT SURGERY - 62803 ([id number]) P3 - PATIENT W/SEVERE SYS DISEASE, QZ - PHONE COUNSELOR SVC W/O CLOTHING MAN BY Additional Codes: Summary - Extremes of Age - Over 70 or under 1: PHONE COUNSELOR ([id number]) Summary - Emergency: PHONE COUNSELOR ([id number])
[2025-09-13] MEDS: PANTOPRAZOLE SODIUM 40 MG INJ IVP (17:54)
--- NOTE | 2025-09-13 18:12 | PC.NURSE ---
Shift Summary: patient pleasant and cooperative. Back from PACU around 1600. Requiring o2 @ 1-3L/NC when resting. rates pain 3/10, managed with PRN medication and rest. Refusing T&R at this time. Tolerating regular diet. Bp elevated, denied headache, nausea or changes in vision. Has yet to get up and walk with staff. Bladder scanned this morning for >500cc, babcock placed, still patent with clear yellow urine. Encouraged deep breathing and cough. Daughter at bedside. Dressing x2 on right side C/D/I.
[2025-09-13] MEDS: CEFAZOLIN 1 GM in 0.9 % SODIUM CHLORIDE Mini-bag 100 ML IVPB (20:33)
[2025-09-13] MEDS: SENNOSIDES 1 TAB TABLET 2 TAB PO (20:33)
[2025-09-13] MEDS: ROSUVASTATIN CALCIUM 10 MG TABLET 20 MG PO (20:33)
[2025-09-13] MEDS: IPRAT-ALBUT 0.5-2.5 MG/3 ML NEB 1 NEB IH (20:33)
[2025-09-13] MEDS: ACETAMINOPHEN 325 MG TABLET 650 MG PO (21:45)
[2025-09-14] VITALS (10 sets, daily range): BP systolic 123–159; BP diastolic 61–95; PULSE 60–82; RESP 16–18; TEMP 36.6–36.8; O2SAT 88–95
[2025-09-14] MEDS: CEFAZOLIN 1 GM in 0.9 % SODIUM CHLORIDE Mini-bag 100 ML IVPB (03:52)
[2025-09-14] MEDS: ACETAMINOPHEN 325 MG TABLET 650 MG PO (04:35)
[2025-09-14] MEDS: SODIUM CHLORIDE 0.9 % (FLUSH) 10 ML SYRINGE 5 ML IVF ×3 (04:50→18:22)
[2025-09-14 06:18] LABS: Hematocrit* 36.8 % (33.0-51.0); Hemoglobin* 12.3 gm/dL (12.0-16.0); Immature Granulocytes Pct Auto 5.6 %; Mean Corpuscular HGB Conc 33 gm/dL (32-36); Mean Corpuscular Hemoglobin 27 pg (26-34); Mean Corpuscular Volume 80 fL (80-100); RDW Coefficient of Variation % 18.4 % (11.5-15.5); Red Blood Count* 4.62 m/uL (4.00-5.20); White Blood Count* 15.67 K/uL (4.50-11.00)
[2025-09-14 06:20] LABS: Immature Granulocytes Abs Auto 0.90 K/uL (0.00-0.30); Lymphocytes Absolute Auto 0.60 K/uL (0.90-2.90); Slide Review Reflex No
[2025-09-14 06:25] LABS: Chloride* 104 mmol/L (96-114); Sodium* 134 mmol/L (135-149)
[2025-09-14 06:26] LABS: Potassium* 4.1 mmol/L (3.6-5.1)
[2025-09-14 06:28] LABS: Blood Urea Nitrogen* 18 mg/dL (7-30); Creatinine* 0.9 mg/dL (0.5-1.5); Est. Creatinine Clearance* 36.52; Estimated Glomerular Filt Rate 65 ml/min
[2025-09-14 06:29] LABS: Anion Gap 8 mEq/L (7-15); Calcium* 9.0 mg/dL (8.4-10.6); Carbon Dioxide* 22 mmol/L (20-32); Glucose* 133 mg/dL (60-115)
--- NOTE | 2025-09-14 07:33 | PC.NURSE ---
Addendum entered by Judy Villanueva RN 09/14/25 07:34: Pittman catheter removed around 0545. Pt up with 1-2a, tolerated well. Original Note: End of shift: Pt?pleasant, alert and oriented with some confusion.?O2 sats remained 88-92% on room air throughout?the night. Pittman patent and?draining.?Moist coarse intermittent cough?educated and encouraged IS use.?Pain rated minimal throughout shift, managed with PRN?Tylenol.?Pt in bed, appears to be resting, call light within reach, alarms on.?
[2025-09-14] MEDS: AMLODIPINE 5 MG TABLET PO (08:33)
[2025-09-14] MEDS: RIVAROXABAN 10 MG TABLET PO (08:33)
[2025-09-14] MEDS: SENNOSIDES 1 TAB TABLET 2 TAB PO ×2 (08:33→21:24)
[2025-09-14] MEDS: IPRAT-ALBUT 0.5-2.5 MG/3 ML NEB 1 NEB IH ×3 (08:33→17:00)
[2025-09-14] MEDS: FUROSEMIDE 20 MG TABLET PO (10:08)
[2025-09-14] MEDS: FERROUS SULFATE 325 MG TABLET PO (10:08)
[2025-09-14] MEDS: RIVAROXABAN 10 MG TABLET 15 MG PO (10:21)
--- NOTE | 2025-09-14 11:44 | P.IMPN_ITS ---
Assessment and Plan Assessment and plan (1) Intertrochanteric fracture of right hip: Problem comment: -s/p intramedullary nail, Dr. Lebron, 09/13/25 -hemoglobin stable, continue pain management, restarting Xarelto postoperatively -PT/OT, dialysis social worker for discharge planning/likely placement needs Status: Acute (2) Fall: Problem comment: -Patient presents with right hip fracture. She does not recall the circumstances leading up to her hip fracture. Has history of recurrent falls. Uses a 4 wheeled walker at home -suspect chronic ETOH use and cognitive impairment (Mini-cog of 3) play sig nificant role Status: Acute (3) Fracture of femoral neck, left, closed: Problem comment: -chronic, not acute -Radiographically suspected. Clinically with no symptoms or known injury. Possibly old healing fracture. Status: Acute (4) Alcohol use disorder: Problem comment: -Two whiskey drinks daily reported (dtr confirms likely more than this). Denies history of withdrawals or seizures Status: Acute (5) Leukocytosis: Problem comment: Chronically elevated white blood count. Seen by Dr. Saldana. Peripheral smear shows chronic monocytosis. 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 Has declined further evaluation or treatment. Status: Acute (6) Anemia: Problem comment: Chronic. 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 Subsequently treated for iron deficiency anemia. Had further evaluation for leukocytosis with concern for possible myeloid neoplasm. Has JAK2 mutation and persistent monocytosis. Patient has declined further evaluation or treatment. Status: Acute (7) Iron deficiency anemia: Problem comment: -Fe 35, TIBC 387, % sat 9, ferritin 21.5 (April 2025) -Continue on iron supplement -Consider outpatient endoscopy to further evaluate Status: Acute (8) Afib: Problem comment: -Pacemaker for tachybradycardia syndrome implanted in March 2024 - last interrogation 06/23/25 -Has declined Watchmann -resume rivaroxaban, renally dosed, 15 mg daily on 09/14/2025 Status: Acute (9) Chronic anticoagulation: Problem comment: -On chronic rivaroxaban for AFib - holding perioperatively, last dose likely 09/10 -resume rivaroxaban, renally dosed, 15 mg daily on 09/14/2025 Status: Acute (10) COPD (chronic obstructive pulmonary disease): Problem comment: -Chronic COPD. Not regularly using inhalers. Has chronic cough and chronic dyspnea. Still smoking -encourage pulmonary hygiene postoperatively Status: Acute (11) Tobacco abuse disorder: Problem comment: -Recommend cessation -nicotine lozenge ordered Status: Acute (12) CHF (congestive heart failure): Problem comment: -Echocardiogram from 03/23/2024 shows low-normal left ventricular systolic function with an ejection fraction of 52%. Normal right ventricle size and function, grade 2 left ventricular diastolic dysfunction, no significant valvular disease. -Temporarily hold diuretics due to volume loss from hip fracture bleeding - resume once daily furosemide 09/14/2025, holding spironolactone for now Status: Acute (13) Peripheral vascular disease: Problem comment: -Had angioplasty of left SFA and popliteal artery 03/25/2024 at [place]. Also had partial amputation of left great toe for osteomyelitis March 2024 Status: Acute (14) Cognitive impairment: Problem comment: -Patient unable to answer questions about recent events or current medications. Monitor for postoperative delirium -mini cog during Medicare annual wellness exam on 09/25/2024 was 3 Status: Acute (15) Hematemesis: Problem comment: -patient reported single episode of dark vomit prior to admission. No vomiting or stool since. +stool occult was actually 04/2024 (no recent tests that I see in EMR) -hgb 15 on admission, currently 12 iso hip fracture, fluid resuscitation. Discussed with Ortho Surg and Anesthesia -monitor - no further episodes thus far Status: Acute (16) Discharge planning issues: Problem comment: -Patient will likely need intermediate facility for rehab postoperatively, lives alone, frequent falls; patient in agreement Status: Acute Plan 79-year-old female with multiple medical problems and comorbidities admitted to the hospital after apparent fall at home sustaining a right intertrochanteric hip fracture. Multiple concerns leading to this hospital stay including possibility of upper GI bleeding with report of black emesis yesterday, pre- existing frailty and falls, possible cognitive impairment at risk for delirium, chronic anticoagulation leading to high risk for blood-loss anemia from fracture, COPD putting her at risk for respiratory complications. She is admitted the hospital for management of these multiple concerns. Discussed with daughter on phone today 09/13/25 Medically stable for discharge, awaiting placement Total Time Spent Total Time Spent: Total time spent today is 55 minutes in coordination of care, reviewing outside records, discussion with patient and daughter and other providers ongoing management of multiple above medical problems. Subjective Date Seen: 09/14/25 Interval history: Patient is seen this morning, sitting up in a chair. Working on her incentive spirometer. Reports pain is appropriately well managed at this time. Denies headache or dizziness. Denies chest pain or shortness of breath. Tolerating orals without nausea vomiting. Continues to work with therapies, plan for SNF for rehab as she lives alone. Hemoglobin stable, 12.3 WBC trending down Exam Narrative: Exam Narrative: PHYSICAL EXAM General: Pleasant, conversant, NAD HEENT: Normocephalic, atraumatic, sclera white, EOMI, oral mucosa moist Cardiovascular: RRR, S1S2. No pitting edema Pulmonary: CTA bilaterally without rhonchi, rales, expiratory wheezes. No dyspnea on room air Neurological: Alert, answering questions appropriately, cranial nerves intact, no focal findings Extremities: No gross joint deformity or swelling. Postoperative dressing in place, dry. Neurovascularly intact Skin: Warm, dry. Const: Vital Signs, click to edit/add: Vital Signs - 24 hr 09/13/25 15:00 09/13/25 15:00 09/13/25 15:18 Temperature 99.6 F Pulse Rate 64 76 Pulse Rate [Right Pulse Oximeter] Respiratory Rate 14 16 Blood Pressure 169/59 H Blood Pressure [Le ft Arm] Blood Pressure [Ri ght Arm] Pulse Oximetry 92 91 Oxygen Delivery Me thod Nasal Cannula OxyMask Oxygen Flow Rate 2 5 09/13/25 15:25 09/13/25 15:30 09/13/25 15:35 Temperature Pulse Rate 62 79 70 Pulse Rate [Right Pulse Oximeter] Respiratory Rate 18 18 18 Blood Pressure 181/59 H 183/107 H 172/83 H Blood Pressure [Le ft Arm] Blood Pressure [Ri ght Arm] Pulse Oximetry 98 93 92 Oxygen Delivery Me thod Room Air Nasal Cannula Oxygen Flow Rate 3 09/13/25 15:40 09/13/25 15:45 09/13/25 15:50 Temperature 99.4 F Pulse Rate 77 73 76 Pulse Rate [Right Pulse Oximeter] Respiratory Rate 18 18 18 Blood Pressure 170/86 H 167/84 H 179/67 H Blood Pressure [Le ft Arm] Blood Pressure [Ri ght Arm] Pulse Oximetry 92 93 92 Oxygen Delivery Me thod Nasal Cannula Oxygen Flow Rate 3 09/13/25 16:07 09/13/25 16:15 09/13/25 16:30 Temperature 97.3 F L 97.3 F L 97 F L Pulse Rate Pulse Rate [Right Pulse Oximeter] 63 64 67 Respiratory Rate 14 14 14 Blood Pressure Blood Pressure [Le ft Arm] Blood Pressure [Ri ght Arm] 166/59 H 182/68 H 179/63 H Pulse Oximetry 88 92 92 Oxygen Delivery Me thod Nasal Cannula OxyMask OxyMask Oxygen Flow Rate 3 3 3 09/13/25 16:45 09/13/25 17:00 09/13/25 17:30 Temperature 97 F L 97.2 F L 97.6 F Pulse Rate Pulse Rate [Right Pulse Oximeter] 65 65 80 Respiratory Rate 14 14 18 Blood Pressure Blood Pressure [Le ft Arm] Blood Pressure [Ri ght Arm] 183/63 H 178/68 H 180/80 H Pulse Oximetry 89 92 95 Oxygen Delivery Me thod Nasal Cannula Nasal Cannula Nasal Cannula Oxygen Flow Rate 1 2 2 09/13/25 19:30 09/13/25 20:29 09/13/25 21:50 Temperature 97.5 F L 98.2 F 97.6 F Pulse Rate Pulse Rate [Right Pulse Oximeter] 92 84 88 Respiratory Rate 18 18 18 Blood Pressure Blood Pressure [Le ft Arm] Blood Pressure [Ri ght Arm] 159/63 H 159/64 H 151/61 H Pulse Oximetry 90 90 90 Oxygen Delivery Me thod Room Air Room Air Oxygen Flow Rate 09/13/25 22:00 09/13/25 22:50 09/13/25 23:00 Temperature 98.6 F 98.2 F Pulse Rate 63 Pulse Rate [Right Pulse Oximeter] 86 86 Respiratory Rate 18 20 Blood Pressure Blood Pressure [Le ft Arm] Blood Pressure [Ri ght Arm] 153/63 H 149/63 H Pulse Oximetry 88 88 Oxygen Delivery Me thod Room Air Room Air Oxygen Flow Rate 09/13/25 23:00 09/13/25 23:00 09/14/25 03:45 Temperature 97.9 F Pulse Rate Pulse Rate [Right Pulse Oximeter] 86 67 Respiratory Rate 20 18 Blood Pressure Blood Pressure [Le ft Arm] Blood Pressure [Ri ght Arm] 149/72 H Pulse Oximetry 90 88 Oxygen Delivery Me thod Room Air Room Air Oxygen Flow Rate 09/14/25 08:27 09/14/25 08:27 09/14/25 08:27 Temperature 98.2 F Pulse Rate Pulse Rate [Right Pulse Oximeter] 63 63 Respiratory Rate 16 16 16 Blood Pressure Blood Pressure [Le ft Arm] 155/64 H Blood Pressure [Ri ght Arm] Pulse Oximetry 91 91 Oxygen Delivery Me thod Room Air Room Air Oxygen Flow Rate 09/14/25 10:27 09/14/25 11:08 Temperature 98.1 F Pulse Rate 60 Pulse Rate [Right Pulse Oximeter] 60 Respiratory Rate 16 Blood Pressure Blood Pressure [Le ft Arm] Blood Pressure [Ri ght Arm] 155/61 H Pulse Oximetry 91 Oxygen Delivery Me thod Room Air Oxygen Flow Rate Labs Labs: Laboratory Results - last 24 hr 09/14/25 05:40 WBC 15.67 H RBC 4.62 Hgb 12.3 Hct 36.8 MCV 80 MCH 27 MCHC 33 RDW Coeff of Jaimie 18.4 H Plt Count 269 Neut % (Auto) 66.8 Lymph % (Auto) 3.9 L Tyrrell % (Auto) 22.9 H Eos % (Auto) 0.0 Baso % (Auto) 0.8 Neut # (Auto) 10.50 H Lymph # (Auto) 0.60 L Tyrrell # (Auto) 3.60 H Eos # (Auto) 0.00 Baso # (Auto) 0.10 Abs Immat Gran (auto) 0.90 H Imm/Tot Granulo (auto) 5.6 Sodium 134 L Potassium 4.1 Chloride 104 Carbon Dioxide 22 Anion Gap 8 BUN 18 Creatinine 0.9 Estimated Creat Clear 36.52 Estimated GFR 65 Glucose 133 H Calcium 9.0
--- NOTE | 2025-09-14 13:57 | PC.SOCIAL ---
Discharge planning: workers compensation legal secretary met with the pt this morning to discuss short-term rehab placement options, as the pt is being recommended for short-term rehab after her hospital stay. Pt was provided with the list of [facility] for review. Pt stated that she would like this worker to look into options in [place], [place] and then [facility] in [place]. workers compensation legal secretary reached out to [facility] in [place] #[phone] and they have female short-term rehab beds available. workers compensation legal secretary then faxed the pt's referral to [facility] at fax number #[phone]. workers compensation legal secretary also reached out to [facility] in [place] #[phone] and they do not have any female short-term rehab openings for the rest of the week. workers compensation legal secretary also reached out to Josie in Admissions at [facility] and they have female short-term rehab beds available right now. This sr. social media & mobile manager secure emailed the pt's referral to Josie at [facility]. Social work to follow-up as needed.
--- NOTE | 2025-09-14 15:14 | PC.NURSE ---
End of Shift: Patient pleasant and cooperative, oriented to self and place, with confusion at times. Patient vitally stable, lungs clear, BS WNL, IVs SL and intact. Patient rates right hip pain at most 2/10, no pain meds given. Right hip dressings x2 are C/D/I. Patient is 1 assist/walker. Patient has been up to the chair x2 today and urinated 200ml by commode. Patient is tolerating regular diet, eating breakfast and dinner, patient is not much of a water drinker. Patient's tele= paced.
[2025-09-14] MEDS: PANTOPRAZOLE SODIUM 40 MG INJ IVP (17:54)
[2025-09-14] MEDS: ONDANSETRON 2 MG/ML inj 4 MG IVP (18:22)
--- NOTE | 2025-09-14 20:55 | PM.ORPN ---
Subjective Subjective Date Seen: 09/14/25 Principal diagnosis: POD 1 right femur intramedullary nail Interval history: Patient reports doing okay, choosing to use some profanity to describe her condition. No acute events over night. Pain managed with scheduled and PRN medications, ice. DVT prophylaxis: Rivaroxaban, SCDs, walking. Denies fevers, chills, aches, N/V, CP, SOB/VYAS, or lightheadedness. Comments to me that she was kicked out of the place that she was stain. However, states that she has lived with her for 25 years. States that she believes she has been to [facility] before, referring it to that place. Comments that she cannot quite trust her leg when ambulating. At the end of the visit, commented that she was considering pouring a whiskey-coke and that I should get ice pack of her Fridge. Ortho Exam Narrative Exam Narrative: -Patient appears comfortable in bed; no apparent acute distress. No lights are on. -Alert and oriented to self, and events. Confused by place. -Operative hip mildly swollen; soft tissues supple; no obvious erythema. Ecchymosis minimal. Warmth appropriate -Surgical dressings clean, dry, intact; no obvious drainage, no erythematous streaking peripheral to the bandage -Bilateral calves soft and supple; no significant swelling, edema, tenderness, erythema, discoloration, warmth, or palpable cords -2+ DP/PT pulses, intact dermatomes and myotomes distally (5/5 strength). Const Vital Signs, click to edit/add: Vital Signs - 24 hr 09/13/25 21:50 09/13/25 22:00 09/13/25 22:50 Temperature 97.6 F 98.6 F 98.2 F Pulse Rate Pulse Rate [Right Pulse Oximeter] 88 86 86 Respiratory Rate 18 18 20 Blood Pressure [Left Arm] Blood Pressure [Right Arm] 151/61 H 153/63 H 149/63 H Pulse Oximetry 90 88 88 Oxygen Delivery Method Room Air Room Air Room Air 09/13/25 23:00 09/13/25 23:00 09/13/25 23:00 Temperature Pulse Rate 63 Pulse Rate [Right Pulse Oximeter] 86 Respiratory Rate 20 Blood Pressure [Left Arm] Blood Pressure [Right Arm] Pulse Oximetry 90 Oxygen Delivery Method Room Air 09/14/25 03:45 09/14/25 08:27 09/14/25 08:27 Temperature 97.9 F 98.2 F Pulse Rate Pulse Rate [Right Pulse Oximeter] 67 63 63 Respiratory Rate 18 16 16 Blood Pressure [Left Arm] 155/64 H Blood Pressure [Right Arm] 149/72 H Pulse Oximetry 88 91 Oxygen Delivery Method Room Air Room Air 09/14/25 08:27 09/14/25 10:27 09/14/25 11:08 Temperature 98.1 F Pulse Rate 60 Pulse Rate [Right Pulse Oximeter] 60 Respiratory Rate 16 16 Blood Pressure [Left Arm] Blood Pressure [Right Arm] 155/61 H Pulse Oximetry 91 91 Oxygen Delivery Method Room Air Room Air 09/14/25 15:00 09/14/25 15:00 09/14/25 15:07 Temperature 98 F Pulse Rate 71 Pulse Rate [Right Pulse Oximeter] 66 Respiratory Rate 16 16 Blood Pressure [Left Arm] Blood Pressure [Right Arm] 159/64 H Pulse Oximetry 93 93 Oxygen Delivery Method Room Air Room Air 09/14/25 15:15 09/14/25 19:00 Temperature 98 F Pulse Rate Pulse Rate [Right Pulse Oximeter] 66 68 Respiratory Rate 16 18 Blood Pressure [Left Arm] 149/64 H Blood Pressure [Right Arm] Pulse Oximetry 95 Oxygen Delivery Method Room Air Assessment and Plan Assessment and plan (1) Intertrochanteric fracture of right hip: Problem details: -s/p intramedullary nail, Dr. Lebron, 09/13/25 -hemoglobin stable, continue pain management, restarting Xarelto postoperatively -PT/OT, psychiatric social worker for discharge planning/likely placement needs Status: Acute (2) Fall: Problem details: -Patient presents with right hip fracture. She does not recall the circumstances leading up to her hip fracture. Has history of recurrent falls. Uses a 4 wheeled walker at home -suspect chronic ETOH use and cognitive impairment (Mini-cog of 3) play significant role Status: Acute (3) Fracture of femoral neck, left, closed: Problem details: -chronic, not acute -Radiographically suspected. Clinically with no symptoms or known injury. Possibly old healing fracture. Status: Acute (4) Alcohol use disorder: Problem details: -Two whiskey drinks daily reported (dtr confirms likely more than this). Denies history of withdrawals or seizures Status: Acute (5) Leukocytosis: Problem details: Chronically elevated white blood count. Seen by Dr. Saldana. Peripheral smear shows chronic monocytosis. 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 Has declined further evaluation or treatment. Status: Acute (6) Anemia: Problem details: Chronic. 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 Subsequently treated for iron deficiency anemia. Had further evaluation for leukocytosis with concern for possible myeloid neoplasm. Has JAK2 mutation and persistent monocytosis. Patient has declined further evaluation or treatment. 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 Not regularly using inhalers. Has chronic cough and chronic dyspnea. Still smoking -encourage pulmonary hygiene postoperatively Status: Acute (11) Tobacco abuse disorder: Problem details: -Recommend cessation -nicotine lozenge ordered Status: Acute (12) CHF (congestive heart failure): Problem details: -Echocardiogram from 03/23/2024 shows low-normal left ventricular systolic function with an ejection fraction of 52%. Normal right ventricle size and function, grade 2 left ventricular diastolic dysfunction, no significant valvular disease. -Temporarily hold diuretics due to volume loss from hip fracture bleeding - resume once daily furosemide 09/14/2025, holding spironolactone for now Status: Acute (13) Peripheral vascular disease: Problem details: -Had angioplasty of left SFA and popliteal artery 03/25/2024 at [facility]. Also had partial amputation of left great toe for osteomyelitis March 2024 Status: Acute (14) Cognitive impairment: Problem details: -Patient unable to answer questions about recent events or current medications. Monitor for postoperative delirium -mini cog during Medicare annual wellness exam on 09/25/2024 was 3 Status: Acute (15) Hematemesis: Problem details: -patient reported single episode of dark vomit prior to admission. No vomiting or stool since. +stool occult was actually 04/2024 (no recent tests that I see in EMR) -hgb 15 on admission, currently 12 iso hip fracture, fluid resuscitation. Discussed with Ortho Surg and Anesthesia -monitor - no further episodes thus far Status: Acute (16) Discharge planning issues: Problem details: -Patient will need senior living facility for rehab postoperatively, lives alone, frequent falls; patient in agreement Status: Acute (17) Postoperative delirium: Problem details: Noted evening of 09/14/2025 during orthopedic rounding, mild Status: Acute Plan - Complete 23 hour perioperative antibiotics. - PT/OT consult for education and assistance. - Social work consult for discharge planning - will need SNF with [facility] confirmed for 09/15/2025. - Prescribed analgesics as needed - minimize oxycodone use with concerns for postoperative delirium exacerbation - DVT prophylaxis: Rivaroxaban, which was switched to 15 mg once daily for renal dosing per hospitalist recommendation, walking, and SCDs - Anticipation is for discharge to SNF on 09/15/2025, [facility] if the patient remains medically stable, pain is controlled, and they are reasonably safe with mobilization, acknowledging that she will need assistance with ambulation.
[2025-09-14] MEDS: ROSUVASTATIN CALCIUM 10 MG TABLET 20 MG PO (21:24)
[2025-09-14] MEDS: MELATONIN 3 MG TABLET PO (21:24)
[2025-09-15 03:40] VITALS: BP 142/61; PULSE 84; RESP 18; TEMP 36.7; O2SAT 88
[2025-09-15 06:10] LABS: Hematocrit* 32.0 % (33.0-51.0); Hemoglobin* 10.5 gm/dL (12.0-16.0); Immature Granulocytes Pct Auto 7.7 %; Mean Corpuscular HGB Conc 33 gm/dL (32-36); Mean Corpuscular Hemoglobin 26 pg (26-34); Mean Corpuscular Volume 81 fL (80-100); RDW Coefficient of Variation % 18.3 % (11.5-15.5); Red Blood Count* 3.97 m/uL (4.00-5.20); White Blood Count* 15.05 K/uL (4.50-11.00)
[2025-09-15 06:14] LABS: Immature Granulocytes Abs Auto 1.20 K/uL (0.00-0.30); Lymphocytes Absolute Auto 0.50 K/uL (0.90-2.90); Slide Review Reflex No
[2025-09-15 06:22] LABS: Chloride* 104 mmol/L (96-114); Potassium* 3.9 mmol/L (3.6-5.1); Sodium* 134 mmol/L (135-149)
[2025-09-15 06:24] LABS: Blood Urea Nitrogen* 21 mg/dL (7-30); Creatinine* 0.9 mg/dL (0.5-1.5); Est. Creatinine Clearance* 36.89; Estimated Glomerular Filt Rate 65 ml/min
[2025-09-15 06:25] LABS: Anion Gap 5 mEq/L (7-15); Calcium* 8.7 mg/dL (8.4-10.6); Carbon Dioxide* 25 mmol/L (20-32); Glucose* 114 mg/dL (60-115)
--- NOTE | 2025-09-15 06:53 | PC.NURSE ---
End of shift: Pt pleasant,?alert?and oriented with some confusion.?Pt hypertensive,?otherwise,?VSS.?Pt denied pain while resting. 1a when up. Tele reads A-Paced.?Dressings C/D/I. Pt in bed, appears to be resting, call light within reach, alarms on.?
[2025-09-15 08:00] VITALS: BP 141/67; PULSE 74; RESP 18; O2SAT 94
[2025-09-15] MEDS: ACETAMINOPHEN 325 MG TABLET 650 MG PO (08:02)
[2025-09-15 08:15] VITALS: PULSE 84; RESP 18
--- NOTE | 2025-09-15 08:40 | P.DS_ITS ---
DS: Providers Provider Date Seen: 09/15/25 Date of admission: 09/12/25 17:27 Primary care physician: Nancy Rainey MD Admitting Clinician: Bubba Ernst MD Consults: 09/12/25 17:53 Consult to Physician [CONS] Routine Comment: Consulting Provider: Domingo Lebron Has provider been notified: Yes 09/13/25 15:59 Consult to Occupational Therapy [CONS] Routine Comment: Reason(s) for OT Consult:: Evaluate and Treat Any Restrictions?:: See Comment Comment: evaluate and treat Consult to Physical Therapy [CONS] Routine Comment: Reason(s) for PT Consult:: Evaluate and Treat Any Restrictions?:: Wt Bearing as Tolerated 09/14/25 01:30 Consult to Welfare Eligibility Interviewer [CONS] Routine Comment: Reason for Consult:: Discharge Planning Needs Attending Physician on discharge: PARUL Burgos, [facility] Date of Discharge: 09/15/25 DS: Diagnosis Discharge Diagnosis (1) Intertrochanteric fracture of right hip: Status: Acute Problem details: S/p intramedullary nail, Dr. Lebron, 09/13/25. Hemoglobin 10.5 on day of discharge. Repeat in 48 hours. Discharge to [facility] for ongoing postoperative rehab. (2) Fall: Status: Acute Problem details: Patient presented with right hip fracture. She does not recall the circumstances leading up to her hip fracture. Has history of recurrent falls. Uses a 4 wheeled walker at home. Suspect chronic ETOH use and cognitive impairment (Mini-cog of 3) play significant role. Lives alone. (3) Fracture of femoral neck, left, closed: Status: Acute Problem details: Radiographically suspected. Appears chronic, not acute. Clinically with no symptoms or known injury. Possibly old healing fracture. (4) Alcohol use disorder: Status: Acute Problem details: Self reported Two whiskey drinks daily (dtr confirms likely more than this). Denies history of withdrawals or seizures. (5) Leukocytosis: Status: Acute Problem details: Chronically elevated white blood count. Seen by Dr. Saldana. Peripheral smear shows chronic monocytosis. 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 Has declined further evaluation or treatment. (6) Anemia: Status: Acute Problem details: Chronic. 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 Subsequently treated for iron deficiency anemia. Had further evaluation for leukocytosis with concern for possible myeloid neoplasm. Has JAK2 mutation and persistent monocytosis. Patient has declined further evaluation or treatment. (7) Iron deficiency anemia: Status: Acute Problem details: Previous workup includes Fe 35, TIBC 387, % sat 9, ferritin 21.5 (April 2025). Continued on iron supplement. Consider outpatient endoscopy to further evaluate (8) Afib: Status: Acute Problem details: -Pacemaker for tachybradycardia syndrome implanted in March 2024 - last interrogation 06/23/25 -Has declined Watchmann Rresume rivaroxaban, renally dosed, 15 mg daily on 09/14/2025. (9) Chronic anticoagulation: Status: Acute Problem details: Rivaroxaban adjusted to 15 mg daily for renal dosing (10) COPD (chronic obstructive pulmonary disease): Status: Acute Problem details: Chronic COPD. Not regularly using inhalers. Has chronic cough and chronic dyspnea. Still smoking without interest in quitting. (11) Tobacco abuse disorder: Status: Acute Problem details: Recommend cessation. Nicotine lozenge ordered on discharge. (12) CHF (congestive heart failure): Status: Acute Problem details: -Echocardiogram from 03/23/2024 shows low-normal left ventricular systolic function with an ejection fraction of 52%. Normal right ventricle size and function, grade 2 left ventricular diastolic dysfunction, no significant valvular disease. Resume furosemide and spironolactone on discharge. (13) Peripheral vascular disease: Status: Acute Problem details: -Had angioplasty of left SFA and popliteal artery 03/25/2024 at [place]. Also had partial amputation of left great toe for osteomyelitis March 2024 (14) Cognitive impairment: Status: Acute Problem details: Mini cog during Medicare annual wellness exam on 09/25/2024 was 3. Consider further outpatient neuro cognitive assessment following discharge from SNF. (15) Hematemesis: Status: Resolved Problem details: -patient reported single episode of dark vomit prior to admission. No vomiting or stool since. +stool occult was actually 04/2024 (no recent tests that I see in EMR) -hgb 15 on admission, currently 12 iso hip fracture, fluid resuscitation. Discussed with Ortho Surg and Anesthesia -monitor - no further episodes thus far Single episode reported prior to admission, no further episodes prior to discharge. Discharged on omeprazole. Outpatient follow-up with PCP if recurs. (16) Discharge planning issues: Status: Resolved Problem details: -Patient will need [facility] facility for [facility] postoperatively, lives [place], frequent falls; patient in agreement DS: Summary Hospital Course Hospital Course: Course of care and details as noted above. Admitted with acute right hip fracture following suspected mechanical ground level fall. Surgically repaired. Discharged to SNF for postoperative rehab. Hemoglobin 10.5 on discharge. Recheck in 48 hours. Remainder of chronic medical comorbidities were monitored and managed with home medications. Status at Discharge Cognitive/behavioral status at discharge: Stable Functional status at discharge: uses cane/walker Overall status at discharge: patient is not back to baseline Time Spent with Patient Time attestation: Total time spent providing and/or coordinating discharge services: Time spent: Greater than 30 minutes Exam Narrative: Exam Narrative: PHYSICAL EXAM General: Pleasant, conversant, NAD Cardiovascular: RRR Pulmonary: No dyspnea Neurological: Alert, answering questions appropriately currently Skin: Warm, dry. Const: Vital Signs, click to edit/add: Vital Signs - 24 hr 09/14/25 10:27 09/14/25 11:08 09/14/25 15:00 Temperature 98.1 F Pulse Rate 60 71 Pulse Rate [Right Pulse Oximeter] 60 Respiratory Rate 16 Blood Pressure [Le ft Arm] Blood Pressure [Ri ght Arm] 155/61 H Pulse Oximetry 91 Oxygen Delivery Me thod Room Air 09/14/25 15:00 09/14/25 15:07 09/14/25 15:15 Temperature 98 F Pulse Rate Pulse Rate [Right Pulse Oximeter] 66 66 Respiratory Rate 16 16 16 Blood Pressure [Le ft Arm] Blood Pressure [Ri ght Arm] 159/64 H Pulse Oximetry 93 93 Oxygen Delivery Me thod Room Air Room Air 09/14/25 19:00 09/14/25 23:00 09/14/25 23:00 Temperature 98 F Pulse Rate 60 Pulse Rate [Right Pulse Oximeter] 68 Respiratory Rate 18 18 Blood Pressure [Le ft Arm] 149/64 H Blood Pressure [Ri ght Arm] Pulse Oximetry 95 91 Oxygen Delivery Me thod Room Air Room Air 09/14/25 23:00 09/14/25 23:40 09/15/25 03:40 Temperature 97.9 F 98.1 F Pulse Rate Pulse Rate [Right Pulse Oximeter] 82 82 84 Respiratory Rate 16 16 18 Blood Pressure [Le ft Arm] 123/95 H 142/61 H Blood Pressure [Ri ght Arm] Pulse Oximetry 90 88 Oxygen Delivery Me thod Room Air Room Air DS: Data Data Completed and Pending Completed studies during hospitalization: Procedures Introduction of Other Gas into Respiratory Tract, Via Natural or Artificial Opening (01/01/24) Labs on day of discharge: Labs from last 24 hours 09/15/25 05:44 WBC 15.05 H RBC 3.97 L Hgb 10.5 L Hct 32.0 L MCV 81 MCH 26 MCHC 33 RDW Coeff of Jaimie 18.3 H Plt Count 243 Neut % (Auto) 61.5 Lymph % (Auto) 3.3 L Towns % (Auto) 26.7 H Eos % (Auto) 0.1 Baso % (Auto) 0.7 Neut # (Auto) 9.30 H Lymph # (Auto) 0.50 L Towns # (Auto) 4.00 H Eos # (Auto) 0.00 Baso # (Auto) 0.10 Abs Immat Gran (auto) 1.20 H Imm/Tot Granulo (auto) 7.7 Sodium 134 L Potassium 3.9 Chloride 104 Carbon Dioxide 25 Anion Gap 5 L BUN 21 Creatinine 0.9 Estimated Creat Clear 36.89 Estimated GFR 65 Glucose 114 Calcium 8[address]: Attestation: I have reviewed the pertinent imaging results. Radiologist's impression: Diffuse osseous demineralization. Acute comminuted moderately displaced fracture of the right femur involving the greater tuberosity, lesser tuberosity, and intertrochanteric region. There is curvilinear sclerosis at the left femoral neck and slight cortical irregularity (04/06). There is gwzc-[id number] degenerative change of the left hip. There is mild degenerative change of the right hip. There is mild degenerative change of the pubic symphysis and sacroiliac joints. There is partially imaged degenerative change in the lumbosacral spine. Asymmetric enlargement of the right piriformis muscle and right anterior/adductor compartment of the thigh musculature most suggestive of underlying intramuscular hematomas (49). 2.8 centimeter fluid collection at the right inguinal region with adjacent surgical clips presumably representing either a seroma or lymphocele (). There is severe atherosclerotic vascular calcifications. Multifibroid uterus. IMPRESSION: 1. Curvilinear sclerosis at the left femoral neck with slight cortical irregularity possibly representing a minimally displaced fracture and/or degenerative change. Recommend noncontrast MRI of the hip to further assess. 2. Acute comminuted moderately displaced fracture of the right femur involving the greater tuberosity, lesser tuberosity, and intertrochanteric region. 3. Asymmetric enlargement of the right piriformis muscle and right anterior/adductor compartment of the thigh musculature most suggestive of underlying intramuscular hematomas. 4. Bgvp-hq-qzsxubyf degenerative change of the left hip. Mild degenerative change of the right hip. 5. Right inguinal 2.8 centimeter fluid collection with adjacent surgical clips presumably representing either a seroma or lymphocele. Correlate with clinical history. C-spine CT: Attestation: I have reviewed the pertinent imaging results. Radiologist's impression: Fractures and other acute findings: None. Hardware: None. Spinal alignment: Trace anterolisthesis at C3-4. Significant cervical spondylosis: Moderate disc degeneration C5-6. Multilevel uncovertebral and facet arthrosis with moderate neural foraminal stenosis C3-4 on the right, and low-grade elsewhere. Paraspinal soft tissues and imaged lungs: Thyroid gland atrophy. Mild emphysematous changes within the lung apices. IMPRESSION: 1. No acute fracture or traumatic malalignment of the cervical spine. Head CT: Attestation: I have reviewed the pertinent imaging results. Radiologist's impression: No acute intracranial hemorrhage. No mass effect or midline shift. No hydrocephalus or extra-axial collections. Scattered white matter hypoattenuation, typical for chronic microvascular ischemic change. Mild generalized parenchymal volume loss. Intracranial vascular calcifications. No acute osseous abnormalities. Mild mucosal thickening left maxillary sinus alveolar recess. Normal soft tissues. IMPRESSION: IMPRESSION: 1. No acute intracranial abnormalities. Discharge Plan Discharge Disposition: [facility] Discharge Location: [facility] Date of Admission: 09/12/25 17:27 Attending Provider on Discharge: Brynn Currie Consulting Providers: Domingo Lebron Primary Care Provider: Nancy Rainey Condition: Improved Anticipated Discharge Date/Time: 09/15/25 08:27 Discharge Medications: New oxycodone 5 mg tablet 2.5 - 5 mg PO Q4-6H MDD 6 PRN (Reason: pain) Qty: 30 0RF Rx Instructions: Take as needed for postop pain: 2.5mg mild pain, 5mg moderate-severe pain; wean as tolerated. rivaroxaban 10 mg tablet 15 mg PO DAILY Qty: 30 0RF Rx Instructions: Medication for deep vein clot prevention post surgery and for clot prevention due to Afib. sennosides-docusate sodium [Senna-S] 8.6-50 mg tablet 1 - 4 tab-cap PO BID PRN (Reason: constipation) Qty: 60 0RF Rx Instructions: Hold medication if experiencing loose stools. omeprazole 20 mg capsule,delayed release(DR/EC) 20 mg PO DAILY Qty: 30 0RF nicotine (polacrilex) 2 mg lozenge 2 mg buccal Q6H PRN (Reason: nicotine cravings) Qty: 72 0RF Continued Breo Ellipta 50-25 mcg/dose blister with device 1 inh inhalation DAILY Qty: 60 0RF amlodipine 5 mg tablet 5 mg PO DAILY spironolactone 25 mg tablet 25 mg PO DAILY acetaminophen 325 mg tablet 650 mg PO Q4H PRN ferrous sulfate [FeroSul] 325 mg (65 mg iron) tablet 325 mg PO DAILY Centrum Silver 0.4 mg-300 mcg- 250 mcg tablet 1 tab PO DAILY polyethylene glycol 3350 [ClearLax] 17 gram/dose powder 17 g PO DAILY rosuvastatin 20 mg tablet 20 mg PO HS furosemide 20 mg tablet 20 mg PO DAILY Discontinued Xarelto 20 mg tablet 20 mg PO QPM Discharge Orders: Discharge Order (Routine); Ordered 09/15/25 Ordered By: Brynn Currie Consulting provider completed their portion of the discharge: Yes Additional Instructions: Xarelto dose has been reduced to 15mg for renal dosing. Continue on this for afib post operatively. Omeprazole once daily has been added. Continue inhalers and use incentive spirometry every hour while awake. Activity Level: Activity as Tolerated, Weight Bearing as Tolerated and Use Walker Activity Detail: Wound: ? Do not remove original dressing; we will remove this at first postop visit. Only remove dressing if integrity is in question. If not following up in Orthopedic Clinic within 10 days from surgery, okay to remove dressings. ? No immersing wounds in water; showering okay; light scrub with your hand and body soap, rinse, dab dry ? Sutures are under the skin, will dissolve; do not scrub the wound or apply ointments/lotions ? Call our office with any redness that streaks, excessive drainage from the wound, or wound gapping. Ice/Elevate: ? Ice as needed for swelling and discomfort; elevate extremity frequently above the heart. Motion/Exercise: ? Weight bear as tolerated operative extremity (walker/cane for ambulation assistance as needed) ? Per PT/OT. ? Straight leg raises daily: 1-2 sets of 10 reps Pain Medications: ? Oral narcotic as prescribed. Wean as tolerated. Additional acetaminophen as needed. Blood Clot Prevention (DVT): ? Medication: Continue Xarelto prescription at 15 mg once daily. Xarelto was a daily medicine for the patient at 20 mg. Dose changed from 20 mg to 15 mg for renal dosing per recommendation by hospitalist. Driving: ? Do not drive while taking narcotic pain medication ? Anticipate 4-6 weeks no driving if operative leg is driving leg Dental: ? No elective dental work for 3 months post-op. If there is an urgent/emergent dental need, contact our office for an antibiotic prescription. Smoking/Alcohol: ? Do not smoke; do no drink alcohol especially when taking postoperative oral narcotic medication Seek Care from you Primary Care Provider if you experience the following issues in the postoperative phase and beyond: ? Bacterial infections such as: pneumonia, bacterial skin infection (cellulitis), UTI, high fever, chills unrelated to the operative body part - call your primary care physician urgently for treatment in hopes to protect your health and the metal implant. Referrals: ? PT, OT per patient preference - evaluate & treat total hip arthroplasty protocol, anterior approach (gait training, ROM, ADLs) Vaccines: ? No vaccines until 4-6 weeks postop Followup: ? With ANA CRISTINA in 10-14 days, or once discharged from SNF ? With orthopedic surgeon at 6 weeks postop. If there are any acute concerns regarding your surgery, please call our orthopedic clinic ([phone]) Discharge Diet: Regular Follow Up Appointments: Nancy Rainey MD [Primary Care Provider, Family Practice] Walker Rubio PA-C [Physician [employer]el[employer] Reporter, Orthopedics] Forms: MyHealth Info Instructions Wound Care: Ensure bandages are adhered well prior to bathing. Admit to: SNF Discharge Potential: Good Length of Stay: <30 days Can use facility standing orders?: Yes Code Status: DNR TEDs: N/A Rehab Potential: Fair Therapy: Physical Therapy and Occupational Therapy Therapy Orders: Evaluate and Treat Oxygen: No Urinary Catheter: No Lab Orders: Recheck hemoglobin 09/17/2025 Orders are good >30 days: No Signature: PARUL Burgos PA-C
[2025-09-15 08:45] VITALS: PULSE 90
[2025-09-15] MEDS: FUROSEMIDE 20 MG TABLET PO (09:30)
[2025-09-15] MEDS: RIVAROXABAN 10 MG TABLET 15 MG PO (09:30)
[2025-09-15] MEDS: AMLODIPINE 5 MG TABLET PO (09:30)
[2025-09-15] MEDS: SENNOSIDES 1 TAB TABLET 2 TAB PO (09:30)
[2025-09-15] MEDS: FERROUS SULFATE 325 MG TABLET PO (09:30)
[2025-09-15] MEDS: IPRAT-ALBUT 0.5-2.5 MG/3 ML NEB 1 NEB IH (09:31)
--- NOTE | 2025-09-15 11:03 | PC.SOCIAL ---
Addendum entered by TATIANA Anderson 09/15/25 13:10: Discharge planning: Pt was provided with a copy of The Important Message from Medicare form before discharge and had no concerns with her discharge plan to short-term rehab at [facility]. Social work to follow-up as needed. Original Note: Discharge planning: Pt will discharge to [facility] for short-term rehab today at 11am with her daughter, Muriel, to transport her. Discharge orders have been sent securely via email and fax to Josie in Admissions at [facility]. Pre-admission screening was also completed and sent to Josie at [facility] via secure email. [id number]. Social work to follow-up as needed.
--- NOTE | 2025-09-15 11:29 | PC.NURSE ---
Nursing Care Hours: [id number] Pt this shift calm and cooperative, alert and oriented. Pain tolerated with PO options. Walking Ax1 with walker and gait belt to bathroom. Dressings CDI. IV to wrist pulled out, cath intact, forearm removed at discharge. Nurse to nurse given to [facility] via phone. Assisted pt to vehicle with adult daughter. Pt left in stable condition.
--- NOTE | 2025-09-20 09:47 | PM.ORPRC ---
Procedure Note Date of procedure: 09/13/2025 Procedure: PREOPERATIVE DIAGNOSES: 1. Right femur intertrochanteric fracture, closed, acute POSTOPERATIVE DIAGNOSES: 1. Right femur intertrochanteric fracture, closed, acute NAME OF OPERATION: 1. Right femur intertrochanteric fracture fixation with intramedullary nail 2. Intraoperative fluoroscopy interpreted] by Domingo Lebron M.D. for intraoperative evaluation of fracture reduction and implant positioning. Fluoroscopy time was 92.6 seconds. SURGEON: Domingo Lebron MD [employer] TE[employer]ER: RADHA Peters. Of note, an retail event assistant was critical for this case to aide in patient positioning, extremity positioning, tissue retraction, instrument manipulation, and closure. ANESTHESIA: GETA IMPLANTS: Synthes long TFN 11 mm x 380 mm with 100 mm lag screw and 1 distal 5.0 mm interlocking screws EBL: 100 ml COMPLICATIONS: None evident INDICATIONS: The patient is a pleasant, 79yo Female who unfortunately sustained a recent fall. They landed on their right hip and were unable to bear weight. They experienced significant pain which prompted a visit to [facility]. X-rays were obtained and revealed a proximal femur fracture consistent with a pertrochanteric (i.e. intertrochanteric / subtrochanteric) femur fracture. Given these findings, along with the desire to help with pain control and improved mobility / mobilization, surgery was recommended. FINDINGS: Intertrochanteric right femur fracture with displacement, shortening, and varus angulation. PROCEDURE: Following a thorough discussion of risks, benefits, and alternatives, consent was obtained and the right hip was marked. After obtaining proper medical evaluation determining the patient was optimized prior to surgery, they were brought to the operating room and placed supine on the operating table. Induction of anesthesia undertaken. 1 g IV Ancef was administered within 1 hr of incision preoperatively. Proper time-out was performed identifying proper patient, site, and procedure. The operative extremity was prepped & draped in the appropriate sterile fashion using ChloraPrep after the patient was positioned on the Hunter table with the head in neutral alignment all bone prominences well padded. C-arm fluoroscopic imaging was utilized to obtain AP and lateral views of the operative hip. This indeed confirm proper reduction of the proximal femur fracture. 10 blade skin incision was made proximal to the greater trochanteric tip. Sharp incision through skin and gluteal fascia allowed palpation of the greater trochanteric tip. A sharp awl was utilized and placed against the greater trochanteric tip. This was confirmed on C-arm and both in AP and lateral planes to be in appropriate starting position. Aiming down the canal. Once breaching the cortex, the ball-tip guidewire was passed the length of the femur. Once confirming via palpable scrape and visual C-Arm imagining that the guide wire with intraosseous, the depth gauge was used. The proper nail length was selected. The opening / proximal reamer was used followed by diaphyseal reamers up to 12.5mm. The IMN was then opened and inserted and passed the length of the canal without difficulty. The triple trocar was then applied to the lateral femur, 10 blade incision through the skin and ITB band along the trocars allowed them to be advanced to the lateral cortex. This was confirmed fluoroscopically to be in appropriate position. The guide pin was then placed and confirmed on AP and lateral views with the goal of center center position. The length was measured as noted above and the reamer used followed by screw application. Reduction of the fracture was monitored during insertion. The proximal nail locking screw was tightened down, and left static as the fracture pattern was felt to be unstable. Of note, a bone hook was needed to help with reduction during the reaming and nail passage portions as well as during lag screw drilling and placement. At this stage, C-arm confirmed proper screw/leg screw position. We then turned our attention to the distal interlocking screws. Perfect tule river technique was utilized, and the 10 blade skin incision allowed the drill bit to be placed, and confirmed on C-arm fluoroscopic imaging to be within the oblong hole. This was measured and the screw placed with good security of the screw. Again C-arm images were obtained to confirm position within the nail and the nail to be within the bone. At this stage, the wounds were thoroughly irrigated normal saline; closure was performed with #0 Vicryl for the deep gluteal fascia, and IT band. 2-0 Vicryl and 4-0 Monocryl was utilized for subcutaneous and subcuticular closure, respectively. The patient was awoken from anesthesia and transferred to the PACU in stable condition. PLAN: 1. Weight bear as tolerated left lower extremity. 2. Encouraged ice. 3. Oxycodone for pain as needed. 4. Anticipate the need for long-term facility transfer once medically stabilized 5. 23 hr perioperative antibiotics. 6. Xarelto (or equivalent) for DVT prophylaxis along with Mick martin and Karen.
== END 2025-09-15 11:05 | DRG 481 ==
LOC: ED 13:51 → MEDSURG 17:28
PROVIDERS: Orthopaedic Surgery Sports Medicine; Admitting Provider Family Medicine; Emergency Provider Family Medicine; PCP Student in an Organized Health Care Education/Training Program; Visit Provider Family Medicine
PROC: 0QS606Z Reposition Right Upper Femur with Intramedullary Internal Fixation Device, Open Approach (ICD-10-PCS; CPT 27245; principal; 2025-09-13 13:00)
DX: S72.141A Displaced intertrochanteric fracture of right femur, initial encounter for closed fracture (principal); F05 Delirium due to known physiological condition; K92.0 Hematemesis; I50.30 Unspecified diastolic (congestive) heart failure; W19.XXXA Unspecified fall, initial encounter; D72.821 Monocytosis (symptomatic); D50.9 Iron deficiency anemia, unspecified; J44.9 Chronic obstructive pulmonary disease, unspecified; I48.91 Unspecified atrial fibrillation; Z79.01 Long term (current) use of anticoagulants; G31.84 Mild cognitive impairment of uncertain or unknown etiology; I73.9 Peripheral vascular disease, unspecified; S72.002D Fracture of unspecified part of neck of left femur, subsequent encounter for closed fracture with routine healing; I25.10 Atherosclerotic heart disease of native coronary artery without angina pectoris; F10.90 Alcohol use, unspecified, uncomplicated; F17.210 Nicotine dependence, cigarettes, uncomplicated; Z95.0 Presence of cardiac pacemaker
CPT/HCPCS: 01210; 36415; 51701; 70450; 71045; 72125; 73502; 73552; 73700; 80048; 82077; 82270; 82550; 83735; 84484; 85018; 85025; 86850; 86900; 86901; 93005; 96374; 97110; 97116; 97162; 97165; 97530; 99100; 99140; 99285; A9270; C1713; J0690; J1100; J1171; J2270; J2405; J2470; J2704; J3010; J3490; J7030; J7120